=== PATIENT | female | born 1960 | race Caucasian/White ===

== ENCOUNTER 2019-10-28 12:15 | Outpatient (RCR) | payer MEDICARE, MEDICAID, SELFPAY ==
--- NOTE | 2019-10-14 10:50 | ONC CON_ITS ---
Dr. Hill New Patient Note Patient: Remedios Cary Unit #: [id number]: 1960 Dicatated By: Puneet Hill M.D.Date of Visit: Oct 11, 2019 Onc MED New Patient/Consult Referring Physician: Kami Castillo Chief Complaint: Breast cancer. History of Present Illness: This is a 58 year-old woman who is currently undergoing adjuvant chemotherapy for grade 3 infiltrating ductal carcinoma of the right breast, stage IA, ER/ CA negative and HER-2/jennifer positive. She has previously had treatment for HER-2/jennifer positive left breast cancer, and she is known to harbor a BRCA2 mutation. 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 She underwent left mastectomy/axillary lymph node samplingand breast reconstruction on 08/10/2010. Her disease was stage IIA (T2, N0, M0) with pathology showing 2.5 cm primary tumor and no involvement of 4 lymph nodes. She was given adjuvant chemotherapy with TCH, completed in December 2010. She completed a full year of Herceptin, and she also was given adjuvant hormonal therapy for a total of 8 years, initially with tamoxifen but with transition to Femara as of September 2014. On 04/08/2019 she was confirmed by needle biopsy to have grade 3 invasive ductal carcinoma of the right breast. The best prognostic profile showed ER and CA negative, both 0%. HER-2/jennifer was 2+ by IHC but positive by FISH with 10.9 HER-2/jennifer signals per cell and 2.2 CEP17 signals per cell. The Ki-67 was unfavorable at 35%. She underwent right total mastectomy with axillary sentinel lymph node biopsy and with immediate reconstruction on 06/12/2019. Pathology showed grade 3 invasive ductal carcinoma measuring 1.8 x 1.6 x 1.2 cm. There was no involvement in 2 sentinel lymph nodes. In the meantime, she also had undergone BRCA testing and she was confirmed to harbor a BRCA2 mutation. Her staging PET/CT on 07/17/2019 showed no evidence for active malignancy. Her echocardiogram showed normal left ventricular systolic function with ejection fraction estimated at 60-65%. She has been undergoing adjuvant chemotherapy with TCH, cycle 1 beginning 07/24/2019. During her treatment, she required removal of the tissue nib finisher in the right chest due to cellulitis. With her 4th cycle of chemotherapy, on 09/23/2019, she experienced an anaphylactic reaction to the carboplatin. She was rechallenged one week later with similar results. As yet she has not received any further chemotherapy. She asked to be seen here because she is unsure if she wants to continue any further chemotherapy. She has been advised to complete 2 more cycles of treatment with Taxotere/Herceptin. She complains that her energy is very low. She is really tired, and she says that all she wants to do is sleep. She is having to use a walker to ambulate. Her ECOG score is 2. Her appetite is terrible, but her weight is stable. She was having fever, but that has resolved. She has episodes of sweating both during the daytime and at night. She had sore mouth, that is getting better. She has shortness of breath. She is on BiPAP for obstructive sleep apnea. She does not complain of cough. She has been having sharp, tightening pain in her chest when she is to active. She has had nausea with the chemotherapy. Her acid reflux is adequately managed with medication. She has been having diarrhea for the past week, up to 5-6 stools per day. She thinks it is starting to get better now. Her urine is dark, but not bloody. She has joint pain, especially in her left wrist and knees. She also has back pain. She has weakness in her legs, and she has numbness/tingling in her feet. The numbness has been getting worse compared to her baseline, as she has had some residual neuropathy following her initial course of TCH chemotherapy. Past Medical History: Her medical history includes depression, gastroesophageal reflux disease, hypertension,and obstructive sleep apnea. She also has neuropathy secondary to chemotherapy, and she has osteopenia with dexa scan in March 2018 showing T score -1.8 in the lumbar spine and -1.9 in the left femoral neck. Past Surgical History: She underwent needle biopsy of the right breast on 04/08/2019 and right total mastectomy with axillary sentinel lymph node biopsy and with immediate reconstruction on 06/12/2019. She underwent removal of right chest wall tissue nib finisher on 08/21/2019. She underwent left total mastectomy with axillary lymph node sampling and with breast reconstruction in August 2010. Her other surgeries include ORIF for left wrist fracture in 2017 and a previous tubal ligation. Medications: Albuterol Sulfate 1 ((2.5 mg/3ml) 0.083%) Nebulization solution Inhalation q 6 hours PRN, Alendronate Sodium 1 Tablet (of 70 mg) Oral daily, Allopurinol 1 Tablet (of 300 mg) Oral daily, Benadryl Allergy 1 Tablet (of 25 mg) Capsule Oral PRN, Calcium + D 1 Tablet Oral daily, Claritin 1 Capsule (of 10 mg) Oral daily, Dexamethasone (4 mg) Tablet Oral Take as Directed, DULoxetine HCl 1 Capsule (of 30 mg) Capsule Delayed Release Particles Oral b.i.d., Gabapentin 1 Tablet (of 800 mg) Oral t.i.d., hydrOXYzine HCl 1 Tablet (of 25 mg) Oral t.i.d. PRN, Lidocaine-rulox waldryl 5 mL Solution Topical four times a day, Methocarbamol 1 Tablet (of 500 mg) Oral q 8 hours PRN, Multivitamins 1 Tablet Tablet, chewable Oral daily, Nystatin 5 mL (of 943949 Units/mL) Suspension Mouth/throat four times a day, Omeprazole 1 Capsule (of 40 mg) Capsule Delayed Release Oral daily, Ondansetron HCl 1 Tablet (of 8 mg) Oral q 8 hours PRN, Prochlorperazine Maleate 1 Tablet (of 10 mg) Oral q 6 hours PRN, Zonisamide 1 Capsule (of 100 mg) Oral at bedtime Allergies: CARBOplatin, Ibuprofen, and Penicillins. Social History: Ms. Cary is single and she is a disabled. She has a history of smoking up to 3 packs of cigarettes daily for about 15 years, but she then quit for a period of at least 15 years or more. She then smoked again for about a year, 1/2 pack per day. She quit 8 months ago. She does not drink alcohol. Family History: Father with colon cancer at age 47. Mother is still living at age 74. She has dementia. A brother with alcohol related heart disease. Another brother has known coronary artery disease. A sister in a motor vehicle accident. Her maternal grandmother with cancer, apparently of unknown primary site. Review Of Symptoms: Constitutional - Her energy is very low. She complains that she is really tired and that all she wants to do is sleep. Her appetite is terrible, but her weight is stable. She was having fever, but that has resolved. She has sweating both during the daytime and at night. ECOG score is 2, Eyes - She complains that her vision is blurry, ENMT - No hearing loss or tinnitus. She has sinus congestion/drainage. Her mouth was sore, but it is getting better. No sore throat or difficulty swallowing, Hematologic/Lymphatic - No abnormal bruising or bleeding, Respiratory - She has shortness of breath. She is on BiPAP at home. She does not plane of cough. No pleuritic pain or hemoptysis, Cardiovascular - She has sharp, tightening pain in her chest when she is to active. No palpitations, Gastrointestinal - She has nausea with the chemotherapy. Her acid reflux is managed adequately. She has been having diarrhea. No blood in the stool or black stools, Genitourinary (F) - Her urine has been dark, but not bloody. No dysuria and no urinary frequency. No urgency or incontinence, Musculoskeletal - She has joint pain, especially in the left wrisit and knees. She also has back pain, Integumentary - No skin rash, Neurologic - No headache. She has dizziness. She has numbness/tingling in her feet, Psychiatric - She has anxiety and depression. She is having difficulty sleeping at night. Vital Signs: Performed on Oct 11, 2019 08:46: 3, 40.16 (HIGH), 2.19 sq.m, 66.00 in, 99 %, 82 /min, 22 /min, 137/84 mm(hg), 97.3 F (LOW), and 248.8 lbs (HIGH). Physical Examination: Constitutional - She appears generally weak, but not acutely ill, Eyes - Sclerae nonicteric. Conjunctivae clear, ENMT - No lesions noted in the oral cavity, Neck - No mass or thyromegaly, Hematologic/Lymphatic - No cervical or clavicular adenopathy, Respiratory - Lungs are clear with good air movement bilaterally, Cardiovascular - Heart rhythm is regular. There is no murmur, gallop, or rub noted, Breasts - The right chest wall shows a small open area in the medial aspect of the mastectomy incision. It otherwise appears well-healed. There are no chest wall lesions noted and there appears to be no evidence of cellulitis. There are no lesions noted in the left chest wall/reconstruction. There is no axillary adenopathy noted, Abdomen - Soft. Liver and spleen are not enlarged. There is no abdominal mass or ascites noted and there is no inguinal adenopathy, Back/Spine - No spine or CVA tenderness noted, Extremities - No edema. Pedal pulses are palpable bilaterally, Integumentary - No rashes. No suspicious skin lesions noted, Neurologic - No focal neurologic deficits noted. Impression: 1. Patient with grade 3 invasive ductal carcinoma of the right breast, stage IA ( T1c, N0, M0), ER/CA negative and HER-2/jennifer positive. 2. She underwent right total mastectomy with axillary sentinel lymph node biopsy and with immediate reconstruction on 06/12/2019. 3. She has been undergoing adjuvant chemotherapy with TCH. She has completed 3 1/2 cycles, having experienced an anaphylactic reaction to carboplatin with cycle 4 on 09/23/2019. 4. She had the right chest wall tissue nib finisher removed 08/21/2019 due to cellulitis. She still has a small open area in the medial aspect of the right mastectomy incision. 5. In August 2010 she underwent left mastectomy/axillary lymph node sampling for grade 3 invasive ductal carcinoma of the left breast, stage IIA (T2, N0, M0), ER/CA positive and HER-2/jennifer positive. She received adjuvant chemotherapy with TCH and adjuvant hormonal therapy. 6. She was found to harbor a BRCA2 mutation. Her other medical illnesses include: 7. Hypertension. 8. GERD. 9. Obstructive sleep apnea. 10. Osteopenia. 11. Anxiety/depression. Plan: I had a lengthy discussion with the patient regarding her further management. She has completed 31/2 cycles of adjuvant TCH. Her 4th cycle was interrupted due to an an anaphylactic reaction to carboplatin. In addition to that issue, she also appears to be having significant neuropathy associated with the chemotherapy, and she has very marginal performance status. We discussed the fact that ideally she should receive 2 more cycles of chemotherapy, as there is significant risk for this form of breast cancer to recur. However, if she is not showing some improvement in her symptoms, I personally would be reluctant to take the risk of worsening her neuropathy with additional chemotherapy, as it potentially can be permanent. Ultimately, they are agreeable to taking one more week off treatment, and if her symptoms are improving, she will then proceed with her 5th cycle of chemotherapy, limited to Taxotere and Herceptin. If symptoms aren't improving, she will then just continue treatment with Herceptin alone. Signed By: Puneet Hill M.D. <<Signature on File>>
[2019-10-21 09:41] LABS: Hemoglobin 12.4 g/dL (11.5-15.3); Lymphocytes # 1.4 10^3/uL (0.8-4.8); Lymphocytes % 15.1 %; Mean Corpuscular HGB Conc 33.5 g/dL (30.0-36.0); Mean Corpuscular Hemoglobin 32.4 pg (28.0-34.0); Mean Corpuscular Volume 96.6 fL (81-99); Mean Platelet Volume 10.7 fL (7.4-10.4); Monocytes # 0.3 10^3/uL (0.2-0.9); Monocytes % 3.2 %; Neutrophils # 7.5 10^3/uL (1.8-7.7); Neutrophils % 81.3 %; Nucleated Red Blood Cells % 0 %; Platelet Count 300 10^3/cmm (130-400); Red Blood Count 3.83 10^6/uL (4.1-5.3); Red Cell Distribution Width 15.9 % (12.1-15.1); White Blood Count 9.3 10^3/uL (4.0-10.0)
[2019-10-21 09:49] LABS: Alanine Aminotransferase 15 U/L (0-33); Albumin Level 4.3 g/dL (3.5-5.2); Alkaline Phosphatase 86 IU/L (35-105); Anion Gap 18.6 (5-19); Aspartate Amino Transferase 17 U/L (0-32); Blood Urea Nitrogen 14 mg/dL (6-20); Calcium 9.4 mg/Dl (8.6-10.0); Carbon Dioxide 20 mmol/L (22-29); Chloride 104 mmol/L (98-107); Globulin 2.9 g/dL (1.3-4.6); Glomerular Filtration Rate 74.2 mL/min (90-130); Glucose 241 mg/dL (74-109); Potassium 3.6 mmol/L (3.5-5.1); Sodium 139 mmol/L (136-145); Total Bilirubin 0.3 mg/dL (0.15-1.2); Total Protein 7.2 g/dL (6.6-8.7)
[2019-10-21] MEDS: acetaminophen 325 mg Tablet 650 MG PO (10:25)
[2019-10-21] MEDS: sodium chloride 0.9% 250 ML IV (10:33)
[2019-10-21] MEDS: pegfilgrastim 6 mg/0.6 mL Kit (onpro) SUBCUT (15:47)
[2019-10-28 15:38] LABS: Basophils # 0.1 10^3/uL (0.0-0.1); Basophils % 0.7 %; Eosinophils # 0.2 10^3/uL (0.0-0.8); Eosinophils % 3.4 %; Hematocrit 37.2 % (37.0-47.0); Hemoglobin 12.2 g/dL (11.5-15.3); Lymphocytes # 2.3 10^3/uL (0.8-4.8); Lymphocytes % 32.8 %; Mean Corpuscular HGB Conc 32.8 g/dL (30.0-36.0); Mean Corpuscular Hemoglobin 32.8 pg (28.0-34.0); Mean Platelet Volume 11.6 fL (7.4-10.4); Monocytes # 0.7 10^3/uL (0.2-0.9); Monocytes % 10.2 %; Neutrophils # 3.6 10^3/uL (1.8-7.7); Neutrophils % 51.9 %; Nucleated Red Blood Cells % 0 %; Platelet Count 212 10^3/cmm (130-400); Red Blood Count 3.72 10^6/uL (4.1-5.3); Red Cell Distribution Width 14.7 % (12.1-15.1); White Blood Count 6.9 10^3/uL (4.0-10.0)
== END 2019-11-01 23:59 | disposition home or self-care (01) ==
LOC: ONCMED 12:15
PROVIDERS: Family Provider Nurse Practitioner Family; PCP Nurse Practitioner Family; Referring Provider Nurse Practitioner Family; Visit Provider Internal Medicine Medical Oncology
DX: Z51.11 Encounter for antineoplastic chemotherapy (principal); C50.511 Malignant neoplasm of lower-outer quadrant of right female breast; D70.1 Agranulocytosis secondary to cancer chemotherapy; T45.1X5A Adverse effect of antineoplastic and immunosuppressive drugs, initial encounter; T88.6XXD Anaphylactic reaction due to adverse effect of correct drug or medicament properly administered, subsequent encounter; T45.1X5D Adverse effect of antineoplastic and immunosuppressive drugs, subsequent encounter; Y84.8 Other medical procedures as the cause of abnormal reaction of the patient, or of later complication, without mention of misadventure at the time of the procedure; Y80.1 Therapeutic (nonsurgical) and rehabilitative physical medicine devices associated with adverse incidents; G47.33 Obstructive sleep apnea (adult) (pediatric); G62.0 Drug-induced polyneuropathy; F41.8 Other specified anxiety disorders; K21.9 Gastro-esophageal reflux disease without esophagitis; I10 Essential (primary) hypertension; M85.80 Other specified disorders of bone density and structure, unspecified site; Z17.1 Estrogen receptor negative status [ER-]; Z87.891 Personal history of nicotine dependence; Z85.3 Personal history of malignant neoplasm of breast; Z90.13 Acquired absence of bilateral breasts and nipples; Z92.23 Personal history of estrogen therapy
CPT/HCPCS: 80053; 85025; 96367; 96372; 96413; 96415; 96417; 99205; J1100; J1200; J1453; J2469; J2505; J3490; J7030; J7050; J9267

== ENCOUNTER 2019-11-11 05:38 | Outpatient (RCR) | payer MEDICARE, MEDICAID, SELFPAY ==
[2019-11-04 14:54] LABS: Basophils # 0.1 10^3/uL (0.0-0.1); Basophils % 1.6 %; Eosinophils # 0.1 10^3/uL (0.0-0.8); Eosinophils % 1.3 %; Hematocrit 38.4 % (37.0-47.0); Hemoglobin 12.5 g/dL (11.5-15.3); Lymphocytes # 1.5 10^3/uL (0.8-4.8); Lymphocytes % 33.1 %; Mean Corpuscular HGB Conc 32.6 g/dL (30.0-36.0); Mean Corpuscular Hemoglobin 32.4 pg (28.0-34.0); Mean Corpuscular Volume 99.5 fL (81-99); Mean Platelet Volume 11.4 fL (7.4-10.4); Monocytes # 0.4 10^3/uL (0.2-0.9); Monocytes % 8.1 %; Neutrophils # 2.5 10^3/uL (1.8-7.7); Neutrophils % 55.2 %; Nucleated Red Blood Cells % 0 %; Platelet Count 166 10^3/cmm (130-400); Red Blood Count 3.86 10^6/uL (4.1-5.3); Red Cell Distribution Width 14.3 % (12.1-15.1); White Blood Count 4.5 10^3/uL (4.0-10.0)
[2019-11-04 15:13] LABS: Alanine Aminotransferase 30 U/L (0-33); Albumin Level 3.5 g/dL (3.5-5.2); Alkaline Phosphatase 84 IU/L (35-105); Anion Gap 15.7 (5-19); Aspartate Amino Transferase 25 U/L (0-32); Blood Urea Nitrogen 11 mg/dL (6-20); Calcium 9.6 mg/dL (8.5-10.5); Carbon Dioxide 21 mmol/L (22-29); Chloride 107 mmol/L (98-107); Globulin 2.5 g/dL (1.3-4.6); Glomerular Filtration Rate 57.4 mL/min (90-130); Glucose 230 mg/dL (74-109); Potassium 3.7 mmol/L (3.5-5.1); Sodium 140 mmol/L (136-145); Total Bilirubin 0.3 mg/dL (0.15-1.2)
[2019-11-11] MEDS: alteplase 1 mg/mL SDV 2 mL 2 MG IV (09:38)
[2019-11-11 10:23] LABS: Basophils % 0.1 %; Hematocrit 36.8 % (37.0-47.0); Hemoglobin 12.6 g/dL (11.5-15.3); Lymphocytes # 1.6 10^3/uL (0.8-4.8); Lymphocytes % 14.2 %; Mean Corpuscular HGB Conc 34.2 g/dL (30.0-36.0); Mean Corpuscular Hemoglobin 32.6 pg (28.0-34.0); Mean Corpuscular Volume 95.1 fL (81-99); Mean Platelet Volume 10.9 fL (7.4-10.4); Monocytes # 0.3 10^3/uL (0.2-0.9); Monocytes % 2.4 %; Neutrophils % 82.3 %; Nucleated Red Blood Cells % 0 %; Platelet Count 267 10^3/cmm (130-400); Red Blood Count 3.87 10^6/uL (4.1-5.3); Red Cell Distribution Width 13.6 % (12.1-15.1)
[2019-11-11 10:46] LABS: Alanine Aminotransferase 48 U/L (0-33); Albumin Level 3.8 g/dL (3.5-5.2); Alkaline Phosphatase 87 IU/L (35-105); Aspartate Amino Transferase 38 U/L (0-32); Blood Urea Nitrogen 15 mg/dL (6-20); Calcium 9.5 mg/dL (8.5-10.5); Carbon Dioxide 19 mmol/L (22-29); Chloride 100 mmol/L (98-107); Globulin 2.5 g/dL (1.3-4.6); Glomerular Filtration Rate 64.8 mL/min (90-130); Glucose 345 mg/dL (65-115); Sodium 137 mmol/L (136-145); Total Bilirubin 0.2 mg/dL (0.15-1.2); Total Protein 6.3 g/dL (6.6-8.7)
[2019-11-11] MEDS: acetaminophen 325 mg Tablet 650 MG PO (11:50)
[2019-11-11] MEDS: diphenhydrAMINE 25 mg Capsule PO (11:50)
[2019-11-11] MEDS: sodium chloride 0.9% 250 ML IV (12:02)
--- NOTE | 2019-11-12 09:33 | ONC FU_ITS ---
[facility] Patient Note Patient: Remedios Cary Unit #: [id number]: 1960 Dictated By: Kami RichardsonDate of Visit: Nov 11, 2019 Onc MED Follow-Up/Prog Note Chief Complaint: Breast cancer. 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 She has previously had treatment for HER-2/jennifer positive left breast cancer, and she is known to harbor a BRCA2 mutation. 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 She underwent left mastectomy/axillary lymph node sampling and breast reconstruction on 08/10/2010. Her disease was stage IIA (T2, N0, M0) with pathology showing 2.5 cm primary tumor and no involvement of 4 lymph nodes. She was given adjuvant chemotherapy with TCH, completed in December 2010. She completed a full year of Herceptin, and she also was given adjuvant hormonal therapy for a total of 8 years, initially with tamoxifen but with transition to Femara as of September 2014. On 04/08/2019 she was confirmed by needle biopsy to have grade 3 invasive ductal carcinoma of the right breast. The best prognostic profile showed ER and MA negative, both 0%. HER-2/jennifer was 2+ by IHC but positive by FISH with 10.9 HER-2/jennifer signals per cell and 2.2 CEP17 signals per cell. The Ki-67 was unfavorable at 35%. She underwent right total mastectomy with axillary sentinel lymph node biopsy and with immediate reconstruction on 06/12/2019. Pathology showed grade 3 invasive ductal carcinoma measuring 1.8 x 1.6 x 1.2 cm. There was no involvement in 2 sentinel lymph nodes. In the meantime, she also had undergone BRCA testing and she was confirmed to harbor a BRCA2 mutation. Her staging PET/CT on 07/17/2019 showed no evidence for active malignancy. Her echocardiogram showed normal left ventricular systolic function with ejection fraction estimated at 60-65%. She has been undergoing adjuvant chemotherapy with TCH, cycle 1 beginning 07/24/2019. 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 With her 4th cycle of chemotherapy, on 09/23/2019, she experienced an anaphylactic reaction to the carboplatin. She was rechallenged one week later with similar results. As yet she has not received any further chemotherapy. She is here today for consideration of 2 more cycles of treatment with Taxotere and Herceptin. She was delayed last week due to persistent neuropathy in marginal performance status. She states overall her energy is better but the neuropathy seems to be even slightly worse. She states it is no better at all. She is able to walk somewhat better but is still using the walker for reassurance. Her sleeping is better. She states that she is up more during the day. She denies any further chest pain. She has had no nausea this week. She denies any heartburn. She states the diarrhea has also resolved and her urine has cleared up. She states the neuropathy is slightly worse in her hands and feet. She denies any further weakness in her legs. She denies any fever or chills. She has had no evidence of recurrent cellulitis in the chest wall. She does have a open area on the incision line on the right breast that is not currently draining. She states once in a while it will drain a little clearish fluid but has not been super active. Her white count is elevated at 11 today but she did receive Neulasta on October 21 and has no obvious signs of infection at this time. Her ECOG is 1 today. Past Medical History: Depression Gastroesophageal reflux disease History of left breast cancer Hypertension Neuropathy secondary to chemotherapy Obstructive sleep apnea Osteopenia Postmenopausal Past Surgical History: Tubal ligation Removal of right chest wall tissue classifying machine operator in 2019 Right total mastectomy/axillary sentinel lymph node biopsy and immediate reconstruction in 2019 Needle biopsy of the right breast in 2019 ORIF for left wrist fracture in 2018 Left total mastectomy/axillary lymph node sampling and breast reconstruction in 2009 Allergies: CARBOplatin, Ibuprofen, and Penicillins. Medications: Albuterol Sulfate 1 ((2.5 mg/3ml) 0.083%) Nebulization solution Inhalation q 6 hours PRN Alendronate Sodium 1 Tablet (of 70 mg) Oral daily Allopurinol 1 Tablet (of 300 mg) Oral daily Benadryl Allergy 1 Tablet (of 25 mg) Capsule Oral PRN Calcium + D 1 Tablet Oral daily Claritin 1 Capsule (of 10 mg) Oral daily Dexamethasone (4 mg) Tablet Oral Take as Directed DULoxetine HCl 1 Capsule (of 30 mg) Capsule Delayed Release Particles Oral b.i.d. Gabapentin 1 Tablet (of 800 mg) Oral t.i.d. hydrOXYzine HCl 1 Tablet (of 25 mg) Oral t.i.d. PRN Lidocaine-rulox waldryl 5 mL Solution Topical four times a day Magic Mouthwash 1 tablespoonful(s) Suspension four times a day PRN Methocarbamol 1 Tablet (of 500 mg) Oral q 8 hours PRN Multivitamins 1 Tablet Tablet, chewable Oral daily Nystatin 5 mL (of 906264 Units/mL) Suspension Mouth/throat four times a day Omeprazole 1 Capsule (of 40 mg) Capsule Delayed Release Oral daily Ondansetron HCl 1 Tablet (of 8 mg) Oral q 8 hours PRN Prochlorperazine Maleate 1 Tablet (of 10 mg) Oral q 6 hours PRN Zonisamide 1 Capsule (of 100 mg) Oral at bedtime Family History: Ms. Cary's mother is alive: dementia. Ms. Cary's father at age 47: colon cancer. Father with colon cancer at age 47. Mother is still living at age 74. She has dementia. A brother with alcohol related heart disease. Another brother has known coronary artery disease. A sister in a motor vehicle accident. Her maternal grandmother with cancer, apparently of unknown primary site. Social History: Ms. Cary is single and she is a disabled. Ms. Cary quit smoking less than one year ago but had smoked for 15 years. She is a former drinker. Ms. Cary reports the following support systems: lives with spouse, significant other, family, or friends, lives in own house, supportive family/friends willing to assist with needs, and adequate transportation available for expected visits. Her diet consists of regular meals. She indicates her activity level as: sedentary. She has a history of smoking up to 3 packs of cigarettes daily for about 15 years, but she then quit for a period of at least 15 years or more. She then smoked again for about a year, 1/2 pack per day. She quit 8 months ago. She does not drink alcohol. Review Of Symptoms: Constitutional Denies fevers, chills, night sweats, excessive fatigue or weight loss. Allergic/Immunologic No reactions. Eyes Denies significant visual changes. No diplopia. No amaurosis. ENMT Denies changes in hearing, sore throat, mouth sores, difficulty or changes in swallowing ability, and/or sinus drainage. Endocrine No diabetes, thyroid disease or hormone replacement. Denies hot flashes or night sweats. Hematologic/Lymphatic Denies easy bruising or bleeding. The patient denies any tender or palpable lymph nodes. Breasts has a small opening on the right chest wall from incision. It is not actively draining at this time. It is not warm or red. She states she has some swelling around the incision as well . Respiratory Denies dyspnea on exertion, chest pain, cough or hemoptysis. Denies orthopnea. Cardiovascular Denies anginal chest pain, palpitations or orthopnea. Gastrointestinal Denies nausea, vomiting, diarrhea, GI bleeding, or constipation. Denies change in bowel habits and/or stool color, no heartburn or early satiety. Genitourinary (F) No hematuria, hesitancy, incontinence, vaginal bleeding, discharge or other problems with urination. Musculoskeletal Denies joint pain, swelling or redness. No decreased range of motion. Integumentary Denies chronic rashes, inflammation, ulcerations or skin changes. Neurologic Denies headache, blurred vision, and no areas of focal weakness or numbness. Normal gait. No sensory problems. Psychiatric Denies insomnia, depression, jennifer or mood swings. Vital Signs: Performed on Nov 11, 2019 10:32 Height - 66.00 in Weight - 248.8 lbs BSA - 2.19 sq.m BMI - 40.16 (HIGH) Temperature - 98.2 F (LOW) Pulse - 106 /min (HIGH) Respiration - 20 /min BP - 130/84 mm(hg) O2 Sat - 93 % (LOW) Pain - 6,1 - No physically strenuous activity, but ambulatory and able to carry out light or sedentary work (e.g. office work, light house work). (ECOG) Physical Examination: Constitutional Alert, oriented, no acute distress. Skin pink, warm and dry. Alopecia. Head Normocephalic; atraumatic. Eyes Conjunctivae and sclerae are clear and without icterus. Pupils are reactive and equal. Neck Supple without masses or thyromegaly. No jugular venous distension. Hematologic/Lymphatic No petechiae or purpura. No tender or palpable lymph nodes in the cervical or supraclavicular areas. Respiratory Lungs are clear to auscultation without rhonchi or wheezing. Cardiovascular Regular rate and rhythm of heart without murmurs,clicks, gallops or rubs. Breasts Right chest wall has a 4 mm opening that is not actively draining. The incision itself is not red or warm. There is mild seroma noted along the incision toward the chest center and also in the right axillary area. There is no appearance or signs of infection at this time. Abdomen Non-tender, non-distended, no masses or ascites. Good bowel sounds noted in all quads. No guarding or rebound tenderness. No pulsatile masses. Back/Spine Non-tender to palpation. Extremities No visible deformities, no cyanosis, clubbing or edema. Musculoskeletal No tenderness or swelling, normal range of motion without obvious weakness. Integumentary No rashes or lesions. Neurologic No sensory or motor deficits, normal cerebellar function, normal gait. Psychiatric Alert and oriented times three. Coherent speech. Verbalizes understanding of our discussions today. Laboratory:Test performed on Nov 11, 2019 10:00 Sodium 137 mmol/L Potassium 4.0 mmol/L Chloride 100 mmol/L CO2 19 mmol/L Anion Gap 22.0 BUN 15 mg/dL Creatinine 0.9 mg/dL Cr Clearance (Est) 124.3500 mL/min eGFR 64.8 mL/min Glucose 345 mg/dL Calcium 9.5 mg/dL Protein, Total 6.3 g/dL Albumin 3.8 g/dL Globulin 2.5 g/dL Bilirubin, Total 0.2 mg/dL ALT (SGPT) 48 U/L AST (SGOT) 38 U/L Alkaline Phosphatase 87 IU/L WBC 11.0 10 3/uL RBC 3.87 10 6/uL HGB 12.6 g/dL HCT 36.8 % MCV 95.1 fL MCH 32.6 pg MCHC 34.2 g/dL RDW 13.6 % Platelet Count 267 10 3/cmm MPV 10.9 fL Neutrophils 9.0 10 3/uL Lymphocytes 1.6 10 3/uL Monocytes 0.3 10 3/uL Eosinophils 0.0 10 3/uL Basophils 0.0 10 3/uL Neutrophil % 82.3 % Lymphocyte % 14.2 % Monocyte % 2.4 % Eosinophil % 0.0 % Basophils % 0.1 % Impression: 1. Patient with grade 3 invasive ductal carcinoma of the right breast, stage IA ( T1c, N0, M0), ER/MA negative and HER-2/jennifer positive. 2. She underwent right total mastectomy with axillary sentinel lymph node biopsy and with immediate reconstruction on 06/12/2019. 3. She has been undergoing adjuvant chemotherapy with TCH. She has completed 3 1/2 cycles, having experienced an anaphylactic reaction to carboplatin with cycle 4 on 09/23/2019. 4. She had the right chest wall tissue classifying machine operator removed 08/21/2019 due to cellulitis. She still has a small open area in the medial aspect of the right mastectomy incision. 5. In August 2010 she underwent left mastectomy/axillary lymph node sampling for grade 3 invasive ductal carcinoma of the left breast, stage IIA (T2, N0, M0), ER/MA positive and HER-2/jennifer positive. She received adjuvant chemotherapy with TCH and adjuvant hormonal therapy. 6. She was found to harbor a BRCA2 mutation. Her other medical illnesses include: 7. Hypertension. 8. GERD. 9. Obstructive sleep apnea. 10. Osteopenia. 11. Anxiety/depression. Dr Hill had a lengthy discussion with the patient regarding her further management. She has completed 31/2 cycles of adjuvant TCH. Her 4th cycle was interrupted due to an an anaphylactic reaction to carboplatin. In addition to that issue, she also appeared to be having significant neuropathy associated with the chemotherapy, and she has very marginal performance status. He discussed the fact that ideally she should receive 2 more cycles of chemotherapy, as there is significant risk for this form of breast cancer to recur. However, if she is not showing some improvement in her symptoms, Dr Hill would be reluctant to take the risk of worsening her neuropathy with additional chemotherapy, as it potentially can be permanent. She was given an additional week off for recovery. Unfortunately her neuropathy have not improved. She is agreeable to pursue just single agent Herceptin at this time. Plan: 1. Proceed with Herceptin but increase from weekly dose to 3 week dosing. 2. Premed as per standard with Herceptin and prn for nausea. 3. Today's labs were reviewed in detail and discussed with Ms. Cary and her family. A copy was given to her. WBC was 11 hemoglobin 12.6 platelets 267,000 ANC is 9000 random glucose is 345 from steroid premeds this morning. Creatinine 0.9 LFTs show slight increase with ALT at 48 and AST at 38. Alk phos is normal at 87 albumin is normal at 3.8 and total bilirubin is 0.2. 4. We will look into the possibility of adding Perjeta for the remainder of Herceptin plan of care. She is early stage breast cancer at stage IA. She also has a prior history of stage IIa breast cancer in the LEFT breast for which she is had a left mastectomy/axillary node sampling. (She did receive adjuvant chemotherapy with THC and hormonal therapy at that time). She also does have BRCA2 mutation. She is considered high risk for recurrence and would benefit from the addition of the Perjeta. It would be weekly for the remainder of the Herceptin. The Herceptin is planned to be for a total of a year. She begin treatment with THC on 07/24/2019. She also be considered high risk as she was unable to complete all of the recommended chemotherapy with the right breast cancer due to anaphylaxis and severe peripheral neuropathy. 5. As her labs are normal today I have not ordered interim labs because she is not getting the chemotherapy. 6. We will plan to see her back in 3 weeks with CBC CMP and follow-up for consideration of Herceptin and hopefully added Perjeta at that time. 7. Mrs. Cary was instructed to contact us in the interim should questions or problems arise. Signed By: Kami Richardson-, [facility] Punete Hill MD <<Signature on File>>
== END 2019-11-30 23:59 | disposition home or self-care (01) ==
LOC: ONCMED 05:38
PROVIDERS: Internal Medicine Medical Oncology; Family Provider Nurse Practitioner Family; PCP Nurse Practitioner Family; Referring Provider Nurse Practitioner Family; Visit Provider Nurse Practitioner
DX: Z51.12 Encounter for antineoplastic immunotherapy (principal); C50.511 Malignant neoplasm of lower-outer quadrant of right female breast; T82.594A Other mechanical complication of infusion catheter, initial encounter; Y80.1 Therapeutic (nonsurgical) and rehabilitative physical medicine devices associated with adverse incidents; K21.9 Gastro-esophageal reflux disease without esophagitis; G47.33 Obstructive sleep apnea (adult) (pediatric); M85.80 Other specified disorders of bone density and structure, unspecified site; Z90.13 Acquired absence of bilateral breasts and nipples; F10.21 Alcohol dependence, in remission; I10 Essential (primary) hypertension; F41.8 Other specified anxiety disorders; Z85.3 Personal history of malignant neoplasm of breast; Z78.0 Asymptomatic menopausal state; Z79.899 Other long term (current) drug therapy; Z87.891 Personal history of nicotine dependence; Z92.21 Personal history of antineoplastic chemotherapy
CPT/HCPCS: 36593; 80053; 85025; 96375; 96413; 99214; J2997; J7050; J9355

== ENCOUNTER → 2019-11-28 10:20 | Outpatient (BNVA) | payer MEDICARE, MEDICAID, SELFPAY | PROVIDERS: Family Provider Nurse Practitioner Family; PCP Nurse Practitioner Family; Visit Provider Anesthesiology | DX: M99.83 Other biomechanical lesions of lumbar region (principal); M51.27 Other intervertebral disc displacement, lumbosacral region; M47.27 Other spondylosis with radiculopathy, lumbosacral region; Z79.891 Long term (current) use of opiate analgesic | CPT/HCPCS: 99214 ==

== ENCOUNTER 2019-12-23 05:43 | Outpatient (RCR) | payer MEDICARE, MEDICAID, SELFPAY ==
[2019-12-02 09:16] LABS: Basophils % 0.5 %; Eosinophils % 0.2 %; Hematocrit 37.2 % (37.0-47.0); Hemoglobin 12.6 g/dL (11.5-15.3); Lymphocytes # 2.1 10^3/uL (0.8-4.8); Lymphocytes % 36.1 %; Mean Corpuscular HGB Conc 33.9 g/dL (30.0-36.0); Mean Corpuscular Hemoglobin 30.4 pg (28.0-34.0); Mean Corpuscular Volume 89.6 fL (81-99); Mean Platelet Volume 10.5 fL (7.4-10.4); Monocytes # 0.5 10^3/uL (0.2-0.9); Neutrophils # 3.2 10^3/uL (1.8-7.7); Neutrophils % 54.9 %; Nucleated Red Blood Cells % 0 %; Platelet Count 289 10^3/cmm (130-400); Red Blood Count 4.15 10^6/uL (4.1-5.3); Red Cell Distribution Width 12.7 % (12.1-15.1); White Blood Count 5.7 10^3/uL (4.0-10.0)
[2019-12-02 09:43] LABS: Alanine Aminotransferase 25 U/L (0-33); Albumin Level 3.8 g/dL (3.5-5.2); Alkaline Phosphatase 76 IU/L (35-105); Anion Gap 13.5 (5-19); Aspartate Amino Transferase 25 U/L (0-32); Blood Urea Nitrogen 11 mg/dL (6-20); Calcium 9.2 mg/dL (8.5-10.5); Carbon Dioxide 22 mmol/L (22-29); Chloride 106 mmol/L (98-107); Globulin 3.1 g/dL (1.3-4.6); Glomerular Filtration Rate 64.8 mL/min (90-130); Glucose 210 mg/dL (65-115); Potassium 3.5 mmol/L (3.5-5.1); Sodium 138 mmol/L (136-145); Total Bilirubin 0.2 mg/dL (0.15-1.2); Total Protein 6.9 g/dL (6.6-8.7)
[2019-12-02] MEDS: sodium chloride 0.9% 250 ML 75 ML IV (10:40)
[2019-12-02] MEDS: acetaminophen 325 mg Tablet 650 MG PO (10:40)
--- NOTE | 2019-12-03 08:31 | ONC FU_ITS ---
Dr. Hill Patient Follow-Up Note Patient: Remedios Cary Unit #: [id number]: 1960 Dicatated By: Puneet Hill M.D.Date of Visit:Dec 02, 2019 Onc Med Follow-up/Prog Note Chief Complaint: Breast cancer. History of Present Illness: This is a 58 year-old woman who is currently undergoing adjuvant chemotherapy for grade 3 infiltrating ductal carcinoma of the right breast, stage IA, ER/ ME negative and HER-2/jennifer positive. She has previously had treatment for HER-2/jennifer positive left breast cancer, and she is known to harbor a BRCA2 mutation. In July 2010 she was diagnosed with grade 3 invasive ductal carcinoma of the left breast, ER/ME positive and HER-2/jennifer positive. She underwent left mastectomy/axillary lymph node samplingand breast reconstruction on 08/10/2010. Her disease was stage IIA (T2, N0, M0) with pathology showing 2.5 cm primary tumor and no involvement of 4 lymph nodes. She was given adjuvant chemotherapy with TCH, completed in December 2010. She completed a full year of Herceptin, and she also was given adjuvant hormonal therapy for a total of 8 years, initially with tamoxifen but with transition to Femara as of September 2014. On 04/08/2019 she was confirmed by needle biopsy to have grade 3 invasive ductal carcinoma of the right breast. The best prognostic profile showed ER and ME negative, both 0%. HER-2/jennifer was 2+ by IHC but positive by FISH with 10.9 HER-2/jennifer signals per cell and 2.2 CEP17 signals per cell. The Ki-67 was unfavorable at 35%. She underwent right total mastectomy with axillary sentinel lymph node biopsy and with immediate reconstruction on 06/12/2019. Pathology showed grade 3 invasive ductal carcinoma measuring 1.8 x 1.6 x 1.2 cm. There was no involvement in 2 sentinel lymph nodes. In the meantime, she also had undergone BRCA testing and she was confirmed to harbor a BRCA2 mutation. Her staging PET/CT on 07/17/2019 showed no evidence for active malignancy. Her echocardiogram showed normal left ventricular systolic function with ejection fraction estimated at 60-65%. She has been undergoing adjuvant chemotherapy with TCH, cycle 1 beginning 07/24/2019. During her treatment, she required removal of the tissue medical practice manager in the right chest due to cellulitis. With her 4th cycle of chemotherapy, on 09/23/2019, she experienced an anaphylactic reaction to the carboplatin. She was rechallenged one week later with similar results. I had seen her initially on 10/11/2019. At that time we discussed options for her further adjuvant therapy. Ultimately she decided to try and complete 2 more cycles of chemotherapy with docetaxel/Herceptin. Her other medical illnesses include hypertension, GERD, obstructive sleep apnea, osteopenia, and anxiety/depression. She has a history of smoking for 15 years, previously up to 3 packs of cigarettes daily. She had quit for 15 years, then started smoking again for about 1 year. She quit smoking again in March 2019. INTERIM HISTORY: On 10/21/2019 she proceeded with her 5th cycle of adjuvant chemotherapy, limited to docetaxel and Herceptin. She was seen for a follow-up visit on 11/11/2019. At that point her neuropathy had worsened again, and we opted not to attempt any further chemotherapy. She then began cycle 1 of single agent Herceptin at a 3-week dosing interval. She is seen for a scheduled visit. She has been feeling somewhat better as she has had further time to recover from chemotherapy. Her activity is still somewhat limited, but her energy is getting better. ECOG score is 2. She has good appetite. Last week she had diarrhea and vomiting, but it lasted for only 1 day. She did have some fever and sweating with that episode. Those symptoms have completely resolved. Her main complaint otherwise is that she is still having significant numbness/tingling in her hands and feet. She has fairly generalized joint pain. She sometimes has headache and she also reports having some dizziness. She has had occasional epistaxis. Medications: Albuterol Sulfate 1 ((2.5 mg/3ml) 0.083%) Nebulization solution Inhalation q 6 hours PRN, Alendronate Sodium 1 Tablet (of 70 mg) Oral daily, Allopurinol 1 Tablet (of 300 mg) Oral daily, Benadryl Allergy 1 Tablet (of 25 mg) Capsule Oral PRN, Calcium + D 1 Tablet Oral daily, Claritin 1 Capsule (of 10 mg) Oral daily, Dexamethasone (4 mg) Tablet Oral Take as Directed, DULoxetine HCl 1 Capsule (of 30 mg) Capsule Delayed Release Particles Oral b.i.d., Gabapentin 1 Tablet (of 800 mg) Oral t.i.d., hydrOXYzine HCl 1 Tablet (of 25 mg) Oral t.i.d. PRN, Lidocaine-rulox waldryl 5 mL Solution Topical four times a day, Magic Mouthwash 1 tablespoonful(s) Suspension four times a day PRN, Methocarbamol 1 Tablet (of 500 mg) Oral q 8 hours PRN, Multivitamins 1 Tablet Tablet, chewable Oral daily, Nystatin 5 mL (of 602257 Units/mL) Suspension Mouth/throat four times a day, Omeprazole 1 Capsule (of 40 mg) Capsule Delayed Release Oral daily, Ondansetron HCl 1 Tablet (of 8 mg) Oral q 8 hours PRN, Prochlorperazine Maleate 1 Tablet (of 10 mg) Oral q 6 hours PRN, Zonisamide 1 Capsule (of 100 mg) Oral at bedtime Allergies: CARBOplatin, Ibuprofen, and Penicillins. Review of Systems: Constitutional - Her energy is getting better. She is up and around at home. Her appetite is good and her weight is up a few pounds. She had fever and sweating last Monday. ECOG score is 2, ENMT - She has sinus congestion/drainage. No mouth sores. No sore throat or difficulty swallowing, Hematologic/Lymphatic - She has occasional nose bleeds, Respiratory - No shortness of breath. No cough. No pleuritic pain or hemoptysis, Cardiovascular - She had some chest pain/soreness last . No palpitations, Gastrointestinal - She had vomiting and diarrhea last Monday. Her symptoms have resolved. She has had quite a bit of heartburn and acid reflux lately. No blood in the stool or black stools, Genitourinary (F) - No dysuria or hematuria. No urinary frequency. No urgency or incontinence, Musculoskeletal - She has pain in her left wrist, lower back, knees and feet. She is using hot and cold compresses for the pain, Integumentary - No skin complications, Neurologic - She has occasional headaches. She has some dizziness. She has numbness and tingling in her hands and feet, Psychiatric - She has some anxiety and depression. No insomnia. Vital Signs: Performed on Dec 02, 2019 13:30 Height - 66.00 in Temperature - 97 F (LOW) Pulse - 94 /min Respiration - 18 /min BP - 106/68 mm(hg) O2 Sat - 96 % Pain - 0 Fatigue - 0 Performed on Dec 02, 2019 09:55 Height - 66.00 in Weight - 251.8 lbs (HIGH) BSA - 2.21 sq.m BMI - 40.64 (HIGH) Temperature - 98.7 F Pulse - 103 /min (HIGH) Respiration - 17 /min BP - 122/86 mm(hg) O2 Sat - 97 % Pain - 5 Physical Examination: Constitutional - She appears somewhat weak generally, but overall better, Eyes - Sclerae nonicteric. Conjunctivae clear, ENMT - There is some angular cheilitis. There are no lesions noted in the oral cavity, Hematologic/Lymphatic - No cervical, clavicular, or axillary adenopathy, Respiratory - Lungs are clear with good air movement bilaterally, Cardiovascular - Heart rhythm is regular. There is no murmur, gallop, or rub noted, Abdomen - Soft. Liver and spleen are not enlarged. There is no abdominal mass or ascites noted and there is no inguinal adenopathy, Extremities - No edema, Neurologic - No focal neurologic deficits noted. Lab/Imaging: Test performed on Dec 02, 2019 08:40 Sodium 138 mmol/L Potassium 3.5 mmol/L Chloride 106 mmol/L CO2 22 mmol/L Anion Gap 13.5 BUN 11 mg/dL Creatinine 0.9 mg/dL Cr Clearance (Est) 124.3500 mL/min eGFR 64.8 mL/min Glucose 210 mg/dL Calcium 9.2 mg/dL Protein, Total 6.9 g/dL Albumin 3.8 g/dL Globulin 3.1 g/dL Bilirubin, Total 0.2 mg/dL ALT (SGPT) 25 U/L AST (SGOT) 25 U/L Alkaline Phosphatase 76 IU/L WBC 5.7 10 3/uL RBC 4.15 10 6/uL HGB 12.6 g/dL HCT 37.2 % MCV 89.6 fL MCH 30.4 pg MCHC 33.9 g/dL RDW 12.7 % Platelet Count 289 10 3/cmm MPV 10.5 fL Neutrophils 3.2 10 3/uL Lymphocytes 2.1 10 3/uL Monocytes 0.5 10 3/uL Eosinophils 0.0 10 3/uL Basophils 0.0 10 3/uL Neutrophil % 54.9 % Lymphocyte % 36.1 % Monocyte % 8.0 % Eosinophil % 0.2 % Basophils % 0.5 % Impression: 1. Patient with grade 3 invasive ductal carcinoma of the right breast, stage IA ( T1c, N0, M0), ER/ME negative and HER-2/jennifer positive. 2. She underwent right total mastectomy with axillary sentinel lymph node biopsy and with immediate reconstruction on 06/12/2019. 3. She was given adjuvant chemotherapy with TCH. She completed 3 1/2 cycles, with her treatment having been interupted during cycle 4 on 09/23/2019 due to an anaphylactic reaction to carboplatin. 4. She had the right chest wall tissue medical practice manager removed 08/21/2019 due to cellulitis. She still has a small open area in the medial aspect of the right mastectomy incision. 5. In August 2010 she underwent left mastectomy/axillary lymph node sampling for grade 3 invasive ductal carcinoma of the left breast, stage IIA (T2, N0, M0), ER/ME positive and HER-2/jennifer positive. She received adjuvant chemotherapy with TCH and adjuvant hormonal therapy. 6. She was found to harbor a BRCA2 mutation. Her other medical illnesses include: 7. Hypertension. 8. GERD. 9. Obstructive sleep apnea. 10. Osteopenia. 11. Anxiety/depression. On 10/21/2019 she proceeded with cycle 5 of adjuvant chemotherapy, limited to docetaxel and Herceptin. As of her follow-up visit on 11/11/2019 she had reported worsening of her neuropathy, and we opted not to attempt any further chemotherapy. She then began cycle 1 of single agent Herceptin at the 3-week dosing schedule. She tolerated it well. At this point she is beginning to show some improvement in her performance status, though she continues to have significant peripheral neuropathy symptoms. Plan: She will continue with cycle 2 of single agent Herceptin. We also discussed the possibility of adding Perjeta with the most significant potential side effect being diarrhea. She is agreeable and it will now be administered together with the Herceptin. She returns in 3 weeks. Signed By: Puneet Hill M.D. <<Signature on File>>
[2019-12-23] MEDS: alteplase 1 mg/mL SDV 2 mL 2 MG IV (10:23)
[2019-12-23 11:22] LABS: Basophils % 0.7 %; Eosinophils % 0.4 %; Hematocrit 39.2 % (37.0-47.0); Hemoglobin 13.3 g/dL (11.5-15.3); Lymphocytes # 2.7 10^3/uL (0.8-4.8); Lymphocytes % 49.6 %; Mean Corpuscular HGB Conc 33.9 g/dL (30.0-36.0); Mean Corpuscular Volume 88.5 fL (81-99); Mean Platelet Volume 10.5 fL (7.4-10.4); Monocytes # 0.4 10^3/uL (0.2-0.9); Neutrophils # 2.2 10^3/uL (1.8-7.7); Neutrophils % 41.1 %; Nucleated Red Blood Cells % 0 %; Platelet Count 247 10^3/cmm (130-400); Red Blood Count 4.43 10^6/uL (4.1-5.3); White Blood Count 5.4 10^3/uL (4.0-10.0)
[2019-12-23 12:13] LABS: Alanine Aminotransferase 21 U/L (0-33); Albumin Level 3.8 g/dL (3.5-5.2); Alkaline Phosphatase 73 IU/L (35-105); Anion Gap 11.6 (5-19); Aspartate Amino Transferase 22 U/L (0-32); Blood Urea Nitrogen 13 mg/dL (6-20); Calcium 9.4 mg/dL (8.5-10.5); Carbon Dioxide 26 mmol/L (22-29); Chloride 105 mmol/L (98-107); Globulin 3.2 g/dL (1.3-4.6); Glomerular Filtration Rate 64.8 mL/min (90-130); Glucose 144 mg/dL (65-115); Osmolality Calculated 287 mOsm/kg (285-295); Potassium 3.6 mmol/L (3.5-5.1); Sodium 139 mmol/L (136-145); Total Bilirubin 0.2 mg/dL (0.15-1.2)
[2019-12-23] MEDS: acetaminophen 325 mg Tablet 650 MG PO (12:38)
[2019-12-23] MEDS: sodium chloride 0.9% 250 ML 75 ML IV (12:42)
--- NOTE | 2019-12-23 18:10 | ONC FU_ITS ---
Dr. Hill Patient Follow-Up Note Patient: Remedios Cary Unit #: [id number]: [id number] Dicatated By: Puneet Hill M.D.Date of Visit:Dec 23, 2019 Onc Med Follow-up/Prog Note Chief Complaint: Breast cancer. History of Present Illness: This is a 58 year-old woman with grade 3 infiltrating ductal carcinoma of the right breast, stage IA, ER/ SC negative and HER-2/jennifer positive. She previously had treatment for HER-2/jennifer positive left breast cancer, and she is known to harbor a BRCA2 mutation. In July 2010 she was diagnosed with grade 3 invasive ductal carcinoma of the left breast, ER/SC positive and HER-2/jennifer positive. She underwent left mastectomy/axillary lymph node samplingand breast reconstruction on 08/10/2010. Her disease was stage IIA (T2, N0, M0) with pathology showing 2.5 cm primary tumor and no involvement of 4 lymph nodes. She was given adjuvant chemotherapy with TCH, completed in December 2010. She completed a full year of Herceptin, and she also was given adjuvant hormonal therapy for a total of 8 years, initially with tamoxifen but with transition to Femara as of September 2014. On 04/08/2019 she was confirmed by needle biopsy to have grade 3 invasive ductal carcinoma of the right breast. The best prognostic profile showed ER and SC negative, both 0%. HER-2/jennifer was 2+ by IHC but positive by FISH with 10.9 HER-2/jennifer signals per cell and 2.2 CEP17 signals per cell. The Ki-67 was unfavorable at 35%. She underwent right total mastectomy with axillary sentinel lymph node biopsy and with immediate reconstruction on 06/12/2019. Pathology showed grade 3 invasive ductal carcinoma measuring 1.8 x 1.6 x 1.2 cm. There was no involvement in 2 sentinel lymph nodes. In the meantime, she also had undergone BRCA testing and she was confirmed to harbor a BRCA2 mutation. Her staging PET/CT on 07/17/2019 showed no evidence for active malignancy. Her echocardiogram showed normal left ventricular systolic function with ejection fraction estimated at 60-65%. She has been undergoing adjuvant chemotherapy with TCH, cycle 1 beginning 07/24/2019. During her treatment, she required removal of the tissue television tube inspector in the right chest due to cellulitis. With her 4th cycle of chemotherapy, on 09/23/2019, she experienced an anaphylactic reaction to the carboplatin. She was rechallenged one week later with similar results. I had seen her initially on 10/11/2019. At that time we discussed options for her further adjuvant therapy. Ultimately she decided to try and complete 2 more cycles of chemotherapy with docetaxel/Herceptin. Her other medical illnesses include hypertension, GERD, obstructive sleep apnea, osteopenia, and anxiety/depression. She has a history of smoking for 15 years, previously up to 3 packs of cigarettes daily. She had quit for 15 years, then started smoking again for about 1 year. She quit smoking again in March 2019. INTERIM HISTORY: On 10/21/2019 she proceeded with her 5th cycle of adjuvant chemotherapy, limited to docetaxel and Herceptin. She was seen for a follow-up visit on 11/11/2019. At that point her neuropathy had worsened again, and we opted not to attempt any further chemotherapy. She then began cycle 1 of single agent Herceptin at a 3-week dosing interval. She tolerated without significant toxicity. With her next scheduled treatment, on 12/02/2019, Perjeta was added to her adjuvant regimen. She is seen for a followup visit. She has been feeling a little better generally. She has had some improvement in her energy/activity tolerance. Her ECOG score is 1. She thinks her neuropathy also may be a little better. It definitely did not get worse with the addition of Perjeta. She did have some diarrhea, but she was able to manage it adequately with Imodium. Appetite is somewhat variable. Her weight is stable. She has not had fever or night sweats. She has occasional hot flashes. She has had no mouth sores, but she does report having some soreness in her nose and some epistaxis. She has no shortness of breath, cough, or chest pain. She says her stomach is been a little queasy. Her acid reflux has improved with medication. She has no complaints. She has pain in her back and in her legs and feet. She has had a little bit of headache and a little bit of dizziness. Medications: Albuterol Sulfate 1 ((2.5 mg/3ml) 0.083%) Nebulization solution Inhalation q 6 hours PRN, Alendronate Sodium 1 Tablet (of 70 mg) Oral daily, Allopurinol 1 Tablet (of 300 mg) Oral daily, Benadryl Allergy 1 Tablet (of 25 mg) Capsule Oral PRN, Calcium + D 1 Tablet Oral daily, Claritin 1 Capsule (of 10 mg) Oral daily, Dexamethasone (4 mg) Tablet Oral Take as Directed, DULoxetine HCl 1 Capsule (of 30 mg) Capsule Delayed Release Particles Oral b.i.d., Gabapentin 1 Tablet (of 800 mg) Oral t.i.d., hydrOXYzine HCl 1 Tablet (of 25 mg) Oral t.i.d. PRN, Lidocaine-rulox waldryl 5 mL Solution Topical four times a day, Methocarbamol 1 Tablet (of 500 mg) Oral q 8 hours PRN, Multivitamins 1 Tablet Tablet, chewable Oral daily, Nystatin 5 mL (of 898078 Units/mL) Suspension Mouth/throat four times a day, Omeprazole 1 Capsule (of 40 mg) Capsule Delayed Release Oral daily, Ondansetron HCl 1 Tablet (of 8 mg) Oral q 8 hours PRN, Prochlorperazine Maleate 1 Tablet (of 10 mg) Oral q 6 hours PRN, Zonisamide 1 Capsule (of 100 mg) Oral at bedtime Allergies: CARBOplatin, Ibuprofen, and Penicillins. Review of Systems: Constitutional - Her energy level is getting better. She is able to do some light housework and crafting. Her appetite is variable. Her weight is stable. No fever or chills. She has had some hot flashes. No night sweats. ECOG score is 1, ENMT - She has some sinus congestion/drainage. She has had sores in her nose with some epistaxis. No mouth sores. No sore throat or difficulty swallowing, Hematologic/Lymphatic - No other bleeding, Respiratory - No shortness of breath. No cough. No pleuritic pain or hemoptysis, Cardiovascular - No angina pain. No palpitations, Gastrointestinal - She has occasional nausea. No vomiting. Heartburn is well controlled with Protonix. She has had diarrhea following her last treatment, but she has been able to control it with Imodium. No blood in the stool or black stools, Genitourinary (F) - No dysuria or hematuria. No urinary frequency. No urgency or incontinence, Musculoskeletal - She is having arthritis pain in her knees, back, and feet, Integumentary - No skin complications, Neurologic - No headache or dizziness. She still has neuropathy in her hands and feet, but it isn't any worse, Psychiatric - No anxiety or depression. No insomnia. Vital Signs: Performed on Dec 23, 2019 11:36 Height - 66.00 in Weight - 249.2 lbs (LOW) BSA - 2.20 sq.m BMI - 40.22 (HIGH) Temperature - 97.8 F (LOW) Pulse - 74 /min Respiration - 22 /min BP - 139/81 mm(hg) O2 Sat - 98 % Pain - 3 Physical Examination: Constitutional - She looks better generally, Eyes - Sclerae nonicteric. Conjunctivae clear, ENMT - There are no lesions noted in the oral cavity. There are no nasal mucosal lesions noted, Hematologic/Lymphatic - No cervical, clavicular, or axillary adenopathy, Respiratory - Lungs are clear with good air movement bilaterally, Cardiovascular - Heart rhythm is regular. There is no murmur, gallop, or rub noted, Abdomen - Moderately distended but soft. Liver and spleen are not enlarged. There is no abdominal mass or ascites noted and there is no inguinal adenopathy, Extremities - No edema, Neurologic - No focal neurologic deficits noted. Lab/Imaging: Test performed on Dec 23, 2019 10:56 Sodium 139 mmol/L Potassium 3.6 mmol/L Chloride 105 mmol/L CO2 26 mmol/L Anion Gap 11.6 BUN 13 mg/dL Creatinine 0.9 mg/dL Cr Clearance (Est) 124.3500 mL/min eGFR 64.8 mL/min Glucose 144 mg/dL Calcium 9.4 mg/dL Protein, Total 7.0 g/dL Albumin 3.8 g/dL Globulin 3.2 g/dL Bilirubin, Total 0.2 mg/dL ALT (SGPT) 21 U/L AST (SGOT) 22 U/L Alkaline Phosphatase 73 IU/L WBC 5.4 10 3/uL RBC 4.43 10 6/uL HGB 13.3 g/dL HCT 39.2 % MCV 88.5 fL MCH 30.0 pg MCHC 33.9 g/dL RDW 13.0 % Platelet Count 247 10 3/cmm MPV 10.5 fL Neutrophils 2.2 10 3/uL Lymphocytes 2.7 10 3/uL Monocytes 0.4 10 3/uL Eosinophils 0.0 10 3/uL Basophils 0.0 10 3/uL Neutrophil % 41.1 % Lymphocyte % 49.6 % Monocyte % 8.0 % Eosinophil % 0.4 % Basophils % 0.7 % Impression: 1. Patient with grade 3 invasive ductal carcinoma of the right breast, stage IA ( T1c, N0, M0), ER/SC negative and HER-2/jennifer positive. 2. She underwent right total mastectomy with axillary sentinel lymph node biopsy and with immediate reconstruction on 06/12/2019. 3. She was given adjuvant chemotherapy with TCH. She completed 3 1/2 cycles, with her treatment having been interupted during cycle 4 on 09/23/2019 due to an anaphylactic reaction to carboplatin. 4. She had the right chest wall tissue television tube inspector removed 08/21/2019 due to cellulitis. She still has a small open area in the medial aspect of the right mastectomy incision. 5. In August 2010 she underwent left mastectomy/axillary lymph node sampling for grade 3 invasive ductal carcinoma of the left breast, stage IIA (T2, N0, M0), ER/SC positive and HER-2/jennifer positive. She received adjuvant chemotherapy with TCH and adjuvant hormonal therapy. 6. She was found to harbor a BRCA2 mutation. Her other medical illnesses include: 7. Hypertension. 8. GERD. 9. Obstructive sleep apnea. 10. Osteopenia. 11. Anxiety/depression. On 10/21/2019 she proceeded with cycle 5 of adjuvant chemotherapy, limited to docetaxel and Herceptin. As of her follow-up visit on 11/11/2019 she had reported worsening of her neuropathy, and we opted not to attempt any further chemotherapy. She then began cycle 1 of single agent Herceptin at the 3-week dosing schedule. She tolerated it well. At her scheduled treatment on 12/02/2019 Perjeta was added to her adjuvant regimen. She did have some diarrhea with that, which he was able to manage adequately with Imodium. She otherwise tolerated it well. In particular, she had no worsening of neuropathy. Plan: She will continue with cycle 2 of Herceptin/Perjeta. The dosages will remain the same. She will return for treatment in 3 weeks and for a follow-up visit in 6 weeks. Signed By: Puneet Hill M.D. <<Signature on File>>
== END 2019-12-31 23:59 | disposition home or self-care (01) ==
LOC: ONCMED 05:43
PROVIDERS: Family Provider Nurse Practitioner Family; PCP Nurse Practitioner Family; Referring Provider Nurse Practitioner Family; Visit Provider Internal Medicine Medical Oncology
DX: Z51.12 Encounter for antineoplastic immunotherapy (principal); C50.511 Malignant neoplasm of lower-outer quadrant of right female breast; Z17.1 Estrogen receptor negative status [ER-]; G62.0 Drug-induced polyneuropathy; T45.1X5A Adverse effect of antineoplastic and immunosuppressive drugs, initial encounter; T82.594A Other mechanical complication of infusion catheter, initial encounter; Y82.8 Other medical devices associated with adverse incidents; I10 Essential (primary) hypertension; K21.9 Gastro-esophageal reflux disease without esophagitis; G47.33 Obstructive sleep apnea (adult) (pediatric); F41.8 Other specified anxiety disorders; Z79.899 Other long term (current) drug therapy; Z79.51 Long term (current) use of inhaled steroids; Z85.3 Personal history of malignant neoplasm of breast; Z92.23 Personal history of estrogen therapy; Z87.891 Personal history of nicotine dependence; Z90.13 Acquired absence of bilateral breasts and nipples; M85.80 Other specified disorders of bone density and structure, unspecified site
CPT/HCPCS: 36593; 80053; 85025; 96367; 96375; 96413; 96417; 99214; J1200; J2997; J3490; J7040; J7050; J9306; J9355

== ENCOUNTER 2020-01-13 07:06 | Outpatient (RCR) | payer MEDICARE, MEDICAID, SELFPAY | END 2020-01-30 23:59 | disposition home or self-care (01) | LOC: ONCMED 07:06 | PROVIDERS: Family Provider Nurse Practitioner Family; PCP Nurse Practitioner Family; Referring Provider Nurse Practitioner Family; Visit Provider Internal Medicine Medical Oncology | DX: Z51.12 Encounter for antineoplastic immunotherapy (principal); C50.511 Malignant neoplasm of lower-outer quadrant of right female breast; Z17.1 Estrogen receptor negative status [ER-]; F32.9 Major depressive disorder, single episode, unspecified; K21.9 Gastro-esophageal reflux disease without esophagitis; I10 Essential (primary) hypertension; G47.33 Obstructive sleep apnea (adult) (pediatric); G62.9 Polyneuropathy, unspecified; Z78.0 Asymptomatic menopausal state; Z79.899 Other long term (current) drug therapy | CPT/HCPCS: 96367; 96413; 96417; J1200; J3490; J7050; J9306; J9355 ==

== ENCOUNTER 2020-02-05 06:58 | Outpatient (RCR) | payer MEDICARE, MEDICAID, SELFPAY ==
[2020-02-05 10:12] LABS: Basophils % 0.7 %; Eosinophils % 0.2 %; Hematocrit 41.1 % (37.0-47.0); Hemoglobin 13.8 g/dL (11.5-15.3); Lymphocytes # 2.5 10^3/uL (0.8-4.8); Lymphocytes % 42.3 %; Mean Corpuscular HGB Conc 33.6 g/dL (30.0-36.0); Mean Corpuscular Hemoglobin 29.4 pg (28.0-34.0); Mean Corpuscular Volume 87.4 fL (81-99); Mean Platelet Volume 9.9 fL (7.4-10.4); Monocytes # 0.5 10^3/uL (0.2-0.9); Monocytes % 8.3 %; Neutrophils # 2.9 10^3/uL (1.8-7.7); Neutrophils % 48.3 %; Nucleated Red Blood Cells % 0 %; Platelet Count 281 10^3/cmm (130-400)
[2020-02-05 10:39] LABS: Alanine Aminotransferase 17 U/L (0-33); Alkaline Phosphatase 88 IU/L (35-105); Anion Gap 12.9 (5-19); Aspartate Amino Transferase 18 U/L (0-32); Blood Urea Nitrogen 14 mg/dL (6-20); Calcium 9.6 mg/dL (8.5-10.5); Carbon Dioxide 25 mmol/L (22-29); Chloride 106 mmol/L (98-107); Globulin 3.3 g/dL (1.3-4.6); Glomerular Filtration Rate 64.5 mL/min (90-130); Glucose 115 mg/dL (65-115); Osmolality Calculated 287 mOsm/kg (285-295); Potassium 3.9 mmol/L (3.5-5.1); Sodium 140 mmol/L (136-145); Total Bilirubin 0.2 mg/dL (0.15-1.2); Total Protein 7.3 g/dL (6.6-8.7)
--- NOTE | 2020-02-08 12:42 | ONC FU_ITS ---
Dr. Hill Patient Follow-Up Note Patient: Remedios Cary Unit #: [id number]: 1960 Dicatated By: Puneet Hill M.D.Date of Visit:February 05, 2020 Onc Med Follow-up/Prog Note Chief Complaint: Breast cancer. History of Present Illness: This is a 58 year-old woman with grade 3 infiltrating ductal carcinoma of the right breast, stage IA, ER/ CO negative and HER-2/jennifer positive. She previously had treatment for HER-2/jennifer positive left breast cancer, and she is known to harbor a BRCA2 mutation. 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 She underwent left mastectomy/axillary lymph node samplingand breast reconstruction on 08/10/2010. Her disease was stage IIA (T2, N0, M0) with pathology showing 2.5 cm primary tumor and no involvement of 4 lymph nodes. She was given adjuvant chemotherapy with TCH, completed in December 2010. She completed a full year of Herceptin, and she also was given adjuvant hormonal therapy for a total of 8 years, initially with tamoxifen but with transition to Femara as of September 2014. On 04/08/2019 she was confirmed by needle biopsy to have grade 3 invasive ductal carcinoma of the right breast. The best prognostic profile showed ER and CO negative, both 0%. HER-2/jennifer was 2+ by IHC but positive by FISH with 10.9 HER-2/jennifer signals per cell and 2.2 CEP17 signals per cell. The Ki-67 was unfavorable at 35%. She underwent right total mastectomy with axillary sentinel lymph node biopsy and with immediate reconstruction on 06/12/2019. Pathology showed grade 3 invasive ductal carcinoma measuring 1.8 x 1.6 x 1.2 cm. There was no involvement in 2 sentinel lymph nodes. In the meantime, she also had undergone BRCA testing and she was confirmed to harbor a BRCA2 mutation. Her staging PET/CT on 07/17/2019 showed no evidence for active malignancy. Her echocardiogram showed normal left ventricular systolic function with ejection fraction estimated at 60-65%. She has been undergoing adjuvant chemotherapy with TCH, cycle 1 beginning 07/24/2019. During her treatment, she required removal of the tissue deli department manager in the right chest due to cellulitis. With her 4th cycle of chemotherapy, on 09/23/2019, she experienced an anaphylactic reaction to the carboplatin. She was rechallenged one week later with similar results. I had seen her initially on 10/11/2019. At that time we discussed options for her further adjuvant therapy. Ultimately she decided to try and complete 2 more cycles of chemotherapy with docetaxel/Herceptin. Her other medical illnesses include hypertension, GERD, obstructive sleep apnea, osteopenia, and anxiety/depression. She has a history of smoking for 15 years, previously up to 3 packs of cigarettes daily. She had quit for 15 years, then started smoking again for about 1 year. She quit smoking again in March 2019. INTERIM HISTORY: On 10/21/2019 she proceeded with her 5th cycle of adjuvant chemotherapy, limited to docetaxel and Herceptin. She was seen for a follow-up visit on 11/11/2019. At that point her neuropathy had worsened again, and we opted not to attempt any further chemotherapy. She then began cycle 1 of single agent Herceptin at a 3-week dosing interval. She tolerated without significant toxicity. With her next scheduled treatment, on 12/02/2019, Perjeta was added to her adjuvant regimen. She was able to tolerate it without any apparent additional toxicity. She then continued with cycle 2 of Herceptin/Perjeta on 12/23/2019 and with cycle 3 on 01/13/2020. She is seen for a followup visit. Subsequent to her last treatment, she had developed fairly abrupt onset of pain and swelling in the right chest wall. She was seen by Dr. Temple and she underwent drainage of chest wall abscess, which reportedly grew staph. She remains on antibiotic coverage for that. She is packing the wound daily. She says her energy had been pretty good prior to that, but her activity now is more limited. Her ECOG score is 2. She has good appetite. She is not having fever or night sweats. She has no shortness of breath, cough, or chest pain. She currently has no GI or complaints. She still has some pain in the right mid back area. She says her neuropathy is about the same. Medications: Albuterol Sulfate 1 ((2.5 mg/3ml) 0.083%) Nebulization solution Inhalation q 6 hours PRN, Alendronate Sodium 1 Tablet (of 70 mg) Oral daily, Allopurinol 1 Tablet (of 300 mg) Oral daily, Benadryl Allergy 1 Tablet (of 25 mg) Capsule Oral PRN, Calcium + D 1 Tablet Oral daily, Cephalexin 1 Capsule (of 750 mg) Oral t.i.d. for 7 days, Claritin 1 Capsule (of 10 mg) Oral daily, Dexamethasone (4 mg) Tablet Oral Take as Directed, DULoxetine HCl 1 Capsule (of 30 mg) Capsule Delayed Release Particles Oral b.i.d., Gabapentin 1 Tablet (of 800 mg) Oral t.i.d., hydrOXYzine HCl 1 Tablet (of 25 mg) Oral t.i.d. PRN, Lidocaine-rulox waldryl 5 mL Solution Topical four times a day, Methocarbamol 1 Tablet (of 500 mg) Oral q 8 hours PRN, Multivitamins 1 Tablet Tablet, chewable Oral daily, Nystatin 5 mL (of 280921 Units/mL) Suspension Mouth/throat four times a day, Omeprazole 1 Capsule (of 40 mg) Capsule Delayed Release Oral daily, Ondansetron HCl 1 Tablet (of 8 mg) Oral q 8 hours PRN, Prochlorperazine Maleate 1 Tablet (of 10 mg) Oral q 6 hours PRN, Zonisamide 1 Capsule (of 100 mg) Oral at bedtime Allergies: CARBOplatin, Ibuprofen, and Penicillins. Review of Systems: Constitutional - She is feeling good. Her energy level has been good. She is not doing much at home. Her appetite is good and weight is stable. No fever, chills, hot flashes, or night sweats. ECOG score is 2, ENMT - She has chronic sinusitis. No mouth sores. No sore throat or difficulty swallowing, Hematologic/Lymphatic - No abnormal bruising or bleeding, Respiratory - No shortness of breath. No cough. No pleuritic pain or hemoptysis, Cardiovascular - No angina pain. No palpitations, Gastrointestinal - No nausea or vomiting. Her heartburn is well managed with No diarrhea or constipation. No blood in the stool or black stools, Genitourinary (F) - No dysuria or hematuria. No urinary frequency. No urgency or incontinence, Musculoskeletal - She has been having some pain in her mid back on the right side, Integumentary - She had increased swelling and fluid to right breast area that had developed staph infection. She is taking antibiotics, Neurologic - She has occasional headaches. She had occasional dizziness. The neuropathy in her hands is unchanged, Psychiatric - Her anxiety and depression are adequately managed with her current medications regimen. No insomnia. Vital Signs: Performed on February 05, 2020 11:41 Height - 66.00 in Weight - 251.2 lbs (HIGH) BSA - 2.20 sq.m BMI - 40.54 (HIGH) Temperature - 97.8 F (LOW) Pulse - 83 /min Respiration - 24 /min BP - 151/82 mm(hg) (HIGH) O2 Sat - 100 % Pain - 5 Physical Examination: Constitutional - She looks pretty good generally, Eyes - Sclerae nonicteric. Conjunctivae clear, ENMT - No lesions noted in the oral cavity, Hematologic/Lymphatic - No cervical or clavicular adenopathy, Respiratory - Lungs are clear with good air movement bilaterally, Cardiovascular - Heart rhythm is regular. There is no murmur, gallop, or rub noted, Breasts - The right chest wall shows just a small open area in the medial aspect of the mastectomy incision. There are no chest wall lesions noted. There is no axillary adenopathy, Abdomen - Moderately distended but soft. Liver and spleen are not enlarged. There is no abdominal mass or ascites noted and there is no inguinal adenopathy, Extremities - No edema, Neurologic - No focal neurologic deficits noted. Lab/Imaging: Test performed on February 05, 2020 09:58 Sodium 140 mmol/L Potassium 3.9 mmol/L Chloride 106 mmol/L CO2 25 mmol/L Anion Gap 12.9 BUN 14 mg/dL Creatinine 0.9 mg/dL Cr Clearance (Est) 122.8700 mL/min eGFR 64.5 mL/min Glucose 115 mg/dL Calcium 9.6 mg/dL Protein, Total 7.3 g/dL Albumin 4.0 g/dL Globulin 3.3 g/dL Bilirubin, Total 0.2 mg/dL ALT (SGPT) 17 U/L AST (SGOT) 18 U/L Alkaline Phosphatase 88 IU/L WBC 6.0 10 3/uL RBC 4.70 10 6/uL HGB 13.8 g/dL HCT 41.1 % MCV 87.4 fL MCH 29.4 pg MCHC 33.6 g/dL RDW 14.0 % Platelet Count 281 10 3/cmm MPV 9.9 fL Neutrophils 2.9 10 3/uL Lymphocytes 2.5 10 3/uL Monocytes 0.5 10 3/uL Eosinophils 0.0 10 3/uL Basophils 0.0 10 3/uL Neutrophil % 48.3 % Lymphocyte % 42.3 % Monocyte % 8.3 % Eosinophil % 0.2 % Basophils % 0.7 % Impression: 1. Patient with grade 3 invasive ductal carcinoma of the right breast, stage IA ( T1c, N0, M0), ER/CO negative and HER-2/jennifer positive. 2. She underwent right total mastectomy with axillary sentinel lymph node biopsy and with immediate reconstruction on 06/12/2019. 3. She was given adjuvant chemotherapy with TCH. She completed 3 1/2 cycles, with her treatment having been interupted during cycle 4 on 09/23/2019 due to an anaphylactic reaction to carboplatin. 4. She had the right chest wall tissue deli department manager removed 08/21/2019 due to cellulitis. She still has a small open area in the medial aspect of the right mastectomy incision. 5. In August 2010 she underwent left mastectomy/axillary lymph node sampling for grade 3 invasive ductal carcinoma of the left breast, stage IIA (T2, N0, M0), ER/CO positive and HER-2/jennifer positive. She received adjuvant chemotherapy with TCH and adjuvant hormonal therapy. 6. She was found to harbor a BRCA2 mutation. Her other medical illnesses include: 7. Hypertension. 8. GERD. 9. Obstructive sleep apnea. 10. Osteopenia. 11. Anxiety/depression. On 10/21/2019 she proceeded with cycle 5 of adjuvant chemotherapy, limited to docetaxel and Herceptin. As of her follow-up visit on 11/11/2019 she had reported worsening of her neuropathy, and we opted not to attempt any further chemotherapy. She then began cycle 1 of single agent Herceptin at the 3-week dosing schedule. She tolerated it well. At her scheduled treatment on 12/02/2019 Perjeta was added to her adjuvant regimen. She did have some diarrhea with that, which he was able to manage adequately with Imodium. She otherwise tolerated it well. In particular, she had no worsening of neuropathy. She then continued with cycle 2 of Herceptin/Perjeta on 12/23/2019 and with cycle 3 on 01/13/2020. She subsequently developed an abscess in the right chest wall, for which she underwent drainage procedure. She reportedly grew staph from it, for which she is on antibiotic coverage. She still has an open wound in the chest wall, which she is packing daily. Plan: Although her blood counts have been adequate, there is some risk of infection associated with Herceptin. As such, I am going to delay her treatment pending further recovery of the right chest wall abscess. I will tentatively plan a follow-up visit in 1 month. Signed By: Puneet Hill M.D. <<Signature on File>>
== END 2020-03-01 23:59 | disposition home or self-care (01) ==
LOC: ONCMED 06:58
PROVIDERS: Family Provider Nurse Practitioner Family; PCP Nurse Practitioner Family; Referring Provider Nurse Practitioner Family; Visit Provider Internal Medicine Medical Oncology
DX: C50.511 Malignant neoplasm of lower-outer quadrant of right female breast (principal); Z17.1 Estrogen receptor negative status [ER-]; I10 Essential (primary) hypertension; K21.9 Gastro-esophageal reflux disease without esophagitis; G47.33 Obstructive sleep apnea (adult) (pediatric); F41.9 Anxiety disorder, unspecified; F32.9 Major depressive disorder, single episode, unspecified; M85.80 Other specified disorders of bone density and structure, unspecified site; L02.213 Cutaneous abscess of chest wall; Z92.21 Personal history of antineoplastic chemotherapy; Z79.818 Long term (current) use of other agents affecting estrogen receptors and estrogen levels
CPT/HCPCS: 36591; 80053; 85025; 99214

== ENCOUNTER → 2020-02-20 10:10 | Outpatient (BNVA) | payer MEDICARE, MEDICAID, SELFPAY | PROVIDERS: Family Provider Nurse Practitioner Family; PCP Nurse Practitioner Family; Visit Provider Anesthesiology | DX: M54.41 Lumbago with sciatica, right side (principal); M54.42 Lumbago with sciatica, left side; M47.27 Other spondylosis with radiculopathy, lumbosacral region; M47.817 Spondylosis without myelopathy or radiculopathy, lumbosacral region; M99.83 Other biomechanical lesions of lumbar region; M51.27 Other intervertebral disc displacement, lumbosacral region; Z79.891 Long term (current) use of opiate analgesic | CPT/HCPCS: 99213; 99214 ==

== ENCOUNTER 2020-03-25 06:51 | Outpatient (RCR) | payer MEDICARE, MEDICAID, SELFPAY ==
[2020-03-04 11:45] LABS: Basophils # 0.1 10^3/uL (0.0-0.1); Basophils % 0.8 %; Eosinophils # 0.1 10^3/uL (0.0-0.8); Eosinophils % 0.8 %; Hematocrit 40.1 % (37.0-47.0); Hemoglobin 13.6 g/dL (11.5-15.3); Lymphocytes % 49.4 %; Mean Corpuscular HGB Conc 33.9 g/dL (30.0-36.0); Mean Corpuscular Hemoglobin 30.4 pg (28.0-34.0); Mean Corpuscular Volume 89.5 fL (81-99); Mean Platelet Volume 10.3 fL (7.4-10.4); Monocytes # 0.6 10^3/uL (0.2-0.9); Monocytes % 9.6 %; Neutrophils # 2.4 10^3/uL (1.8-7.7); Neutrophils % 39.2 %; Nucleated Red Blood Cells % 0 %; Platelet Count 243 10^3/cmm (130-400); Red Blood Count 4.48 10^6/uL (4.1-5.3); Red Cell Distribution Width 14.4 % (12.1-15.1); White Blood Count 6.1 10^3/uL (4.0-10.0)
[2020-03-04 11:59] LABS: Alanine Aminotransferase 21 U/L (0-33); Albumin Level 3.8 g/dL (3.5-5.2); Alkaline Phosphatase 81 IU/L (35-105); Anion Gap 14.8 (5-19); Aspartate Amino Transferase 23 U/L (0-32); Blood Urea Nitrogen 8 mg/dL (6-20); Calcium 9.5 mg/dL (8.5-10.5); Carbon Dioxide 26 mmol/L (22-29); Chloride 101 mmol/L (98-107); Globulin 2.5 g/dL (1.3-4.6); Glomerular Filtration Rate 73.9 mL/min (90-130); Glucose 115 mg/dL (65-115); Osmolality Calculated 283 mOsm/kg (285-295); Potassium 3.8 mmol/L (3.5-5.1); Sodium 138 mmol/L (136-145); Total Bilirubin 0.2 mg/dL (0.15-1.2); Total Protein 6.3 g/dL (6.6-8.7)
[2020-03-04] MEDS: sodium chloride 0.9% 250 ML 75 ML IV (13:30)
[2020-03-04] MEDS: acetaminophen 325 mg Tablet 650 MG PO (13:34)
--- NOTE | 2020-03-08 16:32 | ONC FU_ITS ---
[facility] Patient Note Patient: Remedios Cary Unit #: [id number]: [id number] Dictated By: Kami RichardsonDate of Visit: Mar 04, 2020 Onc MED Follow-Up/Prog Note Chief Complaint: Breast cancer. History of Present Illness: Ms Cary is a 58 year-old woman with grade 3 infiltrating ductal carcinoma of the right breast, stage IA, ER/ CO negative and HER-2/jennifer positive. She previously had treatment for HER-2/jennifer positive left breast cancer, and she is known to harbor a BRCA2 mutation. 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 She underwent left mastectomy/axillary lymph node sampling and breast reconstruction on 08/10/2010. Her disease was stage IIA (T2, N0, M0) with pathology showing 2.5 cm primary tumor and no involvement of 4 lymph nodes. She was given adjuvant chemotherapy with TCH, completed in December 2010. She completed a full year of Herceptin, and she also was given adjuvant hormonal therapy for a total of 8 years, initially with tamoxifen but with transition to Femara as of September 2014. On 04/08/2019 she was confirmed by needle biopsy to have grade 3 invasive ductal carcinoma of the right breast. The best prognostic profile showed ER and CO negative, both 0%. HER-2/jennifer was 2+ by IHC but positive by FISH with 10.9 HER-2/jennifer signals per cell and 2.2 CEP17 signals per cell. The Ki-67 was unfavorable at 35%. She underwent right total mastectomy with axillary sentinel lymph node biopsy and with immediate reconstruction on 06/12/2019. Pathology showed grade 3 invasive ductal carcinoma measuring 1.8 x 1.6 x 1.2 cm. There was no involvement in 2 sentinel lymph nodes. In the meantime, she also had undergone BRCA testing and she was confirmed to harbor a BRCA2 mutation. Her staging PET/CT on 07/17/2019 showed no evidence for active malignancy. Her echocardiogram showed normal left ventricular systolic function with ejection fraction estimated at 60-65%. She has been undergoing adjuvant chemotherapy with TCH, cycle 1 beginning 07/24/2019. During her treatment, she required removal of the tissue brazer crawler torch in the right chest due to cellulitis. With her 4th cycle of chemotherapy, on 09/23/2019, she experienced an anaphylactic reaction to the carboplatin. She was rechallenged one week later with similar results. Dr Hill had seen her initially on 10/11/2019. At that time we discussed options for her further adjuvant therapy. Ultimately she decided to try and complete 2 more cycles of chemotherapy with docetaxel/Herceptin. Her other medical illnesses include hypertension, GERD, obstructive sleep apnea, osteopenia, and anxiety/depression. She has a history of smoking for 15 years, previously up to 3 packs of cigarettes daily. She had quit for 15 years, then started smoking again for about 1 year. She quit smoking again in March 2019. INTERIM HISTORY: On 10/21/2019 she proceeded with her 5th cycle of adjuvant chemotherapy, limited to docetaxel and Herceptin. She was seen for a follow-up visit on 11/11/2019. At that point her neuropathy had worsened again, and we opted not to attempt any further chemotherapy. She then began cycle 1 of single agent Herceptin at a 3-week dosing interval. She tolerated without significant toxicity. With her next scheduled treatment, on 12/02/2019, Perjeta was added to her adjuvant regimen. She was able to tolerate it without any apparent additional toxicity. She then continued with cycle 2 of Herceptin/Perjeta on 12/23/2019 and with cycle 3 on 01/13/2020. At her followup in January 2020, she had developed fairly abrupt onset of pain and swelling in the right chest wall. She was seen by Dr. Temple and she underwent drainage of chest wall abscess, which reportedly grew staph. She remained on antibiotic coverage for that. She was packing the wound daily. She is here today for reassessment and to possibly resume her paclitaxel, Perjeta/Herceptin regimen. This would be cycle 4. She states the wound has gotten much better. She is no longer packing it with 60 to packing . She states now just takes a couple of inches. It is had no odor. She has had no pain from the incision site. She denies fever or chills. She is currently off of antibiotics as well. She denies any other concerns. She states she feels good. She is eating good. She denies any pain. She has had no fever or chills. She denies nausea or vomiting diarrhea or constipation. She states she is had slight neuropathy in her fingertips but seems that has resolved since it has been 2 months since my last treatment . She is anxious to get her chemo started and completed. Her ECOG is 1. Past Medical History: Depression Gastroesophageal reflux disease History of left breast cancer Hypertension Neuropathy secondary to chemotherapy Obstructive sleep apnea Osteopenia Postmenopausal Past Surgical History: Tubal ligation Removal of right chest wall tissue brazer crawler torch in 2019 Right total mastectomy/axillary sentinel lymph node biopsy and immediate reconstruction in 2018 Needle biopsy of the right breast in 2018 ORIF for left wrist fracture in 2017 Left total mastectomy/axillary lymph node sampling and breast reconstruction in 2009 Allergies: CARBOplatin, Ibuprofen, and Penicillins. Medications: Albuterol Sulfate 1 ((2.5 mg/3ml) 0.083%) Nebulization solution Inhalation q 6 hours PRN Alendronate Sodium 1 Tablet (of 70 mg) Oral daily Allopurinol 1 Tablet (of 300 mg) Oral daily Benadryl Allergy 1 Tablet (of 25 mg) Capsule Oral PRN Calcium + D 1 Tablet Oral daily Claritin 1 Capsule (of 10 mg) Oral daily Dexamethasone (4 mg) Tablet Oral Take as Directed DULoxetine HCl 1 Capsule (of 30 mg) Capsule Delayed Release Particles Oral b.i.d. Gabapentin 1 Tablet (of 800 mg) Oral t.i.d. HYDROmorphone HCl 1 Tablet (of 2 mg) Oral t.i.d. PRN hydrOXYzine HCl 1 Tablet (of 25 mg) Oral t.i.d. PRN Methocarbamol 1 Tablet (of 500 mg) Oral q 8 hours PRN Multivitamins 1 Tablet Tablet, chewable Oral daily Nystatin 5 mL (of 828975 Units/mL) Suspension Mouth/throat four times a day Omeprazole 1 Capsule (of 40 mg) Capsule Delayed Release Oral daily Ondansetron HCl 1 Tablet (of 8 mg) Oral q 8 hours PRN Prochlorperazine Maleate 1 Tablet (of 10 mg) Oral q 6 hours PRN Family History: Ms. Cary's mother is alive: dementia. Ms. Cary's father at age 47: colon cancer. Father with colon cancer at age 47. Mother is still living at age 74. She has dementia. A brother with alcohol related heart disease. Another brother has known coronary artery disease. A sister in a motor vehicle accident. Her maternal grandmother with cancer, apparently of unknown primary site. Social History: Ms. Cary is single and she is a disabled. She is an occasional smoker who has smoked for 16 years. She is a former drinker. Ms. Cary reports the following support systems: lives with spouse, significant other, family, or friends, lives in own house, supportive family/friends willing to assist with needs, and adequate transportation available for expected visits. Her diet consists of regular meals. She indicates her activity level as: sedentary. She has a history of smoking up to 3 packs of cigarettes daily for about 15 years, but she then quit for a period of at least 15 years or more. She then smoked again for about a year, 1/2 pack per day. She does not drink alcohol. Review Of Symptoms: Constitutional Denies fevers, chills, night sweats, excessive fatigue or weight loss. Allergic/Immunologic No reactions. Eyes Denies significant visual changes. No diplopia. No amaurosis. ENMT Denies changes in hearing, sore throat, mouth sores, difficulty or changes in swallowing ability, and/or sinus drainage. Endocrine No diabetes, thyroid disease or hormone replacement. Denies hot flashes or night sweats. Hematologic/Lymphatic Denies easy bruising or bleeding. The patient denies any tender or palpable lymph nodes. Respiratory Denies dyspnea on exertion, chest pain, cough or hemoptysis. Denies orthopnea. Cardiovascular Denies anginal chest pain, palpitations or orthopnea. Gastrointestinal Denies nausea, vomiting, diarrhea, GI bleeding, or constipation. Denies change in bowel habits and/or stool color, no heartburn or early satiety. Genitourinary (F) No hematuria, hesitancy, incontinence, vaginal bleeding, discharge or other problems with urination. Musculoskeletal Denies joint pain, swelling or redness. No decreased range of motion. Integumentary Denies chronic rashes, inflammation, ulcerations or skin changes. Neurologic Denies headache, blurred vision, and no areas of focal weakness or numbness. Normal gait. No sensory problems. Psychiatric Denies insomnia, depression, jennifer or mood swings. Vital Signs: Performed on Mar 04, 2020 12:55 Height - 66.00 in Weight - 255.4 lbs (HIGH) BSA - 2.22 sq.m BMI - 41.22 (HIGH) Temperature - 97.4 F (LOW) Pulse - 91 /min Respiration - 19 /min BP - 137/86 mm(hg) O2 Sat - 97 % Pain - 4,2 - Ambulatory/capable of all self-care, unable to perform any work activities. Up and about more than 50% of waking hours. (ECOG) Physical Examination: Constitutional Alert, oriented, no acute distress. Skin pink, warm and dry. Alopecia. Head Normocephalic; atraumatic. Eyes Conjunctivae and sclerae are clear and without icterus. Pupils are reactive and equal. Neck Supple without masses or thyromegaly. No jugular venous distension. Hematologic/Lymphatic No petechiae or purpura. No tender or palpable lymph nodes in the cervical or supraclavicular areas. Respiratory Lungs are clear to auscultation without rhonchi or wheezing. Cardiovascular Regular rate and rhythm of heart without murmurs,clicks, gallops or rubs. Breasts Right chest wall has a 4 mm opening that is not actively draining. The incision itself is not red or warm. There is no appearance or signs of infection at this time. Abdomen Non-tender, non-distended, no ascites or masses palpable on exam. Good bowel sounds noted in all quads. No guarding or rebound tenderness. No pulsatile masses. Back/Spine Non-tender to palpation. Extremities No visible deformities, no cyanosis, clubbing or edema. Musculoskeletal No tenderness or swelling, normal range of motion without obvious weakness. Utilizing don walker for ambulation assistance. Integumentary No rashes or lesions. Neurologic No sensory or motor deficits, normal cerebellar function, normal gait. Psychiatric Alert and oriented times three. Coherent speech. Verbalizes understanding of our discussions today. Laboratory:Test performed on Mar 04, 2020 11:20 Sodium 138 mmol/L Potassium 3.8 mmol/L Chloride 101 mmol/L CO2 26 mmol/L Anion Gap 14.8 BUN 8 mg/dL Creatinine 0.8 mg/dL Cr Clearance (Est) 138.2300 mL/min eGFR 73.9 mL/min Glucose 115 mg/dL Calcium 9.5 mg/dL Protein, Total 6.3 g/dL Albumin 3.8 g/dL Globulin 2.5 g/dL Bilirubin, Total 0.2 mg/dL ALT (SGPT) 21 U/L AST (SGOT) 23 U/L Alkaline Phosphatase 81 IU/L WBC 6.1 10 3/uL RBC 4.48 10 6/uL HGB 13.6 g/dL HCT 40.1 % MCV 89.5 fL MCH 30.4 pg MCHC 33.9 g/dL RDW 14.4 % Platelet Count 243 10 3/cmm MPV 10.3 fL Neutrophils 2.4 10 3/uL Lymphocytes 3.0 10 3/uL Monocytes 0.6 10 3/uL Eosinophils 0.1 10 3/uL Basophils 0.1 10 3/uL Neutrophil % 39.2 % Lymphocyte % 49.4 % Manual Lymphocytes 49.4 % Manual Monocytes 9.6 % Monocyte % 9.6 % Eosinophil % 0.8 % Manual Eosinophils 0.8 % Basophils % 0.8 % Manual Basophils 0.8 % Impression: 1. Patient with grade 3 invasive ductal carcinoma of the right breast, stage IA ( T1c, N0, M0), ER/CO negative and HER-2/jennifer positive. 2. She underwent right total mastectomy with axillary sentinel lymph node biopsy and with immediate reconstruction on 06/12/2019. 3. She was given adjuvant chemotherapy with TCH. She completed 3 1/2 cycles, with her treatment having been interupted during cycle 4 on 09/23/2019 due to an anaphylactic reaction to carboplatin. 4. She had the right chest wall tissue brazer crawler torch removed 08/21/2019 due to cellulitis. She still has a small open area in the medial aspect of the right mastectomy incision. 5. In August 2010 she underwent left mastectomy/axillary lymph node sampling for grade 3 invasive ductal carcinoma of the left breast, stage IIA (T2, N0, M0), ER/CO positive and HER-2/jennifer positive. She received adjuvant chemotherapy with TCH and adjuvant hormonal therapy. 6. She was found to harbor a BRCA2 mutation. Her other medical illnesses include: 7. Hypertension. 8. GERD. 9. Obstructive sleep apnea. 10. Osteopenia. 11. Anxiety/depression. On 10/21/2019 she proceeded with cycle 5 of adjuvant chemotherapy, limited to docetaxel and Herceptin. As of her follow-up visit on 11/11/2019 she had reported worsening of her neuropathy, and we opted not to attempt any further chemotherapy. She then began cycle 1 of single agent Herceptin at the 3-week dosing schedule. She tolerated it well. At her scheduled treatment on 12/02/2019 Perjeta was added to her adjuvant regimen. She did have some diarrhea with that, which he was able to manage adequately with Imodium. She otherwise tolerated it well. In particular, she had no worsening of neuropathy. She then continued with cycle 2 of Herceptin/Perjeta on 12/23/2019 and with cycle 3 on 01/13/2020. She subsequently developed an abscess in the right chest wall, for which she underwent drainage procedure. She reportedly grew staph from it, for which she is on antibiotic coverage. She still has an open wound in the chest wall, which she is packing daily. Her treatment was delayed from January 13, 2020 at which time she completed cycle 3 of just Herceptin/Perjeta. She reports that the wound has healed very well. It does continue to require some packing but overall is dramatically improved. She has had no fever or chills and is no longer on any antibiotics. We will plan to resume her Herceptin Perjeta today and monitor for any worsening of her incision/wound or any evidence of infection. Plan: 1. Proceed with cycle 4 Herceptin/Perjeta at previous doses. 2. Continue current premeds. 3. She has been advised to call us if she notices any changes with her wound especially if it seems to be getting red, warm or drainage is purulent or increased. She is aware there is a small risk of the abcess recurring or worsening if the Herceptin alters her immune system. 4. Labs from today were reviewed in detail and discussed with Ms. Cary and a copy was given to her. WBC 6.1, hemoglobin 13.6, platelets 243,000 ANC is 2400. Creatinine is 0.8 LFTs are normal. 5. We will plan to see her back in 3 weeks with CBC CMP. She will be due for cycle 6 Herceptin/Perjeta at that time. 6. She is directed to contact us in the interim should questions or problems arise. Signed By: Kami Richardson-, [facility] P[facility] MD <<Signature on File>>
[2020-03-25 11:07] LABS: Alanine Aminotransferase 23 U/L (0-33); Albumin Level 3.8 g/dL (3.5-5.2); Alkaline Phosphatase 73 IU/L (35-105); Anion Gap 12.9 (5-19); Aspartate Amino Transferase 23 U/L (0-32); Blood Urea Nitrogen 12 mg/dL (6-20); Calcium 9.4 mg/dL (8.5-10.5); Carbon Dioxide 26 mmol/L (22-29); Chloride 105 mmol/L (98-107); Globulin 2.3 g/dL (1.3-4.6); Glomerular Filtration Rate 73.9 mL/min (90-130); Glucose 105 mg/dL (65-115); Osmolality Calculated 286 mOsm/kg (285-295); Potassium 3.9 mmol/L (3.5-5.1); Sodium 140 mmol/L (136-145); Total Bilirubin 0.3 mg/dL (0.15-1.2); Total Protein 6.1 g/dL (6.6-8.7)
[2020-03-25 11:52] LABS: Basophils % 0.5 %; Eosinophils # 0.1 10^3/uL (0.0-0.8); Eosinophils % 0.8 %; Hematocrit 40.3 % (37.0-47.0); Hemoglobin 13.6 g/dL (11.5-15.3); Lymphocytes # 3.2 10^3/uL (0.8-4.8); Lymphocytes % 50.9 %; Mean Corpuscular HGB Conc 33.7 g/dL (30.0-36.0); Mean Corpuscular Volume 88.8 fL (81-99); Mean Platelet Volume 10.9 fL (7.4-10.4); Monocytes # 0.6 10^3/uL (0.2-0.9); Monocytes % 9.8 %; Neutrophils # 2.4 10^3/uL (1.8-7.7); Neutrophils % 37.8 %; Nucleated Red Blood Cells % 0 %; Platelet Count 235 10^3/cmm (130-400); Red Blood Count 4.54 10^6/uL (4.1-5.3); Red Cell Distribution Width 14.2 % (12.1-15.1); White Blood Count 6.2 10^3/uL (4.0-10.0)
[2020-03-25] MEDS: acetaminophen 325 mg Tablet 650 MG PO (13:35)
--- NOTE | 2020-03-26 11:24 | ONC FU_ITS ---
Dr. Hill Patient Follow-Up Note Patient: Remedios Cary Unit #: [id number]: 1960 Dicatated By: Puneet Hill M.D.Date of Visit:Mar 25, 2020 Onc Med Follow-up/Prog Note Chief Complaint: Breast cancer. History of Present Illness: This is a 58 year-old woman with grade 3 infiltrating ductal carcinoma of the right breast, stage IA, ER/ IL negative and HER-2/jennifer positive. She previously had treatment for HER-2/jennifer positive left breast cancer, and she is known to harbor a BRCA2 mutation. 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 She underwent left mastectomy/axillary lymph node samplingand breast reconstruction on 08/10/2010. Her disease was stage IIA (T2, N0, M0) with pathology showing 2.5 cm primary tumor and no involvement of 4 lymph nodes. She was given adjuvant chemotherapy with TCH, completed in December 2010. She completed a full year of Herceptin, and she also was given adjuvant hormonal therapy for a total of 8 years, initially with tamoxifen but with transition to Femara as of September 2014. On 04/08/2019 she was confirmed by needle biopsy to have grade 3 invasive ductal carcinoma of the right breast. The best prognostic profile showed ER and IL negative, both 0%. HER-2/jennifer was 2+ by IHC but positive by FISH with 10.9 HER-2/jennifer signals per cell and 2.2 CEP17 signals per cell. The Ki-67 was unfavorable at 35%. She underwent right total mastectomy with axillary sentinel lymph node biopsy and with immediate reconstruction on 06/12/2019. Pathology showed grade 3 invasive ductal carcinoma measuring 1.8 x 1.6 x 1.2 cm. There was no involvement in 2 sentinel lymph nodes. In the meantime, she also had undergone BRCA testing and she was confirmed to harbor a BRCA2 mutation. Her staging PET/CT on 07/17/2019 showed no evidence for active malignancy. Her echocardiogram showed normal left ventricular systolic function with ejection fraction estimated at 60-65%. She has been undergoing adjuvant chemotherapy with TCH, cycle 1 beginning 07/24/2019. During her treatment, she required removal of the tissue education diagnostician in the right chest due to cellulitis. With her 4th cycle of chemotherapy, on 09/23/2019, she experienced an anaphylactic reaction to the carboplatin. She was rechallenged one week later with similar results. I had seen her initially on 10/11/2019. At that time we discussed options for her further adjuvant therapy. Ultimately she decided to try and complete 2 more cycles of chemotherapy with docetaxel/Herceptin. Her other medical illnesses include hypertension, GERD, obstructive sleep apnea, osteopenia, and anxiety/depression. She has a history of smoking for 15 years, previously up to 3 packs of cigarettes daily. She had quit for 15 years, then started smoking again for about 1 year. She quit smoking again in March 2019. INTERIM HISTORY: On 10/21/2019 she proceeded with her 5th cycle of adjuvant chemotherapy, limited to docetaxel and Herceptin. She was seen for a follow-up visit on 11/11/2019. At that point her neuropathy had worsened again, and we opted not to attempt any further chemotherapy. She then began cycle 1 of single agent Herceptin at a 3-week dosing interval. She tolerated without significant toxicity. With her next scheduled treatment, on 12/02/2019, Perjeta was added to her adjuvant regimen. She was able to tolerate it without any apparent additional toxicity. She then continued with cycle 2 of Herceptin/Perjeta on 12/23/2019 and with cycle 3 on 01/13/2020. Following that treatment she had developed fairly abrupt onset of pain and swelling in the right chest wall. She was seen by Dr. Temple and she underwent drainage of chest wall abscess, which reportedly grew staph. With that finding, I opted to delay her treatment. She was able to continue with cycle 4 of 03/04/2020. She is seen for a scheduled visit. She says her chest wall is still a little sore, but it has pretty much healed now. She has pretty good energy. She is able to do light work. ECOG score is 1. Her appetite is good. She has no fever, night sweats, or hot flashes. She says her breathing has been good with BiPAP. She does not have cough and she does not complain of chest pain. She has diarrhea at times, but it is controlled with Imodium. She has no other GI or complaints. She has some lower back pain. She sometimes has headache, and she sometimes gets lightheaded. She has numbness/tingling in her hands and feet, but no worse. Medications: Albuterol Sulfate 1 ((2.5 mg/3ml) 0.083%) Nebulization solution Inhalation q 6 hours PRN, Alendronate Sodium 1 Tablet (of 70 mg) Oral q 7 days, Allopurinol 1 Tablet (of 300 mg) Oral daily, Benadryl Allergy 1 Tablet (of 25 mg) Capsule Oral PRN, Calcium + D 1 Tablet Oral daily, Claritin 1 Capsule (of 10 mg) Oral daily, Dexamethasone (4 mg) Tablet Oral Take as Directed, DULoxetine HCl 1 Capsule (of 30 mg) Capsule Delayed Release Particles Oral b.i.d., Gabapentin 1 Tablet (of 800 mg) Oral t.i.d., HYDROmorphone HCl 1 Tablet (of 2 mg) Oral t.i.d. PRN, hydrOXYzine HCl 1 Tablet (of 25 mg) Oral t.i.d. PRN, Methocarbamol 1 Tablet (of 500 mg) Oral q 8 hours PRN, Multivitamins 1 Tablet Tablet, chewable Oral daily, Nystatin 5 mL (of 466704 Units/mL) Suspension Mouth/throat four times a day, Omeprazole 1 Capsule (of 40 mg) Capsule Delayed Release Oral daily, Ondansetron HCl 1 Tablet (of 8 mg) Oral q 8 hours PRN, Prochlorperazine Maleate 1 Tablet (of 10 mg) Oral q 6 hours PRN Allergies: CARBOplatin, Ibuprofen, and Penicillins. Review of Systems: Constitutional - He energy is pretty good. She is able to do light work. Appetite is good and weight is stable. No fever, night sweats, or hot flashes. ECOG score is 1, ENMT - She has sinus/nasal drainage. No mouth sores. No sore throat or difficulty swallowing, Hematologic/Lymphatic - No abnormal bruising or bleeding, Respiratory - Her breathing has been better with BIPAP. No cough. No pleuritic pain or hemoptysis, Cardiovascular - No angina pain. No palpitations, Gastrointestinal - No nausea or vomiting. Her acid reflux is adequately managed with medication. She sometimes has diarrhea, controlled with Imodium. No constipation. No blood in the stool or black stools, Genitourinary (F) - No dysuria or hematuria. No urinary frequency. No urgency or incontinence, Musculoskeletal - She has lower back pain, Integumentary - No skin rash, Neurologic - She sometimes has headache and she sometimes has lightheadedness. She has numbness/tingling in her hands and feet. No other focal neurologic symptoms, Psychiatric - Her anxiety/depression is adequately managed. No insomnia. Vital Signs: Performed on Mar 25, 2020 13:03 Height - 66.00 in Weight - 256.0 lbs (HIGH) BSA - 2.22 sq.m BMI - 41.32 (HIGH) Temperature - 97.9 F (LOW) Pulse - 94 /min Respiration - 22 /min BP - 107/66 mm(hg) O2 Sat - 95 % (LOW) Pain - 4 Physical Examination: Constitutional - She looks pretty good generally, Eyes - Sclerae nonicteric. Conjunctivae clear, ENMT - No lesions noted in the oral cavity, Hematologic/Lymphatic - No cervical or clavicular adenopathy, Respiratory - Lungs are clear with good air movement bilaterally, Cardiovascular - Heart rhythm is regular. There is no murmur, gallop, or rub noted, Breasts - The right chest wall appears well healed now. There are no chest wall lesions noted. There is no axillary adenopathy, Abdomen - Moderately distended. Liver and spleen are not enlarged. There is no abdominal mass or ascites noted and there is no inguinal adenopathy, Extremities - Slight edema, Neurologic - No focal neurologic deficits noted. Lab/Imaging: Test performed on Mar 25, 2020 11:28 WBC 6.2 10 3/uL RBC 4.54 10 6/uL HGB 13.6 g/dL HCT 40.3 % MCV 88.8 fL MCH 30.0 pg MCHC 33.7 g/dL RDW 14.2 % Platelet Count 235 10 3/cmm MPV 10.9 fL Neutrophils 2.4 10 3/uL Lymphocytes 3.2 10 3/uL Monocytes 0.6 10 3/uL Eosinophils 0.1 10 3/uL Basophils 0.0 10 3/uL Neutrophil % 37.8 % Lymphocyte % 50.9 % Monocyte % 9.8 % Eosinophil % 0.8 % Basophils % 0.5 % NRBC % 0 % Test performed on Mar 25, 2020 10:41 Sodium 140 mmol/L Potassium 3.9 mmol/L Chloride 105 mmol/L CO2 26 mmol/L Anion Gap 12.9 BUN 12 mg/dL Creatinine 0.8 mg/dL Cr Clearance (Est) 138.2300 mL/min eGFR 73.9 mL/min Glucose 105 mg/dL Calcium 9.4 mg/dL Protein, Total 6.1 g/dL Albumin 3.8 g/dL Globulin 2.3 g/dL Bilirubin, Total 0.3 mg/dL ALT (SGPT) 23 U/L AST (SGOT) 23 U/L Alkaline Phosphatase 73 IU/L Impression: 1. Patient with grade 3 invasive ductal carcinoma of the right breast, stage IA ( T1c, N0, M0), ER/IL negative and HER-2/jennifer positive. 2. She underwent right total mastectomy with axillary sentinel lymph node biopsy and with immediate reconstruction on 06/12/2019. 3. She was given adjuvant chemotherapy with TCH. She completed 3 1/2 cycles, with her treatment having been interupted during cycle 4 on 09/23/2019 due to an anaphylactic reaction to carboplatin. 4. She had the right chest wall tissue education diagnostician removed 08/21/2019 due to cellulitis. She still has a small open area in the medial aspect of the right mastectomy incision. 5. In August 2010 she underwent left mastectomy/axillary lymph node sampling for grade 3 invasive ductal carcinoma of the left breast, stage IIA (T2, N0, M0), ER/IL positive and HER-2/jennifer positive. She received adjuvant chemotherapy with TCH and adjuvant hormonal therapy. 6. She was found to harbor a BRCA2 mutation. Her other medical illnesses include: 7. Hypertension. 8. GERD. 9. Obstructive sleep apnea. 10. Osteopenia. 11. Anxiety/depression. On 10/21/2019 she proceeded with cycle 5 of adjuvant chemotherapy, limited to docetaxel and Herceptin. As of her follow-up visit on 11/11/2019 she had reported worsening of her neuropathy, and we opted not to attempt any further chemotherapy. She then began cycle 1 of single agent Herceptin at the 3-week dosing schedule. She tolerated it well. At her scheduled treatment on 12/02/2019 Perjeta was added to her adjuvant regimen. She did have some diarrhea with that, which was managed adequately with Imodium. She otherwise tolerated it well. In particular, she had no worsening of neuropathy. She continued with cycle 2 of Herceptin/Perjeta on 12/23/2019 and with cycle 3 on 01/13/2020. Her treatment was then delayed due to right chest wall abscess. She was then able to continue with cycle 4 on 03/04/2020. At this point she appears to be tolerating treatment well. Thus far there has been no evidence of recurrence of the breast cancer. Plan: She will continue with cycle 5 of Herceptin/Perjeta. Dosages remain the same. She returns in 3 weeks. Signed By: Puneet Hill M.D. <<Signature on File>>
== END 2020-03-31 23:59 | disposition home or self-care (01) ==
LOC: ONCMED 06:51
PROVIDERS: Nurse Practitioner; PCP Nurse Practitioner Family; Referring Provider Nurse Practitioner Family; Visit Provider Internal Medicine Medical Oncology
DX: Z51.11 Encounter for antineoplastic chemotherapy (principal); C50.511 Malignant neoplasm of lower-outer quadrant of right female breast; Z17.1 Estrogen receptor negative status [ER-]; F32.9 Major depressive disorder, single episode, unspecified; K21.9 Gastro-esophageal reflux disease without esophagitis; I10 Essential (primary) hypertension; G62.0 Drug-induced polyneuropathy; T45.1X5A Adverse effect of antineoplastic and immunosuppressive drugs, initial encounter; G47.33 Obstructive sleep apnea (adult) (pediatric); M85.80 Other specified disorders of bone density and structure, unspecified site; Z78.0 Asymptomatic menopausal state; Z79.818 Long term (current) use of other agents affecting estrogen receptors and estrogen levels
CPT/HCPCS: 36415; 80053; 85025; 96367; 96413; 96417; 99214; J1200; J3490; J7050; J9306; J9355

== ENCOUNTER 2020-04-15 07:02 | Outpatient (RCR) | payer MEDICARE, MEDICAID, SELFPAY ==
[2020-04-15 10:57] LABS: Basophils # 0.1 10^3/uL (0.0-0.1); Basophils % 0.8 %; Eosinophils # 0.1 10^3/uL (0.0-0.8); Eosinophils % 1.3 %; Hematocrit 43.1 % (37.0-47.0); Hemoglobin 14.4 g/dL (11.5-15.3); Lymphocytes # 3.1 10^3/uL (0.8-4.8); Lymphocytes % 51.9 %; Mean Corpuscular HGB Conc 33.4 g/dL (30.0-36.0); Mean Corpuscular Hemoglobin 29.8 pg (28.0-34.0); Mean Platelet Volume 10.9 fL (7.4-10.4); Monocytes # 0.6 10^3/uL (0.2-0.9); Monocytes % 9.2 %; Neutrophils % 36.6 %; Nucleated Red Blood Cells % 0 %; Platelet Count 268 10^3/cmm (130-400); Red Blood Count 4.84 10^6/uL (4.1-5.3); Red Cell Distribution Width 13.4 % (12.1-15.1)
[2020-04-15 11:12] LABS: Alanine Aminotransferase 20 U/L (0-33); Albumin Level 4.1 g/dL (3.5-5.2); Alkaline Phosphatase 78 IU/L (35-105); Aspartate Amino Transferase 24 U/L (0-32); Blood Urea Nitrogen 11 mg/dL (6-20); Calcium 9.4 mg/dL (8.5-10.5); Carbon Dioxide 28 mmol/L (22-29); Chloride 106 mmol/L (98-107); Globulin 2.5 g/dL (1.3-4.6); Glomerular Filtration Rate 73.9 mL/min (90-130); Glucose 119 mg/dL (65-115); Osmolality Calculated 289 mOsm/kg (285-295); Sodium 141 mmol/L (136-145); Total Bilirubin 0.2 mg/dL (0.15-1.2); Total Protein 6.6 g/dL (6.6-8.7)
[2020-04-15] MEDS: acetaminophen 325 mg Tablet 650 MG PO (13:25)
[2020-04-15] MEDS: sodium chloride 0.9% 250 ML 300 ML IV (13:25)
--- NOTE | 2020-04-19 14:17 | ONC FU_ITS ---
Dr. Hill Patient Follow-Up Note Patient: Remedios Cary Unit #: [id number]: 1960 Dicatated By: Puneet Hill M.D.Date of Visit:Apr 15, 2020 Onc Med Follow-up/Prog Note Chief Complaint: Breast cancer. History of Present Illness: This is a 59 year-old woman with grade 3 infiltrating ductal carcinoma of the right breast, stage IA, ER/ NV negative and HER-2/jennifer positive. She previously had treatment for HER-2/jennifer positive left breast cancer, and she is known to harbor a BRCA2 mutation. In July 2010 she was diagnosed with grade 3 invasive ductal carcinoma of the left breast, ER/NV positive and HER-2/jennifer positive. She underwent left mastectomy/axillary lymph node samplingand breast reconstruction on 08/10/2010. Her disease was stage IIA (T2, N0, M0) with pathology showing 2.5 cm primary tumor and no involvement of 4 lymph nodes. She was given adjuvant chemotherapy with TCH, completed in December 2010. She completed a full year of Herceptin, and she also was given adjuvant hormonal therapy for a total of 8 years, initially with tamoxifen but with transition to Femara as of September 2014. On 04/08/2019 she was confirmed by needle biopsy to have grade 3 invasive ductal carcinoma of the right breast. The best prognostic profile showed ER and NV negative, both 0%. HER-2/jennifer was 2+ by IHC but positive by FISH with 10.9 HER-2/jennifer signals per cell and 2.2 CEP17 signals per cell. The Ki-67 was unfavorable at 35%. She underwent right total mastectomy with axillary sentinel lymph node biopsy and with immediate reconstruction on 06/12/2019. Pathology showed grade 3 invasive ductal carcinoma measuring 1.8 x 1.6 x 1.2 cm. There was no involvement in 2 sentinel lymph nodes. In the meantime, she also had undergone BRCA testing and she was confirmed to harbor a BRCA2 mutation. Her staging PET/CT on 07/17/2019 showed no evidence for active malignancy. Her echocardiogram showed normal left ventricular systolic function with ejection fraction estimated at 60-65%. She was given adjuvant chemotherapy with TCH, cycle 1 beginning 07/24/2019. During her treatment, she required removal of the tissue supervisor fireworks assembly in the right chest due to cellulitis. With her 4th cycle of chemotherapy, on 09/23/2019, she experienced an anaphylactic reaction to the carboplatin. She was rechallenged one week later with similar results. I had seen her initially on 10/11/2019. At that time we discussed options for her further adjuvant therapy. Ultimately she decided to try and complete 2 more cycles of chemotherapy with docetaxel/Herceptin. Her other medical illnesses include hypertension, GERD, obstructive sleep apnea, and anxiety/depression. She also has osteopenia with her bone density study in March 2018 showing T score -1.9 in the left femoral neck and -1.8 in the lumbar spine. She has a history of smoking for 15 years, previously up to 3 packs of cigarettes daily. She had quit for 15 years, then started smoking again for about 1 year. She quit smoking again in March 2019. INTERIM HISTORY: On 10/21/2019 she proceeded with her 5th cycle of adjuvant chemotherapy, limited to docetaxel and Herceptin. She was seen for a follow-up visit on 11/11/2019. At that point her neuropathy had worsened again, and we opted not to attempt any further chemotherapy. She then began cycle 1 of single agent Herceptin at a 3-week dosing interval. She tolerated without significant toxicity. With her next scheduled treatment, on 12/02/2019, Perjeta was added to her adjuvant regimen. She was able to tolerate it without any apparent additional toxicity. She then continued with cycle 2 of Herceptin/Perjeta on 12/23/2019 and with cycle 3 on 01/13/2020. Following that treatment she had developed fairly abrupt onset of pain and swelling in the right chest wall. She was seen by Dr. Temple and she underwent drainage of chest wall abscess, which reportedly grew staph. With that finding, I opted to delay her treatment, but she was then able to continue with cycle 4 of 03/04/2020 and with cycle 5 on 03/25/2020. She is seen for a scheduled visit. She has been feeling pretty good generally. She still has somewhat limited activity, but her energy is better now. ECOG score is 1. She has good appetite. She has no fever, night sweats, or hot flashes. She says her eyes sometimes go blurry. She has sores at the corners of her mouth. She continues to have some shortness of breath, and she is on BiPAP at night. She does not complain of cough, and she has not been having chest pain. Her diarrhea is adequately managed with Imodium, which she takes about every 5 to 7 days. Bladder function has been okay. She has pain in her back and also in her knees and feet. She sometimes has headache. She has numbness/tingling in her hands and feet. Medications: Albuterol Sulfate 1 ((2.5 mg/3ml) 0.083%) Nebulization solution Inhalation q 6 hours PRN, Alendronate Sodium 1 Tablet (of 70 mg) Oral q 7 days, Allopurinol 1 Tablet (of 300 mg) Oral daily, Benadryl Allergy 1 Tablet (of 25 mg) Capsule Oral PRN, Calcium + D 1 Tablet Oral daily, Claritin 1 Capsule (of 10 mg) Oral daily, Dexamethasone (4 mg) Tablet Oral Take as Directed, DULoxetine HCl 1 Capsule (of 30 mg) Capsule Delayed Release Particles Oral b.i.d., Gabapentin 1 Tablet (of 800 mg) Oral t.i.d., HYDROmorphone HCl 1 Tablet (of 2 mg) Oral t.i.d. PRN, hydrOXYzine HCl 1 Tablet (of 25 mg) Oral t.i.d. PRN, Methocarbamol 1 Tablet (of 500 mg) Oral q 8 hours PRN, Multivitamins 1 Tablet Tablet, chewable Oral daily, Nystatin 5 mL (of 716320 Units/mL) Suspension Mouth/throat four times a day, Omeprazole 1 Capsule (of 40 mg) Capsule Delayed Release Oral daily, Ondansetron HCl 1 Tablet (of 8 mg) Oral q 8 hours PRN, Prochlorperazine Maleate 1 Tablet (of 10 mg) Oral q 6 hours PRN Allergies: CARBOplatin, Ibuprofen, and Penicillins. Review of Systems: Constitutional - She is feeling good. Her energy is better. Her appetite is good and her weight is down about 5 pounds from last visit. She is doing light work. No fever, night sweats, or hot flashes. ECOG score is 1, Eyes - She complains that her eyes sometimes go blurry, ENMT - No sinus congestion/drainage. No mouth sores. No sore throat or difficulty swallowing, Hematologic/Lymphatic - No abnormal bruising or bleeding, Respiratory - She has shortness of breath with activity. She wears and BiPAP at night. No cough. No pleuritic pain or hemoptysis, Cardiovascular - No angina pain. No palpitations, Gastrointestinal - No nausea or vomiting. No heartburn or acid reflux. She gets diarrhea after treatment, but it is adequately managed with Imodium. No constipation. No blood in the stool or black stools, Genitourinary (F) - No dysuria or hematuria. No urinary frequency. No urgency or incontinence, Musculoskeletal - She is having pain in her back, knees, and feet, Integumentary - No skin complications, Neurologic - No headache or dizziness. She has numbness and tingling in her hands and feet. No other focal neurologic symptoms, Psychiatric - Her anxiety and depression is adequately managed with duloxetine and hydroxyzine. No insomnia. Vital Signs: Performed on Apr 15, 2020 12:43 Height - 66.00 in Weight - 251.8 lbs (LOW) BSA - 2.21 sq.m BMI - 40.64 (HIGH) Temperature - 97.5 F (LOW) Pulse - 87 /min Respiration - 22 /min BP - 136/81 mm(hg) O2 Sat - 99 % Pain - 0 Physical Examination: Constitutional - She looks pretty good generally, Eyes - Sclerae nonicteric. Conjunctivae clear, ENMT - She has mild angular cheilitis. There are no lesions noted in the oral cavity, Hematologic/Lymphatic - No cervical or clavicular adenopathy, Respiratory - Lungs are clear with good air movement bilaterally, Cardiovascular - Heart rhythm is regular. There is no murmur, gallop, or rub noted, Abdomen - Moderately distended. Liver and spleen are not enlarged. There is no abdominal mass or ascites noted and there is no inguinal adenopathy, Extremities - Slight edema, Integumentary - No rashes. No suspicious skin lesions noted, Neurologic - No focal neurologic deficits noted. Lab/Imaging: Test performed on Apr 15, 2020 10:33 Sodium 141 mmol/L Potassium 4.0 mmol/L Chloride 106 mmol/L CO2 28 mmol/L Anion Gap 11.0 BUN 11 mg/dL Creatinine 0.8 mg/dL Cr Clearance (Est) 138.2300 mL/min eGFR 73.9 mL/min Glucose 119 mg/dL Calcium 9.4 mg/dL Protein, Total 6.6 g/dL Albumin 4.1 g/dL Globulin 2.5 g/dL Bilirubin, Total 0.2 mg/dL ALT (SGPT) 20 U/L AST (SGOT) 24 U/L Alkaline Phosphatase 78 IU/L WBC 6.0 10 3/uL RBC 4.84 10 6/uL HGB 14.4 g/dL HCT 43.1 % MCV 89.0 fL MCH 29.8 pg MCHC 33.4 g/dL RDW 13.4 % Platelet Count 268 10 3/cmm MPV 10.9 fL Neutrophils 2.20 10 3/uL Lymphocytes 3.1 10 3/uL Monocytes 0.6 10 3/uL Eosinophils 0.1 10 3/uL Basophils 0.1 10 3/uL Neutrophil % 36.6 % Lymphocyte % 51.9 % Monocyte % 9.2 % Eosinophil % 1.3 % Basophils % 0.8 % NRBC % 0 % Impression: 1. Patient with grade 3 invasive ductal carcinoma of the right breast, stage IA ( T1c, N0, M0), ER/NV negative and HER-2/jennifer positive. 2. She underwent right total mastectomy with axillary sentinel lymph node biopsy and with immediate reconstruction on 06/12/2019. 3. She was given adjuvant chemotherapy with TCH. She completed 3 1/2 cycles, with her treatment having been interupted during cycle 4 on 09/23/2019 due to an anaphylactic reaction to carboplatin. 4. She had the right chest wall tissue supervisor fireworks assembly removed 08/21/2019 due to cellulitis. She still has a small open area in the medial aspect of the right mastectomy incision. 5. In August 2010 she underwent left mastectomy/axillary lymph node sampling for grade 3 invasive ductal carcinoma of the left breast, stage IIA (T2, N0, M0), ER/NV positive and HER-2/jennifer positive. She received adjuvant chemotherapy with TCH and adjuvant hormonal therapy. 6. She was found to harbor a BRCA2 mutation. Her other medical illnesses include: 7. Hypertension. 8. GERD. 9. Obstructive sleep apnea. 10. Osteopenia. 11. Anxiety/depression. On 10/21/2019 she proceeded with cycle 5 of adjuvant chemotherapy, limited to docetaxel and Herceptin. As of her follow-up visit on 11/11/2019 she had reported worsening of her neuropathy, and we opted not to attempt any further chemotherapy. She then began cycle 1 of single agent Herceptin at the 3-week dosing schedule. She tolerated it well. At her scheduled treatment on 12/02/2019 Perjeta was added to her adjuvant regimen. She did have some diarrhea with that, which was managed adequately with Imodium. She otherwise tolerated it well. In particular, she had no worsening of neuropathy. She continued with cycle 2 of Herceptin/Perjeta on 12/23/2019 and with cycle 3 on 01/13/2020. Her treatment was then delayed due to right chest wall abscess, but she was able to continue with cycle 4 on 03/04/2020 and with cycle 5 on 03/25/2020. At this point she continues to have some fatigue, but she appears to be tolerating her treatment well, and her overall clinical status is improving. Plan: She will continue with cycle 6 of Herceptin/Perjeta. Dosages remain the same. She returns in 3 weeks. In the meantime, she will be given empiric treatment with fluconazole for the angular colitis. She will be scheduled for a repeat bone density study, and she also will be scheduled to see Dr. Hanna, as she has had ongoing chemotherapy related toenail problems. Signed By: Puneet Hill M.D. <<Signature on File>>
== END 2020-05-01 23:59 | disposition home or self-care (01) ==
LOC: ONCMED 07:02
PROVIDERS: PCP Nurse Practitioner Family; Referring Provider Nurse Practitioner Family; Visit Provider Internal Medicine Medical Oncology
DX: Z51.12 Encounter for antineoplastic immunotherapy (principal); C50.511 Malignant neoplasm of lower-outer quadrant of right female breast; Z17.1 Estrogen receptor negative status [ER-]; L60.1 Onycholysis; K13.0 Diseases of lips; T45.1X5A Adverse effect of antineoplastic and immunosuppressive drugs, initial encounter; Z78.0 Asymptomatic menopausal state; I10 Essential (primary) hypertension; K21.9 Gastro-esophageal reflux disease without esophagitis; G47.33 Obstructive sleep apnea (adult) (pediatric); F41.8 Other specified anxiety disorders; M85.852 Other specified disorders of bone density and structure, left thigh; Z79.891 Long term (current) use of opiate analgesic; Z85.3 Personal history of malignant neoplasm of breast; Z90.12 Acquired absence of left breast and nipple; Z92.23 Personal history of estrogen therapy; Z90.11 Acquired absence of right breast and nipple; Z87.891 Personal history of nicotine dependence
CPT/HCPCS: 80053; 85025; 96367; 96413; 96417; 99214; J1200; J3490; J7050; J9306; J9355

== ENCOUNTER → 2020-04-29 08:18 | Outpatient (BNVA) | payer MEDICARE, MEDICAID, SELFPAY | PROVIDERS: PCP Nurse Practitioner Family; Referring Provider Internal Medicine Medical Oncology; Visit Provider Podiatrist Foot & Ankle Surgery | DX: L60.3 Nail dystrophy (principal) | CPT/HCPCS: 87107; 87210 ==

== ENCOUNTER → 2020-05-05 13:17 | Outpatient (BNVA) | payer MEDICARE, MEDICAID, SELFPAY | PROVIDERS: PCP Nurse Practitioner Family; Visit Provider Anesthesiology | DX: M99.83 Other biomechanical lesions of lumbar region (principal); M51.27 Other intervertebral disc displacement, lumbosacral region; M47.27 Other spondylosis with radiculopathy, lumbosacral region; M47.817 Spondylosis without myelopathy or radiculopathy, lumbosacral region; Z79.891 Long term (current) use of opiate analgesic | CPT/HCPCS: 99214 ==

== ENCOUNTER 2020-06-01 07:15 | Outpatient (RCR) | payer MEDICARE, MEDICAID, SELFPAY ==
[2020-05-06 11:33] LABS: Basophils # 0.1 10^3/uL (0.0-0.1); Basophils % 0.8 %; Eosinophils # 0.2 10^3/uL (0.0-0.8); Eosinophils % 2.8 %; Hematocrit 43.4 % (37.0-47.0); Hemoglobin 14.5 g/dL (11.5-15.3); Mean Corpuscular HGB Conc 33.4 g/dL (30.0-36.0); Mean Corpuscular Hemoglobin 29.8 pg (28.0-34.0); Mean Corpuscular Volume 89.3 fL (81-99); Mean Platelet Volume 10.9 fL (7.4-10.4); Monocytes # 0.4 10^3/uL (0.2-0.9); Monocytes % 7.2 %; Neutrophils # 2.52 10^3/uL (1.8-7.7); Nucleated Red Blood Cells % 0 %; Platelet Count 229 10^3/cmm (130-400); Red Blood Count 4.86 10^6/uL (4.1-5.3); Red Cell Distribution Width 13.5 % (12.1-15.1); White Blood Count 6.1 10^3/uL (4.0-10.0)
[2020-05-06 11:48] LABS: Alanine Aminotransferase 18 U/L (0-33); Alkaline Phosphatase 79 IU/L (35-105); Anion Gap 10.7 (5-19); Aspartate Amino Transferase 21 U/L (0-32); Blood Urea Nitrogen 9 mg/dL (6-20); Calcium 9.3 mg/dL (8.5-10.5); Carbon Dioxide 26 mmol/L (22-29); Chloride 103 mmol/L (98-107); Globulin 2.8 g/dL (1.3-4.6); Glomerular Filtration Rate 64.5 mL/min (90-130); Glucose 190 mg/dL (65-115); Osmolality Calculated 283 mOsm/kg (285-295); Potassium 3.7 mmol/L (3.5-5.1); Sodium 136 mmol/L (136-145); Total Bilirubin 0.2 mg/dL (0.15-1.2); Total Protein 6.8 g/dL (6.6-8.7)
[2020-05-06 12:39] LABS: Slide Review Slide Review Perform
[2020-05-06] MEDS: acetaminophen 325 mg Tablet 650 MG PO (14:00)
[2020-05-06] MEDS: sodium chloride 0.9% 250 ML 75 ML IV (14:15)
--- NOTE | 2020-05-07 14:07 | XR_ITS ---
WS: [id number] SCREENING DEXA SCAN [employer] CLINICAL INFORMATION: OSTEOPOROSIS, OSTEOPENIA COMPARISON: None. FINDINGS: The L1-L4 bone mineral density measures 1.055 g/cm2. This corresponds to a T score score of -1.0 and Z score of -1.2. Left femoral neck bone mineral density measures 0.943 g/cm2. This corresponds to a T score of -0.5 an d Z score of -0.6. Right femoral neck bone mineral density measures 0.962 g/cm2. This corresponds to a T score -0.4of an d Z score of -0.4. Mean femoral neck bone mineral density measures 0.953 g/cm2. This corresponds to a T score of -0.4 an d Z score of -0.5. XR/XR DEXA axial skeleton* [id number] IMPRESSION: Osteopenia lumbar spine. Normal bone mineralization in the femoral necks. Patient's FRAX calculated 10 year probability for major osteoporotic fracture i s 12.7 % and osteoporotic hip fracture is 2.1%.
--- NOTE | 2020-05-10 21:46 | ONC FU_ITS ---
[facility] Patient Note Patient: Remedios Cary Unit #: [id number]: 1960 Dictated By: Kami RichardsonDate of Visit: May 06, 2020 Onc MED Follow-Up/Prog Note Chief Complaint: Breast cancer. History of Present Illness: Ms Cary is a 58 year-old woman with grade 3 infiltrating ductal carcinoma of the right breast, stage IA, ER/ SD negative and HER-2/jennifer positive. She previously had treatment for HER-2/jennifer positive left breast cancer, and she is known to harbor a BRCA2 mutation. 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 She underwent left mastectomy/axillary lymph node sampling and breast reconstruction on 08/10/2010. Her disease was stage IIA (T2, N0, M0) with pathology showing 2.5 cm primary tumor and no involvement of 4 lymph nodes. She was given adjuvant chemotherapy with TCH, completed in December 2010. She completed a full year of Herceptin, and she also was given adjuvant hormonal therapy for a total of 8 years, initially with tamoxifen but with transition to Femara as of September 2014. On 04/08/2019 she was confirmed by needle biopsy to have grade 3 invasive ductal carcinoma of the right breast. The best prognostic profile showed ER and SD negative, both 0%. HER-2/jennifer was 2+ by IHC but positive by FISH with 10.9 HER-2/jennifer signals per cell and 2.2 CEP17 signals per cell. The Ki-67 was unfavorable at 35%. She underwent right total mastectomy with axillary sentinel lymph node biopsy and with immediate reconstruction on 06/12/2019. Pathology showed grade 3 invasive ductal carcinoma measuring 1.8 x 1.6 x 1.2 cm. There was no involvement in 2 sentinel lymph nodes. In the meantime, she also had undergone BRCA testing and she was confirmed to harbor a BRCA2 mutation. Her staging PET/CT on 07/17/2019 showed no evidence for active malignancy. Her echocardiogram showed normal left ventricular systolic function with ejection fraction estimated at 60-65%. She has been undergoing adjuvant chemotherapy with TCH, cycle 1 beginning 07/24/2019. 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 With her 4th cycle of chemotherapy, on 09/23/2019, she experienced an anaphylactic reaction to the carboplatin. She was rechallenged one week later with similar results. Dr Hill had seen her initially on 10/11/2019. At that time we discussed options for her further adjuvant therapy. Ultimately she decided to try and complete 2 more cycles of chemotherapy with docetaxel/Herceptin. Her other medical illnesses include hypertension, GERD, obstructive sleep apnea, osteopenia, and anxiety/depression. She has a history of smoking for 15 years, previously up to 3 packs of cigarettes daily. She had quit for 15 years, then started smoking again for about 1 year. She quit smoking again in March 2019. INTERIM HISTORY: On 10/21/2019 she proceeded with her 5th cycle of adjuvant chemotherapy, limited to docetaxel and Herceptin. She has cycle 1 Herceptin on 07-22-2019 at an outside facility. She also received cycle 2 Herceptin on 08/12/2019. Her third cycle on 09/02/2019 with switch to the Herceptin bio similar and she received the biosimilar again on 09/23/2018. She then presented to us for follow-up and received Herceptin on November 11, 2019. She was seen for a follow-up visit on 11/11/2019. At that point her neuropathy had worsened again, and we opted not to attempt any further chemotherapy. She then began cycle 1 of single agent Herceptin at a 3-week dosing interval. She tolerated without significant toxicity. With her next scheduled treatment, on 12/02/2019, Perjeta was added to her adjuvant regimen. She was able to tolerate it without any apparent additional toxicity. She then continued with cycle 2 of Herceptin/Perjeta on 12/23/2019 and with cycle 3 on 01/13/2020. At her followup in January 2020, she had developed fairly abrupt onset of pain and swelling in the right chest wall. She was seen by Dr. Temple and she underwent drainage of chest wall abscess, which reportedly grew staph. She remained on antibiotic coverage for that. She was packing the wound daily. She resumed Herceptin Perjeta on March 04, 2020. She has had 11 total doses of Herceptin/6 of those in combination with Perjeta. Ms. Cary is here today for follow-up. She states overall she is doing well. She has no new concerns. She states she feels good energy. She is eating well. She denies fever or chills. She has had no mouth sores, sore throat or difficulty swallowing. She denies any nausea or vomiting. She denies any diarrhea or constipation. She is had no urinary symptoms. She denies any shortness of breath or cough. She has had no dyspnea or orthopnea. She denies any lower extremity edema. She denies chest pain or palpitations. Her ECOG is 0. 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 Medications: Albuterol Sulfate 1 ((2.5 mg/3ml) 0.083%) Nebulization solution Inhalation q 6 hours PRN Alendronate Sodium 1 Tablet (of 70 mg) Oral q 7 days Allopurinol 1 Tablet (of 300 mg) Oral daily Benadryl Allergy 1 Tablet (of 25 mg) Capsule Oral PRN Calcium + D 1 Tablet Oral daily Claritin 1 Capsule (of 10 mg) Oral daily Dexamethasone (4 mg) Tablet Oral Take as Directed DULoxetine HCl 1 Capsule (of 30 mg) Capsule Delayed Release Particles Oral b.i.d. Gabapentin 1 Tablet (of 800 mg) Oral t.i.d. HYDROmorphone HCl 1 Tablet (of 2 mg) Oral t.i.d. PRN hydrOXYzine HCl 1 Tablet (of 25 mg) Oral t.i.d. PRN Methocarbamol 1 Tablet (of 500 mg) Oral q 8 hours PRN Multivitamins 1 Tablet Tablet, chewable Oral daily Nystatin 5 mL (of 169515 Units/mL) Suspension Mouth/throat four times a day Omeprazole 1 Capsule (of 40 mg) Capsule Delayed Release Oral daily Ondansetron HCl 1 Tablet (of 8 mg) Oral q 8 hours PRN Prochlorperazine Maleate 1 Tablet (of 10 mg) Oral q 6 hours PRN Family History: Ms. Cary's mother is alive: dementia. Ms. Cary's father at age 47: colon cancer. Father with colon cancer at age 47. Mother is still living at age 74. She has dementia. A brother with alcohol related heart disease. Another brother has known coronary artery disease. A sister in a motor vehicle accident. Her maternal grandmother with cancer, apparently of unknown primary site. Social History: Ms. Cary is single and she is a disabled. She is an occasional smoker who has smoked 0.5 packs/day for 16 years. She is a former drinker. Ms. Cary reports the following support systems: lives with spouse, significant other, family, or friends, lives in own house, supportive family/friends willing to assist with needs, and adequate transportation available for expected visits. Her diet consists of regular meals. She indicates her activity level as: sedentary. She has a history of smoking up to 3 packs of cigarettes daily for about 15 years, but she then quit for a period of at least 15 years or more. She then smoked again for about a year, 1/2 pack per day. She does not drink alcohol. Review Of Symptoms: Constitutional Denies fevers, chills, night sweats, excessive fatigue or weight loss. Allergic/Immunologic No reactions. Eyes Denies significant visual changes. No diplopia. No amaurosis. ENMT Denies changes in hearing, sore throat, mouth sores, difficulty or changes in swallowing ability, and/or sinus drainage. Hematologic/Lymphatic Denies easy bruising or bleeding. The patient denies any tender or palpable lymph nodes. Respiratory Denies dyspnea on exertion, chest pain, cough or hemoptysis. Denies orthopnea. Cardiovascular Denies anginal chest pain, palpitations or orthopnea. Gastrointestinal Denies nausea, vomiting, diarrhea, GI bleeding, or constipation. Denies change in bowel habits and/or stool color, no heartburn or early satiety. Genitourinary (F) No hematuria, hesitancy, incontinence, vaginal bleeding, discharge or other problems with urination. Musculoskeletal Denies joint pain, swelling or redness. No decreased range of motion. Integumentary Denies chronic rashes, inflammation, ulcerations or skin changes. Neurologic Denies headache, blurred vision, and no areas of focal weakness or numbness. Assisted gait with seated walker. No sensory problems. Psychiatric Denies insomnia, depression, jennifer or mood swings. Vital Signs: Performed on May 06, 2020 13:12 Height - 66.00 in Weight - 252.8 lbs (HIGH) BSA - 2.21 sq.m BMI - 40.80 (HIGH) Temperature - 97.2 F (LOW) Pulse - 70 /min Respiration - 16 /min BP - 137/91 mm(hg) O2 Sat - 98 % Pain - 3,2 - Ambulatory/capable of all self-care, unable to perform any work activities. Up and about more than 50% of waking hours. (ECOG) Physical Examination: Constitutional Alert, oriented, no acute distress. Skin pink, warm and dry. Alopecia. Head Normocephalic; atraumatic. Eyes Conjunctivae and sclerae are clear and without icterus. Pupils are reactive and equal. ENMT [id number] angular cheilitis, no oral lesions. Neck Supple without masses or thyromegaly. No jugular venous distension. Hematologic/Lymphatic No petechiae or purpura. No tender or palpable lymph nodes in the cervical or supraclavicular areas. Respiratory Lungs are clear to auscultation without rhonchi or wheezing. Cardiovascular Regular rate and rhythm of heart without murmurs,clicks, gallops or rubs. Abdomen Non-tender, non-distended, no ascites or masses palpable on palpation. No guarding or rebound tenderness. No pulsatile masses. Back/Spine Non-tender to palpation. Extremities No visible deformities, no cyanosis, clubbing or edema. Musculoskeletal No tenderness or swelling, normal range of motion without obvious weakness. Utilizing don walker for ambulation assistance. Integumentary No rashes or lesions. Neurologic No sensory or motor deficits, normal cerebellar function, normal gait. Psychiatric Alert and oriented times three. Coherent speech. Verbalizes understanding of our discussions today. Laboratory:Test performed on May 06, 2020 11:16 Sodium 136 mmol/L Potassium 3.7 mmol/L Chloride 103 mmol/L CO2 26 mmol/L Anion Gap 10.7 BUN 9 mg/dL Creatinine 0.9 mg/dL Cr Clearance (Est) 122.8700 mL/min eGFR 64.5 mL/min Glucose 190 mg/dL Calcium 9.3 mg/dL Protein, Total 6.8 g/dL Albumin 4.0 g/dL Globulin 2.8 g/dL Bilirubin, Total 0.2 mg/dL ALT (SGPT) 18 U/L AST (SGOT) 21 U/L Alkaline Phosphatase 79 IU/L WBC 6.1 10 3/uL RBC 4.86 10 6/uL HGB 14.5 g/dL HCT 43.4 % MCV 89.3 fL MCH 29.8 pg MCHC 33.4 g/dL RDW 13.5 % Platelet Count 229 10 3/cmm MPV 10.9 fL Neutrophils 2.52 10 3/uL Lymphocytes 3.0 10 3/uL Monocytes 0.4 10 3/uL Eosinophils 0.2 10 3/uL Basophils 0.1 10 3/uL Neutrophil % 41.0 % Lymphocyte % 48.0 % Monocyte % 7.2 % Eosinophil % 2.8 % Basophils % 0.8 % NRBC % 0 % CBC Slide Review Slide Review Perform SLIDE REVIEW AGREES WITH AUTOMATED RESULTS Test performed on Mar 04, 2020 11:20 Manual Lymphocytes 49.4 % Manual Monocytes 9.6 % Manual Eosinophils 0.8 % Manual Basophils 0.8 % Impression: 1. Patient with grade 3 invasive ductal carcinoma of the right breast, stage IA ( T1c, N0, M0), ER/SD negative and HER-2/jennifer positive. 2. She underwent right total mastectomy with axillary sentinel lymph node biopsy and with immediate reconstruction on 06/12/2019. 3. She was given adjuvant chemotherapy with TCH. She completed 3 1/2 cycles, with her treatment having been interupted during cycle 4 on 09/23/2019 due to an anaphylactic reaction to carboplatin. 4. 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 She still has a small open area in the medial aspect of the right mastectomy incision. 5. In August 2010 she underwent left mastectomy/axillary lymph node sampling for grade 3 invasive ductal carcinoma of the left breast, stage IIA (T2, N0, M0), ER/SD positive and HER-2/jennifer positive. She received adjuvant chemotherapy with TCH and adjuvant hormonal therapy. 6. She was found to harbor a BRCA2 mutation. Her other medical illnesses include: 7. Hypertension. 8. GERD. 9. Obstructive sleep apnea. 10. Osteopenia. 11. Anxiety/depression. She had cycle 1 TCH on 07-22-2019 at an outside facility. She also received cycle 2 TCH on 08/12/2019. Her third cycle on 09/02/2019 with switch to the Herceptin biosimilar (along with the chemo) and she received the biosimilar/ again on 09/23/2018. She then presented to us for follow-up and received Herceptin on November 11, 2019.On 10/21/2019 she proceeded with cycle 5 of adjuvant chemotherapy, limited to docetaxel and Herceptin. As of her follow-up visit on 11/11/2019 she had reported worsening of her neuropathy, and we opted not to attempt any further chemotherapy. She then began cycle 1 of single agent Herceptin at the 3-week dosing schedule. She tolerated it well. At her scheduled treatment on 12/02/2019 Perjeta was added to her adjuvant regimen. She did have some diarrhea with that, which was managed adequately with Imodium. She otherwise tolerated it well. In particular, she had no worsening of neuropathy. She continued with cycle 2 of Herceptin/Perjeta on 12/23/2019 and with cycle 3 on 01/13/2020. Her treatment was then delayed due to right chest wall abscess, but she was able to continue with cycle 4 on 03/04/2020 and with cycle 5 on 03/25/2020. At this point she continues to have some fatigue, but she appears to be tolerating her treatment well, and her overall clinical status is improving. Plan: 1. Proceed with cycle 12 Herceptin/ 7 of Herceptin/Perjeta. Dosages remain the same. 2. She is scheduled for bone density tomorrow. (Planning for 17 doses of Herceptin overall). 3. Labs from 05/06/2020 were reviewed in detail and discussed with Mrs Lucero and a copy was given to her. WBC 6.1, hemoglobin 14.5, platelets 229,000 ANC is 3000. Creatinine 0.9 LFTs are normal. 4. She is due for follow-up limited view echocardiogram for monitoring of the Herceptin Perjeta we can obtain this before her next visit or on her next visit. 5. Plan to see her back in 3 weeks with CBC CMP and follow-up for consideration of cycle 13 Herceptin/cycle 8 of Herceptin Perjeta. 6. Mrs. Cary was instructed to contact us in the interim should problems arise. Signed By: Kami Richardson-, AOCNP [place] MD <<Signature on File>>
[2020-05-27] MEDS: alteplase 1 mg/mL SDV 2 mL 2 MG INTRACATH (09:15)
[2020-05-27 09:37] LABS: Basophils % 0.7 %; Eosinophils # 0.1 10^3/uL (0.0-0.8); Eosinophils % 2.3 %; Hematocrit 42.1 % (37.0-47.0); Hemoglobin 14.3 g/dL (11.5-15.3); Lymphocytes # 2.7 10^3/uL (0.8-4.8); Lymphocytes % 48.5 %; Mean Corpuscular Hemoglobin 30.2 pg (28.0-34.0); Mean Platelet Volume 11.2 fL (7.4-10.4); Monocytes # 0.5 10^3/uL (0.2-0.9); Monocytes % 8.1 %; Neutrophils # 2.24 10^3/uL (1.8-7.7); Neutrophils % 40.2 %; Nucleated Red Blood Cells % 0 %; Platelet Count 243 10^3/cmm (130-400); Red Blood Count 4.73 10^6/uL (4.1-5.3); Red Cell Distribution Width 13.7 % (12.1-15.1); White Blood Count 5.6 10^3/uL (4.0-10.0)
[2020-05-27 10:11] LABS: Alanine Aminotransferase 21 U/L (0-33); Albumin Level 3.9 g/dL (3.5-5.2); Alkaline Phosphatase 67 IU/L (35-105); Anion Gap 10.7 (5-19); Aspartate Amino Transferase 20 U/L (0-32); Blood Urea Nitrogen 10 mg/dL (6-20); Calcium 8.7 mg/dL (8.5-10.5); Carbon Dioxide 28 mmol/L (22-29); Chloride 103 mmol/L (98-107); Globulin 2.6 g/dL (1.3-4.6); Glomerular Filtration Rate 64.5 mL/min (90-130); Glucose 178 mg/dL (65-115); Osmolality Calculated 286 mOsm/kg (285-295); Potassium 3.7 mmol/L (3.5-5.1); Sodium 138 mmol/L (136-145); Total Bilirubin 0.3 mg/dL (0.15-1.2); Total Protein 6.5 g/dL (6.6-8.7)
[2020-05-27] MEDS: sodium chloride 0.9% 250 ML 75 ML IV (11:30)
[2020-05-27] MEDS: acetaminophen 325 mg Tablet 650 MG PO (11:30)
--- NOTE | 2020-05-30 21:49 | ONC FU_ITS ---
[facility] Patient Note Patient: Remedios Cary Unit #: [id number]: 1960 Dictated By: Kami RichardsonDate of Visit: May 27, 2020 Onc MED Follow-Up/Prog Note Chief Complaint: Breast cancer. History of Present Illness: Ms Cary is a 58 year-old woman with grade 3 infiltrating ductal carcinoma of the right breast, stage IA, ER/ NJ negative and HER-2/jennifer positive. She previously had treatment for HER-2/jennifer positive left breast cancer, and she is known to harbor a BRCA2 mutation. In July 2010 she was diagnosed with grade 3 invasive ductal carcinoma of the left breast, ER/NJ positive and HER-2/jennifer positive. She underwent left mastectomy/axillary lymph node sampling and breast reconstruction on 08/10/2010. Her disease was stage IIA (T2, N0, M0) with pathology showing 2.5 cm primary tumor and no involvement of 4 lymph nodes. She was given adjuvant chemotherapy with TCH, completed in December 2010. She completed a full year of Herceptin, and she also was given adjuvant hormonal therapy for a total of 8 years, initially with tamoxifen but with transition to Femara as of September 2014. On 04/08/2019 she was confirmed by needle biopsy to have grade 3 invasive ductal carcinoma of the right breast. The best prognostic profile showed ER and NJ negative, both 0%. HER-2/jennifer was 2+ by IHC but positive by FISH with 10.9 HER-2/jennifer signals per cell and 2.2 CEP17 signals per cell. The Ki-67 was unfavorable at 35%. She underwent right total mastectomy with axillary sentinel lymph node biopsy and with immediate reconstruction on 06/12/2019. Pathology showed grade 3 invasive ductal carcinoma measuring 1.8 x 1.6 x 1.2 cm. There was no involvement in 2 sentinel lymph nodes. In the meantime, she also had undergone BRCA testing and she was confirmed to harbor a BRCA2 mutation. Her staging PET/CT on 07/17/2019 showed no evidence for active malignancy. Her echocardiogram showed normal left ventricular systolic function with ejection fraction estimated at 60-65%. She has been undergoing adjuvant chemotherapy with TCH, cycle 1 beginning 07/24/2019. During her treatment, she required removal of the tissue utilization supervisor in the right chest due to cellulitis. With her 4th cycle of chemotherapy, on 09/23/2019, she experienced an anaphylactic reaction to the carboplatin. She was rechallenged one week later with similar results. Dr Hill had seen her initially on 10/11/2019. At that time we discussed options for her further adjuvant therapy. Ultimately she decided to try and complete 2 more cycles of chemotherapy with docetaxel/Herceptin. Her other medical illnesses include hypertension, GERD, obstructive sleep apnea, osteopenia, and anxiety/depression. She has a history of smoking for 15 years, previously up to 3 packs of cigarettes daily. She had quit for 15 years, then started smoking again for about 1 year. She quit smoking again in March 2019. INTERIM HISTORY: On 10/21/2019 she proceeded with her 5th cycle of adjuvant chemotherapy, limited to docetaxel and Herceptin. She has cycle 1 Herceptin on 07-22-2019 at an outside facility. She also received cycle 2 Herceptin on 08/12/2019. Her third cycle on 09/02/2019 with switch to the Herceptin bio similar and she received the biosimilar again on 09/23/2018. She then presented to us for follow-up and received Herceptin on November 11, 2019. She was seen for a follow-up visit on 11/11/2019. At that point her neuropathy had worsened again, and we opted not to attempt any further chemotherapy. She then began cycle 1 of single agent Herceptin at a 3-week dosing interval. She tolerated without significant toxicity. With her next scheduled treatment, on 12/02/2019, Perjeta was added to her adjuvant regimen. She was able to tolerate it without any apparent additional toxicity. She then continued with cycle 2 of Herceptin/Perjeta on 12/23/2019 and with cycle 3 on 01/13/2020. At her followup in January 2020, she had developed fairly abrupt onset of pain and swelling in the right chest wall. She was seen by Dr. Temple and she underwent drainage of chest wall abscess, which reportedly grew staph. She remained on antibiotic coverage for that. She was packing the wound daily. She resumed Herceptin Perjeta on March 04, 2020. She has had 11 total doses of Herceptin/6 of those in combination with Perjeta. Ms. Cary is here today for follow-up. She states overall she is doing well. She has no new concerns. She states she feels good energy. She is eating well. She denies fever or chills. She has had no mouth sores, sore throat or difficulty swallowing. She denies any nausea or vomiting. She denies any diarrhea or constipation. She is had no urinary symptoms. She denies any shortness of breath or cough. She has had no dyspnea or orthopnea. She denies any lower extremity edema. She denies chest pain or palpitations. Her ECOG is 0. Past Medical History: Depression Gastroesophageal reflux disease History of left breast cancer Hypertension Neuropathy secondary to chemotherapy Obstructive sleep apnea Osteopenia Postmenopausal Past Surgical History: Tubal ligation Removal of right chest wall tissue utilization supervisor in 2019 Right total mastectomy/axillary sentinel lymph node biopsy and immediate reconstruction in 2019 Needle biopsy of the right breast in 2018 ORIF for left wrist fracture in 2017 Left total mastectomy/axillary lymph node sampling and breast reconstruction in 2009 Allergies: CARBOplatin, Ibuprofen, and Penicillins. Medications: Albuterol Sulfate 1 ((2.5 mg/3ml) 0.083%) Nebulization solution Inhalation q 6 hours PRN Alendronate Sodium 1 Tablet (of 70 mg) Oral q 7 days Allopurinol 1 Tablet (of 300 mg) Oral daily Benadryl Allergy 1 Tablet (of 25 mg) Capsule Oral PRN Calcium + D 1 Tablet Oral daily Claritin 1 Capsule (of 10 mg) Oral daily Dexamethasone (4 mg) Tablet Oral Take as Directed DULoxetine HCl 1 Capsule (of 30 mg) Capsule Delayed Release Particles Oral b.i.d. Gabapentin 1 Tablet (of 800 mg) Oral t.i.d. HYDROmorphone HCl 1 Tablet (of 2 mg) Oral t.i.d. PRN hydrOXYzine HCl 1 Tablet (of 25 mg) Oral t.i.d. PRN Methocarbamol 1 Tablet (of 500 mg) Oral q 8 hours PRN Multivitamins 1 Tablet Tablet, chewable Oral daily Nystatin 5 mL (of 672169 Units/mL) Suspension Mouth/throat four times a day Omeprazole 1 Capsule (of 40 mg) Capsule Delayed Release Oral daily Ondansetron HCl 1 Tablet (of 8 mg) Oral q 8 hours PRN Prochlorperazine Maleate 1 Tablet (of 10 mg) Oral q 6 hours PRN Family History: Ms. Cary's mother is alive: dementia. Ms. Cary's father at age 47: colon cancer. Father with colon cancer at age 47. Mother is still living at age 74. She has dementia. A brother with alcohol related heart disease. Another brother has known coronary artery disease. A sister in a motor vehicle accident. Her maternal grandmother with cancer, apparently of unknown primary site. Social History: Ms. Cary is single and she is a disabled. She is an occasional smoker who has smoked 0.5 packs/day for 16 years. She is a former drinker. Ms. Cary reports the following support systems: lives with spouse, significant other, family, or friends, lives in own house, supportive family/friends willing to assist with needs, and adequate transportation available for expected visits. Her diet consists of regular meals. She indicates her activity level as: sedentary. Review Of Symptoms: Constitutional Denies fevers, chills, night sweats, excessive fatigue or weight loss. Allergic/Immunologic No reactions. Eyes Denies significant visual changes. No diplopia. No amaurosis. ENMT Denies changes in hearing, sore throat, mouth sores, difficulty or changes in swallowing ability, and/or sinus drainage. Endocrine No diabetes, thyroid disease or hormone replacement. Denies hot flashes or night sweats. Hematologic/Lymphatic Denies easy bruising or bleeding. The patient denies any tender or palpable lymph nodes. Respiratory Denies dyspnea on exertion, chest pain, cough or hemoptysis. Denies orthopnea. Cardiovascular Denies anginal chest pain, palpitations or orthopnea. Gastrointestinal Denies nausea, vomiting, diarrhea, GI bleeding, or constipation. Denies change in bowel habits and/or stool color, no heartburn or early satiety. Genitourinary (F) No hematuria, hesitancy, incontinence, vaginal bleeding, discharge or other problems with urination. Musculoskeletal Denies joint pain, swelling or redness. No decreased range of motion. Integumentary Denies chronic rashes, inflammation, ulcerations or skin changes. Neurologic Denies headache, blurred vision, and no areas of focal weakness or numbness. Assisted gait with seated walker. No sensory problems. Psychiatric Denies insomnia, depression, jennifer or mood swings. Vital Signs: Performed on May 27, 2020 11:07 Height - 66.00 in Weight - 253.4 lbs (HIGH) BSA - 2.21 sq.m BMI - 40.90 (HIGH) Temperature - 96.8 F (LOW) Pulse - 74 /min Respiration - 18 /min BP - 139/89 mm(hg) O2 Sat - 94 % (LOW) Pain - 5,1 - No physically strenuous activity, but ambulatory and able to carry out light or sedentary work (e.g. office work, light house work). (ECOG) Physical Examination: Constitutional Alert, oriented, no acute distress. Skin pink, warm and dry. Alopecia. Head Normocephalic; atraumatic. Eyes Conjunctivae and sclerae are clear and without icterus. Pupils are reactive and equal. ENMT [id number] angular cheilitis, no oral lesions. Neck Supple without masses or thyromegaly. No jugular venous distension. Hematologic/Lymphatic No petechiae or purpura. No tender or palpable lymph nodes in the cervical or supraclavicular areas. Respiratory Lungs are clear to auscultation without rhonchi or wheezing. Cardiovascular Regular rate and rhythm of heart without murmurs,clicks, gallops or rubs. Abdomen Non-tender, non-distended, no ascites or masses palpable on palpation. No guarding or rebound tenderness. No pulsatile masses. Back/Spine Non-tender to palpation. Extremities No visible deformities, no cyanosis, clubbing or edema. Musculoskeletal No tenderness or swelling, normal range of motion without obvious weakness. Utilizing don walker for ambulation assistance. Integumentary No rashes or lesions. Neurologic No sensory or motor deficits, normal cerebellar function, normal gait. Psychiatric Alert and oriented times three. Coherent speech. Verbalizes understanding of our discussions today. Laboratory:Test performed on May 27, 2020 09:45 Sodium 138 mmol/L Potassium 3.7 mmol/L Chloride 103 mmol/L CO2 28 mmol/L Anion Gap 10.7 BUN 10 mg/dL Creatinine 0.9 mg/dL Cr Clearance (Est) 122.8700 mL/min eGFR 64.5 mL/min Glucose 178 mg/dL Calcium 8.7 mg/dL Protein, Total 6.5 g/dL Albumin 3.9 g/dL Globulin 2.6 g/dL Bilirubin, Total 0.3 mg/dL ALT (SGPT) 21 U/L AST (SGOT) 20 U/L Alkaline Phosphatase 67 IU/L Test performed on May 27, 2020 09:09 WBC 5.6 10 3/uL RBC 4.73 10 6/uL HGB 14.3 g/dL HCT 42.1 % MCV 89.0 fL MCH 30.2 pg MCHC 34.0 g/dL RDW 13.7 % Platelet Count 243 10 3/cmm MPV 11.2 fL Neutrophils 2.24 10 3/uL Lymphocytes 2.7 10 3/uL Monocytes 0.5 10 3/uL Eosinophils 0.1 10 3/uL Basophils 0.0 10 3/uL Neutrophil % 40.2 % Lymphocyte % 48.5 % Monocyte % 8.1 % Eosinophil % 2.3 % Basophils % 0.7 % NRBC % 0 % Test performed on May 06, 2020 11:16 CBC Slide Review Slide Review Perform SLIDE REVIEW AGREES WITH AUTOMATED RESULTS Test performed on Mar 04, 2020 11:20 Manual Lymphocytes 49.4 % Manual Monocytes 9.6 % Manual Eosinophils 0.8 % Manual Basophils 0.8 % Impression: 1. Patient with grade 3 invasive ductal carcinoma of the right breast, stage IA ( T1c, N0, M0), ER/NJ negative and HER-2/jennifer positive. 2. She underwent right total mastectomy with axillary sentinel lymph node biopsy and with immediate reconstruction on 06/12/2019. 3. She was given adjuvant chemotherapy with TCH. She completed 3 1/2 cycles, with her treatment having been interupted during cycle 4 on 09/23/2019 due to an anaphylactic reaction to carboplatin. 4. She had the right chest wall tissue utilization supervisor removed 08/21/2019 due to cellulitis. She still has a small open area in the medial aspect of the right mastectomy incision. 5. In August 2010 she underwent left mastectomy/axillary lymph node sampling for grade 3 invasive ductal carcinoma of the left breast, stage IIA (T2, N0, M0), ER/NJ positive and HER-2/jennifer positive. She received adjuvant chemotherapy with TCH and adjuvant hormonal therapy. 6. She was found to harbor a BRCA2 mutation. Her other medical illnesses include: 7. Hypertension. 8. GERD. 9. Obstructive sleep apnea. 10. Osteopenia. 11. Anxiety/depression. She had cycle 1 TCH on 07-22-2019 at an outside facility. She also received cycle 2 TCH on 08/12/2019. Her third cycle on 09/02/2019 with switch to the Herceptin biosimilar (along with the chemo) and she received the biosimilar/ again on 09/23/2018. She then presented to us for follow-up and received Herceptin on November 11, 2019.On 10/21/2019 she proceeded with cycle 5 of adjuvant chemotherapy, limited to docetaxel and Herceptin. As of her follow-up visit on 11/11/2019 she had reported worsening of her neuropathy, and we opted not to attempt any further chemotherapy. She then began cycle 1 of single agent Herceptin at the 3-week dosing schedule. She tolerated it well. At her scheduled treatment on 12/02/2019 Perjeta was added to her adjuvant regimen. She did have some diarrhea with that, which was managed adequately with Imodium. She otherwise tolerated it well. In particular, she had no worsening of neuropathy. She continued with cycle 2 of Herceptin/Perjeta on 12/23/2019 and with cycle 3 on 01/13/2020. Her treatment was then delayed due to right chest wall abscess, but she was able to continue with cycle 4 on 03/04/2020 and with cycle 5 on 03/25/2020. At this point she continues to have some fatigue, but she appears to be tolerating her treatment well, and her overall clinical status is improving. Plan: 1. Proceed with cycle 13 Herceptin/ 8 of Herceptin/Perjeta. Dosages remain the same. 2. She is scheduled for followup echocardiogram on 06/01/2020. 3. Labs from 05/27/2020 were reviewed in detail and discussed with Mrs Lucero and a copy was given to her. WBC 5.6, hemoglobin 14.3, platelets 243,000 ANC is 2200. Creatinine 0.9 random glucose 178 LFTs are normal. 4. She did have a bone density reporting osteopenia with the highest T-score reported as -1.0. We discussed ways to help with the neutropenia such as dietary calcium intake, calcium supplementation and weightbearing exercises such as walking. Her calcium level is 8.7 on today's labs. 5. Plan to see her back in 3 weeks with CBC CMP and follow-up for consideration of cycle 14 Herceptin/cycle 9 of Herceptin Perjeta. 6. Mrs. Cary was instructed to contact us in the interim should problems arise. Signed By: Kami Richardson-, CNP Puneet Hill MD <<Signature on File>>
--- NOTE | 2020-06-01 | USCV_ITS ---
Remedios Cary Age: 59 Gender: F : 1960 Exam Date: 06/01/2020 07:13 Ordering Phys: Puneet Hill MD Technologist: Reji Giles Exam Location: [facility] – [place] Indication: HIGH RISK MED BP: 135 / 75 HR: 88 Rhythm: Sinus Technical Quality: Good MEASUREMENTS (Male / Female) Normal Values 2D ECHO LVOT Diameter 2.1 cm LV Ejection Fraction MOD 2C 72.1 % LV Ejection Fraction 2C AL 72.1 % LA Diameter 4.0 cm LA Width 3.0 cm LA Height 3.9 cm RA Width 3.1 cm RA Height 3.6 cm Aorta at Sinotubular Diameter 1.1 cm M-MODE LV Diastolic Diameter MM 5.2 cm 4.2 - 5.9 / 3.9 - 5.3 cm LV Systolic Diameter MM 3.2 cm LV Ejection Fraction MM Teich 68.6 % IVS Diastolic Thickness MM 0.9 cm 0.6 - 1.0 / 0.6 - 0.9 cm IVS Systolic Thickness MM 1.5 cm LVPW Diastolic Thickness MM 1.2 cm 0.6 - 1.0 / 0.6 - 0.9 cm LVPW Systolic Thickness MM 2.0 cm RV Diastolic Diameter MM 2.1 cm Aortic Annulus Diameter 3.3 cm LA Ao Ratio MM 1.2 MV E Point Septal Separation 1.3 cm FINDINGS Left Ventricle Normal left ventricular size and systolic function with no regional wall motion abnormalities. Left ventricular ejection fraction is estimated at 60-65 %. Right Ventricle Normal right ventricular size and systolic function. Right Atrium Normal right atrial size. Left Atrium Normal left atrial size. Mitral Valve Structurally normal mitral valve. Aortic Valve Structurally normal trileaflet aortic valve. Tricuspid Valve Structurally normal tricuspid valve. Pulmonic Valve Structurally normal pulmonic valve. Pericardium No pericardial effusion. Aorta Normal size aortic root and proximal ascending aorta. CONCLUSIONS 1. This is a limited study. 2. Normal left ventricular size and systolic function with no regional wall motion abnormalities. Left ventricular ejection fraction is estimated at 60-65 %. 3. Normal right ventricular size and systolic function. 4. No prior similar studies to compare. Tianna Diamond MD (Electronically Signed) Final Date: 03 June 2020 17:10 S
== END 2020-06-01 23:59 | disposition home or self-care (01) ==
LOC: RAD 07:15
PROVIDERS: Nurse Practitioner; PCP Nurse Practitioner Family; Referring Provider Nurse Practitioner Family; Visit Provider Internal Medicine Medical Oncology
DX: M81.0 Age-related osteoporosis without current pathological fracture (principal); C50.911 Malignant neoplasm of unspecified site of right female breast; Z17.1 Estrogen receptor negative status [ER-]; Z79.899 Other long term (current) drug therapy; Z78.0 Asymptomatic menopausal state
CPT/HCPCS: 36593; 77080; 80053; 85025; 93308; 96367; 96375; 96413; 96417; 99214; J1200; J2997; J3490; J7050; J9306; J9355

== ENCOUNTER 2020-06-04 19:36 | Emergency (ER) | payer MEDICARE, MEDICAID, SELFPAY ==
[2020-06-04 19:45] VITALS: BP 144/89; PULSE 128; RESP 20; TEMP 36.4; O2SAT 96; BMI 40.3
== END 2020-06-05 01:12 | disposition home or self-care (01) ==
PROVIDERS: PCP Nurse Practitioner Family
DX: Z53.21 Procedure and treatment not carried out due to patient leaving prior to being seen by health care provider (principal)
CPT/HCPCS: 99281

== ENCOUNTER → 2020-06-09 14:42 | Outpatient (BNVA) | payer MEDICARE, MEDICAID, SELFPAY | PROVIDERS: PCP Nurse Practitioner Family; Visit Provider Nurse Practitioner Family | DX: R51 Headache (principal) | CPT/HCPCS: 80053; 85025; 85651; 86140 ==

== ENCOUNTER 2020-06-24 06:21 | Outpatient (RCR) | payer MEDICARE, MEDICAID, SELFPAY ==
[2020-06-17 09:17] LABS: Basophils # 0.1 10^3/uL (0.0-0.1); Basophils % 0.8 %; Eosinophils # 0.1 10^3/uL (0.0-0.8); Eosinophils % 0.9 %; Hematocrit 44.2 % (37.0-47.0); Hemoglobin 14.5 g/dL (11.5-15.3); Lymphocytes # 5.6 10^3/uL (0.8-4.8); Lymphocytes % 65.8 %; Mean Corpuscular HGB Conc 32.8 g/dL (30.0-36.0); Mean Corpuscular Hemoglobin 29.6 pg (28.0-34.0); Mean Corpuscular Volume 90.2 fL (81-99); Mean Platelet Volume 10.8 fL (7.4-10.4); Monocytes # 0.8 10^3/uL (0.2-0.9); Monocytes % 9.1 %; Neutrophils # 1.98 10^3/uL (1.8-7.7); Neutrophils % 23.3 %; Nucleated Red Blood Cells % 0 %; Platelet Count 349 10^3/cmm (130-400); Red Cell Distribution Width 15.8 % (12.1-15.1); White Blood Count 8.5 10^3/uL (4.0-10.0)
[2020-06-17 09:52] LABS: 25 Hydroxy Vitamin D 40 ng/mL (30-100); Alanine Aminotransferase 48 U/L (0-33); Albumin Level 3.9 g/dL (3.5-5.2); Alkaline Phosphatase 111 IU/L (35-105); Anion Gap 15.2 (5-19); Aspartate Amino Transferase 34 U/L (0-32); Blood Urea Nitrogen 11 mg/dL (6-20); Calcium 9.1 mg/dL (8.5-10.5); Carbon Dioxide 25 mmol/L (22-29); Chloride 100 mmol/L (98-107); Globulin 3.4 g/dL (1.3-4.6); Glomerular Filtration Rate 64.5 mL/min (90-130); Glucose 206 mg/dL (65-115); Osmolality Calculated 284 mOsm/kg (285-295); Potassium 4.2 mmol/L (3.5-5.1); Sodium 136 mmol/L (136-145); Total Bilirubin 0.6 mg/dL (0.15-1.2); Total Protein 7.3 g/dL (6.6-8.7)
--- NOTE | 2020-06-20 12:55 | ONC FU_ITS ---
Dr. Hill Patient Follow-Up Note Patient: Remedios Cary Unit #: [id number]: [id number] Dicatated By: Puneet Hill M.D.Date of Visit:Jun 17, 2020 Onc Med Follow-up/Prog Note Chief Complaint: Breast cancer. History of Present Illness: This is a 59 year-old woman with grade 3 infiltrating ductal carcinoma of the right breast, stage IA, ER/ NJ negative and HER-2/jennifer positive. She previously had treatment for HER-2/jennifer positive left breast cancer, and she is known to harbor a BRCA2 mutation. In July 2010 she was diagnosed with grade 3 invasive ductal carcinoma of the left breast, ER/NJ positive and HER-2/jennifer positive. She underwent left mastectomy/axillary lymph node samplingand breast reconstruction on 08/10/2010. Her disease was stage IIA (T2, N0, M0) with pathology showing 2.5 cm primary tumor and no involvement of 4 lymph nodes. She was given adjuvant chemotherapy with TCH, completed in December 2010. She completed a full year of Herceptin, and she also was given adjuvant hormonal therapy for a total of 8 years, initially with tamoxifen but with transition to Femara as of September 2014. On 04/08/2019 she was confirmed by needle biopsy to have grade 3 invasive ductal carcinoma of the right breast. The best prognostic profile showed ER and NJ negative, both 0%. HER-2/jennifer was 2+ by IHC but positive by FISH with 10.9 HER-2/jennifer signals per cell and 2.2 CEP17 signals per cell. The Ki-67 was unfavorable at 35%. She underwent right total mastectomy with axillary sentinel lymph node biopsy and with immediate reconstruction on 06/12/2019. Pathology showed grade 3 invasive ductal carcinoma measuring 1.8 x 1.6 x 1.2 cm. There was no involvement in 2 sentinel lymph nodes. In the meantime, she also had undergone BRCA testing and she was confirmed to harbor a BRCA2 mutation. Her staging PET/CT on 07/17/2019 showed no evidence for active malignancy. Her echocardiogram showed normal left ventricular systolic function with ejection fraction estimated at 60-65%. She was given adjuvant chemotherapy with TCH, cycle 1 beginning 07/24/2019. During her treatment, she required removal of the tissue caption writer in the right chest due to cellulitis. With her 4th cycle of chemotherapy, on 09/23/2019, she experienced an anaphylactic reaction to the carboplatin. She was rechallenged one week later with similar results. I had seen her initially on 10/11/2019. At that time we discussed options for her further adjuvant therapy. Ultimately she decided to try and complete 2 more cycles of chemotherapy with docetaxel/Herceptin. Her other medical illnesses include hypertension, GERD, obstructive sleep apnea, and anxiety/depression. She also has osteopenia with her bone density study in March 2018 showing T score -1.9 in the left femoral neck and -1.8 in the lumbar spine. She has a history of smoking for 15 years, previously up to 3 packs of cigarettes daily. She had quit for 15 years, then started smoking again for about 1 year. She quit smoking again in March 2019. INTERIM HISTORY: On 10/21/2019 she proceeded with her 5th cycle of adjuvant chemotherapy, limited to docetaxel and Herceptin. She was seen for a follow-up visit on 11/11/2019. At that point her neuropathy had worsened again, and we opted not to attempt any further chemotherapy. She then began cycle 1 of single agent Herceptin at a 3-week dosing interval. She tolerated without significant toxicity. With her next scheduled treatment, on 12/02/2019, Perjeta was added to her adjuvant regimen. She was able to tolerate it without any apparent additional toxicity. She then continued with cycle 2 of Herceptin/Perjeta on 12/23/2019 and with cycle 3 on 01/13/2020. Following that treatment she had developed fairly abrupt onset of pain and swelling in the right chest wall. She was seen by Dr. Temple and she underwent drainage of chest wall abscess, which reportedly grew staph. With that finding, I opted to delay her treatment, but she was able to restart with cycle 4 of 03/04/2020 and she then continued treatment at 3-week intervals. She received cycle 8 on 05/27/2020. She is seen for a scheduled visit. She complains that she still feels weak. She is able to do light work, though. Her ECOG score is 1. She says that last week she had a migraine that lasted 7 days. It was accompanied by vomiting and diarrhea. She was seen in the EMR twice during that time. Her appetite is coming back now. She did not have fever, but she did have chills and sweating. She has had sore mouth. She was a little bit short of breath, but her breathing is okay now. She does not complain of cough. She has had a little chest pain. Her nausea is getting better. She still has loose stools. Bladder function is okay but she says her urine is dark. She has had generalized joint pain and back pain. She says her headache is better now. She sometimes has dizziness. She has no focal neurologic symptoms. Medications: Albuterol Sulfate 1 ((2.5 mg/3ml) 0.083%) Nebulization solution Inhalation q 6 hours PRN, Alendronate Sodium 1 Tablet (of 70 mg) Oral q 7 days, Allopurinol 1 Tablet (of 300 mg) Oral daily, Benadryl Allergy 1 Tablet (of 25 mg) Capsule Oral PRN, Calcium + D 1 Tablet Oral daily, Claritin 1 Capsule (of 10 mg) Oral daily, Dexamethasone (4 mg) Tablet Oral Take as Directed, DULoxetine HCl 1 Capsule (of 30 mg) Capsule Delayed Release Particles Oral b.i.d., Gabapentin 1 Tablet (of 800 mg) Oral t.i.d., HYDROmorphone HCl 1 Tablet (of 2 mg) Oral t.i.d. PRN, hydrOXYzine HCl 1 Tablet (of 25 mg) Oral t.i.d. PRN, Methocarbamol 1 Tablet (of 500 mg) Oral q 8 hours PRN, Multivitamins 1 Tablet Tablet, chewable Oral daily, Nystatin 5 mL (of 813286 Units/mL) Suspension Mouth/throat four times a day, Omeprazole 1 Capsule (of 40 mg) Capsule Delayed Release Oral daily, Ondansetron HCl 1 Tablet (of 8 mg) Oral q 8 hours PRN, Prochlorperazine Maleate 1 Tablet (of 10 mg) Oral q 6 hours PRN Allergies: CARBOplatin, Ibuprofen, and Penicillins. Review of Systems: Constitutional - She reports having a recent illness and was evaluated at [facility]. She is still feeling weak. She is able to do light housework. Her appetite is poor but it is improving. Her weight is down 5 pounds. No fevers. She was having chills and sweating episodes, but that has resolved. ECOG score is 1, ENMT - No sinus congestion/drainage. She has sorenes in the corners of her mouth. No sore throat or difficulty swallowing, Hematologic/Lymphatic - No abnormal bruising or bleeding, Respiratory - She was having shortness of breath during the acute illness but it is improved today. No cough. No pleuritic pain or hemoptysis, Cardiovascular - No angina pain. No palpitations, Gastrointestinal - She had nausea/vomiting and diarrhea, but it is mostly resolved. She is still having loose stools. She has acid reflux. No constipation. No blood in the stool or black stools, Genitourinary (F) - No dysuria or hematuria. No urinary frequency. No urgency or incontinence, Musculoskeletal - She has generalized joint pain and back pain, which has worsened with the recent illness, Integumentary - No skin rash, Neurologic - She had a severe headache. She has occasional dizziness. No numbness or tingling. No other focal neurologic symptoms, Psychiatric - She has anxiety/depression, adequately managed. She sometimes has difficulty sleeping. Vital Signs: Performed on Jun 17, 2020 09:49 Height - 66.00 in Weight - 248.8 lbs (LOW) BSA - 2.19 sq.m BMI - 40.16 (HIGH) Temperature - 97.9 F (LOW) Pulse - 85 /min Respiration - 22 /min BP - 130/78 mm(hg) O2 Sat - 97 % Pain - 4 Physical Examination: Constitutional - She appears somewhat weak generally, but not acutely ill, Eyes - Sclerae nonicteric. Conjunctivae clear, ENMT - There are no lesions noted in the oral cavity, Hematologic/Lymphatic - No cervical, clavicular, or axillary adenopathy, Respiratory - Lungs are clear with good air movement bilaterally, Cardiovascular - Heart rhythm is regular. There is no murmur, gallop, or rub noted, Breasts - The right chest wall shows no lesions. There is no axillary adenopathy, Abdomen - Soft. Liver is not enlarged or tender. Spleen is not palpable. There is no abdominal mass or ascites noted and there is no inguinal adenopathy, Extremities - No edema, Integumentary - No rashes. No suspicious skin lesions noted, Neurologic - No focal neurologic deficits noted. Lab/Imaging: Test performed on Jun 17, 2020 08:16 Sodium 136 mmol/L Vitamin D (25-Hydroxy), Total 40 ng/mL Potassium 4.2 mmol/L Chloride 100 mmol/L CO2 25 mmol/L Anion Gap 15.2 BUN 11 mg/dL Creatinine 0.9 mg/dL Cr Clearance (Est) 122.8700 mL/min eGFR 64.5 mL/min Glucose 206 mg/dL Osmolality - Calculated 284 mOsm/kg Calcium 9.1 mg/dL Protein, Total 7.3 g/dL Albumin 3.9 g/dL Globulin 3.4 g/dL Bilirubin, Total 0.6 mg/dL ALT (SGPT) 48 U/L AST (SGOT) 34 U/L Alkaline Phosphatase 111 IU/L WBC 8.5 10 3/uL RBC 4.90 10 6/uL HGB 14.5 g/dL HCT 44.2 % MCV 90.2 fL MCH 29.6 pg MCHC 32.8 g/dL RDW 15.8 % Platelet Count 349 10 3/cmm MPV 10.8 fL Neutrophils 1.98 10 3/uL Lymphocytes 5.6 10 3/uL Monocytes 0.8 10 3/uL Eosinophils 0.1 10 3/uL Basophils 0.1 10 3/uL Neutrophil % 23.3 % Lymphocyte % 65.8 % Monocyte % 9.1 % Eosinophil % 0.9 % Basophils % 0.8 % NRBC % 0 % Impression: 1. Patient with grade 3 invasive ductal carcinoma of the right breast, stage IA ( T1c, N0, M0), ER/NJ negative and HER-2/jennifer positive. 2. She underwent right total mastectomy with axillary sentinel lymph node biopsy and with immediate reconstruction on 06/12/2019. 3. She was given adjuvant chemotherapy with TCH. She completed 3 1/2 cycles, with her treatment having been interupted during cycle 4 on 09/23/2019 due to an anaphylactic reaction to carboplatin. 4. She had the right chest wall tissue caption writer removed 08/21/2019 due to cellulitis. She still has a small open area in the medial aspect of the right mastectomy incision. 5. In August 2010 she underwent left mastectomy/axillary lymph node sampling for grade 3 invasive ductal carcinoma of the left breast, stage IIA (T2, N0, M0), ER/NJ positive and HER-2/jennifer positive. She received adjuvant chemotherapy with TCH and adjuvant hormonal therapy. 6. She was found to harbor a BRCA2 mutation. Her other medical illnesses include: 7. Hypertension. 8. GERD. 9. Obstructive sleep apnea. 10. Osteopenia. 11. Anxiety/depression. On 10/21/2019 she proceeded with cycle 5 of adjuvant chemotherapy, limited to docetaxel and Herceptin. As of her follow-up visit on 11/11/2019 she had reported worsening of her neuropathy, and we opted not to attempt any further chemotherapy. She then began cycle 1 of single agent Herceptin at the 3-week dosing schedule. She tolerated it well. At her scheduled treatment on 12/02/2019 Perjeta was added to her adjuvant regimen. She did have some diarrhea with that, which was managed adequately with Imodium. She otherwise tolerated it well. In particular, she had no worsening of neuropathy. She continued with cycle 2 of Herceptin/Perjeta on 12/23/2019 and with cycle 3 on 01/13/2020. Her treatment was then delayed due to right chest wall abscess, but she was able to restart treatment with cycle 4 on 03/04/2020 and she then continued treatment at 3-week intervals. As of 05/27/2020 she received cycle 13 of Herceptin/Perjeta. Following that treatment she developed an acute illness with headache, fatigue, nausea, and diarrhea. She had moderately elevated liver enzymes. A specific cause was not determined, but I suspect it was a viral syndrome. She does appear to be recovering now. Plan: In view of her recent illness, I am going to delay her treatment. She will have repeat lab studies in 1 week, and if she continues to improve she will proceed then with cycle 14 of Herceptin/Perjeta. I will timely plan a follow-up visit in 4 weeks. Signed By: Puneet Hill M.D. <<Signature on File>>
[2020-06-24] MEDS: alteplase 1 mg/mL SDV 2 mL 2 MG IV (09:05)
[2020-06-24 09:44] LABS: Basophils # 0.1 10^3/uL (0.0-0.1); Eosinophils % 0.5 %; Hematocrit 42.1 % (37.0-47.0); Hemoglobin 14.1 g/dL (11.5-15.3); Lymphocytes # 3.7 10^3/uL (0.8-4.8); Lymphocytes % 62.5 %; Mean Corpuscular HGB Conc 33.5 g/dL (30.0-36.0); Mean Corpuscular Hemoglobin 30.3 pg (28.0-34.0); Mean Corpuscular Volume 90.3 fL (81-99); Mean Platelet Volume 10.8 fL (7.4-10.4); Monocytes # 0.5 10^3/uL (0.2-0.9); Monocytes % 8.1 %; Neutrophils # 1.64 10^3/uL (1.8-7.7); Neutrophils % 27.9 %; Nucleated Red Blood Cells % 0 %; Platelet Count 245 10^3/cmm (130-400); Red Blood Count 4.66 10^6/uL (4.1-5.3); Red Cell Distribution Width 14.9 % (12.1-15.1); White Blood Count 5.9 10^3/uL (4.0-10.0)
[2020-06-24 09:50] LABS: Alanine Aminotransferase 30 U/L (0-33); Albumin Level 3.7 g/dL (3.5-5.2); Alkaline Phosphatase 81 IU/L (35-105); Anion Gap 12.9 (5-19); Aspartate Amino Transferase 27 U/L (0-32); Blood Urea Nitrogen 8 mg/dL (6-20); Calcium 9.5 mg/dL (8.5-10.5); Carbon Dioxide 25 mmol/L (22-29); Chloride 103 mmol/L (98-107); Globulin 3.1 g/dL (1.3-4.6); Glomerular Filtration Rate 51.2 mL/min (90-130); Glucose 206 mg/dL (65-115); Osmolality Calculated 288 mOsm/kg (285-295); Potassium 3.9 mmol/L (3.5-5.1); Sodium 137 mmol/L (136-145); Total Bilirubin 0.4 mg/dL (0.15-1.2); Total Protein 6.8 g/dL (6.6-8.7)
[2020-06-24] MEDS: acetaminophen 325 mg Tablet 650 MG PO (10:35)
[2020-06-24] MEDS: sodium chloride 0.9% 250 ML 75 ML IV (10:40)
== END 2020-07-01 23:59 | disposition home or self-care (01) ==
LOC: ONCMED 06:21
PROVIDERS: PCP Nurse Practitioner Family; Visit Provider Internal Medicine Medical Oncology
DX: Z51.11 Encounter for antineoplastic chemotherapy (principal); C50.511 Malignant neoplasm of lower-outer quadrant of right female breast; Z17.1 Estrogen receptor negative status [ER-]; Z78.0 Asymptomatic menopausal state; I10 Essential (primary) hypertension; K21.9 Gastro-esophageal reflux disease without esophagitis; G47.33 Obstructive sleep apnea (adult) (pediatric); M85.80 Other specified disorders of bone density and structure, unspecified site; F41.9 Anxiety disorder, unspecified; F32.9 Major depressive disorder, single episode, unspecified
CPT/HCPCS: 36591; 36593; 80053; 82306; 85025; 96367; 96375; 96413; 96417; 99214; J1200; J2997; J3490; J7050; J9306; J9355

== ENCOUNTER → 2020-07-09 10:01 | Outpatient (BNVA) | payer MEDICARE, MEDICAID, SELFPAY | PROVIDERS: PCP Nurse Practitioner Family; Visit Provider Anesthesiology | DX: M47.817 Spondylosis without myelopathy or radiculopathy, lumbosacral region (principal); M99.83 Other biomechanical lesions of lumbar region; M51.27 Other intervertebral disc displacement, lumbosacral region; M47.27 Other spondylosis with radiculopathy, lumbosacral region; Z79.891 Long term (current) use of opiate analgesic | CPT/HCPCS: 99213; 99214 ==

== ENCOUNTER → 2020-07-21 10:21 | Outpatient (BNVA) | payer MEDICARE, MEDICAID, SELFPAY | PROVIDERS: PCP Nurse Practitioner Family; Visit Provider Nurse Practitioner Family | DX: R73.9 Hyperglycemia, unspecified (principal) | CPT/HCPCS: 83036 ==

== ENCOUNTER 2020-07-22 06:03 | Outpatient (RCR) | payer MEDICARE, MEDICAID, SELFPAY ==
[2020-07-22 12:28] LABS: Basophils # 0.1 10^3/uL (0.0-0.1); Basophils % 0.7 %; Eosinophils # 0.2 10^3/uL (0.0-0.8); Eosinophils % 2.2 %; Hematocrit 42.3 % (37.0-47.0); Hemoglobin 14.1 g/dL (11.5-15.3); Lymphocytes # 3.6 10^3/uL (0.8-4.8); Mean Corpuscular HGB Conc 33.3 g/dL (30.0-36.0); Mean Corpuscular Hemoglobin 29.9 pg (28.0-34.0); Mean Corpuscular Volume 89.6 fL (81-99); Mean Platelet Volume 10.7 fL (7.4-10.4); Monocytes # 0.6 10^3/uL (0.2-0.9); Monocytes % 8.3 %; Neutrophils % 39.7 %; Nucleated Red Blood Cells % 0 %; Platelet Count 299 10^3/cmm (130-400); Red Blood Count 4.72 10^6/uL (4.1-5.3); Red Cell Distribution Width 13.9 % (12.1-15.1); White Blood Count 7.3 10^3/uL (4.0-10.0)
[2020-07-22 12:38] LABS: Alanine Aminotransferase 19 U/L (0-33); Albumin Level 3.8 g/dL (3.5-5.2); Alkaline Phosphatase 81 IU/L (35-105); Aspartate Amino Transferase 22 U/L (0-32); Blood Urea Nitrogen 13 mg/dL (6-20); Calcium 9.6 mg/dL (8.5-10.5); Carbon Dioxide 26 mmol/L (22-29); Chloride 103 mmol/L (98-107); Globulin 3.1 g/dL (1.3-4.6); Glomerular Filtration Rate 57.1 mL/min (90-130); Glucose 151 mg/dL (65-115); Osmolality Calculated 289 mOsm/kg (285-295); Sodium 138 mmol/L (136-145); Total Bilirubin 0.3 mg/dL (0.15-1.2); Total Protein 6.9 g/dL (6.6-8.7)
[2020-07-22] MEDS: sodium chloride 0.9% 250 ML 75 ML IV (14:10)
[2020-07-22] MEDS: acetaminophen 325 mg Tablet 650 MG PO (14:10)
--- NOTE | 2020-07-22 14:26 | ONC FU_ITS ---
[facility] Patient Note Patient: Remedios Cary Unit #: [id number]: 1960 Dictated By: Kami RichardsonDate of Visit: Jul 22, 2020 Onc MED Follow-Up/Prog Note Chief Complaint: Breast cancer. History of Present Illness: Ms Cary is a 59 year-old woman with grade 3 infiltrating ductal carcinoma of the right breast, stage IA, ER/ IL negative and HER-2/jennifer positive. She previously had treatment for HER-2/jennifer positive left breast cancer, and she is known to harbor a BRCA2 mutation. 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 She underwent left mastectomy/axillary lymph node samplingand breast reconstruction on 08/10/2010. Her disease was stage IIA (T2, N0, M0) with pathology showing 2.5 cm primary tumor and no involvement of 4 lymph nodes. She was given adjuvant chemotherapy with TCH, completed in December 2010. She completed a full year of Herceptin, and she also was given adjuvant hormonal therapy for a total of 8 years, initially with tamoxifen but with transition to Femara as of September 2014. On 04/08/2019 she was confirmed by needle biopsy to have grade 3 invasive ductal carcinoma of the right breast. The best prognostic profile showed ER and IL negative, both 0%. HER-2/jennifer was 2+ by IHC but positive by FISH with 10.9 HER-2/jennifer signals per cell and 2.2 CEP17 signals per cell. The Ki-67 was unfavorable at 35%. She underwent right total mastectomy with axillary sentinel lymph node biopsy and with immediate reconstruction on 06/12/2019. Pathology showed grade 3 invasive ductal carcinoma measuring 1.8 x 1.6 x 1.2 cm. There was no involvement in 2 sentinel lymph nodes. In the meantime, she also had undergone BRCA testing and she was confirmed to harbor a BRCA2 mutation. Her staging PET/CT on 07/17/2019 showed no evidence for active malignancy. Her echocardiogram showed normal left ventricular systolic function with ejection fraction estimated at 60-65%. She was given adjuvant chemotherapy with TCH, cycle 1 beginning 07/24/2019. 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 With her 4th cycle of chemotherapy, on 09/23/2019, she experienced an anaphylactic reaction to the carboplatin. She was rechallenged one week later with similar results. I had seen her initially on 10/11/2019. At that time we discussed options for her further adjuvant therapy. Ultimately she decided to try and complete 2 more cycles of chemotherapy with docetaxel/Herceptin. Her other medical illnesses include hypertension, GERD, obstructive sleep apnea, and anxiety/depression. She also has osteopenia with her bone density study in March 2018 showing T score -1.9 in the left femoral neck and -1.8 in the lumbar spine. She has a history of smoking for 15 years, previously up to 3 packs of cigarettes daily. She had quit for 15 years, then started smoking again for about 1 year. She quit smoking again in March 2019. INTERIM HISTORY: On 10/21/2019 she proceeded with her 5th cycle of adjuvant chemotherapy, limited to docetaxel and Herceptin. She was seen for a follow-up visit on 11/11/2019. At that point her neuropathy had worsened again, and we opted not to attempt any further chemotherapy. She then began cycle 1 of single agent Herceptin at a 3-week dosing interval. She tolerated without significant toxicity. With her next scheduled treatment, on 12/02/2019, Perjeta was added to her adjuvant regimen. She was able to tolerate it without any apparent additional toxicity. She then continued with cycle 2 of Herceptin/Perjeta on 12/23/2019 and with cycle 3 on 01/13/2020. Following that treatment she had developed fairly abrupt onset of pain and swelling in the right chest wall. She was seen by Dr. Temple and she underwent drainage of chest wall abscess, which reportedly grew staph. With that finding, Dr Hill opted to delay her treatment, but she was able to restart with cycle 4 on 03/04/2020 and she then continued treatment at 3-week intervals. She received cycle 8 on 05/27/2020. Her next treatment was delayed 1 week due to a suspected viral syndrome. She had her last treatment on 06/24/2020 and tolerated it well. Ms. Cary is here today for follow-up. She is due for Herceptin Perjeta today. She states overall she is feeling really good. She is recovered from her migraine headache and viral syndrome she had a few weeks ago. She denies any fever or chills. Her appetite is good. Her energy is normal for her. She continues to utilize a wheeled seated walker for mobility assistance. She denies any fever or chills. She has had no signs or symptoms of infection for at least the last 72 hours. She denies any shortness of breath orthopnea. She denies chest pain, palpitations or any syncopal episodes. She denies diarrhea or constipation. She states her bladder is normal. She denies any pain. Her ECOG is 2 but she states she is feeling better every day. Past Medical History: Depression Gastroesophageal reflux disease History of left breast cancer Hypertension Neuropathy secondary to chemotherapy Obstructive sleep apnea Osteopenia Postmenopausal Past Surgical History: Tubal ligation Removal of right chest wall tissue industrial machine operator in 2019 Right total mastectomy/axillary sentinel lymph node biopsy and immediate reconstruction in 2019 Needle biopsy of the right breast in 2019 ORIF for left wrist fracture in 2018 Left total mastectomy/axillary lymph node sampling and breast reconstruction in 2009 Allergies: CARBOplatin, Ibuprofen, and Penicillins. Medications: Albuterol Sulfate 1 ((2.5 mg/3ml) 0.083%) Nebulization solution Inhalation q 6 hours PRN Alendronate Sodium 1 Tablet (of 70 mg) Oral q 7 days Allopurinol 1 Tablet (of 300 mg) Oral daily Benadryl Allergy 1 Tablet (of 25 mg) Capsule Oral PRN Calcium + D 1 Tablet Oral daily Claritin 1 Capsule (of 10 mg) Oral daily Dexamethasone (4 mg) Tablet Oral Take as Directed DULoxetine HCl 1 Capsule (of 30 mg) Capsule Delayed Release Particles Oral b.i.d. Gabapentin 1 Tablet (of 800 mg) Oral t.i.d. HYDROmorphone HCl 1 Tablet (of 2 mg) Oral t.i.d. PRN hydrOXYzine HCl 1 Tablet (of 25 mg) Oral t.i.d. PRN Methocarbamol 1 Tablet (of 500 mg) Oral q 8 hours PRN Multivitamins 1 Tablet Tablet, chewable Oral daily Nystatin 5 mL (of 726158 Units/mL) Suspension Mouth/throat four times a day Omeprazole 1 Capsule (of 40 mg) Capsule Delayed Release Oral daily Ondansetron HCl 1 Tablet (of 8 mg) Oral q 8 hours PRN Prochlorperazine Maleate 1 Tablet (of 10 mg) Oral q 6 hours PRN Family History: Ms. Cary's mother is alive: dementia. Ms. Cary's father at age 47: colon cancer. Father with colon cancer at age 47. Mother is still living at age 74. She has dementia. A brother with alcohol related heart disease. Another brother has known coronary artery disease. A sister in a motor vehicle accident. Her maternal grandmother with cancer, apparently of unknown primary site. Social History: Ms. Cary is single and she is a disabled. She is an occasional smoker who has smoked 0.5 packs/day for 16 years. She has no history of drinking. Ms. Cary reports the following support systems: lives with spouse, significant other, family, or friends, lives in own house, supportive family/friends willing to assist with needs, and adequate transportation available for expected visits. Her diet consists of regular meals. She indicates her activity level as: sedentary. PT STATES HER BOYFRIEND TOOK AWAY HER CIGARETTES. Review Of Symptoms: Constitutional Denies fevers, chills, night sweats, excessive fatigue or weight loss. Allergic/Immunologic No reactions. Eyes Denies significant visual changes. No diplopia. No amaurosis. ENMT Denies changes in hearing, sore throat, mouth sores, difficulty or changes in swallowing ability, and/or sinus drainage. Endocrine No diabetes, thyroid disease or hormone replacement. Denies hot flashes or night sweats. Hematologic/Lymphatic Denies easy bruising or bleeding. The patient denies any tender or palpable lymph nodes. Respiratory Denies dyspnea on exertion, chest pain, cough or hemoptysis. Denies orthopnea. Cardiovascular Denies anginal chest pain, palpitations or orthopnea. Gastrointestinal Denies nausea, vomiting, diarrhea, GI bleeding, or constipation. Denies change in bowel habits and/or stool color, no heartburn or early satiety. Genitourinary (F) No hematuria, hesitancy, incontinence, vaginal bleeding, discharge or other problems with urination. Musculoskeletal Denies joint pain, swelling or redness. No decreased range of motion. Integumentary Denies chronic rashes, inflammation, ulcerations or skin changes. Neurologic Denies headache, blurred vision, and no areas of focal weakness or numbness. Assisted gait with seated walker. No sensory problems. Psychiatric Denies insomnia, depression, jennifer or mood swings. Vital Signs: Performed on Jul 22, 2020 13:46 Height - 66.00 in Weight - 251.0 lbs (HIGH) BSA - 2.20 sq.m BMI - 40.51 (HIGH) Temperature - 97.0 F (LOW) Pulse - 78 /min Respiration - 20 /min BP - 114/70 mm(hg) O2 Sat - 98 % Pain - 0,2 - Ambulatory/capable of all self-care, unable to perform any work activities. Up and about more than 50% of waking hours. (ECOG) Physical Examination: Constitutional Alert, oriented, no acute distress. Skin pink, warm and dry. Alopecia. Head Normocephalic; atraumatic. Eyes Conjunctivae and sclerae are clear and without icterus. Pupils are reactive and equal. Neck Supple without masses or thyromegaly. No jugular venous distension. Hematologic/Lymphatic No petechiae or purpura. No tender or palpable lymph nodes in the cervical or supraclavicular areas. Respiratory Lungs are clear to auscultation without rhonchi or wheezing. Cardiovascular Regular rate and rhythm of heart without murmurs,clicks, gallops or rubs. Chest Left Port insertion site is unremarkable. Back/Spine Non-tender to palpation. Extremities No visible deformities, no cyanosis, clubbing or edema. Musculoskeletal No tenderness or swelling, normal range of motion without obvious weakness. Utilizing don walker for ambulation assistance. Integumentary No rashes or lesions. Neurologic No sensory or motor deficits, normal cerebellar function, normal gait. Psychiatric Alert and oriented times three. Coherent speech. Verbalizes understanding of our discussions today. Laboratory:Test performed on Jul 22, 2020 12:00 Sodium 138 mmol/L Potassium 4.0 mmol/L Chloride 103 mmol/L CO2 26 mmol/L Anion Gap 13.0 BUN 13 mg/dL Creatinine 1.0 mg/dL Cr Clearance (Est) 110.5800 mL/min eGFR 57.1 mL/min Glucose 151 mg/dL Osmolality - Calculated 289 mOsm/kg Calcium 9.6 mg/dL Protein, Total 6.9 g/dL Albumin 3.8 g/dL Globulin 3.1 g/dL Bilirubin, Total 0.3 mg/dL ALT (SGPT) 19 U/L AST (SGOT) 22 U/L Alkaline Phosphatase 81 IU/L WBC 7.3 10 3/uL RBC 4.72 10 6/uL HGB 14.1 g/dL HCT 42.3 % MCV 89.6 fL MCH 29.9 pg MCHC 33.3 g/dL RDW 13.9 % Platelet Count 299 10 3/cmm MPV 10.7 fL Neutrophils 2.90 10 3/uL Lymphocytes 3.6 10 3/uL Monocytes 0.6 10 3/uL Eosinophils 0.2 10 3/uL Basophils 0.1 10 3/uL Neutrophil % 39.7 % Lymphocyte % 49.0 % Monocyte % 8.3 % Eosinophil % 2.2 % Basophils % 0.7 % NRBC % 0 % Test performed on Jun 17, 2020 08:16 Vitamin D (25-Hydroxy), Total 40 ng/mL Test performed on Mar 04, 2020 11:20 Manual Lymphocytes 49.4 % Manual Monocytes 9.6 % Manual Eosinophils 0.8 % Manual Basophils 0.8 % Impression: 1. Patient with grade 3 invasive ductal carcinoma of the right breast, stage IA ( T1c, N0, M0), ER/IL negative and HER-2/jennifer positive. 2. She underwent right total mastectomy with axillary sentinel lymph node biopsy and with immediate reconstruction on 06/12/2019. 3. She was given adjuvant chemotherapy with TCH. She completed 3 1/2 cycles, with her treatment having been interupted during cycle 4 on 09/23/2019 due to an anaphylactic reaction to carboplatin. 4. She had the right chest wall tissue industrial machine operator removed 08/21/2019 due to cellulitis. She still has a small open area in the medial aspect of the right mastectomy incision. 5. In August 2010 she underwent left mastectomy/axillary lymph node sampling for grade 3 invasive ductal carcinoma of the left breast, stage IIA (T2, N0, M0), ER/IL positive and HER-2/jennifer positive. She received adjuvant chemotherapy with TCH and adjuvant hormonal therapy. 6. She was found to harbor a BRCA2 mutation. Her other medical illnesses include: 7. Hypertension. 8. GERD. 9. Obstructive sleep apnea. 10. Osteopenia. 11. Anxiety/depression. On 10/21/2019 she proceeded with cycle 5 of adjuvant chemotherapy, limited to docetaxel and Herceptin. As of her follow-up visit on 11/11/2019 she had reported worsening of her neuropathy, and we opted not to attempt any further chemotherapy. She then began cycle 1 of single agent Herceptin at the 3-week dosing schedule. She tolerated it well. At her scheduled treatment on 12/02/2019 Perjeta was added to her adjuvant regimen. She did have some diarrhea with that, which was managed adequately with Imodium. She otherwise tolerated it well. In particular, she had no worsening of neuropathy. She continued with cycle 2 of Herceptin/Perjeta on 12/23/2019 and with cycle 3 on 01/13/2020. Her treatment was then delayed due to right chest wall abscess, but she was able to restart treatment with cycle 4 on 03/04/2020 and she then continued treatment at 3-week intervals. As of 05/27/2020 she received cycle 13 of Herceptin/Perjeta. Following that treatment she developed an acute illness with headache, fatigue, nausea, and diarrhea. She had moderately elevated liver enzymes. A specific cause was not determined, but a viral syndrome was suspected. She recovered well and was able to resume treatment with Herceptin/Perjeta on 06/24/2020. Plan: 1. Proceed with cycle 15 Herceptin/ 10 of Herceptin/Perjeta. Dosages remain the same. 2. Followup echocardiogram on 06/01/2020 reported EF @ 60-65%. 3. Labs from 05/27/2020 were reviewed in detail and discussed with Mrs Lucero and a copy was given to her. WBC 7.3, hemoglobin 14.1, platelets 299,000 ANC is 2900. Creatinine 1.0 random glucose 151 LFTs are normal. 4. She did have a bone density reporting osteopenia with the highest T-score reported as -1.0. We have previously discussed ways to help with the neutropenia such as dietary calcium intake, calcium supplementation and weightbearing exercises such as walking. 5. Plan to see her back in 3 weeks with CBC CMP and follow-up for consideration of cycle 16 Herceptin/cycle 11 of Herceptin Perjeta. 6. Mrs. Cary was instructed to contact us in the interim should problems arise. 7. Mrs Cary reports that she is scheduled to have a complete hysterectomy by Dr Bach on 09/17/2020. Signed By: Kami Richardson-, AOCNP Puneet Hill MD <<Signature on File>>
== END 2020-08-01 23:59 | disposition home or self-care (01) ==
LOC: ONCMED 06:03
PROVIDERS: PCP Nurse Practitioner Family; Visit Provider Nurse Practitioner
DX: Z51.12 Encounter for antineoplastic immunotherapy (principal); Z51.11 Encounter for antineoplastic chemotherapy; C50.511 Malignant neoplasm of lower-outer quadrant of right female breast; Z17.1 Estrogen receptor negative status [ER-]; I10 Essential (primary) hypertension; K21.9 Gastro-esophageal reflux disease without esophagitis; G47.33 Obstructive sleep apnea (adult) (pediatric); F41.8 Other specified anxiety disorders; M85.80 Other specified disorders of bone density and structure, unspecified site; Z78.0 Asymptomatic menopausal state; G62.0 Drug-induced polyneuropathy; T45.1X5A Adverse effect of antineoplastic and immunosuppressive drugs, initial encounter; Z79.51 Long term (current) use of inhaled steroids; Z90.13 Acquired absence of bilateral breasts and nipples; Z85.3 Personal history of malignant neoplasm of breast; Z87.891 Personal history of nicotine dependence
CPT/HCPCS: 80053; 85025; 96367; 96413; 96417; 99214; J1200; J3490; J7050; J9306; J9355

== ENCOUNTER 2020-08-12 06:19 | Outpatient (RCR) | payer MEDICARE, MEDICAID, SELFPAY ==
[2020-08-12 12:10] LABS: Basophils % 0.7 %; Eosinophils # 0.1 10^3/uL (0.0-0.8); Eosinophils % 1.1 %; Hematocrit 43.2 % (37.0-47.0); Hemoglobin 14.6 g/dL (11.5-15.3); Lymphocytes # 3.3 10^3/uL (0.8-4.8); Lymphocytes % 54.4 %; Mean Corpuscular HGB Conc 33.8 g/dL (30.0-36.0); Mean Corpuscular Volume 88.7 fL (81-99); Mean Platelet Volume 10.5 fL (7.4-10.4); Monocytes # 0.5 10^3/uL (0.2-0.9); Neutrophils # 2.17 10^3/uL (1.8-7.7); Neutrophils % 35.6 %; Nucleated Red Blood Cells % 0 %; Platelet Count 279 10^3/cmm (130-400); Red Blood Count 4.87 10^6/uL (4.1-5.3); Red Cell Distribution Width 13.6 % (12.1-15.1); White Blood Count 6.1 10^3/uL (4.0-10.0)
[2020-08-12] MEDS: alteplase 1 mg/mL SDV 2 mL 2 MG IV (12:15)
[2020-08-12] MEDS: acetaminophen 325 mg Tablet 650 MG PO (14:10)
[2020-08-12 14:21] LABS: Alanine Aminotransferase 22 U/L (0-33); Alkaline Phosphatase 73 IU/L (35-105); Anion Gap 11.8 (5-19); Aspartate Amino Transferase 25 U/L (0-32); Blood Urea Nitrogen 14 mg/dL (6-20); Calcium 9.4 mg/dL (8.5-10.5); Carbon Dioxide 27 mmol/L (22-29); Chloride 101 mmol/L (98-107); Globulin 2.9 g/dL (1.3-4.6); Glomerular Filtration Rate 64.5 mL/min (90-130); Glucose 103 mg/dL (65-115); Osmolality Calculated 283 mOsm/kg (285-295); Potassium 3.8 mmol/L (3.5-5.1); Sodium 136 mmol/L (136-145); Total Bilirubin 0.3 mg/dL (0.15-1.2); Total Protein 6.9 g/dL (6.6-8.7)
--- NOTE | 2020-08-20 20:36 | ONC FU_ITS ---
[facility] Patient Note Patient: Remedios Cary Unit #: [id number]: [id number] Dictated By: Kami RichardsonDate of Visit: Aug 12, 2020 Onc MED Follow-Up/Prog Note Chief Complaint: Breast cancer. History of Present Illness: Ms Cary is a 59 year-old woman with grade 3 infiltrating ductal carcinoma of the right breast, stage IA, ER/ NH negative and HER-2/jennifer positive. She previously had treatment for HER-2/jennifer positive left breast cancer, and she is known to harbor a BRCA2 mutation. 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 She underwent left mastectomy/axillary lymph node sampling and breast reconstruction on 08/10/2010. Her disease was stage IIA (T2, N0, M0) with pathology showing 2.5 cm primary tumor and no involvement of 4 lymph nodes. She was given adjuvant chemotherapy with TCH, completed in December 2010. She completed a full year of Herceptin, and she also was given adjuvant hormonal therapy for a total of 8 years, initially with Tamoxifen but with transition to Femara as of September 2014. On 04/08/2019 she was confirmed by needle biopsy to have grade 3 invasive ductal carcinoma of the right breast. The best prognostic profile showed ER and NH negative, both 0%. HER-2/jennifer was 2+ by IHC but positive by FISH with 10.9 HER-2/jennifer signals per cell and 2.2 CEP17 signals per cell. The Ki-67 was unfavorable at 35%. She underwent right total mastectomy with axillary sentinel lymph node biopsy and with immediate reconstruction on 06/12/2019. Pathology showed grade 3 invasive ductal carcinoma measuring 1.8 x 1.6 x 1.2 cm. There was no involvement in 2 sentinel lymph nodes. In the meantime, she also had undergone BRCA testing and she was confirmed to harbor a BRCA2 mutation. Her staging PET/CT on 07/17/2019 showed no evidence for active malignancy. Her echocardiogram showed normal left ventricular systolic function with ejection fraction estimated at 60-65%. She was given adjuvant chemotherapy with TCH, cycle 1 beginning 07/24/2019. During her treatment, she required removal of the tissue graphic user interface designer in the right chest due to cellulitis. With her 4th cycle of chemotherapy, on 09/23/2019, she experienced an anaphylactic reaction to the carboplatin. She was rechallenged one week later with similar results. Dr Hill had seen her initially on 10/11/2019. At that time we discussed options for her further adjuvant therapy. Ultimately she decided to try and complete 2 more cycles of chemotherapy with docetaxel/Herceptin. Her other medical illnesses include hypertension, GERD, obstructive sleep apnea, and anxiety/depression. She also has osteopenia with her bone density study in March 2018 showing T score -1.9 in the left femoral neck and -1.8 in the lumbar spine. She has a history of smoking for 15 years, previously up to 3 packs of cigarettes daily. She had quit for 15 years, then started smoking again for about 1 year. She quit smoking again in March 2019. INTERIM HISTORY: On 10/21/2019 she proceeded with her 5th cycle of adjuvant chemotherapy, limited to docetaxel and Herceptin. She was seen for a follow-up visit on 11/11/2019. At that point her neuropathy had worsened again, and we opted not to attempt any further chemotherapy. She then began cycle 1 of single agent Herceptin at a 3-week dosing interval. She tolerated without significant toxicity. With her next scheduled treatment, on 12/02/2019, Perjeta was added to her adjuvant regimen. She was able to tolerate it without any apparent additional toxicity. She then continued with cycle 2 of Herceptin/Perjeta on 12/23/2019 and with cycle 3 on 01/13/2020. Following that treatment she had developed fairly abrupt onset of pain and swelling in the right chest wall. She was seen by Dr. Temple and she underwent drainage of chest wall abscess, which reportedly grew staph. With that finding, Dr Hill opted to delay her treatment, but she was able to restart with cycle 4 on 03/04/2020 and she then continued treatment at 3-week intervals. She received cycle 8 on 05/27/2020. Her next treatment was delayed 1 week due to a suspected viral syndrome. She had her last treatment on 07/22/2020 and she tolerated it well. Ms. Cary is here today for follow-up. She is due for Herceptin Perjeta today. She states she continues to do well overall. She has no new concerns today. She denies any fever or chills. She denies any orthopnea. She denies any lower extremity edema. She has an intermittent diarrhea but states it is controlled with antidiarrhea medicine and has gotten better over the course of her treatment. Her energy is normal for me . She denies any pain. She states her appetite is good. She denies any shortness of breath or orthopnea. She denies any chest pain or palpitations. She denies any lower extremity edema. Her ECOG is 1. Past Medical History: Depression Gastroesophageal reflux disease History of left breast cancer Hypertension Neuropathy secondary to chemotherapy Obstructive sleep apnea Osteopenia Postmenopausal Past Surgical History: Tubal ligation Removal of right chest wall tissue graphic user interface designer in 2019 Right total mastectomy/axillary sentinel lymph node biopsy and immediate reconstruction in 2019 Needle biopsy of the right breast in 2019 ORIF for left wrist fracture in 2018 Left total mastectomy/axillary lymph node sampling and breast reconstruction in 2009 Allergies: CARBOplatin, Ibuprofen, and Penicillins. Medications: Albuterol Sulfate 1 ((2.5 mg/3ml) 0.083%) Nebulization solution Inhalation q 6 hours PRN Alendronate Sodium 1 Tablet (of 70 mg) Oral q 7 days Allopurinol 1 Tablet (of 300 mg) Oral daily Benadryl Allergy 1 Tablet (of 25 mg) Capsule Oral PRN Calcium + D 1 Tablet Oral daily Claritin 1 Capsule (of 10 mg) Oral daily Dexamethasone (4 mg) Tablet Oral Take as Directed DULoxetine HCl 1 Capsule (of 30 mg) Capsule Delayed Release Particles Oral b.i.d. Gabapentin 1 Tablet (of 800 mg) Oral t.i.d. HYDROmorphone HCl 1 Tablet (of 2 mg) Oral t.i.d. PRN hydrOXYzine HCl 1 Tablet (of 25 mg) Oral t.i.d. PRN Methocarbamol 1 Tablet (of 500 mg) Oral q 8 hours PRN Multivitamins 1 Tablet Tablet, chewable Oral daily Nystatin 5 mL (of 932469 Units/mL) Suspension Mouth/throat four times a day Omeprazole 1 Capsule (of 40 mg) Capsule Delayed Release Oral daily Ondansetron HCl 1 Tablet (of 8 mg) Oral q 8 hours PRN Prochlorperazine Maleate 1 Tablet (of 10 mg) Oral q 6 hours PRN Family History: Ms. Nances mother is alive: dementia. Ms. Cary's father at age 47: colon cancer. Father with colon cancer at age 47. Mother is still living at age 74. She has dementia. A brother with alcohol related heart disease. Another brother has known coronary artery disease. A sister in a motor vehicle accident. Her maternal grandmother with cancer, apparently of unknown primary site. Social History: Ms. Cary is single and she is a disabled. She is an occasional smoker who has smoked 0.5 packs/day for 16 years. She has no history of drinking. Ms. Cary reports the following support systems: lives with spouse, significant other, family, or friends, lives in own house, supportive family/friends willing to assist with needs, and adequate transportation available for expected visits. Her diet consists of regular meals. She indicates her activity level as: sedentary. PT STATES HER BOYFRIEND TOOK AWAY HER CIGARETTES. Review Of Symptoms: Constitutional Denies fevers, chills, night sweats, excessive fatigue or weight loss. Allergic/Immunologic No reactions. Eyes Denies significant visual changes. No diplopia. No amaurosis. ENMT Denies changes in hearing, sore throat, mouth sores, difficulty or changes in swallowing ability, and/or sinus drainage. Endocrine No diabetes, thyroid disease or hormone replacement. Denies hot flashes or night sweats. Hematologic/Lymphatic Denies easy bruising or bleeding. The patient denies any tender or palpable lymph nodes. Respiratory Denies dyspnea on exertion, chest pain, cough or hemoptysis. Denies orthopnea. Cardiovascular Denies anginal chest pain, palpitations or orthopnea. Gastrointestinal Denies nausea, vomiting, diarrhea, GI bleeding, or constipation. Denies change in bowel habits and/or stool color, no heartburn or early satiety. Genitourinary (F) No hematuria, hesitancy, incontinence, vaginal bleeding, discharge or other problems with urination. Musculoskeletal Denies joint pain, swelling or redness. No decreased range of motion. Integumentary Denies chronic rashes, inflammation, ulcerations or skin changes. Neurologic Denies headache, blurred vision, and no areas of focal weakness or numbness. Assisted gait with seated walker. No sensory problems. Psychiatric Denies insomnia, depression, jennifer or mood swings. Vital Signs: Performed on Aug 12, 2020 16:00 Height - 66.00 in Temperature - 97 F (LOW) Pulse - 67 /min Respiration - 18 /min BP - 113/67 mm(hg) O2 Sat - 97 % Pain - 0 Fatigue - 0 Performed on Aug 12, 2020 13:32 Height - 66.00 in Weight - 250.2 lbs (LOW) BSA - 2.20 sq.m BMI - 40.38 (HIGH) Temperature - 98.4 F Pulse - 77 /min Respiration - 24 /min BP - 111/64 mm(hg) O2 Sat - 96 % Pain - 0,1 - No physically strenuous activity, but ambulatory and able to carry out light or sedentary work (e.g. office work, light house work). (ECOG) Physical Examination: Constitutional Alert, oriented, no acute distress. Skin pink, warm and dry. Alopecia. Head Normocephalic; atraumatic. Eyes Conjunctivae and sclerae are clear and without icterus. Pupils are reactive and equal. Neck Supple without masses or thyromegaly. No jugular venous distension. Hematologic/Lymphatic No petechiae or purpura. No tender or palpable lymph nodes in the cervical or supraclavicular areas. Respiratory Lungs are clear to auscultation without rhonchi or wheezing. Cardiovascular Regular rate and rhythm of heart without murmurs,clicks, gallops or rubs. Chest Left Port insertion site is unremarkable. Abdomen Non-tender, non-distended, no ascites or masses palpable on palpation. No guarding or rebound tenderness. No pulsatile masses. Back/Spine Non-tender to palpation. Extremities No visible deformities, no cyanosis, clubbing or edema. Musculoskeletal No tenderness or swelling, normal range of motion without obvious weakness. Utilizing don walker for ambulation assistance. Integumentary No rashes or lesions. Neurologic No sensory or motor deficits, normal cerebellar function, normal gait. Psychiatric Alert and oriented times three. Coherent speech. Verbalizes understanding of our discussions today. Laboratory:Test performed on Aug 12, 2020 12:01 Sodium 136 mmol/L Potassium 3.8 mmol/L Chloride 101 mmol/L CO2 27 mmol/L Anion Gap 11.8 BUN 14 mg/dL Creatinine 0.9 mg/dL Cr Clearance (Est) 122.8700 mL/min eGFR 64.5 mL/min Glucose 103 mg/dL Osmolality - Calculated 283 mOsm/kg Calcium 9.4 mg/dL Protein, Total 6.9 g/dL Albumin 4.0 g/dL Globulin 2.9 g/dL Bilirubin, Total 0.3 mg/dL ALT (SGPT) 22 U/L AST (SGOT) 25 U/L Alkaline Phosphatase 73 IU/L WBC 6.1 10 3/uL RBC 4.87 10 6/uL HGB 14.6 g/dL HCT 43.2 % MCV 88.7 fL MCH 30.0 pg MCHC 33.8 g/dL RDW 13.6 % Platelet Count 279 10 3/cmm MPV 10.5 fL Neutrophils 2.17 10 3/uL Lymphocytes 3.3 10 3/uL Monocytes 0.5 10 3/uL Eosinophils 0.1 10 3/uL Basophils 0.0 10 3/uL Neutrophil % 35.6 % Lymphocyte % 54.4 % Monocyte % 8.0 % Eosinophil % 1.1 % Basophils % 0.7 % NRBC % 0 % Test performed on Jun 17, 2020 08:16 Vitamin D (25-Hydroxy), Total 40 ng/mL Impression: 1. Patient with grade 3 invasive ductal carcinoma of the right breast, stage IA ( T1c, N0, M0), ER/NH negative and HER-2/jennifer positive. 2. She underwent right total mastectomy with axillary sentinel lymph node biopsy and with immediate reconstruction on 06/12/2019. 3. She was given adjuvant chemotherapy with TCH. She completed 3 1/2 cycles, with her treatment having been interupted during cycle 4 on 09/23/2019 due to an anaphylactic reaction to carboplatin. 4. She had the right chest wall tissue graphic user interface designer removed 08/21/2019 due to cellulitis. She still has a small open area in the medial aspect of the right mastectomy incision. 5. In August 2010 she underwent left mastectomy/axillary lymph node sampling for grade 3 invasive ductal carcinoma of the left breast, stage IIA (T2, N0, M0), ER/NH positive and HER-2/jennifer positive. She received adjuvant chemotherapy with TCH and adjuvant hormonal therapy. 6. She was found to harbor a BRCA2 mutation. Her other medical illnesses include: 7. Hypertension. 8. GERD. 9. Obstructive sleep apnea. 10. Osteopenia. 11. Anxiety/depression. On 10/21/2019 she proceeded with cycle 5 of adjuvant chemotherapy, limited to docetaxel and Herceptin. As of her follow-up visit on 11/11/2019 she had reported worsening of her neuropathy, and we opted not to attempt any further chemotherapy. She then began cycle 1 of single agent Herceptin at the 3-week dosing schedule. She tolerated it well. At her scheduled treatment on 12/02/2019 Perjeta was added to her adjuvant regimen. She did have some diarrhea with that, which was managed adequately with Imodium. She otherwise tolerated it well. In particular, she had no worsening of neuropathy. She continued with cycle 2 of Herceptin/Perjeta on 12/23/2019 and with cycle 3 on 01/13/2020. Her treatment was then delayed due to right chest wall abscess, but she was able to restart treatment with cycle 4 on 03/04/2020 and she then continued treatment at 3-week intervals. As of 05/27/2020 she received cycle 13 of Herceptin/Perjeta. Following that treatment she developed an acute illness with headache, fatigue, nausea, and diarrhea. She had moderately elevated liver enzymes. A specific cause was not determined, but a viral syndrome was suspected. She recovered well and was able to resume treatment with Herceptin/Perjeta on 06/24/2020. Plan: 1. Proceed with cycle 16 Herceptin/ 11 of Herceptin/Perjeta. Dosages remain the same. 2. Followup echocardiogram on 06/01/2020 reported EF @ 60-65%. 3. Labs from 08/12/2020 were reviewed in detail and discussed with Mrs Lucero and a copy was given to her. WBC 6.1, hemoglobin 14.6, platelets 279,000 ANC is 2200. 4. She did have a bone density reporting osteopenia with the highest T-score reported as -1.0. We have previously discussed ways to help with the neutropenia such as dietary calcium intake, calcium supplementation and weightbearing exercises such as walking. 5. Plan to see her back in 3 weeks with CBC CMP and follow-up. I will check with Dr Hill to see if she has completed her planned Herceptin/Perjeta treatment. She began adjuvant chemotherapy with carboplatin Taxotere and Herceptin on 07/24/2019. She was only able to complete 3-1/2 treatments as she had anaphylactic reaction to the Carboplatin. She did proceed with docetaxel and Herceptin. She completed this plan of care on 11/11/2019. It was limited to 5 cycles and was stopped because of worsening neuropathy. She did just have one dose of single agent Herceptin and then on 12/02/2019 Perjeta was added. 6. Mrs. Cary was instructed to contact us in the interim should problems arise. 7. Mrs Cary reports that she is scheduled to have a complete hysterectomy by Dr Bach on 09/17/2020. Signed By: Kami Richardson-, [facility] Puneet Hill MD <<Signature on File>>
== END 2020-08-31 23:59 | disposition home or self-care (01) ==
LOC: ONCMED 06:19
PROVIDERS: PCP Nurse Practitioner Family; Visit Provider Nurse Practitioner
DX: Z51.11 Encounter for antineoplastic chemotherapy (principal); C50.511 Malignant neoplasm of lower-outer quadrant of right female breast; Z17.1 Estrogen receptor negative status [ER-]; I10 Essential (primary) hypertension; K21.9 Gastro-esophageal reflux disease without esophagitis; G47.33 Obstructive sleep apnea (adult) (pediatric); M85.80 Other specified disorders of bone density and structure, unspecified site; F41.9 Anxiety disorder, unspecified; F32.9 Major depressive disorder, single episode, unspecified; Z78.0 Asymptomatic menopausal state; Z79.899 Other long term (current) drug therapy
CPT/HCPCS: 36415; 36593; 80053; 85025; 96367; 96375; 96413; 96415; 99214; J1200; J2997; J3490; J7050; J9306; J9355

== ENCOUNTER → 2020-09-08 08:31 | Outpatient (BNVA) | payer MEDICARE, MEDICAID, SELFPAY | PROVIDERS: PCP Nurse Practitioner Family; Visit Provider Anesthesiology | DX: M99.83 Other biomechanical lesions of lumbar region (principal); M47.27 Other spondylosis with radiculopathy, lumbosacral region; M51.27 Other intervertebral disc displacement, lumbosacral region; M47.817 Spondylosis without myelopathy or radiculopathy, lumbosacral region; M25.551 Pain in right hip; M25.552 Pain in left hip; Z79.891 Long term (current) use of opiate analgesic | CPT/HCPCS: 99214 ==

== ENCOUNTER 2020-09-16 06:15 | Outpatient (RCR) | payer MEDICARE, MEDICAID, SELFPAY ==
[2020-09-16 09:02] LABS: Basophils % 0.6 %; Eosinophils % 0.5 %; Hematocrit 46.4 % (37.0-47.0); Hemoglobin 15.5 g/dL (11.5-15.3); Lymphocytes # 2.5 10^3/uL (0.8-4.8); Mean Corpuscular HGB Conc 33.4 g/dL (30.0-36.0); Mean Corpuscular Hemoglobin 29.9 pg (28.0-34.0); Mean Corpuscular Volume 89.6 fL (81-99); Mean Platelet Volume 10.3 fL (7.4-10.4); Monocytes # 0.5 10^3/uL (0.2-0.9); Monocytes % 7.9 %; Neutrophils # 3.33 10^3/uL (1.8-7.7); Neutrophils % 51.8 %; Nucleated Red Blood Cells % 0 %; Platelet Count 290 10^3/cmm (130-400); Red Blood Count 5.18 10^6/uL (4.1-5.3); Red Cell Distribution Width 13.6 % (12.1-15.1); White Blood Count 6.4 10^3/uL (4.0-10.0)
[2020-09-16 09:20] LABS: Alanine Aminotransferase 25 U/L (0-33); Alkaline Phosphatase 71 IU/L (35-105); Aspartate Amino Transferase 22 U/L (0-32); Blood Urea Nitrogen 12 mg/dL (6-20); Calcium 9.9 mg/dL (8.5-10.5); Carbon Dioxide 29 mmol/L (22-29); Chloride 98 mmol/L (98-107); Globulin 3.1 g/dL (1.3-4.6); Glomerular Filtration Rate 73.9 mL/min (90-130); Glucose 180 mg/dL (65-115); Osmolality Calculated 288 mOsm/kg (285-295); Sodium 137 mmol/L (136-145); Total Bilirubin 0.3 mg/dL (0.15-1.2); Total Protein 7.1 g/dL (6.6-8.7)
--- NOTE | 2020-09-19 11:53 | ONC FU_ITS ---
Dr. Hill Patient Follow-Up Note Patient: Remedios Cary Unit #: [id number]: [id number] Dicatated By: Puneet Hill M.D.Date of Visit:Sep 16, 2020 Onc Med Follow-up/Prog Note Chief Complaint: Breast cancer. History of Present Illness: This is a 59 year-old woman with grade 3 infiltrating ductal carcinoma of the right breast, stage IA, ER/ OK negative and HER-2/jennifer positive. She previously had treatment for HER-2/jennifer positive left breast cancer, and she is known to harbor a BRCA2 mutation. In July 2010 she was diagnosed with grade 3 invasive ductal carcinoma of the left breast, ER/OK positive and HER-2/jennifer positive. She underwent left mastectomy/axillary lymph node samplingand breast reconstruction on 08/10/2010. Her disease was stage IIA (T2, N0, M0) with pathology showing 2.5 cm primary tumor and no involvement of 4 lymph nodes. She was given adjuvant chemotherapy with TCH, completed in December 2010. She completed a full year of Herceptin, and she also was given adjuvant hormonal therapy for a total of 8 years, initially with tamoxifen but with transition to Femara as of September 2014. On 04/08/2019 she was confirmed by needle biopsy to have grade 3 invasive ductal carcinoma of the right breast. The best prognostic profile showed ER and OK negative, both 0%. HER-2/jennifer was 2+ by IHC but positive by FISH with 10.9 HER-2/jennifer signals per cell and 2.2 CEP17 signals per cell. The Ki-67 was unfavorable at 35%. She underwent right total mastectomy with axillary sentinel lymph node biopsy and with immediate reconstruction on 06/12/2019. Pathology showed grade 3 invasive ductal carcinoma measuring 1.8 x 1.6 x 1.2 cm. There was no involvement in 2 sentinel lymph nodes. In the meantime, she also had undergone BRCA testing and she was confirmed to harbor a BRCA2 mutation. Her staging PET/CT on 07/17/2019 showed no evidence for active malignancy. Her echocardiogram showed normal left ventricular systolic function with ejection fraction estimated at 60-65%. She was given adjuvant chemotherapy with TCH, cycle 1 beginning 07/24/2019. During her treatment, she required removal of the tissue sap fico architect in the right chest due to cellulitis. With her 4th cycle of chemotherapy, on 09/23/2019, she experienced an anaphylactic reaction to the carboplatin. She was rechallenged one week later with similar results. I had seen her initially on 10/11/2019. At that time we discussed options for her further adjuvant therapy. Ultimately she decided to try and complete 2 more cycles of chemotherapy with docetaxel/Herceptin. On 10/21/2019 she proceeded with her 5th cycle of adjuvant chemotherapy, limited to docetaxel and Herceptin. She was seen for a follow-up visit on 11/11/2019. At that point her neuropathy had worsened again, and we opted not to attempt any further chemotherapy. She then began cycle 1 of single agent Herceptin at a 3-week dosing interval. She tolerated without significant toxicity. With her next scheduled treatment, on 12/02/2019, Perjeta was added to her adjuvant regimen. She was able to tolerate it without any apparent additional toxicity. She then continued treatment at 3-week intervals. As of 08/12/2020 she had completed 11 cycles of treatment with Herceptin/Perjeta, and at that point she had received a total of 17 cycles of Herceptin. She did have a treatment delay between cycles 3 and 4 due to development of an abscess in the right chest wall, she had to be surgically drained. Her treatment was otherwise uncomplicated. Her other medical illnesses include hypertension, GERD, obstructive sleep apnea, and anxiety/depression. She also has osteopenia with her bone density study in March 2018 showing T score -1.9 in the left femoral neck and -1.8 in the lumbar spine. She has a history of smoking for 15 years, previously up to 3 packs of cigarettes daily. She had quit for 15 years, then started smoking again for about 1 year. She quit smoking again in March 2019. INTERIM HISTORY: She is seen for a followup visit. She has been feeling pretty good generally. She has been feeling a little tired. She is able to do light work. ECOG score is 1. She has good appetite. She has not had fever. She does have hot flashes and sweating. She has shortness of breath with activity. She does not complain of cough and she has not been having chest pain. She has no GI complaints. Bladder function has been okay, but she has been having vaginal dryness which has not been effectively managed with lubricants. She does have some joint pain and she still has a lot of neuropathy in her hands and feet. Medications: Albuterol Sulfate 1 ((2.5 mg/3ml) 0.083%) Nebulization solution Inhalation q 6 hours PRN, Alendronate Sodium 1 Tablet (of 70 mg) Oral q 7 days, Allopurinol 1 Tablet (of 300 mg) Oral daily, Benadryl Allergy 1 Tablet (of 25 mg) Capsule Oral PRN, Calcium + D 1 Tablet Oral daily, Claritin 1 Capsule (of 10 mg) Oral daily, DULoxetine HCl 1 Capsule (of 30 mg) Capsule Delayed Release Particles Oral b.i.d., Gabapentin 1 Tablet (of 800 mg) Oral t.i.d., HYDROmorphone HCl 1 Tablet (of 2 mg) Oral t.i.d. PRN, hydrOXYzine HCl 1 Tablet (of 25 mg) Oral t.i.d. PRN, Methocarbamol 1 Tablet (of 500 mg) Oral q 8 hours PRN, Multivitamins 1 Tablet Tablet, chewable Oral daily, Nystatin 5 mL (of 553380 Units/mL) Suspension Mouth/throat four times a day, Ondansetron HCl 1 Tablet (of 8 mg) Oral q 8 hours PRN, Pantoprazole Sodium 1 Tablet (of 40 mg) Tablet, enteric coated Oral daily, Prochlorperazine Maleate 1 Tablet (of 10 mg) Oral q 6 hours PRN Allergies: CARBOplatin, Ibuprofen, and Penicillins. Review of Systems: Constitutional - Her energy is low and she still feels pretty tired. She is able to do some light work. Her appetite is good and her weight is up 8 pounds from last visit. No fevers. She has daily hot flashes. ECOG score is 1, ENMT - She has sinus drainage. She is using Flonase. No mouth sores. No sore throat or difficulty swallowing, Hematologic/Lymphatic - No abnormal bruising or bleeding, Respiratory - She gets short of breath with exertion. No cough. No pleuritic pain or hemoptysis, Cardiovascular - No angina pain. No palpitations, Gastrointestinal - No nausea or vomiting. Her heartburn is adequately managed with Pantoprazole. No diarrhea or constipation. No blood in the stool or black stools, Genitourinary (F) - No dysuria or hematuria. No urinary frequency. No urgency or incontinence. She sometimes has difficulty starting to urinate. She reports she has alot of vaginal dryness, Musculoskeletal - She has generalized joint aches, Integumentary - No skin eruption, Neurologic - No headache or dizziness. She has neuropathy in her hands and feet. No other focal neurologic symptoms, Psychiatric - Her depression/anxiety is adequately controlled. She does not sleep well. Vital Signs: Performed on Sep 16, 2020 10:04 Height - 66.00 in Weight - 258.0 lbs (HIGH) BSA - 2.23 sq.m BMI - 41.64 (HIGH) Temperature - 97.7 F (LOW) Pulse - 91 /min Respiration - 24 /min BP - 165/78 mm(hg) (HIGH) O2 Sat - 97 % Pain - 0 Physical Examination: Constitutional - She looks pretty good generally, Eyes - Sclerae nonicteric. Conjunctivae clear, ENMT - No lesions noted in the oral cavity, Hematologic/Lymphatic - No cervical or clavicular adenopathy, Respiratory - Lungs are clear with good air movement bilaterally, Cardiovascular - Heart rhythm is regular. There is no murmur, gallop, or rub noted, Breasts - There are no lesions noted in the chest wall bilaterally. There is no axillary adenopathy, Abdomen - Soft. Liver is not enlarged or tender. Spleen is not palpable. There is no abdominal mass or ascites noted and there is no inguinal adenopathy, Extremities - No edema, Neurologic - No focal neurologic deficits noted. Lab/Imaging: Test performed on Sep 16, 2020 08:37 Sodium 137 mmol/L Potassium 4.0 mmol/L Chloride 98 mmol/L CO2 29 mmol/L Anion Gap 14.0 BUN 12 mg/dL Creatinine 0.8 mg/dL Cr Clearance (Est) 138.2300 mL/min eGFR 73.9 mL/min Glucose 180 mg/dL Osmolality - Calculated 288 mOsm/kg Calcium 9.9 mg/dL Protein, Total 7.1 g/dL Albumin 4.0 g/dL Globulin 3.1 g/dL Bilirubin, Total 0.3 mg/dL ALT (SGPT) 25 U/L AST (SGOT) 22 U/L Alkaline Phosphatase 71 IU/L WBC 6.4 10 3/uL RBC 5.18 10 6/uL HGB 15.5 g/dL HCT 46.4 % MCV 89.6 fL MCH 29.9 pg MCHC 33.4 g/dL RDW 13.6 % Platelet Count 290 10 3/cmm MPV 10.3 fL Neutrophils 3.33 10 3/uL Lymphocytes 2.5 10 3/uL Monocytes 0.5 10 3/uL Eosinophils 0.0 10 3/uL Basophils 0.0 10 3/uL Neutrophil % 51.8 % Lymphocyte % 39.0 % Monocyte % 7.9 % Eosinophil % 0.5 % Basophils % 0.6 % NRBC % 0 % Impression: 1. Patient with grade 3 invasive ductal carcinoma of the right breast, stage IA ( T1c, N0, M0), ER/OK negative and HER-2/jennifer positive. 2. She underwent right total mastectomy with axillary sentinel lymph node biopsy and with immediate reconstruction on 06/12/2019. 3. She was given adjuvant chemotherapy with TCH. She completed 3 1/2 cycles, with her treatment having been interupted during cycle 4 on 09/23/2019 due to an anaphylactic reaction to carboplatin. 4. She had the right chest wall tissue sap fico architect removed 08/21/2019 due to cellulitis. She still has a small open area in the medial aspect of the right mastectomy incision. 5. In August 2010 she underwent left mastectomy/axillary lymph node sampling for grade 3 invasive ductal carcinoma of the left breast, stage IIA (T2, N0, M0), ER/OK positive and HER-2/jennifer positive. She received adjuvant chemotherapy with TCH and adjuvant hormonal therapy. 6. She was found to harbor a BRCA2 mutation. Her other medical illnesses include: 7. Hypertension. 8. GERD. 9. Obstructive sleep apnea. 10. Osteopenia. 11. Anxiety/depression. On 10/21/2019 she proceeded with cycle 5 of adjuvant chemotherapy, limited to docetaxel and Herceptin. As of her follow-up visit on 11/11/2019 she had reported worsening of her neuropathy, and we opted not to attempt any further chemotherapy. She then began cycle 1 of single agent Herceptin at the 3-week dosing schedule. She tolerated it well. At her scheduled treatment on 12/02/2019 Perjeta was added to her adjuvant regimen. She did have some diarrhea with that, which was managed adequately with Imodium. She otherwise tolerated it well. In particular, she had no worsening of neuropathy. She continued with cycle 2 of Herceptin/Perjeta on 12/23/2019 and with cycle 3 on 01/13/2020. Her treatment was then delayed due to right chest wall abscess, but she was able to restart treatment with cycle 4 on 03/04/2020 and she then continued treatment at 3-week intervals. As of 08/12/2020 she received her 11th cycle of Herceptin/Perjeta and a total of 17 cycles of Herceptin. Having received 17 cycles of Herceptin, she has completed her course of adjuvant therapy. At this point she still has fatigue and she is still having significant neuropathy symptoms. She also reports having vaginal dryness which she is not being managed adequately with lubricants. Plan: She will now be followed on observation/expectant management. I will have her try escalating her gabapentin dosage to 800 mg twice daily and 1200 mg at bedtime. I also will have her try changing her Cymbalta to 90 mg once daily. In addition, she will be given a prescription for Premarin vaginal cream to use at the lowest dosage and not more than once or twice per week, as that should have very low risk, particularly in the setting of ER/OK negative disease. She will be scheduled for a follow-up visit in 3 months. Signed By: Puneet Hill M.D. <<Signature on File>>
== END 2020-10-01 23:59 | disposition home or self-care (01) ==
LOC: ONCMED 06:15
PROVIDERS: PCP Nurse Practitioner Family; Visit Provider Internal Medicine Medical Oncology
DX: Z08 Encounter for follow-up examination after completed treatment for malignant neoplasm (principal); Z85.3 Personal history of malignant neoplasm of breast; Z90.11 Acquired absence of right breast and nipple; Z92.21 Personal history of antineoplastic chemotherapy; I10 Essential (primary) hypertension; K21.9 Gastro-esophageal reflux disease without esophagitis; G47.33 Obstructive sleep apnea (adult) (pediatric); M85.80 Other specified disorders of bone density and structure, unspecified site; F41.9 Anxiety disorder, unspecified; F32.9 Major depressive disorder, single episode, unspecified; Z79.899 Other long term (current) drug therapy
CPT/HCPCS: 36415; 80053; 85025; 99214

== ENCOUNTER 2020-10-16 09:35 | Outpatient (RCR) | payer MEDICARE, MEDICAID, SELFPAY ==
[2020-10-16] MEDS: alteplase 1 mg/mL SDV 2 mL 2 MG IV (10:04)
== END 2020-11-01 23:59 | disposition home or self-care (01) ==
LOC: ONCMED 09:35
PROVIDERS: PCP Nurse Practitioner Family; Visit Provider Internal Medicine Medical Oncology
DX: C50.811 Malignant neoplasm of overlapping sites of right female breast (principal); Z17.1 Estrogen receptor negative status [ER-]; C77.8 Secondary and unspecified malignant neoplasm of lymph nodes of multiple regions
CPT/HCPCS: 36593; 96374; J2997

== ENCOUNTER → 2020-11-11 08:10 | Outpatient (BNVA) | payer MEDICARE, MEDICAID, SELFPAY | PROVIDERS: PCP Nurse Practitioner Family; Visit Provider Anesthesiology | DX: M47.27 Other spondylosis with radiculopathy, lumbosacral region (principal); M47.817 Spondylosis without myelopathy or radiculopathy, lumbosacral region; M99.83 Other biomechanical lesions of lumbar region; M51.27 Other intervertebral disc displacement, lumbosacral region; Z79.891 Long term (current) use of opiate analgesic | CPT/HCPCS: 99213 ==

== ENCOUNTER 2020-12-16 08:25 | Outpatient (CLI) | payer MEDICARE, MEDICAID, SELFPAY ==
[2020-12-16] MEDS: alteplase 1 mg/mL SDV 2 mL 2 MG INTRACATH (08:53)
[2020-12-16 09:02] LABS: Basophils % 0.8 %; Eosinophils # 0.1 10^3/uL (0.0-0.8); Eosinophils % 2.3 %; Hematocrit 40.4 % (37.0-47.0); Lymphocytes # 2.1 10^3/uL (0.8-4.8); Lymphocytes % 38.9 %; Mean Corpuscular HGB Conc 34.7 g/dL (30.0-36.0); Mean Corpuscular Hemoglobin 31.1 pg (28.0-34.0); Mean Corpuscular Volume 89.8 fL (81-99); Mean Platelet Volume 10.2 fL (7.4-10.4); Monocytes # 0.5 10^3/uL (0.2-0.9); Monocytes % 8.5 %; Neutrophils # 2.61 10^3/uL (1.8-7.7); Neutrophils % 49.3 %; Nucleated Red Blood Cells % 0 %; Platelet Count 225 10^3/cmm (130-400); Red Cell Distribution Width 13.2 % (12.1-15.1); White Blood Count 5.3 10^3/uL (4.0-10.0)
[2020-12-16 09:38] LABS: 25 Hydroxy Vitamin D 44 ng/mL (30-100); Alanine Aminotransferase 24 U/L (0-33); Albumin Level 3.8 g/dL (3.5-5.2); Alkaline Phosphatase 54 IU/L (35-105); Anion Gap 11.3 (5-19); Aspartate Amino Transferase 22 U/L (0-32); Blood Urea Nitrogen 12 mg/dL (6-20); Calcium 9.7 mg/dL (8.5-10.5); Carbon Dioxide 28 mmol/L (22-29); Chloride 100 mmol/L (98-107); Globulin 2.7 g/dL (1.3-4.6); Glomerular Filtration Rate 73.9 mL/min (90-130); Glucose 307 mg/dL (65-115); Osmolality Calculated 291 mOsm/kg (285-295); Potassium 4.3 mmol/L (3.5-5.1); Sodium 135 mmol/L (136-145); Total Bilirubin 0.4 mg/dL (0.15-1.2); Total Protein 6.5 g/dL (6.6-8.7)
--- NOTE | 2020-12-16 10:06 | ONC FU_ITS ---
Dr. Hill Patient Follow-Up Note Patient: Remedios Cary Unit #: [id number]: [id number] Dicatated By: Puneet Hill M.D.Date of Visit:Dec 16, 2020 Onc Med Follow-up/Prog Note Chief Complaint: Breast cancer. History of Present Illness: This is a 59 year-old woman with grade 3 infiltrating ductal carcinoma of the right breast, stage IA, ER/ VA negative and HER-2/jennifer positive. She previously had treatment for HER-2/jennifer positive left breast cancer, and she is known to harbor a BRCA2 mutation. In July 2010 she was diagnosed with grade 3 invasive ductal carcinoma of the left breast, ER/VA positive and HER-2/jennifer positive. She underwent left mastectomy/axillary lymph node samplingand breast reconstruction on 08/10/2010. Her disease was stage IIA (T2, N0, M0) with pathology showing 2.5 cm primary tumor and no involvement of 4 lymph nodes. She was given adjuvant chemotherapy with TCH, completed in December 2010. She completed a full year of Herceptin, and she also was given adjuvant hormonal therapy for a total of 8 years, initially with tamoxifen but with transition to Femara as of September 2014. On 04/08/2019 she was confirmed by needle biopsy to have grade 3 invasive ductal carcinoma of the right breast. The best prognostic profile showed ER and VA negative, both 0%. HER-2/jennifer was 2+ by IHC but positive by FISH with 10.9 HER-2/jennifer signals per cell and 2.2 CEP17 signals per cell. The Ki-67 was unfavorable at 35%. She underwent right total mastectomy with axillary sentinel lymph node biopsy and with immediate reconstruction on 06/12/2019. Pathology showed grade 3 invasive ductal carcinoma measuring 1.8 x 1.6 x 1.2 cm. There was no involvement in 2 sentinel lymph nodes. In the meantime, she also had undergone BRCA testing and she was confirmed to harbor a BRCA2 mutation. Her staging PET/CT on 07/17/2019 showed no evidence for active malignancy. Her echocardiogram showed normal left ventricular systolic function with ejection fraction estimated at 60-65%. She was given adjuvant chemotherapy with TCH, cycle 1 beginning 07/24/2019. During her treatment, she required removal of the tissue transfer and line up worker in the right chest due to cellulitis. With her 4th cycle of chemotherapy, on 09/23/2019, she experienced an anaphylactic reaction to the carboplatin. She was rechallenged one week later with similar results. I had seen her initially on 10/11/2019. At that time we discussed options for her further adjuvant therapy. Ultimately she decided to try and complete 2 more cycles of chemotherapy with docetaxel/Herceptin. On 10/21/2019 she proceeded with her 5th cycle of adjuvant chemotherapy, limited to docetaxel and Herceptin. She was seen for a follow-up visit on 11/11/2019. At that point her neuropathy had worsened again, and we opted not to attempt any further chemotherapy. She then began cycle 1 of single agent Herceptin at a 3-week dosing interval. She tolerated without significant toxicity. With her next scheduled treatment, on 12/02/2019, Perjeta was added to her adjuvant regimen. She was able to tolerate it without any apparent additional toxicity. She then continued treatment at 3-week intervals. As of 08/12/2020 she had completed 11 cycles of treatment with Herceptin/Perjeta, and at that point she had received a total of 17 cycles of Herceptin. She did have a treatment delay between cycles 3 and 4 due to development of an abscess in the right chest wall, she had to be surgically drained. Her treatment was otherwise uncomplicated. Her other medical illnesses include hypertension, GERD, obstructive sleep apnea, and anxiety/depression. She also has osteopenia with her bone density study in March 2018 showing T score -1.9 in the left femoral neck and -1.8 in the lumbar spine. She has a history of smoking for 15 years, previously up to 3 packs of cigarettes daily. She had quit for 15 years, then started smoking again for about 1 year. She quit smoking again in March 2019. INTERIM HISTORY: She is seen for a followup visit. She continues to have limited activity due to fatigue and pain. Her ECOG score is 1. Her appetite is good. She has not had fever. She does have hot flashes and sweating, both during the daytime and at night. She has allergy related sinus symptoms. She does not complain of cough. Her breathing has been okay. She is on CPAP at night. She does not complain of chest pain. She has no GI or complaints. She has chronic back pain. She is being managed at pain clinic. She sometimes has headache and she sometimes has dizziness. She still has bad neuropathy in her hands and feet. She is mostly able to sleep okay. Her anxiety/depression is adequately managed with medication. Medications: Albuterol Sulfate 1 ((2.5 mg/3ml) 0.083%) Nebulization solution Inhalation q 6 hours PRN, Alendronate Sodium 1 Tablet (of 70 mg) Oral q 7 days, Allopurinol 1 Tablet (of 300 mg) Oral daily, Benadryl Allergy 1 Tablet (of 25 mg) Capsule Oral PRN, Calcium + D 1 Tablet Oral daily, Claritin 1 Capsule (of 10 mg) Oral daily, DULoxetine HCl 1 Capsule (of 30 mg) Capsule Delayed Release Particles Oral b.i.d., Gabapentin 1 Tablet (of 800 mg) Oral t.i.d., HYDROmorphone HCl 1 Tablet (of 2 mg) Oral t.i.d. PRN, hydrOXYzine HCl 1 Tablet (of 25 mg) Oral t.i.d. PRN, Methocarbamol 1 Tablet (of 500 mg) Oral q 8 hours PRN, Multivitamins 1 Tablet Tablet, chewable Oral daily, Nystatin 5 mL (of 708223 Units/mL) Suspension Mouth/throat four times a day, Ondansetron HCl 1 Tablet (of 8 mg) Oral q 8 hours PRN, Pantoprazole Sodium 1 Tablet (of 40 mg) Tablet, enteric coated Oral daily, Prochlorperazine Maleate 1 Tablet (of 10 mg) Oral q 6 hours PRN Allergies: CARBOplatin, Ibuprofen, and Penicillins. Vital Signs: Performed on Dec 16, 2020 09:41 Height - 66.00 in Weight - 269 lbs (HIGH) BSA - 2.27 sq.m BMI - 43.42 (HIGH) Temperature - 97.8 F (LOW) Pulse - 92 /min Respiration - 18 /min BP - 125/82 mm(hg) O2 Sat - 94 % (LOW) Pain - 0 Fatigue - 6 Physical Examination: Constitutional - She looks pretty good generally, Eyes - Sclerae nonicteric. Conjunctivae clear, ENMT - No lesions noted in the oral cavity, Hematologic/Lymphatic - No cervical or clavicular adenopathy, Respiratory - Lungs are clear with good air movement bilaterally, Cardiovascular - Heart rhythm is regular. There is no murmur, gallop, or rub noted, Breasts - The right chest wall shows no lesions. There are no lesions noted in the left chest wall/reconstruction. There is no axillary adenopathy, Abdomen - Soft. Liver is not enlarged or tender. Spleen is not palpable. There is no abdominal mass or ascites noted and there is no inguinal adenopathy, Extremities - No edema, Neurologic - No focal neurologic deficits noted. Lab/Imaging: Test performed on Dec 16, 2020 08:50 Sodium 135 mmol/L Vitamin D (25-Hydroxy), Total 44 ng/mL Potassium 4.3 mmol/L Chloride 100 mmol/L CO2 28 mmol/L Anion Gap 11.3 BUN 12 mg/dL Creatinine 0.8 mg/dL Cr Clearance (Est) 138.2300 mL/min eGFR 73.9 mL/min Glucose 307 mg/dL Osmolality - Calculated 291 mOsm/kg Calcium 9.7 mg/dL Protein, Total 6.5 g/dL Albumin 3.8 g/dL Globulin 2.7 g/dL Bilirubin, Total 0.4 mg/dL ALT (SGPT) 24 U/L AST (SGOT) 22 U/L Alkaline Phosphatase 54 IU/L WBC 5.3 10 3/uL RBC 4.50 10 6/uL HGB 14.0 g/dL HCT 40.4 % MCV 89.8 fL MCH 31.1 pg MCHC 34.7 g/dL RDW 13.2 % Platelet Count 225 10 3/cmm MPV 10.2 fL Neutrophils 2.61 10 3/uL Lymphocytes 2.1 10 3/uL Monocytes 0.5 10 3/uL Eosinophils 0.1 10 3/uL Basophils 0.0 10 3/uL Neutrophil % 49.3 % Lymphocyte % 38.9 % Monocyte % 8.5 % Eosinophil % 2.3 % Basophils % 0.8 % NRBC % 0 % Problem List: 1. Patient with grade 3 invasive ductal carcinoma of the right breast, stage IA ( T1c, N0, M0), ER/VA negative and HER-2/jennifer positive. She underwent right total mastectomy with axillary sentinel lymph node biopsy and with immediate reconstruction on 06/12/2019. 2. She has a prior history of grade 3 invasive ductal carcinoma of the left breast, stage IIa (T2, N0, M0), ER/VA positive and HER-2/jennifer positive. Her treatment included left mastectomy/axillary lymph node sampling in August 2010 follolwed by adjuvant chemotherapy with TCH. She also was given adjuvant hormonal therapy. 3. She was found to harbor a BRCA2 mutation. 4. Hypertension. 5. GERD. 6. Obstructive sleep apnea. 7. Osteopenia. 8. Anxiety/depression. Problems Addressed with this Encounter and Plan: 1. Patient with grade 3 invasive ductal carcinoma of the right breast, stage IA ( T1c, N0, M0), ER/VA negative and HER-2/jennifer positive. She underwent right total mastectomy with axillary sentinel lymph node biopsy and with immediate reconstruction on 06/12/2019. She was given adjuvant chemotherapy with TCH. She completed 3 1/2 cycles, with her treatment having been interupted during cycle 4 on 09/23/2019 due to an anaphylactic reaction to carboplatin. On 10/21/2019 she proceeded with cycle 5 of adjuvant chemotherapy, limited to docetaxel and Herceptin. As of her follow-up visit on 11/11/2019 she had reported worsening of her neuropathy, and we opted not to attempt any further chemotherapy. She then began cycle 1 of single agent Herceptin at the 3-week dosing schedule. She tolerated it well. At her scheduled treatment on 12/02/2019 Perjeta was added to her adjuvant regimen. She did have some diarrhea with that, which was managed adequately with Imodium. She otherwise tolerated it well. In particular, she had no worsening of neuropathy. She continued with cycle 2 of Herceptin/Perjeta on 12/23/2019 and with cycle 3 on 01/13/2020. Her treatment was then delayed due to right chest wall abscess, but she was able to restart treatment with cycle 4 on 03/04/2020 and she then continued treatment at 3-week intervals. As of 08/12/2020 she received her 11th cycle of Herceptin/Perjeta and a total of 17 cycles of Herceptin. She has since then been followed expectantly. Thus far there has been no evidence of recurrence of the breast cancer. Her overall clinical status appears stable. She continues observation/expectant management. She was scheduled for a follow-up visit in 3 months. 2. 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 It is being managed with a combination of gabapentin and duloxetine. Those medications will be continued at the same dosages. 3. She had the right chest wall tissue transfer and line up worker removed 08/21/2019 due to cellulitis. As result of failed breast reconstruction, she is in need of postmastectomy bras and prosthesis. 4. She has a nonfunctioning Port-A-Cath. As she has completed her treatment, she will now will be referred to surgery for removal of the venous access device. Signed By: Puneet Hill M.D. <<Signature on File>>
== END 2020-12-16 08:26 | disposition home or self-care (01) ==
LOC: ONCMED 08:27
PROVIDERS: PCP Nurse Practitioner Family; Visit Provider Internal Medicine Medical Oncology
DX: C50.811 Malignant neoplasm of overlapping sites of right female breast (principal); Z17.1 Estrogen receptor negative status [ER-]; Z90.11 Acquired absence of right breast and nipple; I10 Essential (primary) hypertension; K21.9 Gastro-esophageal reflux disease without esophagitis; G47.33 Obstructive sleep apnea (adult) (pediatric); M85.80 Other specified disorders of bone density and structure, unspecified site; F41.9 Anxiety disorder, unspecified; F32.9 Major depressive disorder, single episode, unspecified; Z79.811 Long term (current) use of aromatase inhibitors
CPT/HCPCS: 36415; 36593; 80053; 82306; 85025; 96374; 99214; J2997

== ENCOUNTER → 2020-12-23 16:06 | Outpatient (BNVA) | payer MEDICARE, MEDICAID, SELFPAY | PROVIDERS: PCP Nurse Practitioner Family; Visit Provider Nurse Practitioner Family | DX: E11.9 Type 2 diabetes mellitus without complications (principal); N93.9 Abnormal uterine and vaginal bleeding, unspecified | CPT/HCPCS: 82043; 83036 ==

== ENCOUNTER → 2021-02-04 09:19 | Outpatient (BNVA) | payer MEDICARE, MEDICAID, SELFPAY | PROVIDERS: PCP Nurse Practitioner Family; Visit Provider Surgery | DX: Z45.2 Encounter for adjustment and management of vascular access device (principal) | CPT/HCPCS: 87635 ==

== ENCOUNTER 2021-02-10 06:17 | Day surgery (SDC) | payer MEDICARE, MEDICAID, SELFPAY ==
[2021-02-09 13:26] VITALS: BMI 41.9
[2021-02-10 06:48] VITALS: BP 148/107; PULSE 68; RESP 18; TEMP 36.6; O2SAT 98
[2021-02-10] MEDS: lidocaine 1% INJ 20 mL SUBCUT (06:48)
--- NOTE | 2021-02-10 06:49 | W.PM.OPSFHP ---
Same Day Surgery H&P Indication for Procedure/HPI DATE OF PROCEDURE: February 10, 2021 CHIEF COMPLAINT/INDICATIONFOR SURGICAL PROCEDURE: port removal PREOP DIAGNOSIS: Breast cancer PLANNED PROCEDRUE: Operation Date: 02/10/21 07:00 Proposed Procedures p Portacath Removal 87309 C50.919(Not Applicable) - Jeffry Le MD Medications/Allergies* Home Medications Medication Instructions Recorded Confirmed Type albuterol sulfate 2.5 mg INHALATION .PRN ml 11/28/19 02/09/21 History calcium carbonate 600 mg calcium 600 mg PO DAILY 11/28/19 02/03/21 History (1,500 mg) tablet multivitamin 1 tab PO DAILY 11/28/19 02/03/21 History Allergies/Adverse Reactions Allergy/AdvReac Type Severity Reaction Status Date / Time ibuprofen Allergy Unknown Verified 02/09/21 13:24 oxycodone [From Percocet] Allergy Unknown Verified 02/09/21 13:24 Penicillins Allergy unknown Verified 02/09/21 13:24 morphine AdvReac Unknown NAUSEA Verified 02/09/21 13:24 Pertinent History/Comorbid Conditions* Medical History (Updated 01/05/21 @ 17:28 by Jeffry Le MD) Breast cancer in female Generalized anxiety disorder GERD (gastroesophageal reflux disease) Hypertension Major depressive disorder, recurrent severe without psychotic 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 New onset type 2 diabetes mellitus Surgical History (Updated 01/05/21 @ 17:29 by Jeffry Le MD) History of colonoscopy 2017 History of open reduction and internal fixation (ORIF) procedure History of surgery on left wrist Hx of breast reconstruction Hx of hysterectomy, total Hx of subtotal mastectomy Port-A-Cath in place Family History (Updated 11/28/19 @ 11:23 by Tere Fan LPN) CAD (coronary artery disease) Cancer Social History Smoking and tobacco status: former smoker Second hand smoke exposure: Yes Alcohol intake: never History of recent travel: No Pertinent Exam Findings alert, oriented x 3 and operative site marked Recommendations Surgery/Procedure today Coding Level of Care Code Acute Lead Technician for Genia Pozo
[2021-02-10] MEDS: sodium chloride 0.9% 1,000 ML 30 ML IV (06:55)
[2021-02-10 07:04] VITALS: BP 112/71; PULSE 62; RESP 18; O2SAT 99
[2021-02-10 07:06] LABS: Glucose Point of Care 145 mg/dL (70-110)
[2021-02-10 07:09] VITALS: BP 113/69; PULSE 77; RESP 20; O2SAT 98
[2021-02-10 07:11] VITALS: BP 118/67; PULSE 60; RESP 16; O2SAT 98
[2021-02-10 07:12] VITALS: BP 113/70; PULSE 63; RESP 14; O2SAT 98
[2021-02-10 07:22] VITALS: BP 104/73; PULSE 63; RESP 17; TEMP 36.4; O2SAT 98
--- NOTE | 2021-02-10 07:24 | P.OP_ITS ---
Operative Report Date of procedure: February 10, 2021 Pre-op Diagnosis: Breast cancer status post chemotherapy Post-op Diagnosis: Breast cancer status post chemotherapy PowerPort in the left subclavian vein Procedure Done: Removal of Port-A-Cath from the left subclavian vein Pathology: none sent Surgeon: Jeffry Le Anesthesia: Local Condition: stable Disposition: PACU Procedure: Patient was taken to the operating room and her right chest was pre pped and draped in a sterile manner. 20 mL of 1% lidocaine with 0.5% Marcaine was infiltrated around the MediPort and catheter in the left subclavian vein. Using a 15 blade the previous incision was opened, the subcutaneous tissue was divided using electrocautery and MediPort along the catheter was dissected free from the surrounding subcutaneous tissue and removed entirely. The wound was irrigated with saline, hemostasis ensured with electrocautery and subcutaneous tissue was approximated using 3-0 Vicryl suture and skin was closed using running subcuticular 4-0 Monocryl suture. 4x4 and sterile dressings were used as a pressure dressing. The patient was transferred to the recovery room in stable condition. The MediPort was sent with the patient.
== END 2021-02-10 07:49 | disposition home or self-care (01) ==
LOC: OR 06:20 → OPS 06:39 → OR 06:43
PROVIDERS: PCP Nurse Practitioner Family; Visit Provider Surgery
PROC: (CPT 36589; principal; 2021-02-10 07:00)
DX: C50.919 Malignant neoplasm of unspecified site of unspecified female breast (principal); F41.9 Anxiety disorder, unspecified; I10 Essential (primary) hypertension; F33.9 Major depressive disorder, recurrent, unspecified; E11.9 Type 2 diabetes mellitus without complications; Z87.891 Personal history of nicotine dependence
CPT/HCPCS: 36590; 36416; 82962; J3490; J7030

== ENCOUNTER → 2021-03-02 11:13 | Outpatient (BNVA) | payer MEDICARE, MEDICAID, SELFPAY | PROVIDERS: PCP Nurse Practitioner Family; Visit Provider Anesthesiology | DX: M47.27 Other spondylosis with radiculopathy, lumbosacral region (principal); M47.817 Spondylosis without myelopathy or radiculopathy, lumbosacral region; M51.27 Other intervertebral disc displacement, lumbosacral region; Z79.891 Long term (current) use of opiate analgesic; Z87.891 Personal history of nicotine dependence | CPT/HCPCS: 99213 ==

== ENCOUNTER → 2021-03-15 09:02 | Outpatient (BNVA) | payer MEDICARE, MEDICAID, SELFPAY | PROVIDERS: PCP Nurse Practitioner Family; Visit Provider Nurse Practitioner Family | DX: Z12.4 Encounter for screening for malignant neoplasm of cervix (principal) | CPT/HCPCS: 88175 ==

== ENCOUNTER 2021-03-17 10:44 | Outpatient (CLI) | payer MEDICARE, MEDICAID, SELFPAY ==
[2021-03-17 11:59] LABS: Basophils # 0.1 10^3/uL (0.0-0.1); Basophils % 0.8 %; Eosinophils # 0.1 10^3/uL (0.0-0.8); Eosinophils % 1.7 %; Hematocrit 44.7 % (37.0-47.0); Hemoglobin 15.6 g/dL (11.5-15.3); Lymphocytes # 2.7 10^3/uL (0.8-4.8); Lymphocytes % 41.7 %; Mean Corpuscular HGB Conc 34.9 g/dL (30.0-36.0); Mean Corpuscular Hemoglobin 31.3 pg (28.0-34.0); Mean Corpuscular Volume 89.6 fL (81-99); Mean Platelet Volume 11.1 fL (7.4-10.4); Monocytes # 0.6 10^3/uL (0.2-0.9); Monocytes % 9.3 %; Neutrophils # 3.03 10^3/uL (1.8-7.7); Neutrophils % 46.2 %; Nucleated Red Blood Cells % 0 %; Platelet Count 230 10^3/cmm (130-400); Red Blood Count 4.99 10^6/uL (4.1-5.3); Red Cell Distribution Width 13.2 % (12.1-15.1); White Blood Count 6.6 10^3/uL (4.0-10.0)
[2021-03-17 12:33] LABS: Alanine Aminotransferase 20 U/L (0-33); Albumin Level 4.1 g/dL (3.5-5.2); Alkaline Phosphatase 46 IU/L (35-105); Anion Gap 12.8 (5-19); Aspartate Amino Transferase 19 U/L (0-32); Blood Urea Nitrogen 19 mg/dL (6-20); Calcium 9.1 mg/dL (8.5-10.5); Carbon Dioxide 27 mmol/L (22-29); Chloride 103 mmol/L (98-107); Globulin 2.3 g/dL (1.3-4.6); Glomerular Filtration Rate 73.7 mL/min (90-130); Glucose 111 mg/dL (65-115); Osmolality Calculated 291 mOsm/kg (285-295); Potassium 3.8 mmol/L (3.5-5.1); Sodium 139 mmol/L (136-145); Total Bilirubin 0.3 mg/dL (0.15-1.2); Total Protein 6.4 g/dL (6.6-8.7)
--- NOTE | 2021-04-05 17:24 | ONC FU_ITS ---
[facility] Patient Note Patient: Remedios Cary Unit #: [id number]: [id number] Dictated By: Kami RichardsonDate of Visit: Mar 17, 2021 Onc MED Follow-Up/Prog Note Chief Complaint: Breast cancer. History of Present Illness: Ms Cary is a 60 year-old woman with grade 3 infiltrating ductal carcinoma of the right breast, stage IA, ER/ LA negative and HER-2/jennifer positive. She previously had treatment for HER-2/jennifer positive left breast cancer, and she is known to harbor a BRCA2 mutation. 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 She underwent left mastectomy/axillary lymph node sampling and breast reconstruction on 08/10/2010. Her disease was stage IIA (T2, N0, M0) with pathology showing 2.5 cm primary tumor and no involvement of 4 lymph nodes. She was given adjuvant chemotherapy with TCH, completed in December 2010. She completed a full year of Herceptin, and she also was given adjuvant hormonal therapy for a total of 8 years, initially with tamoxifen but with transition to Femara as of September 2014. On 04/08/2019 she was confirmed by needle biopsy to have grade 3 invasive ductal carcinoma of the right breast. The best prognostic profile showed ER and LA negative, both 0%. HER-2/jennifer was 2+ by IHC but positive by FISH with 10.9 HER-2/jennifer signals per cell and 2.2 CEP17 signals per cell. The Ki-67 was unfavorable at 35%. She underwent right total mastectomy with axillary sentinel lymph node biopsy and with immediate reconstruction on 06/12/2019. Pathology showed grade 3 invasive ductal carcinoma measuring 1.8 x 1.6 x 1.2 cm. There was no involvement in 2 sentinel lymph nodes. In the meantime, she also had undergone BRCA testing and she was confirmed to harbor a BRCA2 mutation. Her staging PET/CT on 07/17/2019 showed no evidence for active malignancy. Her echocardiogram showed normal left ventricular systolic function with ejection fraction estimated at 60-65%. She was given adjuvant chemotherapy with TCH, cycle 1 beginning 07/24/2019. During her treatment, she required removal of the tissue poultry sexer in the right chest due to cellulitis. With her 4th cycle of chemotherapy, on 09/23/2019, she experienced an anaphylactic reaction to the carboplatin. She was rechallenged one week later with similar results. Dr Hill had seen her initially on 10/11/2019. At that time he discussed options for her further adjuvant therapy. Ultimately she decided to try and complete 2 more cycles of chemotherapy with docetaxel/Herceptin. On 10/21/2019 she proceeded with her 5th cycle of adjuvant chemotherapy, limited to docetaxel and Herceptin. She was seen for a follow-up visit on 11/11/2019. At that point her neuropathy had worsened again, and we opted not to attempt any further chemotherapy. She then began cycle 1 of single agent Herceptin at a 3-week dosing interval. She tolerated without significant toxicity. With her next scheduled treatment, on 12/02/2019, Perjeta was added to her adjuvant regimen. She was able to tolerate it without any apparent additional toxicity. She then continued treatment at 3-week intervals. As of 08/12/2020 she had completed 11 cycles of treatment with Herceptin/Perjeta, and at that point she had received a total of 17 cycles of Herceptin. She did have a treatment delay between cycles 3 and 4 due to development of an abscess in the right chest wall, she had to be surgically drained. Her treatment was otherwise uncomplicated. Her other medical illnesses include hypertension, GERD, obstructive sleep apnea, and anxiety/depression. She also has osteopenia with her bone density study in March 2018 showing T score -1.9 in the left femoral neck and -1.8 in the lumbar spine. She has a history of smoking for 15 years, previously up to 3 packs of cigarettes daily. She had quit for 15 years, then started smoking again for about 1 year. She quit smoking again in March 2019. INTERIM HISTORY: Ms. Cary is here today for follow-up. She states she has been having some swelling in her joints and some intermittent joint pain as well. She states it mostly affects her hands and feet. She states her feet swell sometimes to the point where she cannot get her shoes on. She denies any shortness of breath orthopnea. Her last echocardiogram available in [facility] is from June 01, 2020 which reported a left ventricular ejection fraction at 60 to 65%. She states she feels the swelling is more joint related than from her heart. She states she has had arthritis in the past and this is what this feels like. She denies any fever or chills. She denies any night sweats. She has occasional hot flashes but states they are stable. She denies any other pain. She has had no chest pain or palpitations. She did have her nonfunctioning Port-A-Cath removed by Dr. Le on February 10, 2021. Her chest wall site has healed well. She denies any diarrhea or constipation. She states her appetite is good and her energy is fair. Her ECOG is 1. Past Medical History: Depression Gastroesophageal reflux disease History of left breast cancer Hypertension Neuropathy secondary to chemotherapy Obstructive sleep apnea Osteopenia Postmenopausal Past Surgical History: Tubal ligation Removal of nonfunctional left chest wall Port-A-Cath per Dr. Le in 2020 Removal of right chest wall tissue poultry sexer in 2018 Right total mastectomy/axillary sentinel lymph node biopsy and immediate reconstruction in 2018 Needle biopsy of the right breast in 2018 ORIF for left wrist fracture in 2018 Left total mastectomy/axillary lymph node sampling and breast reconstruction in 2009 Allergies: CARBOplatin, Ibuprofen, and Penicillins. Medications: Albuterol Sulfate 1 ((2.5 mg/3ml) 0.083%) Nebulization solution Inhalation q 6 hours PRN Alendronate Sodium 1 Tablet (of 70 mg) Oral q 7 days Allopurinol 1 Tablet (of 300 mg) Oral daily Benadryl Allergy 1 Tablet (of 25 mg) Capsule Oral PRN Calcium + D 1 Tablet Oral daily Claritin 1 Capsule (of 10 mg) Oral daily DULoxetine HCl 1 Capsule (of 30 mg) Capsule Delayed Release Particles Oral b.i.d. Gabapentin 1 Tablet (of 800 mg) Oral t.i.d. HYDROmorphone HCl 1 Tablet (of 2 mg) Oral t.i.d. PRN hydrOXYzine HCl 1 Tablet (of 25 mg) Oral t.i.d. PRN Methocarbamol 1 Tablet (of 500 mg) Oral q 8 hours PRN Multivitamins 1 Tablet Tablet, chewable Oral daily Nystatin 5 mL (of 303526 Units/mL) Suspension Mouth/throat four times a day Ondansetron HCl 1 Tablet (of 8 mg) Oral q 8 hours PRN Pantoprazole Sodium 1 Tablet (of 40 mg) Tablet, enteric coated Oral daily Prochlorperazine Maleate 1 Tablet (of 10 mg) Oral q 6 hours PRN Family History: Ms. Cary's mother is alive: dementia. Ms. Cary's father at age 47: colon cancer. Father with colon cancer at age 47. Mother is still living at age 74. She has dementia. A brother with alcohol related heart disease. Another brother has known coronary artery disease. A sister in a motor vehicle accident. Her maternal grandmother with cancer, apparently of unknown primary site. Social History: Ms. Cary is single and she is a disabled. She is an occasional smoker who has smoked 0.5 packs/day for 17 years. She has no history of drinking. Ms. Cary reports the following support systems: lives with spouse, significant other, family, or friends, lives in own house, supportive family/friends willing to assist with needs, and adequate transportation available for expected visits. Her diet consists of regular meals. She indicates her activity level as: sedentary. PT STATES HER BOYFRIEND TOOK AWAY HER CIGARETTES. Review Of Symptoms: <See Above> Vital Signs: Performed on Mar 17, 2021 13:30 Height - 66.00 in Weight - 253.4 lbs (LOW) BSA - 2.21 sq.m BMI - 40.90 (HIGH) Temperature - 97.0 F (LOW) Pulse - 80 /min Respiration - 18 /min BP - 139/88 mm(hg) O2 Sat - 97 % Pain - 4 Fatigue - 7,1 - No physically strenuous activity, but ambulatory and able to carry out light or sedentary work (e.g. office work, light house work). (ECOG) Physical Examination: Constitutional Alert, oriented, no acute distress. Skin pink, warm and dry. Head Normocephalic; atraumatic. Eyes Conjunctivae and sclerae are clear and without icterus. Pupils are reactive and equal. Neck Supple without masses or thyromegaly. No jugular venous distension. Hematologic/Lymphatic No petechiae or purpura. No tender or palpable lymph nodes in the cervical or supraclavicular areas. Respiratory Lungs are clear to auscultation without rhonchi or wheezing. Cardiovascular Regular rate and rhythm of heart without murmurs,clicks, gallops or rubs. Chest Left Port insertion/removal site is unremarkable. It has healed well. Back/Spine Non-tender to palpation. Extremities No visible deformities, no cyanosis, clubbing or edema. Musculoskeletal No tenderness or swelling, normal range of motion without obvious weakness. Slight warmth and mild redness of bilateral hand joints. Integumentary No rashes or lesions. Neurologic No sensory or motor deficits, normal cerebellar function, normal gait. Psychiatric Alert and oriented times three. Coherent speech. Verbalizes understanding of our discussions today. Laboratory:Test performed on Mar 17, 2021 11:45 Sodium 139 mmol/L Potassium 3.8 mmol/L Chloride 103 mmol/L CO2 27 mmol/L Anion Gap 12.8 BUN 19 mg/dL Creatinine 0.8 mg/dL Cr Clearance (Est) 136.5600 mL/min eGFR 73.7 mL/min Glucose 111 mg/dL Osmolality - Calculated 291 mOsm/kg Calcium 9.1 mg/dL Protein, Total 6.4 g/dL Albumin 4.1 g/dL Globulin 2.3 g/dL Bilirubin, Total 0.3 mg/dL ALT (SGPT) 20 U/L AST (SGOT) 19 U/L Alkaline Phosphatase 46 IU/L WBC 6.6 10 3/uL RBC 4.99 10 6/uL HGB 15.6 g/dL HCT 44.7 % MCV 89.6 fL MCH 31.3 pg MCHC 34.9 g/dL RDW 13.2 % Platelet Count 230 10 3/cmm MPV 11.1 fL Neutrophils 3.03 10 3/uL Lymphocytes 2.7 10 3/uL Monocytes 0.6 10 3/uL Eosinophils 0.1 10 3/uL Basophils 0.1 10 3/uL Neutrophil % 46.2 % Lymphocyte % 41.7 % Monocyte % 9.3 % Eosinophil % 1.7 % Basophils % 0.8 % NRBC % 0 % Test performed on Dec 16, 2020 08:50 Vitamin D (25-Hydroxy), Total 44 ng/mL Impression: 1. Patient with grade 3 invasive ductal carcinoma of the right breast, stage IA ( T1c, N0, M0), ER/LA negative and HER-2/jennifer positive. She underwent right total mastectomy with axillary sentinel lymph node biopsy and with immediate reconstruction on 06/12/2019. 2. She has a prior history of grade 3 invasive ductal carcinoma of the left breast, stage IIa (T2, N0, M0), ER/LA positive and HER-2/jennifer positive. Her treatment included left mastectomy/axillary lymph node sampling in August 2010 follolwed by adjuvant chemotherapy with TCH. She also was given adjuvant hormonal therapy. 3. She was found to harbor a BRCA2 mutation. 4. Hypertension. 5. GERD. 6. Obstructive sleep apnea. 7. Osteopenia. 8. Anxiety/depression. Plan/Problems Addressed at this Visit: 1. Grade 3 invasive ductal carcinoma of the right breast, stage IA ( T1c, N0, M0), ER/LA negative and HER-2/jennifer positive. She underwent right total mastectomy with axillary sentinel lymph node biopsy and with immediate reconstruction on 06/12/2019. She was given adjuvant chemotherapy with TCH. She completed 3 1/2 cycles, with her treatment having been interupted during cycle 4 on 09/23/2019 due to an anaphylactic reaction to carboplatin. On 10/21/2019 she proceeded with cycle 5 of adjuvant chemotherapy, limited to docetaxel and Herceptin. As of her follow-up visit on 11/11/2019 she had reported worsening of her neuropathy, and we opted not to attempt any further chemotherapy. She then began cycle 1 of single agent Herceptin at the 3-week dosing schedule. She tolerated it well. At her scheduled treatment on 12/02/2019 Perjeta was added to her adjuvant regimen. She did have some diarrhea with that, which was managed adequately with Imodium. She otherwise tolerated it well. In particular, she had no worsening of neuropathy. She continued with cycle 2 of Herceptin/Perjeta on 12/23/2019 and with cycle 3 on 01/13/2020. Her treatment was then delayed due to right chest wall abscess, but she was able to restart treatment with cycle 4 on 03/04/2020 and she then continued treatment at 3-week intervals. As of 08/12/2020 she received her 11th cycle of Herceptin/Perjeta and a total of 17 cycles of Herceptin. She has since then been followed expectantly. Thus far there has been no evidence of recurrence of the breast cancer. Her overall clinical status appears stable. She continues observation/expectant management. She was scheduled for a follow-up visit in 3 months. She continues to do well overall. A. Proceed with current observation/expectant plan of care. B. Labs from today reviewed in detail discussed with Ms. Cary and a copy was given to her. WBC 6.6, hemoglobin 15.6, platelets 230,000, ANC is 3030. Potassium 3.8, sodium 139, random glucose 111, creatinine 0.8 and LFTs are normal. Her weight is down to 253.4 from 269 in November 2020. 2. Localized joint pain and swelling in her hands and feet. Presumed osteoarthritis per patient report. A. She is advised she may try Voltaren gel [id number]. This is topical and may be used up to 4 times daily. B. She has not tried Aleve as she is allergic to ibuprofen. 3. 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 It is being managed with a combination of gabapentin and duloxetine. Those medications will be continued at the same dosages. 4. She had Port-A-Cath removal on 02/10/[address] Le. A. Her Port-A-Cath pocket area has healed well. 5. Follow-up plan A. We will have her return in 3 months with CBC CMP and vitamin D 25???hydroxy level for follow-up of her osteoporosis. B. She is requesting referral to [facility] gynecology for discussion of possible hysterectomy due to her history of breast cancer. It is noted that she is BRCA 2 positive. C. Ms. Dasilva was encouraged to contact us in interim should questions or problems arise. Signed By: Kami Richardson-, AOP Puneet Hill MD <<Signature on File>>
== END 2021-03-17 10:45 | disposition home or self-care (01) ==
LOC: ONCMED 10:47
PROVIDERS: PCP Nurse Practitioner Family; Visit Provider Nurse Practitioner
DX: Z08 Encounter for follow-up examination after completed treatment for malignant neoplasm (principal); Z85.3 Personal history of malignant neoplasm of breast; I10 Essential (primary) hypertension; K21.9 Gastro-esophageal reflux disease without esophagitis; G47.33 Obstructive sleep apnea (adult) (pediatric); M85.80 Other specified disorders of bone density and structure, unspecified site; M81.0 Age-related osteoporosis without current pathological fracture; F41.9 Anxiety disorder, unspecified; F32.9 Major depressive disorder, single episode, unspecified; Z79.899 Other long term (current) drug therapy; Z92.21 Personal history of antineoplastic chemotherapy; Z90.11 Acquired absence of right breast and nipple
CPT/HCPCS: 36415; 80053; 85025; 99214

== ENCOUNTER → 2021-04-26 14:25 | Outpatient (BNVA) | payer MEDICARE, MEDICAID, SELFPAY | PROVIDERS: PCP Nurse Practitioner Family; Visit Provider Nurse Practitioner Family | DX: Z20.822 Contact with and (suspected) exposure to COVID-19 (principal) | CPT/HCPCS: 87635 ==

== ENCOUNTER → 2021-05-06 10:37 | Outpatient (BNVA) | payer MEDICARE, MEDICAID, SELFPAY | PROVIDERS: PCP Nurse Practitioner Family; Visit Provider Nurse Practitioner | DX: M47.27 Other spondylosis with radiculopathy, lumbosacral region (principal); M47.817 Spondylosis without myelopathy or radiculopathy, lumbosacral region; M51.27 Other intervertebral disc displacement, lumbosacral region; M79.604 Pain in right leg; M79.605 Pain in left leg; F17.210 Nicotine dependence, cigarettes, uncomplicated; Z79.891 Long term (current) use of opiate analgesic | CPT/HCPCS: 99213 ==

== ENCOUNTER → 2021-06-04 09:35 | Outpatient (BNVA) | payer MEDICARE, MEDICAID, SELFPAY | PROVIDERS: PCP Nurse Practitioner Family; Visit Provider Obstetrics & Gynecology | DX: Z20.822 Contact with and (suspected) exposure to COVID-19 (principal); Z15.01 Genetic susceptibility to malignant neoplasm of breast; Z15.02 Genetic susceptibility to malignant neoplasm of ovary; C50.919 Malignant neoplasm of unspecified site of unspecified female breast; Z15.09 Genetic susceptibility to other malignant neoplasm; E11.9 Type 2 diabetes mellitus without complications | CPT/HCPCS: 83036; 87635 ==

== ENCOUNTER 2021-06-09 13:59 | Observation (INO) | payer MEDICARE, MEDICAID, SELFPAY ==
[2021-06-08 14:58] VITALS: BMI 39.5
--- NOTE | 2021-06-08 15:44 | ANES.PREANE2 ---
Pre-Anesthetic Assessment Pre-Anesthetic Assessment: Height/Weight: Height 1.68 m Weight 111.13 kg Preop Diagnosis: Breast cancer status post chemotherapy Proposed Procedure: Operation Date: 06/09/21 10:50 Proposed Procedures p Total Vaginal Hysterectomy 60367 C50.919 Z15.01(Not Applicable) - Teddy Thomas MD s Salpingo Oophorectomy (Open)(Not Applicable) - Teddy Thomas MD Familial anesthetic complications: None Social: Social History: Tobacco and No alcohol Exam: Pre-Anes Outpt Exam: alert, oriented x 3, clear to auscultation bilaterally and regular rate & rhythm Airway: Cervical ROM: WNL MP: 2 Dentition: False Pulmonary: Pulmonary: Asthma and Sleep apnea (Bipap) CV/HEM: CV/HEM: HTN Comments: CONCLUSIONS 1. This is a limited study. 2. Normal left ventricular size and systolic function with no regional wall motion abnormalities. Left ventricular ejection fraction is estimated at 60-65 %. 3. Normal right ventricular size and systolic function. 4. No prior similar studies to compare. GI: GI: GERD Metabolic: Metabolic: DM and Morbid obesity Musc/skel: Musc/skel: Lower Back Pain Anesthetic Plan: ASA status: 3 Anesthesia: General Risk of > 500 ml blood loss (7ml/kg in children): No PFSH Anesthesia PFSH: Medical History Breast cancer in female Generalized anxiety disorder GERD (gastroesophageal reflux disease) Hypertension Major depressive disorder, recurrent severe without psychotic 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 New onset type 2 diabetes mellitus Surgical History History of colonoscopy 2018 History of open reduction and internal fixation (ORIF) procedure History of surgery on left wrist Hx of breast reconstruction Hx of hysterectomy, total Hx of subtotal mastectomy Port-A-Cath in place Removed for 02/10/2021 Family History Other CAD (coronary artery disease) Cancer Social History Smoking and tobacco status: current some day smoker Second hand smoke exposure: Yes Alcohol intake: never History of recent travel: No Data Anesthesia Cardiac Studies: No Data to Display
[2021-06-08 16:08] LABS: Add Urine Microscopic? NO; Charge for UA Resulting for Rev
[2021-06-08 16:16] LABS: Basophils # 0.1 10^3/uL (0.0-0.1); Eosinophils # 0.1 10^3/uL (0.0-0.8); Eosinophils % 2.1 %; Hematocrit 44.9 % (37.0-47.0); Hemoglobin 15.9 g/dL (11.5-15.3); Lymphocytes % 46.9 %; Mean Corpuscular HGB Conc 35.4 g/dL (30.0-36.0); Mean Corpuscular Volume 90.3 fl (81-99); Mean Platelet Volume 11.5 fL (7.4-10.4); Monocytes # 0.6 10^3/uL (0.2-0.9); Monocytes % 9.5 %; Neutrophils # 2.55 10^3/uL (1.8-7.7); Neutrophils % 40.3 %; Nucleated Red Blood Cells % 0 %; Platelet Count 244 10^3/cmm (130-400); Red Blood Count 4.97 10^6/uL (4.1-5.3); Red Cell Distribution Width 13.3 % (12.1-15.1); White Blood Count 6.3 10^3/uL (4.0-10.0)
[2021-06-08 16:34] LABS: Bilirubin Urine Neg (Negative); Blood Urine Neg (Negative); Glucose Urine UA Norm (Normal); Ketones Urine Negative (Negative); Leukocyte Esterase Urine Negative (Negative); Nitrate Urine Negative (Negative); Protein Urine Neg (Negative); Specific Gravity, Urine 1.005 (1.005-1.030); Urine Appearance Clear (CLEAR); Urine Color Yellow (Yellow); Urobilinogen Urine Norm (Negative); pH Urine 5 (5-7)
[2021-06-08 16:55] LABS: Alanine Aminotransferase 22 U/L (0-33); Albumin Level 4.1 g/dL (3.5-5.2); Alkaline Phosphatase 59 IU/L (35-105); Anion Gap 15.7 (5-19); Aspartate Amino Transferase 22 U/L (0-32); Blood Urea Nitrogen 18 mg/dL (6-20); Carbon Dioxide 26 mmol/L (22-29); Chloride 102 mmol/L (98-107); Globulin 2.7 g/dL (1.3-4.6); Glomerular Filtration Rate 73.7 mL/min (90-130); Glucose 110 mg/dL (65-115); Osmolality Calculated 293 mOsm/kg (285-295); Potassium 3.7 mmol/L (3.5-5.1); Sodium 140 mmol/L (136-145); Total Bilirubin 0.2 mg/dL (0.15-1.2); Total Protein 6.8 g/dL (6.6-8.7)
[2021-06-09] VITALS (17 sets, daily range): BP systolic 103–151; BP diastolic 68–96; PULSE 68–84; RESP 12–21; TEMP 36.2–36.5; O2SAT 90–100
[2021-06-09 10:22] LABS: Glucose Point of Care 139 mg/dL (70-110)
[2021-06-09] MEDS: scopolamine 1.5 Patch 1 PATCH TRANSDERMA (10:26)
[2021-06-09] MEDS: sodium chloride 0.9% 500 ML IV (10:27)
[2021-06-09] MEDS: enoxaparin 30 mg/0.3 mL Syringe SUBCUT (10:30)
--- NOTE | 2021-06-09 10:36 | P.ANESUD_ITS ---
Pre-Anesthetic Update Pre-Anesthetic Assessment: Date of Surgery/Procedure: 06/09/21 Preop Reena gnosis: Breast cancer Proposed Procedure: Operation Date: 06/09/21 10:50 Proposed Procedures p Total Vaginal Hysterectomy 82847 C50.919 Z15.01(Not Applicable) - Teddy Thomas MD s Salpingo Oophorectomy (Open)(Not Applicable) - Teddy Thomas MD Any changes to Pre-Anesthetic Assessment?: No Last Intake: Intake Last Liquid Date 06/08/21 Last Liquid Time 19:00 Last Solid Date 06/08/21 Last Solid Time 19:00 Labs Last 48hrs: Laboratory Results - last 48 hr 06/08/21 06/08/21 06/08/21 15:35 15:35 15:35 WBC 6.3 RBC 4.97 Hgb 15.9 H Hct 44.9 MCV 90.3 MCH 32.0 MCHC 35.4 RDW 13.3 Plt Count 244 MPV 11.5 H Neut % (Auto) 40.3 Lymph % (Auto) 46.9 [place] % (Auto) 9.5 Eos % (Auto) 2.1 Baso % (Auto) 1.0 Neut # (Auto) 2.55 Lymph # (Auto) 3.0 [place] # (Auto) 0.6 Eos # (Auto) 0.1 Baso # (Auto) 0.1 Nucleated RBC % (a uto) 0 Nucleated RBCs # 0.0 Sodium 140 Potassium 3.7 Chloride 102 Carbon Dioxide 26 Anion Gap 15.7 BUN 18 Creatinine 0.8 GFR Calculation 73.7 L Glucose 110 POC Glucose Calculated Osmolal ity 293 Calcium 9.0 Total Bilirubin 0.2 AST 22 ALT 22 Alkaline Phosphata se 59 Total Protein 6.8 Albumin 4.1 Globulin 2.7 Urine Color Urine Appearance Urine pH Ur Specific Gravit y Urine Protein Urine Glucose (UA) Urine Ketones Urine Blood Urine Nitrate Urine Bilirubin Urine Urobilinogen Ur Leukocyte Phoebe ase Blood Type A Positive Rho(D) Type Positive Antibody Screen Negative 06/08/21 06/09/21 15:45 10:19 WBC RBC Hgb Hct MCV MCH MCHC RDW Plt Count MPV Neut % (Auto) Lymph % (Auto) [place] % (Auto) Eos % (Auto) Baso % (Auto) Neut # (Auto) Lymph # (Auto) [place] # (Auto) Eos # (Auto) Baso # (Auto) Nucleated RBC % (a uto) Nucleated RBCs # Sodium Potassium Chloride Carbon Dioxide Anion Gap BUN Creatinine GFR Calculation Glucose POC Glucose 139 H Calculated Osmolal ity Calcium Total Bilirubin AST ALT Alkaline Phosphata se Total Protein Albumin Globulin Urine Color Yellow Urine Appearance Clear Urine pH 5 Ur Specific Gravit y 1.005 Urine Protein Neg Urine Glucose (UA) Norm Urine Ketones Negative Urine Blood Neg Urine Nitrate Negative Urine Bilirubin Neg Urine Urobilinogen Norm Ur Leukocyte Hpoebe ase Negative Blood Type Rho(D) Type Antibody Screen Vitals: Temperature 97.2 F L 06/09/21 10:09 Temperature Source Temporal Artery S can 06/09/21 10:09 Pulse Rate 68 06/09/21 10:09 Pulse Rhythm 06/09/21 10:09 Pulse Strength 3+ Normal 06/09/21 10:09 Respiratory Rate 18 06/09/21 10:09 Blood Pressure 134/96 06/09/21 10:09 Blood Pressure Aminata n 108 06/09/21 10:09 Pulse Oximetry 96 06/09/21 10:09 Oxygen Delivery Me thod 06/09/21 10:09 Exam: Pre-Anes Outpt Exam: alert, oriented x 3, clear to auscultation bilaterally and regular rate & rhythm Cardiac Studies: No Data to Display
--- NOTE | 2021-06-09 11:27 | W.PM.OPSUD ---
Surgery/Procedure H&P Update DATE OF PROCEDURE: June 09, 2021 DATE H&P PERFORMED: 06/04/21 H&P UPDATE INFORMATION: I have reviewed H&P completed within last 30 days, I have examined patient prior to procedure and No changes to prior documentation PREOP DIAGNOSIS: Breast cancer PLANNED PROCEDURE: Operation Date: 06/09/21 10:50 Proposed Procedures p Total Vaginal Hysterectomy 85523 C50.919 Z15.01(Not Applicable) - Teddy Thomas MD s Salpingo Oophorectomy (Open)(Not Applicable) - Teddy Thomas MD
[2021-06-09] MEDS: sodium chloride 0.9% 1,000 ML 30 ML IV (11:30)
[2021-06-09] MEDS: levofloxacin-dextrose 5 % 500 MG/100 ML PREMIX 100 MG IV (11:38)
[2021-06-09] MEDS: vancomycin 1,000 MG in sodium chloride 0.9% 250 ML 250 MG IV (12:10)
--- NOTE | 2021-06-09 13:07 | P.OP_ITS ---
Operative Report Date of procedure: June 09, 2021 Pre-op Diagnosis: Breast cancer Post-op diagnosis: same Procedure Done: Total vaginal hysterectomy with bilateral salpingo-oophorectomy Specimens removed/disposition: Uterus Left and right ovary Pathology: Uterus, left and right ovaries Surgeon: Teddy Thomas MD Anesthesia: General Estimated blood loss (mL): 10 IV fluids (mL): 700 Urine output (mL): 75 Condition: stable Disposition: PACU Brief History: Mrs. Cuevas 60-year-old female with recurrent bilateral breast cancer. Procedure: After informed consent and risks, benefits, indications and alternatives reviewed with the patient was taken to the operating room. The patient was placed in dorsal lithotomy position prepped, and draped in the usual sterile fashion. The pre-procedure timeout verifying the correct patient, procedure, site and side, could not requirements was performed and acknowledge by the OR team. A Black catheter was placed. A Bookwalter vaginal retractor was placed into the vagina in usual manner visualize the cervix. Cervix was grasped with a single tooth tenaculum and circumferentially infiltrated with 2% lidocaine with epinephrine. Then cervix was circumferentially incised with bovie and the bladder was dissected off the pubovesical cervical fascia anteriorly with a sponge stick and Metzenbaum scissors. The anterior peritoneal reflection was identified and the anterior cul-de-sac was entered sharply with Metzenbaum scissors. The same procedure was performed posteriorly and a posterior colpotomy was made through the posterior cul-de-sac space without difficulty and the posterior blade of the Bookwalter vaginal retractor was advanced posteriorly into the cul-de-sac. At this time, the left and right uterosacral ligaments were isolated and ligated with 0 Vicryl. The Enseal device was placed over the uterosacral ligaments on either side and was then used in a serial fashion up through the cardinal ligaments bilaterally cross-clamped, cut, and sealed with the Enseal device. Finally, the uterine arteries were cross-clamped, cut, sealed and ligated with the Enseal device. Hemostasis was assured. The broad ligaments were then serially clamped, sealed and cut with the Enseal device on both sides. Excellent hemostasis was visualized. Both cornua were clamped, sealed and cut with the Enseal device. Then the pedicles were then suture ligated with excellent hemostasis. The uterus was excised and submitted for pathologic evaluation. At this time, attention was turned to bilateral ovaries which were grasped with Smiley clamps. The IP ligaments were grasped and clamped, seal and cut with the Enseal device the ovary and tubes were transected. The IP ligaments on both sides were ligated with a free tie and suture ligated with a #0 Vicryl. No other abnormalities were noted in the pelvic cavity. The peritoneum was then closed in a pursestring fashion with 0 Vicryl suture. The vaginal cuff angles were closed with [id number] #0 Vicryl suture on both sides and transfixed with t he ipsilateral cardinal and uterosacral ligaments. The remainder of the vaginal cuff was closed with #0 Vicryl in a running locked fashion. At this time, instruments were removed from the vagina at hemostasis assured. Then the Black catheter was removed and cystoscope was inserted. The bladder was filled with sterile water. Complete evaluation of the bladder mucosa was performed noting no lacerations, dimpling, tears, bleeding of the mucosa or muscular layers. Both ureteral orifices were identified. Prompt excretion of urine from both ureteral orifices was noted. Cystoscope was withdrawn. Black catheter was then placed yielding clear janae urine. A vaginal packing with Premarin cream was placed and the patient was taken out of dorsal lithotomy position and awakened from the general anesthesia. The patient tolerated the procedure well and was taken to the PACU recovery room in a stable condition. Sponge, lap, needle and instruments counts were correct x3.
--- NOTE | 2021-06-09 13:15 | P.PCN_ITS ---
PACU note PACU note: VSS, Good respiratory effort, report to [employer] [place] Post-Anesthesia Exam: awake
--- NOTE | 2021-06-09 13:15 | PM.PACU ---
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
--- NOTE | 2021-06-09 14:01 | ANE.PACU2 ---
Inpatient post-anesthesia follow up: Airway intact: Yes Vital signs: Temperature 97.7 F Pulse Rate 68 Respiratory Rate 12 Blood Pressure 122/80 Pulse Oximetry 92 Oxygen Delivery Me thod Room Air Oxygen Flow Rate 8 Fraction of Inspir ed Oxygen Hydration adequate: Yes Nausea and vomiting: No Pain level: 2 Mental status: Baseline
[2021-06-09] MEDS: acetaminophen 325 mg Tablet 650 MG PO (18:20)
[2021-06-09] MEDS: docusate sodium 100 mg Capsule PO (18:20)
[2021-06-09] MEDS: baclofen 10 mg Tablet PO (20:31)
[2021-06-09] MEDS: gabapentin 400 mg Capsule 800 MG PO (20:31)
[2021-06-09] MEDS: mupirocin oint 22 gm 1 APPLIC TOPICAL (20:31)
[2021-06-09] MEDS: alum-mag-hydroxide-sime 30 mL UDC PO (20:31)
[2021-06-09] MEDS: calcium carbonate 500 mg Chew Tablet 1000 MG PO (21:17)
[2021-06-10 03:10] VITALS: PULSE 79; RESP 12; O2SAT 93
[2021-06-10 04:54] VITALS: BP 131/77; PULSE 71; RESP 16; TEMP 36.3
[2021-06-10 04:57] LABS: Hematocrit 40.5 % (37.0-47.0); Hemoglobin 14.1 g/dL (11.5-15.3); Mean Corpuscular HGB Conc 34.8 g/dL (30.0-36.0); Mean Corpuscular Hemoglobin 31.3 pg (28.0-34.0); Mean Corpuscular Volume 89.8 fl (81-99); Mean Platelet Volume 11.5 fL (7.4-10.4); Platelet Count 213 10^3/cmm (130-400); Red Blood Count 4.51 10^6/uL (4.1-5.3); Red Cell Distribution Width 13.1 % (12.1-15.1); White Blood Count 10.3 10^3/uL (4.0-10.0)
[2021-06-10] MEDS: potassium chloride ER 10 mEq Tablet PO (08:18)
[2021-06-10] MEDS: gabapentin 400 mg Capsule PO (08:18)
[2021-06-10] MEDS: metformin 500 mg Tablet PO (08:18)
[2021-06-10] MEDS: docusate sodium 100 mg Capsule PO (08:18)
[2021-06-10] MEDS: pantoprazole DR 40 mg Tablet PO (08:18)
[2021-06-10] MEDS: multivitamin therapeutic Tablet 1 TAB PO (08:18)
[2021-06-10] MEDS: baclofen 10 mg Tablet PO (08:18)
[2021-06-10] MEDS: metoprolol tartrate 25 mg Tablet PO (08:18)
[2021-06-10 08:19] VITALS: RESP 17
--- NOTE | 2021-06-10 11:06 | PM.OBGYDC ---
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 Cary 60-year-old female with recurrent bilateral breast cancer admitted for planned total vaginal hysterectomy with bilateral salpingo-oophorectomy. The procedure was performed without complications. Overnight observation has been uneventful. Adequate urine output. Tolerating diet well. Ambulating without difficulty. She is postop day 1 afebrile and hemodynamically stable. Physical Exam Narrative: EXAM NARRATIVE: GA: Alert and oriented ?3. HEENT: WNL. Heart: Regular rate and rhythm. Lungs: Clear to auscultation bilaterally. 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 Extremities: No edema, no cyanosis, no calves pain. Urinary Catheter Management^: Black: Cath Placed During This Visit: yes, but has since been removed by the nurse Reason for Continuing Indwelling Catheter: Decision to DC Catheter Urinary Catheter Date of Insertion: 06/09/21 Urinary Catheter Time of Insertion: 12:08 Date Urinary Catheter Removed: 06/10/21 Time Urinary Catheter Discontinued: 04:55 Discharge Data Data Completed and Pending: Pending at discharge Category Date Time Status Retype for Enrique s ABO/Rh Routine Lab 06/08/21 16:45 Received Pathology: Surgic al [PTH] Routine Pth 06/09/21 13:13 Received Labs from last 24 hours 06/10/21 04:45 WBC 10.3 H RBC 4.51 Hgb 14.1 Hct 40.5 MCV 89.8 MCH 31.3 MCHC 34.8 RDW 13.1 Plt Count 213 MPV 11.5 H Vitals: Last Vital Signs Temp 97.4 F L 06/10/21 04:54 Pulse 71 06/10/21 04:54 Resp 17 06/10/21 08:19 BP 131/77 06/10/21 04:54 Pulse Ox 93 06/10/21 03:10 Discharge Plan Discharge Patient Disposition: Home Condition: Stable Prescriptions: New Colace 100 mg capsule 100 mg PO BID Qty: 60 RF: 0 acetaminophen 325 mg capsule 325 mg PO Q4H PRN (Reason: fever or pain) Qty: 60 RF: 0 Dilaudid 4 mg tablet 4 mg PO Q6H PRN (Reason: postoperative pain) Qty: 30 RF: 0 Continued multivitamin Tablet 1 tab PO DAILY RF: 0 albuterol sulfate 2.5 mg /3 mL (0.083 %) solution for nebulization 2.5 mg INHALATION .PRN RF: 0 calcium carbonate [Calcium 600] 600 mg calcium (1,500 mg) tablet 600 mg PO DAILY RF: 0 (DME) Blood Glucose Test Strip See Rx Instructions .ROUTE .MEDSUPPLY Qty: 100 RF: 1 (DME) blood-glucose meter [Blood Glucose Monitoring] Kit See Rx Instructions .ROUTE .MEDSUPPLY Qty: 1 RF: 0 (DME) lancets Misc See Rx Instructions .ROUTE .MEDSUPPLY Qty: 100 RF: 1 metformin 500 mg tablet See Rx Instructions .ROUTE .COMPLEX Qty: 90 RF: 1 hydroxyzine HCl 25 mg tablet 25 mg PO TID PRN (Reason: anxiety) Qty: 90 RF: 3 (DME) Diabetic Shoes See Rx Instructions .Route .MEDSUPPLY Qty: 1 RF: 0 mupirocin 2 % ointment 1 applic topical BID Qty: 15 RF: 2 vitamin B complex Tablet 1 tab PO DAILY RF: 0 meloxicam [Mobic] 15 mg tablet 15 mg PO DAILY RF: 0 pantoprazole [Protonix] 40 mg tablet,delayed release (DR/EC) 40 mg PO DAILY RF: 0 gabapentin 400 mg capsule 400 mg PO ONCE RF: 0 cholecalciferol (vitamin D3) 25 mcg (1,000 unit) capsule 25 mcg PO ONCE RF: 0 zinc 50 mg tablet 50 mg PO DAILY RF: 0 ascorbate calcium (vitamin C) 500 mg tablet 500 mg PO DAILY RF: 0 baclofen 10 mg tablet 10 mg PO TID Qty: 90 RF: 1 hydromorphone 2 mg tablet 2 mg PO TID PRN (Reason: pain) 30 Days Qty: 90 RF: 0 hydromorphone 2 mg tablet 2 mg PO TID 30 Days Qty: 90 RF: 0 (DME) walker Misc See Rx Instructions .ROUTE .MEDSUPPLY Qty: 1 RF: 0 gabapentin 800 mg tablet 800 mg PO TID 30 Days Qty: 90 RF: 1 alendronate 70 mg tablet 70 mg PO .WEEKLY Qty: 12 RF: 1 potassium chloride 10 mEq capsule, extended release See Rx Instructions .ROUTE .COMPLEX Qty: 90 RF: 0 (DME) Diabetic shoes with 3 inserts See Rx Instructions .ROUTE .MEDSUPPLY Qty: 1 RF: 0 metoprolol tartrate 25 mg tablet See Rx Instructions .ROUTE .COMPLEX Qty: 90 RF: 0 allopurinol 300 mg tablet See Rx Instructions .ROUTE .COMPLEX Qty: 90 RF: 0 duloxetine 60 mg capsule,delayed release(DR/EC) See Rx Instructions .ROUTE .COMPLEX Qty: 90 RF: 0 Discharge Orders: Discharge Order (Routine); Ordered 06/10/21 Ordered By: Teddy Thomas Discharge Diet: Usual diet Discharge Activity: Increase activity as tolerated Patient Instructions: Vaginal Hysterectomy (DC), Opioid Safety Activity Restrictions/Additional Instructions: 1. Please call [facility] on next working day to make your post-operative appointment in 2 weeks. 2. Please stay home until you come back to the clinic on first post-operative check up. 3. Please follow instructions on your medications CAREFULLY. 4. If you have abdominal incision, do not cover it unless dressing is necessary because of drainage. OK to shower, but avoid bath. Leave steri-strips until they fall off. If they are still on one week after surgery, you may remove them. 5. If you had vaginal surgery or vaginal repair, Dr. Thomas may instruct you to take SITZ bath. 6. Yellow, blood tinged odorous vaginal discharge is usually normal after hysterectomy or vaginal surgeries. 7. No sexual intercourse, tampons, or douches until you are completely released from the post-operative care. 8. Avoid constipation by eating right and maybe using some Metamucil or Milk of Magnesia. 9. All prescription refills are given during the working hours. Please do no wait till it runs out. Call the clinic at [phone] before your medication runs out. The clinic will get in touch with your doctor to prescribe medications if necessary. 10. Please remain within 40 mile radius from our hospital because emergencies do happen now and then during the post-operative period. 11. If you have stairs at home, take one step at a time slowly and minimize the number of trips. It helps to stay in one floor for the next few days. No lifting except what you can lift by one hand until you are released from the post-operative care. 12. Driving is discouraged until you are well healed. It may be 3-4 weeks before you feel strong enough to drive. You should be able to turn and look through the rear window without pain and you should be able to push the brake pedal very hard without pain before you drive. No fast rules, but SAFETY should be your primary concern. DO NOT drive if you are on sedating medications such as narcotics. 13. Call the clinic (during working hours) to make urgent appointment or go to the Emergency room, if any of the following occurs: i. Vaginal bleeding becomes heavy, more than a period. ii. Incision becomes red and sore, or drains pus. iii. Your temperature is over 100.4 or you have chill. iv. IV site becomes red and swollen (a little ``knot?? is usually OK) v. Persistent nausea and vomiting vi. Persistent constipation or diarrhea vii. Rash or allergic reaction to medications. 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
[2021-06-10] MEDS: meloxicam 7.5 mg tablet 15 MG PO (12:07)
[2021-06-10] MEDS: duloxetine 60 mg Capsule PO (12:07)
[2021-06-10] MEDS: allopurinol 300 mg Tablet PO (12:08)
[2021-06-10] MEDS: cholecalciferol (vitamin D3) 1,000 unit Tablet 1000 UNIT PO (12:08)
[2021-06-10 12:10] VITALS: BP 93/57; PULSE 72; RESP 17; TEMP 37.2
--- NOTE | 2021-06-11 18:18 | PC.RESP ---
SMOKING CESSATION INFORMATION SENT TO PATIENT.
== END 2021-06-10 12:15 | disposition home or self-care (01) ==
LOC: OBGYN 13:59
PROVIDERS: Admitting Provider Obstetrics & Gynecology; PCP Nurse Practitioner Family; Visit Provider Obstetrics & Gynecology
PROC: (CPT 58262; principal; 2021-06-09 10:40)
PROC: (CPT 58720; 2021-06-09 10:40)
DX: C50.912 Malignant neoplasm of unspecified site of left female breast (principal); C50.911 Malignant neoplasm of unspecified site of right female breast; I10 Essential (primary) hypertension; G47.30 Sleep apnea, unspecified; K21.9 Gastro-esophageal reflux disease without esophagitis; E11.9 Type 2 diabetes mellitus without complications; F17.210 Nicotine dependence, cigarettes, uncomplicated
CPT/HCPCS: 58262; 36415; 36416; 80053; 81003; 82962; 85025; 85027; 86850; 86900; 88307; 94660; 96365; 96372; G0378; J1100; J1650; J1956; J2405; J2704; J2710; J3010; J3370; J3490; J7030; J7040; J7050; Q9968

== ENCOUNTER → 2021-07-16 08:03 | Outpatient (BNVA) | payer MEDICARE, MEDICAID, SELFPAY | PROVIDERS: PCP Nurse Practitioner Family; Visit Provider Anesthesiology | DX: M47.817 Spondylosis without myelopathy or radiculopathy, lumbosacral region (principal); M51.27 Other intervertebral disc displacement, lumbosacral region; M47.27 Other spondylosis with radiculopathy, lumbosacral region; F33.2 Major depressive disorder, recurrent severe without psychotic features; F41.1 Generalized anxiety disorder; I10 Essential (primary) hypertension; F17.210 Nicotine dependence, cigarettes, uncomplicated; Z79.891 Long term (current) use of opiate analgesic | CPT/HCPCS: 99213 ==

== ENCOUNTER 2021-07-21 09:34 | Outpatient (CLI) | payer MEDICARE, MEDICAID, SELFPAY ==
[2021-07-21 10:14] LABS: Basophils # 0.1 10^3/uL (0.0-0.1); Basophils % 0.9 %; Eosinophils # 0.2 10^3/uL (0.0-0.8); Eosinophils % 1.9 %; Hematocrit 46.6 % (37.0-47.0); Hemoglobin 16.2 g/dL (11.5-15.3); Lymphocytes # 2.9 10^3/uL (0.8-4.8); Lymphocytes % 32.1 %; Mean Corpuscular HGB Conc 34.8 g/dL (30.0-36.0); Mean Corpuscular Hemoglobin 31.5 pg (28.0-34.0); Mean Corpuscular Volume 90.5 fl (81-99); Mean Platelet Volume 11.6 fL (7.4-10.4); Monocytes # 0.6 10^3/uL (0.2-0.9); Monocytes % 7.1 %; Neutrophils # 5.23 10^3/uL (1.8-7.7); Neutrophils % 57.8 %; Nucleated Red Blood Cells % 0 %; Platelet Count 245 10^3/cmm (130-400); Red Blood Count 5.15 10^6/uL (4.1-5.3); Red Cell Distribution Width 13.5 % (12.1-15.1)
[2021-07-21 10:44] LABS: Alanine Aminotransferase 22 U/L (0-33); Albumin Level 4.3 g/dL (3.5-5.2); Alkaline Phosphatase 61 IU/L (35-105); Anion Gap 13.1 (5-19); Aspartate Amino Transferase 20 U/L (0-32); Blood Urea Nitrogen 12 mg/dL (6-20); Calcium 9.5 mg/dL (8.5-10.5); Carbon Dioxide 26 mmol/L (22-29); Chloride 102 mmol/L (98-107); Globulin 2.5 g/dL (1.3-4.6); Glomerular Filtration Rate 73.7 mL/min (90-130); Glucose 137 mg/dL (65-115); Osmolality Calculated 286 mOsm/kg (285-295); Potassium 4.1 mmol/L (3.5-5.1); Sodium 137 mmol/L (136-145); Total Bilirubin 0.3 mg/dL (0.15-1.2); Total Protein 6.8 g/dL (6.6-8.7)
[2021-07-21 10:58] LABS: 25 Hydroxy Vitamin D 56 ng/mL (30-100)
--- NOTE | 2021-07-24 08:21 | ONC FU_ITS ---
Dr. Hill Patient Follow-Up Note Patient: Remedios Cary Unit #: [id number]: [id number] Dicatated By: Puneet Hill M.D.Date of Visit:Jul 21, 2021 Onc Med Follow-up/Prog Note Chief Complaint: Breast cancer. History of Present Illness: This is a 60 year-old woman with grade 3 infiltrating ductal carcinoma of the right breast, stage IA, ER/ KS negative and HER-2/jennifer positive. She previously had treatment for HER-2/jennifer positive left breast cancer, and she is known to harbor a BRCA2 mutation. 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 She underwent left mastectomy/axillary lymph node samplingand breast reconstruction on 08/10/2010. Her disease was stage IIA (T2, N0, M0) with pathology showing 2.5 cm primary tumor and no involvement of 4 lymph nodes. She was given adjuvant chemotherapy with TCH, completed in December 2010. She completed a full year of Herceptin, and she also was given adjuvant hormonal therapy for a total of 8 years, initially with tamoxifen but with transition to Femara as of September 2014. On 04/08/2019 she was confirmed by needle biopsy to have grade 3 invasive ductal carcinoma of the right breast. The best prognostic profile showed ER and KS negative, both 0%. HER-2/jennifer was 2+ by IHC but positive by FISH with 10.9 HER-2/jennifer signals per cell and 2.2 CEP17 signals per cell. The Ki-67 was unfavorable at 35%. She underwent right total mastectomy with axillary sentinel lymph node biopsy and with immediate reconstruction on 06/12/2019. Pathology showed grade 3 invasive ductal carcinoma measuring 1.8 x 1.6 x 1.2 cm. There was no involvement in 2 sentinel lymph nodes. In the meantime, she also had undergone BRCA testing and she was confirmed to harbor a BRCA2 mutation. Her staging PET/CT on 07/17/2019 showed no evidence for active malignancy. Her echocardiogram showed normal left ventricular systolic function with ejection fraction estimated at 60-65%. She was given adjuvant chemotherapy with TCH, cycle 1 beginning 07/24/2019. During her treatment, she required removal of the tissue cattle knocker in the right chest due to cellulitis. With her 4th cycle of chemotherapy, on 09/23/2019, she experienced an anaphylactic reaction to the carboplatin. She was rechallenged one week later with similar results. I had seen her initially on 10/11/2019. At that time we discussed options for her further adjuvant therapy. Ultimately she decided to try and complete 2 more cycles of chemotherapy with docetaxel/Herceptin. On 10/21/2019 she proceeded with her 5th cycle of adjuvant chemotherapy, limited to docetaxel and Herceptin. She was seen for a follow-up visit on 11/11/2019. At that point her neuropathy had worsened again, and we opted not to attempt any further chemotherapy. She then began cycle 1 of single agent Herceptin at a 3-week dosing interval. She tolerated without significant toxicity. With her next scheduled treatment, on 12/02/2019, Perjeta was added to her adjuvant regimen. She was able to tolerate it without any apparent additional toxicity. She then continued treatment at 3-week intervals. As of 08/12/2020 she had completed 11 cycles of treatment with Herceptin/Perjeta, and at that point she had received a total of 17 cycles of Herceptin. She did have a treatment delay between cycles 3 and 4 due to development of an abscess in the right chest wall, she had to be surgically drained. Her treatment was otherwise uncomplicated. She was then followed on expectant management. Her other medical illnesses include hypertension, GERD, obstructive sleep apnea, and anxiety/depression. She also has osteopenia with her bone density study in March 2018 showing T score -1.9 in the left femoral neck and -1.8 in the lumbar spine. She has a history of smoking for 15 years, previously up to 3 packs of cigarettes daily. She had quit for 15 years, then started smoking again for about 1 year. She quit smoking again in March 2019. INTERIM HISTORY: She is seen for a followup visit. She says she is feeling better generally. She complains that she is still tired and that she wants to sleep all the time. She does get up and walk, and she is doing some light work. Her ECOG score is 1. She has good appetite. She has not had fever. She has hot flashes just occasionally. Overall, they are not as bad now. She has some sinus drainage and she has nonproductive cough. She does not complain of shortness of breath or chest pain. She has no GI or complaints. She does have some low back pain, which is chronic. She sometimes has headache and she sometimes has dizziness. She still has neuropathy in her hands and feet. Medications: Albuterol Sulfate 1 ((2.5 mg/3ml) 0.083%) Nebulization solution Inhalation q 6 hours PRN, Alendronate Sodium 1 Tablet (of 70 mg) Oral q 7 days, Allopurinol 1 Tablet (of 300 mg) Oral daily, Benadryl Allergy 1 Tablet (of 25 mg) Capsule Oral PRN, Calcium + D 1 Tablet Oral daily, Claritin 1 Capsule (of 10 mg) Oral daily, DULoxetine HCl 1 Capsule (of 30 mg) Capsule Delayed Release Particles Oral b.i.d., Gabapentin 1 Tablet (of 800 mg) Oral t.i.d., HYDROmorphone HCl 1 Tablet (of 2 mg) Oral t.i.d. PRN, hydrOXYzine HCl 1 Tablet (of 25 mg) Oral t.i.d. PRN, Methocarbamol 1 Tablet (of 500 mg) Oral q 8 hours PRN, Multivitamins 1 Tablet Tablet, chewable Oral daily, Nystatin 5 mL (of 340997 Units/mL) Suspension Mouth/throat four times a day, Ondansetron HCl 1 Tablet (of 8 mg) Oral q 8 hours PRN, Pantoprazole Sodium 1 Tablet (of 40 mg) Tablet, enteric coated Oral daily, Prochlorperazine Maleate 1 Tablet (of 10 mg) Oral q 6 hours PRN Allergies: CARBOplatin, Ibuprofen, and Penicillins. Vital Signs: Performed on Jul 21, 2021 14:29 Height - 66.00 in Weight - 253.4 lbs BSA - 2.21 sq.m BMI - 40.90 (HIGH) Temperature - 98.2 F (LOW) Pulse - 89 /min Respiration - 18 /min BP - 136/90 mm(hg) O2 Sat - 96 % Pain - 0 Fatigue - 8 Physical Examination: Constitutional - She looks pretty good generally, Eyes - Sclerae nonicteric. Conjunctivae clear, ENMT - No lesions noted in the oral cavity, Hematologic/Lymphatic - No cervical or clavicular adenopathy, Respiratory - Lungs are clear with good air movement bilaterally, Cardiovascular - Heart rhythm is regular. There is no murmur, gallop, or rub noted, Breasts - There are no chest wall lesions noted. There is no axillary adenopathy, Abdomen - Soft. Liver and spleen are not enlarged. There is no abdominal mass or ascites noted and there is no inguinal adenopathy, Extremities - No edema, Neurologic - No focal neurologic deficits noted. Lab/Imaging: Test performed on Jul 21, 2021 09:59 Sodium 137 mmol/L Vitamin D (25-Hydroxy), Total 56 ng/mL Potassium 4.1 mmol/L Chloride 102 mmol/L CO2 26 mmol/L Anion Gap 13.1 BUN 12 mg/dL Creatinine 0.8 mg/dL Cr Clearance (Est) 136.5600 mL/min eGFR 73.7 mL/min Glucose 137 mg/dL Osmolality - Calculated 286 mOsm/kg Calcium 9.5 mg/dL Protein, Total 6.8 g/dL Albumin 4.3 g/dL Globulin 2.5 g/dL Bilirubin, Total 0.3 mg/dL ALT (SGPT) 22 U/L AST (SGOT) 20 U/L Alkaline Phosphatase 61 IU/L WBC 9.0 10 3/uL RBC 5.15 10 6/uL HGB 16.2 g/dL HCT 46.6 % MCV 90.5 fl MCH 31.5 pg MCHC 34.8 g/dL RDW 13.5 % Platelet Count 245 10 3/cmm MPV 11.6 fL Neutrophils 5.23 10 3/uL Lymphocytes 2.9 10 3/uL Monocytes 0.6 10 3/uL Eosinophils 0.2 10 3/uL Basophils 0.1 10 3/uL Neutrophil % 57.8 % Lymphocyte % 32.1 % Monocyte % 7.1 % Eosinophil % 1.9 % Basophils % 0.9 % NRBC % 0 % Problem List: 1. Patient with grade 3 invasive ductal carcinoma of the right breast, stage IA ( T1c, N0, M0), ER/KS negative and HER-2/jennifer positive. She underwent right total mastectomy with axillary sentinel lymph node biopsy and with immediate reconstruction on 06/12/2019. 2. She has a prior history of grade 3 invasive ductal carcinoma of the left breast, stage IIa (T2, N0, M0), ER/KS positive and HER-2/jennifer positive. Her treatment included left mastectomy/axillary lymph node sampling in August 2010 follolwed by adjuvant chemotherapy with TCH. She also was given adjuvant hormonal therapy. 3. She was found to harbor a BRCA2 mutation. 4. Hypertension. 5. GERD. 6. Obstructive sleep apnea. 7. Osteopenia. 8. Anxiety/depression. Problems Addressed with this Encounter and Plan: 1. Patient with grade 3 invasive ductal carcinoma of the right breast, stage IA ( T1c, N0, M0), ER/KS negative and HER-2/jennifer positive. She underwent right total mastectomy with axillary sentinel lymph node biopsy and with immediate reconstruction on 06/12/2019. She was given adjuvant chemotherapy with TCH. She completed 3 1/2 cycles, with her treatment having been interupted during cycle 4 on 09/23/2019 due to an anaphylactic reaction to carboplatin. On 10/21/2019 she proceeded with cycle 5 of adjuvant chemotherapy, limited to docetaxel and Herceptin. As of her follow-up visit on 11/11/2019 she had reported worsening of her neuropathy, and we opted not to attempt any further chemotherapy. She then began cycle 1 of single agent Herceptin at the 3-week dosing schedule. She tolerated it well. At her scheduled treatment on 12/02/2019 Perjeta was added to her adjuvant regimen. She did have some diarrhea with that, which was managed adequately with Imodium. She otherwise tolerated it well. In particular, she had no worsening of neuropathy. She continued with cycle 2 of Herceptin/Perjeta on 12/23/2019 and with cycle 3 on 01/13/2020. Her treatment was then delayed due to right chest wall abscess, but she was able to restart treatment with cycle 4 on 03/04/2020 and she then continued treatment at 3-week intervals. As of 08/12/2020 she received her 11th cycle of Herceptin/Perjeta and a total of 17 cycles of Herceptin. She was then followed expectantly. During follow-up she has continued to have some fatigue and she has residual neuropathy from the chemotherapy. Overall, her clinical status appears stable. Thus far there has been no evidence of recurrence of the breast cancer. She remains on observation/expectant management. She will be scheduled for a follow-up visit in 6 months. 2. 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 It has been managed with a combination of gabapentin and duloxetine. Those medications will be continued at the same dosages. Signed By: Puneet Hill M.D. <<Signature on File>>
== END 2021-07-21 09:35 | disposition home or self-care (01) ==
LOC: ONCMED 09:36
PROVIDERS: PCP Nurse Practitioner Family; Visit Provider Internal Medicine Medical Oncology
DX: C50.511 Malignant neoplasm of lower-outer quadrant of right female breast (principal); Z17.1 Estrogen receptor negative status [ER-]; Z79.899 Other long term (current) drug therapy
CPT/HCPCS: 36415; 80053; 82306; 85025; 99214

== ENCOUNTER → 2021-10-12 10:46 | Outpatient (BNVA) | payer MEDICARE, MEDICAID, SELFPAY | PROVIDERS: PCP Nurse Practitioner Family; Visit Provider Anesthesiology | DX: M47.27 Other spondylosis with radiculopathy, lumbosacral region (principal); M47.817 Spondylosis without myelopathy or radiculopathy, lumbosacral region; M51.27 Other intervertebral disc displacement, lumbosacral region; Z79.891 Long term (current) use of opiate analgesic | CPT/HCPCS: 99213 ==

== ENCOUNTER → 2021-10-21 11:05 | Outpatient (BNVA) | payer MEDICARE, MEDICAID, SELFPAY | PROVIDERS: PCP Nurse Practitioner Family; Visit Provider Nurse Practitioner Family | DX: D58.2 Other hemoglobinopathies (principal); I10 Essential (primary) hypertension; E11.9 Type 2 diabetes mellitus without complications; E78.5 Hyperlipidemia, unspecified | CPT/HCPCS: 80053; 80061; 83036; 85025 ==

== ENCOUNTER 2022-01-12 14:17 | Outpatient (CLI) | payer MEDICARE, MEDICAID, SELFPAY ==
--- NOTE | 2022-01-16 13:58 | ONC FU_ITS ---
Dr. Hill Patient Follow-Up Note Patient: Remedios Cary Unit #: [id number]: 1960 Dicatated By: Puneet Hill M.D.Date of Visit:Jan 12, 2022 Onc Med Follow-up/Prog Note Chief Complaint: Breast cancer. History of Present Illness: This is a 61 year-old woman with grade 3 infiltrating ductal carcinoma of the right breast, stage IA, ER/ NH negative and HER-2/jennifer positive. She previously had treatment for HER-2/jennifer positive left breast cancer, and she was found to harbor a BRCA2 mutation. 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 She underwent left mastectomy/axillary lymph node sampling and breast reconstruction on 08/10/2010. Her disease was stage IA (T2, N0, M0) with pathology showing 2.5 cm primary tumor and no involvement of 4 lymph nodes. She was given adjuvant chemotherapy with TCH, completed in December 2010. She completed a full year of Herceptin, and she also was given adjuvant hormonal therapy for a total of 8 years, initially with tamoxifen but with transition to Femara as of September 2014. On 04/08/2019 she was confirmed by needle biopsy to have grade 3 invasive ductal carcinoma of the right breast. The breast prognostic profile showed ER and NH negative, both 0%. HER-2/jennifer was 2+ by IHC but positive by FISH with 10.9 HER-2/jennifer signals/cell and 2.2 CEP17 signals/cell. The Ki-67 was unfavorable at 35%. She underwent right total mastectomy with axillary sentinel lymph node biopsy and with immediate reconstruction on 06/12/2019. Pathology showed grade 3 invasive ductal carcinoma measuring 1.8 x 1.6 x 1.2 cm. There was no involvement in 2 sentinel lymph nodes. In the meantime, she also had undergone BRCA testing and she was confirmed to harbor a BRCA2 mutation. Her staging PET/CT on 07/17/2019 showed no evidence for active malignancy. Her echocardiogram showed normal left ventricular systolic function with ejection fraction estimated at 60-65%. She was given adjuvant chemotherapy with TCH, cycle 1 beginning 07/24/2019. During her treatment, she required removal of the tissue office manager executive assistant in the right chest due to cellulitis. With her 4th cycle of chemotherapy, on 09/23/2019, she experienced an anaphylactic reaction to the carboplatin. She was rechallenged one week later with similar results. I had seen her initially on 10/11/2019. At that time we discussed options for her further adjuvant therapy. Ultimately she decided to try and complete 2 more cycles of chemotherapy with docetaxel/Herceptin. On 10/21/2019 she proceeded with her 5th cycle of adjuvant chemotherapy, limited to docetaxel and Herceptin. She was seen for a follow-up visit on 11/11/2019. At that point her neuropathy had worsened again, and we opted not to attempt any further chemotherapy. She then began cycle 1 of single agent Herceptin at a 3-week dosing interval. She tolerated without significant toxicity. With her next scheduled treatment, on 12/02/2019, Perjeta was added to her adjuvant regimen. She was able to tolerate it without any apparent additional toxicity. She then continued treatment at 3-week intervals. As of 08/12/2020 she had completed 11 cycles of treatment with Herceptin/Perjeta, and at that point she had received a total of 17 cycles of Herceptin. She did have a treatment delay between cycles 3 and 4 due to development of an abscess in the right chest wall, she had to be surgically drained. Her treatment was otherwise uncomplicated. She was then followed on expectant management. Her other medical illnesses include hypertension, GERD, obstructive sleep apnea, and anxiety/depression. She also has osteopenia with her bone density study in March 2018 showing T score -1.9 in the left femoral neck and -1.8 in the lumbar spine. She has a history of smoking for 15 years, previously up to 3 packs of cigarettes daily. She had quit for 15 years, then started smoking again. INTERIM HISTORY: She is seen for a followup visit. She complains that she still feels tired. Her activity is limited, she cannot stand on her feet very long. She is able to do a little bit of housework. Her ECOG score is 1. She has good appetite. She has not had fever, but she sometimes has hot flashes/sweating. She has sinus drainage and she has a cough, and she sometimes has wheezing. She is still smoking 1 pack of cigarettes daily. She would like to try and quit. She sometimes has chest pain. She has no GI complaints other than some heartburn. Bladder function remains adequate, though she sometimes has hesitancy and she sometimes does not empty completely. She continues to have joint pain including the knees, hips, hands, and feet. She does not complain of headache. She sometimes has dizziness. She has residual neuropathy in her hands and feet. Medications: Albuterol Sulfate 1 ((2.5 mg/3ml) 0.083%) Nebulization solution Inhalation q 6 hours PRN, Alendronate Sodium 1 Tablet (of 70 mg) Oral q 7 days, Allopurinol 1 Tablet (of 300 mg) Oral daily, Benadryl Allergy 1 Tablet (of 25 mg) Capsule Oral PRN, Calcium + D 1 Tablet Oral daily, Claritin 1 Capsule (of 10 mg) Oral daily, DULoxetine HCl 1 Capsule (of 30 mg) Capsule Delayed Release Particles Oral b.i.d., Gabapentin 1 Tablet (of 800 mg) Oral t.i.d., HYDROmorphone HCl 1 Tablet (of 2 mg) Oral t.i.d. PRN, hydrOXYzine HCl 1 Tablet (of 25 mg) Oral t.i.d. PRN, Methocarbamol 1 Tablet (of 500 mg) Oral q 8 hours PRN, Multivitamins 1 Tablet Tablet, chewable Oral daily, Nystatin 5 mL (of 584039 Units/mL) Suspension Mouth/throat four times a day, Ondansetron HCl 1 Tablet (of 8 mg) Oral q 8 hours PRN, Pantoprazole Sodium 1 Tablet (of 40 mg) Tablet, enteric coated Oral daily, Prochlorperazine Maleate 1 Tablet (of 10 mg) Oral q 6 hours PRN Allergies: CARBOplatin, Ibuprofen, and Penicillins. Vital Signs: Performed on Jan 12, 2022 14:51 Height - 66.00 in Weight - 253.6 lbs (HIGH) BSA - 2.21 sq.m BMI - 40.93 (HIGH) Temperature - 97.2 F (LOW) Pulse - 95 /min Respiration - 18 /min BP - 114/79 mm(hg) O2 Sat - 96 % Pain - 0 Fatigue - 6 Physical Examination: Constitutional - She looks pretty good generally, Eyes - Sclerae nonicteric. Conjunctivae clear, ENMT - No lesions noted in the oral cavity, Hematologic/Lymphatic - No cervical or clavicular adenopathy, Respiratory - Lungs are clear with good air movement bilaterally, Cardiovascular - Heart rhythm is regular. There is no murmur, gallop, or rub noted, Breasts - The right chest wall shows no lesions. There are no lesions noted in the left chest wall/reconstruction. There is no axillary adenopathy, Abdomen - Soft. Liver and spleen are not enlarged. There is no abdominal mass or ascites noted and there is no inguinal adenopathy, Extremities - No edema, Neurologic - No focal neurologic deficits noted. Problem List: 1. Grade 3 invasive ductal carcinoma of the right breast, stage IA ( T1c, N0, M0), ER/NH negative and HER-2/jennifer positive. 2. Prior history of grade 3 invasive ductal carcinoma of the left breast, stage IA (T2, N0, M0), ER/NH positive and HER-2/jennifer positive. 3. She was found to harbor a BRCA2 mutation. 4. Hypertension. 5. GERD. 6. Obstructive sleep apnea. 7. Osteopenia. 8. Anxiety/depression. Problems Addressed with this Encounter and Plan: 1. Patient with grade 3 invasive ductal carcinoma of the right breast, stage IA ( T1c, N0, M0), ER/NH negative and HER-2/jennifer positive. She underwent right total mastectomy with axillary sentinel lymph node biopsy and with immediate reconstruction on 06/12/2019. She was given adjuvant chemotherapy with TCH. She completed 3 1/2 cycles, with her treatment having been interupted during cycle 4 on 09/23/2019 due to an anaphylactic reaction to carboplatin. On 10/21/2019 she proceeded with cycle 5 of adjuvant chemotherapy, limited to docetaxel and Herceptin. As of her follow-up visit on 11/11/2019 she had reported worsening of her neuropathy, and we opted not to attempt any further chemotherapy. She then began cycle 1 of single agent Herceptin at the 3-week dosing schedule. She tolerated it well. At her scheduled treatment on 12/02/2019 Perjeta was added to her adjuvant regimen. She continued with cycle 2 of Herceptin/Perjeta on 12/23/2019 and with cycle 3 on 01/13/2020. Her treatment was then delayed due to right chest wall abscess, but she was able to restart treatment with cycle 4 on 03/04/2020 and she then continued treatment at 3-week intervals. As of 08/12/2020 she received her 11th cycle of Herceptin/Perjeta and a total of 17 cycles of Herceptin. She was then followed expectantly. During follow-up she has continued to have fatigue and she has residual neuropathy from the chemotherapy. Thus far there has been no evidence of recurrence of the breast cancer. She remains on expectant management. She will be scheduled for a follow-up visit in 6 months. 2. 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 It has been managed with a combination of gabapentin and duloxetine. Those medications will be continued at the same dosages. 3. She has continued to smoke 1 pack of cigarettes daily. She is wanting to quit, she would like to try Chantix, which had helped her in the past. Signed By: Puneet Hill M.D. <<Signature on File>>
== END 2022-01-12 14:18 | disposition home or self-care (01) ==
LOC: ONCMED 14:20
PROVIDERS: PCP Nurse Practitioner Family; Visit Provider Internal Medicine Medical Oncology
DX: Z85.3 Personal history of malignant neoplasm of breast (principal); G62.0 Drug-induced polyneuropathy; T45.1X5A Adverse effect of antineoplastic and immunosuppressive drugs, initial encounter; F17.210 Nicotine dependence, cigarettes, uncomplicated
CPT/HCPCS: 99214

== ENCOUNTER → 2022-01-19 12:11 | Outpatient (BNVA) | payer MEDICARE, MEDICAID, SELFPAY | PROVIDERS: PCP Nurse Practitioner Family; Visit Provider Registered Nurse | DX: Z79.899 Other long term (current) drug therapy (principal) | CPT/HCPCS: 82607; 84443 ==

== ENCOUNTER → 2022-02-01 13:42 | Outpatient (BNVA) | payer MEDICARE, MEDICAID, SELFPAY | PROVIDERS: PCP Nurse Practitioner Family; Visit Provider Nurse Practitioner Family | DX: M67.431 Ganglion, right wrist (principal) | CPT/HCPCS: 84550 ==

== ENCOUNTER → 2022-03-22 09:37 | Outpatient (BNVA) | payer MEDICARE, MEDICAID, SELFPAY | PROVIDERS: PCP Nurse Practitioner Family; Visit Provider Podiatrist Foot & Ankle Surgery | DX: E11.8 Type 2 diabetes mellitus with unspecified complications (principal); M21.41 Flat foot [pes planus] (acquired), right foot; M21.42 Flat foot [pes planus] (acquired), left foot; L60.3 Nail dystrophy; M20.41 Other hammer toe(s) (acquired), right foot; M20.42 Other hammer toe(s) (acquired), left foot; M21.619 Bunion of unspecified foot; Z98.890 Other specified postprocedural states | CPT/HCPCS: 99214 ==

== ENCOUNTER → 2022-03-23 13:49 | Outpatient (BNVA) | payer MEDICARE, MEDICAID, SELFPAY | PROVIDERS: PCP Nurse Practitioner Family; Referring Provider Nurse Practitioner Family; Visit Provider Nurse Practitioner Family | DX: M67.431 Ganglion, right wrist (principal); M65.311 Trigger thumb, right thumb | CPT/HCPCS: 73110; 99214 ==

== ENCOUNTER → 2022-04-18 09:12 | Outpatient (BNVA) | payer MEDICARE, MEDICAID, SELFPAY | PROVIDERS: PCP Nurse Practitioner Family; Visit Provider Specialist | DX: M67.431 Ganglion, right wrist (principal); M65.311 Trigger thumb, right thumb | CPT/HCPCS: 20610; 73110; 99214 ==

== ENCOUNTER 2022-05-13 08:04 | Day surgery (SDC) | payer MEDICARE, MEDICAID, SELFPAY ==
[2022-05-12 10:38] VITALS: BMI 41.9
[2022-05-13 08:26] VITALS: BP 168/90; PULSE 78; RESP 18; TEMP 36.1; O2SAT 96
--- NOTE | 2022-05-13 08:29 | P.HPUD_ITS ---
Surgery/Procedure H&P Update DATE OF PROCEDURE: May 13, 2022 DATE H&P PERFORMED: 04/18/22 H&P UPDATE INFORMATION: I have reviewed H&P completed within last 30 days, I have examined patient prior to procedure, No changes to prior documentation and H&P is in [facility] [place] EMR on date indicated PREOP DIAGNOSIS: Right thumb trigger finger PLANNED PROCEDURE: Operation Date: 05/13/22 09:50 Proposed Procedures p RIGHT THUMB TRIGGER RELEASE [id number],M65.30(Right) - Amanda Kate MD Related Problem List Diagnoses (1) Trigger thumb of right hand:
--- NOTE | 2022-05-13 08:44 | ANES.PREANE2 ---
Pre-Anesthetic Assessment Height/Weight: Height 1.68 m Weight 117.934 kg Temp Pulse Resp BP Pulse Ox O2 Del Method 97.0 F L 78 18 168/90 96 05/13/22 08:26 05/13/22 08:26 05/13/22 08:26 05/13/22 08:26 05/13/22 08:26 05/13/22 08:26 Preop Diagnosis: Right thumb trigger finger Operation Date: 05/13/22 09:50 Proposed Procedures p RIGHT THUMB TRIGGER RELEASE [id number],M65.30(Right) - Amanda Kate MD Familial anesthetic complications: None Was Beta Jori taken within 24 hours: Yes Was Clonidine taken within 24 hours: N/A Last intake: Intake Last Liquid Date 05/12/22 Last Liquid Time 19:00 Last Solid Date 05/12/22 Last Solid Time 19:00 Social Tobacco and No alcohol Exam alert, oriented x 3, clear to auscultation bilaterally and regular rate & rhythm Airway Mallampati: Class III Dentition: chipped and other (multiple missing, poor dentition) Pulmonary None reported CV/HEM Hypertension None reported Hepatic None reported GI Gastroesophageal Reflux Disease Metabolic Diabetes Mellitus and Hyperlipidemia [facility] [place] breast cancer Anesthetic Plan ASA status: 3 Anesthesia: Choice Risk of > 500 ml blood loss (7ml/kg in children): No Medications/Allergies Home Medications Medication Instructions Recorded Confirmed Last Taken Type albuterol sulfate 2.5 mg inhalation .PRN 11/28/19 05/13/22 05/12/22 History calcium carbonate 600 mg calcium 600 mg PO DAILY 11/28/19 05/13/22 05/12/22 History (1,500 mg) tablet (Calcium) multivitamin 1 tab PO DAILY 11/28/19 05/13/22 05/12/22 History walker #1 ea 03/11/20 05/13/22 05/12/22 Rx gabapentin 800 mg tablet 800 mg PO TID 30 days #90 tabs 09/09/20 05/12/22 05/13/22 Rx blood-glucose meter (Blood Glucose #1 ea 12/23/20 05/13/22 05/12/22 Rx Monitoring) Diabetic Shoes #1 ea 02/22/21 05/13/22 05/12/22 Rx Diabetic shoes with 3 inserts #1 ea 04/06/21 05/13/22 05/12/22 Rx ascorbate calcium (vitamin C) 500 500 mg PO DAILY 05/06/21 05/13/22 05/12/22 History mg tablet cholecalciferol (vitamin D3) 25 25 mcg PO ONCE 05/06/21 05/13/22 05/12/22 History mcg (1,000 unit) capsule gabapentin 400 mg capsule 400 mg PO DAILY 05/06/21 05/13/22 05/13/22 History vitamin B complex 1 tab PO DAILY 05/06/21 05/13/22 05/12/22 History zinc 50 mg tablet 50 mg PO DAILY 05/06/21 05/13/22 05/12/22 History acetaminophen 325 mg capsule 325 mg PO Q4H PRN fever or pain 06/10/21 05/13/22 05/12/22 Rx #60 caps docusate sodium 100 mg capsule 100 mg PO BID #60 caps 06/10/21 05/13/22 05/12/22 Rx (Colace) hammertoe crest pad or cushion for #1 ea 06/21/21 05/13/22 05/12/22 Rx the left foot to offload the second hammertoe buspirone 5 mg tablet 5 mg PO BID 02/01/22 05/13/22 05/12/22 [facility] 02/21/22 05/13/22 05/12/22 Rx Ultra Test) hydromorphone 2 mg tablet 2 mg PO BID PRN pain 30 days #60 02/21/22 05/13/22 05/12/22 Rx tabs lancets 33 gauge ([facility] #100 ea 02/21/22 05/13/22 05/12/22 Rx Plus Lancet) duloxetine 30 mg capsule,delayed 30 mg PO DAILY #90 caps 03/02/22 05/13/22 05/13/22 Rx release (Cymbalta) varenicline 0.5 mg (11)-1 mg (42) See Rx Instructions PO PER PKG DIR 03/10/22 05/13/22 05/12/22 Rx tablets in a dose pack #53 ea pantoprazole 40 mg tablet,delayed 40 mg PO DAILY #90 tabs 03/17/22 05/13/22 05/12/22 Rx release alendronate 70 mg tablet See Rx Instructions .Route 03/21/22 05/13/22 05/12/22 Rx .COMPLEX #12 tabs Diabetic shoes with 3 inserts #1 ea 03/22/22 05/13/22 05/12/22 Rx bupropion HCl 100 mg tablet,12 hr 100 mg PO BID #60 tabs 04/11/22 05/13/22 05/12/22 Rx sustained-release allopurinol 300 mg tablet 300 mg PO DAILY 05/13/22 05/13/22 05/13/22 History baclofen 10 mg tablet 10 mg PO PRN PRN Muscle Spasm 05/13/22 05/13/22 05/12/22 History duloxetine 60 mg capsule,delayed 60 mg PO DAILY 05/13/22 05/13/22 05/13/22 History release hydroxyzine HCl 25 mg tablet 25 mg PO BID PRN Anxiety 05/13/22 05/13/22 05/12/22 History metformin 500 mg tablet 500 mg PO DAILY 05/13/22 05/13/22 05/12/22 History metoprolol tartrate 25 mg tablet 25 mg PO DAILY 05/13/22 05/13/22 05/12/22 History potassium chloride 10 mEq 10 meq PO DAILY 05/13/22 05/13/22 05/12/22 History capsule,extended release Allergies Allergy/AdvReac Type Severity Reaction Status Date / Time ibuprofen Allergy Unknown Verified 05/13/22 08:17 oxycodone [From Percocet] Allergy Unknown Verified 05/13/22 08:17 Penicillins Allergy unknown Verified 05/13/22 08:17 morphine AdvReac Unknown NAUSEA Verified 05/13/22 08:17 [facility] Anesthesia Medical History Breast cancer in female Generalized anxiety disorder GERD (gastroesophageal reflux disease) Hypertension Major depressive disorder, recurrent severe without psychotic 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 New onset type 2 diabetes mellitus Psychiatric care Surgical History History of colonoscopy 2017 History of open reduction and internal fixation (ORIF) procedure History of surgery on left wrist Hx of breast reconstruction Hx of hysterectomy, total Hx of subtotal mastectomy Port-A-Cath in place Removed for 02/10/2021 Family History Other CAD (coronary artery disease) Cancer Social History Smoking and tobacco status: current every day smoker cigarettes Packs smoked per day: 1 History of recent travel: No Data Anesthesia Cardiac Studies: Echocardiogram Limited Views 06/01/20
[2022-05-13] MEDS: acetaminophen 1,000 MG/100 ML PIGGYBACK 400 MG IV (08:45)
[2022-05-13 08:48] LABS: Glucose Point of Care 170 mg/dL (70-110)
[2022-05-13] MEDS: sodium chloride 0.9% 1,000 ML 30 ML IV (09:02)
[2022-05-13] MEDS: ceFAZolin 2,000 MG in sodium chloride 0.9% (plus) 50 ML 100 MG IV (09:12)
[2022-05-13 10:03] VITALS: BP 191/104; PULSE 75; RESP 14; TEMP 36.6; O2SAT 95
[2022-05-13 10:09] VITALS: BP 185/116; PULSE 69; RESP 15; O2SAT 97
[2022-05-13 10:13] VITALS: BP 164/88; PULSE 72; RESP 16; TEMP 36.2; O2SAT 94
--- NOTE | 2022-05-13 10:16 | PM.OP ---
Operative Report Date of procedure: May 13, 2022 Pre-op diagnosis: Right trigger thumb Post-op diagnosis: Right trigger thumb Post-op findings: Very thickened A1 rodrigo Procedure done: Right trigger thumb release Pathology: none sent Surgeon: Amanda Kate Drapery Worker: None Anesthesia: MAC (With West Line Block, ASA 3) Estimated blood loss (mL): 2 Tourniquet time (min): 33 (At 300 mmHg) IV fluids (mL): 600 Urine output (mL): 0 (No Black) Complications: None Findings: Very tight A1 rodrigo Condition: stable Disposition: PACU (Then return to same-day surgery for discharge home) Brief History: Remedios is a 61-year-old woman who presented to the office with complaints of pain secondary to right thumb triggering. She also had a ganglion cyst which was aspirated in the office. She presents today for surgical treatment of her triggering. Risks and complications of been previously discussed and consents have been signed. Procedure: Patient was brought to the operating theater. She was placed on the operating room table. A Ayad block was administered without difficulty. Patient tolerated it well. 2 g of Ancef was given preoperatively prophylactically. A tourniquet was placed high on the arm and was elevated for the West Line block. This followed exsanguination of the arm. Tourniquet time was 33 minutes at 300 mmHg. Surgical pause was performed prior to commencement of the surgical procedure. At the time of the surgical pause we identified the site and side of surgery. We also identified the patient's identity and appropriate administration of IV antibiotics. Following the surgical pause, an incision was made proximally along the metacarpal phalangeal crease of the thumb. Dissection continued through the skin to the subcutaneous tissues using a scalpel. Blunt dissection was then utilized to spread soft tissues and allow access to the A1 rodrigo. It was then incised longitudinally and sharply using a knife. This was accomplished without difficulty and atraumatically. Once the A1 rodrigo was released, the flexor tendon was brought up out of the wound and evaluated. There were no gross masses on the tendon. Tendon was returned to normal position. We then irrigated the wound and subsequently closed it with 3-0 nylon with an interrupted mattress type suture. Following closure of the wound, the wound was injected with local anesthetic into the subcutaneous tissues. Sterile dressing was then placed consisting of Dermabond, OpSite,, fluffed fluffs, sterile soft roll, and an Yared wrap. The patient was returned to recovery in satisfactory condition. She will be discharged home to follow-up with me in the office. There were no complications and no specimens. Related Problem List Diagnoses (1) Trigger thumb of right hand:
[2022-05-13 10:18] VITALS: BP 161/100; PULSE 76; RESP 18; TEMP 36.1; O2SAT 98
[2022-05-13 10:31] VITALS: BP 172/99; PULSE 65; RESP 18; O2SAT 97
--- NOTE | 2022-05-13 14:19 | ANE.PACU2 ---
Inpatient post-anesthesia follow up: Airway intact: Yes Vital signs: Temperature 97.0 F Pulse Rate 65 Respiratory Rate 18 Blood Pressure 172/99 Pulse Oximetry 97 Oxygen Delivery Me thod Room Air Oxygen Flow Rate Fraction of Inspir ed Oxygen Hydration adequate: Yes Nausea and vomiting: No Pain level: 1 Mental status: Baseline
== END 2022-05-13 10:58 | disposition home or self-care (01) ==
PROVIDERS: PCP Nurse Practitioner Family; Visit Provider Specialist
PROC: (CPT 26055; principal; 2022-05-13 09:40)
DX: M65.311 Trigger thumb, right thumb (principal); I10 Essential (primary) hypertension; K21.9 Gastro-esophageal reflux disease without esophagitis; E11.9 Type 2 diabetes mellitus without complications; E78.5 Hyperlipidemia, unspecified; Z85.3 Personal history of malignant neoplasm of breast; Z79.84 Long term (current) use of oral hypoglycemic drugs; F41.9 Anxiety disorder, unspecified; F17.210 Nicotine dependence, cigarettes, uncomplicated
CPT/HCPCS: 26055; 36416; 82962; J2250; J2704; J3010; J3490; J7030

== ENCOUNTER → 2022-05-31 13:44 | Outpatient (BNVA) | payer MEDICARE, MEDICAID, SELFPAY | PROVIDERS: PCP Nurse Practitioner Family; Visit Provider Nurse Practitioner Family | DX: M65.311 Trigger thumb, right thumb (principal); M67.431 Ganglion, right wrist | CPT/HCPCS: 99024; 99213 ==

== ENCOUNTER → 2022-06-22 09:33 | Outpatient (BNVA) | payer MEDICARE, MEDICAID, SELFPAY | PROVIDERS: PCP Nurse Practitioner Family; Visit Provider Nurse Practitioner Family | DX: E11.9 Type 2 diabetes mellitus without complications (principal); I10 Essential (primary) hypertension; E78.5 Hyperlipidemia, unspecified | CPT/HCPCS: 80061; 83036 ==

== ENCOUNTER 2022-07-13 | Outpatient (CLI) | payer OTHER, MEDICAID, SELFPAY | END 2022-07-13 23:00 | disposition home or self-care (01) | LOC: ONCMED 08-02 01:38 | PROVIDERS: PCP Nurse Practitioner Family; Visit Provider Internal Medicine Medical Oncology | DX: C50.511 Malignant neoplasm of lower-outer quadrant of right female breast (principal); Z17.1 Estrogen receptor negative status [ER-] | CPT/HCPCS: 99213 ==

== ENCOUNTER 2022-07-13 10:30 | Oncology outpatient (recurring) (ONCR) | payer OTHER, MEDICAID, SELFPAY ==
[2022-07-13 11:38] LABS: Basophils # 0.1 10^3/uL (0.0-0.1); Eosinophils # 0.1 10^3/uL (0.0-0.8); Eosinophils % 1.9 %; Hematocrit 42.4 % (37.0-47.0); Hemoglobin 14.8 g/dL (11.5-15.3); Lymphocytes # 3.2 10^3/uL (0.8-4.8); Lymphocytes % 45.9 %; Mean Corpuscular HGB Conc 34.9 g/dL (30.0-36.0); Mean Corpuscular Hemoglobin 30.6 pg (28.0-34.0); Mean Corpuscular Volume 87.6 fl (81-99); Mean Platelet Volume 10.8 fL (7.4-10.4); Monocytes # 0.6 10^3/uL (0.2-0.9); Monocytes % 8.9 %; Neutrophils # 2.94 10^3/uL (1.8-7.7); Neutrophils % 42.2 %; Nucleated Red Blood Cells % 0 %; Platelet Count 260 10^3/cmm (130-400); Red Blood Count 4.84 10^6/uL (4.1-5.3); Red Cell Distribution Width 12.7 % (12.1-15.1)
[2022-07-13 12:01] LABS: Alanine Aminotransferase 29 U/L (0-33); Albumin Level 3.9 g/dL (3.5-5.2); Alkaline Phosphatase 53 U/L (35-105); Aspartate Amino Transferase 28 U/L (0-32); Blood Urea Nitrogen 12 mg/dL (6-20); Calcium 9.7 mg/dL (8.5-10.5); Carbon Dioxide 24 mmol/L (22-29); Chloride 101 mmol/L (98-107); Globulin 2.7 g/dL (1.3-4.6); Glomerular Filtration Rate 73.4 mL/min (90-130); Glucose 154 mg/dL (65-115); Osmolality Calculated 285 mOsm/kg (285-295); Sodium 136 mmol/L (136-145); Thyroid Stimulating Hormone 3.42 uIU/mL (0.27-4.20); Total Bilirubin 0.4 mg/dL (0.15-1.2); Total Protein 6.6 g/dL (6.6-8.7)
== END 2022-08-01 23:59 | disposition home or self-care (01) ==
PROVIDERS: PCP Nurse Practitioner Family; Visit Provider Internal Medicine Medical Oncology
DX: C50.511 Malignant neoplasm of lower-outer quadrant of right female breast (principal); Z17.1 Estrogen receptor negative status [ER-]; Z90.11 Acquired absence of right breast and nipple; G62.0 Drug-induced polyneuropathy; T45.1X5A Adverse effect of antineoplastic and immunosuppressive drugs, initial encounter; R53.0 Neoplastic (malignant) related fatigue; Z92.21 Personal history of antineoplastic chemotherapy
CPT/HCPCS: 36415; 80053; 84443; 85025; 99213

== ENCOUNTER → 2022-09-14 10:28 | Outpatient (BNVA) | payer OTHER, MEDICAID, SELFPAY | PROVIDERS: PCP Nurse Practitioner Family; Visit Provider Nurse Practitioner Family | DX: E11.9 Type 2 diabetes mellitus without complications (principal); I10 Essential (primary) hypertension; Z79.899 Other long term (current) drug therapy | CPT/HCPCS: 80053; 83036; 85025 ==

== ENCOUNTER → 2022-12-28 09:45 | Outpatient (BNVA) | payer OTHER, MEDICAID, SELFPAY | PROVIDERS: PCP Nurse Practitioner Family; Visit Provider Nurse Practitioner Family | DX: R35.0 Frequency of micturition (principal); E55.9 Vitamin D deficiency, unspecified; I10 Essential (primary) hypertension; E11.9 Type 2 diabetes mellitus without complications; R53.83 Other fatigue; E11.65 Type 2 diabetes mellitus with hyperglycemia | CPT/HCPCS: 80053; 80061; 81000; 82306; 83036; 84443 ==

== ENCOUNTER 2023-02-01 12:56 | Oncology outpatient (recurring) (ONCR) | payer OTHER, MEDICAID, SELFPAY | END 2023-03-01 23:59 | disposition home or self-care (01) | LOC: ONCMED 12:56 | PROVIDERS: PCP Nurse Practitioner Family; Visit Provider Internal Medicine Medical Oncology | DX: Z53.9 Procedure and treatment not carried out, unspecified reason ==

== ENCOUNTER 2023-02-17 14:41 | Outpatient (CLI) | payer OTHER, MEDICAID, SELFPAY ==
--- NOTE | 2023-02-17 15:30 | XR_ITS ---
WS: [id number] DEXA (DUAL ENERGY X-RAY ABSORPTIOMETRY) Bone mineral density was performed using a Balloon machine. HISTORY: History of aromatase inhibitor use COMPARISON: 05/07/2020 Lumbar spine BMD (L1-L4): 1.120 g/cm2 T score: -0.5 Z score: -0.5 Total hip BMD: Left: 0.972 g/cm2. T score: -0.3 Z score: -0.2 Right: 1.006 g/cm2. T score: 0.0 Z score: 0.1 10 year probability of a major osteoporotic fracture is 15.5%. Compared to the prior study from 05/07/2020. Lumbar spine bone mineral density has increased by 6.2%. Bilateral hips bone mineral density has increased by 3.8%. XR/XR DEXA axial skeleton* [id number] IMPRESSION: NORMAL BONE MINERAL DENSITY based upon the WHO classification for females. Significant increase in bone mineral density since the prior study within both the lumbar spine and hips.
== END 2023-02-17 14:42 | disposition home or self-care (01) ==
PROVIDERS: PCP Nurse Practitioner Family; Visit Provider Nurse Practitioner Family
DX: M85.80 Other specified disorders of bone density and structure, unspecified site (principal); Z92.21 Personal history of antineoplastic chemotherapy
CPT/HCPCS: 77080

== ENCOUNTER → 2023-04-26 11:01 | Outpatient (BNVA) | payer OTHER, MEDICAID, SELFPAY | PROVIDERS: PCP Nurse Practitioner Family; Visit Provider Nurse Practitioner Family | DX: E11.40 Type 2 diabetes mellitus with diabetic neuropathy, unspecified (principal); E78.5 Hyperlipidemia, unspecified; I10 Essential (primary) hypertension | CPT/HCPCS: 80061; 83036 ==

== ENCOUNTER → 2023-07-20 09:22 | Outpatient (BNVA) | payer MEDICARE, MEDICAID, SELFPAY | PROVIDERS: PCP Nurse Practitioner Family; Visit Provider Podiatrist Foot & Ankle Surgery | DX: M76.822 Posterior tibial tendinitis, left leg (principal); E11.42 Type 2 diabetes mellitus with diabetic polyneuropathy; M21.41 Flat foot [pes planus] (acquired), right foot; M21.42 Flat foot [pes planus] (acquired), left foot; Z79.84 Long term (current) use of oral hypoglycemic drugs | CPT/HCPCS: 99213 ==

== ENCOUNTER 2023-08-02 12:35 | Oncology outpatient (recurring) (ONCR) | payer MEDICARE, MEDICAID, SELFPAY | END 2023-08-31 23:59 | disposition home or self-care (01) | PROVIDERS: PCP Nurse Practitioner Family; Visit Provider Internal Medicine Medical Oncology | DX: C50.511 Malignant neoplasm of lower-outer quadrant of right female breast (principal); F33.2 Major depressive disorder, recurrent severe without psychotic features; Z79.899 Other long term (current) drug therapy | CPT/HCPCS: 99213 ==

== ENCOUNTER → 2023-08-03 10:02 | Outpatient (BNVA) | payer MEDICARE, MEDICAID, SELFPAY | PROVIDERS: PCP Nurse Practitioner Family; Visit Provider Nurse Practitioner Family | DX: E11.9 Type 2 diabetes mellitus without complications (principal); I10 Essential (primary) hypertension; K13.0 Diseases of lips; E11.40 Type 2 diabetes mellitus with diabetic neuropathy, unspecified | CPT/HCPCS: 80053; 80061; 82607; 83036 ==

== ENCOUNTER → 2023-10-31 08:59 | Outpatient (BNVA) | payer MEDICARE, MEDICAID, SELFPAY | PROVIDERS: PCP Nurse Practitioner Family; Visit Provider Podiatrist Foot & Ankle Surgery | DX: E11.42 Type 2 diabetes mellitus with diabetic polyneuropathy (principal); M21.41 Flat foot [pes planus] (acquired), right foot; M21.42 Flat foot [pes planus] (acquired), left foot; M76.822 Posterior tibial tendinitis, left leg; L60.3 Nail dystrophy; Z79.84 Long term (current) use of oral hypoglycemic drugs | CPT/HCPCS: 11721; 99213 ==

== ENCOUNTER 2024-01-31 10:53 | Oncology outpatient (recurring) (ONCR) | payer MEDICARE, MEDICAID, SELFPAY ==
[2024-01-31 11:13] LABS: Basophils # 0.1 10^3/uL (0.0-0.1); Basophils % 0.7 %; Eosinophils # 0.2 10^3/uL (0.0-0.8); Eosinophils % 2.1 %; Hematocrit 43.2 % (36-47); Lymphocytes # 2.9 10^3/uL (0.8-4.8); Lymphocytes % 39.4 %; Mean Corpuscular Hemoglobin 30.3 pg (27-33); Mean Corpuscular Volume 89.1 fl (85-98); Mean Platelet Volume 10.6 fL (7.4-10.4); Monocytes # 0.6 10^3/uL (0.2-0.9); Monocytes % 8.6 %; Neutrophils # 3.55 10^3/uL (1.8-7.7); Neutrophils % 49.1 %; Nucleated Red Blood Cells % 0 %; Platelet Count 279 10^3/cmm (157-399); Red Blood Count 4.85 10^6/uL (3.85-5.65); Red Cell Distribution Width 13.9 % (12.1-15.1); White Blood Count 7.23 10^3/uL (3.29-11.43)
[2024-01-31 11:28] LABS: Alanine Aminotransferase 9 U/L (0-33); Albumin Level 3.9 g/dL (3.5-5.2); Alkaline Phosphatase 55 U/L (35-105); Anion Gap 14.1 (5-19); Aspartate Amino Transferase 19 U/L (0-32); Blood Urea Nitrogen 13 mg/dL (8-23); Calcium 8.9 mg/dL (8.5-10.5); Carbon Dioxide 25 mmol/L (22-29); Chloride 106 mmol/L (98-107); Globulin 2.8 g/dL (1.3-4.6); Glomerular Filtration Rate 72.9 mL/min (90-130); Glucose 128 mg/dL (65-115); Osmolality Calculated 294 mOsm/kg (285-295); Potassium 4.1 mmol/L (3.5-5.1); Sodium 141 mmol/L (136-145); Total Bilirubin 0.3 mg/dL (0.15-1.2); Total Protein 6.7 g/dL (6.6-8.7)
[2024-01-31 13:27] LABS: Iron 59 ug/dL (37-145); Percent Saturation 20.7 % (20-50); Total Iron Binding Capacity 285 mcg/dl; Unsaturated Iron Binding 226 ug/dL (112-347)
[2024-01-31 13:30] LABS: Blood Urine Neg (Negative); Glucose Urine UA Norm (Normal); Ketones Urine Negative (Negative); Protein Urine Neg (Negative); Urine Appearance SL Hazy (CLEAR); Urine Color Yellow (Yellow); pH Urine 5 (5-7)
[2024-01-31 13:31] LABS: Add Urine Microscopic? YES; Bilirubin Urine Neg (Negative); Leukocyte Esterase Urine Negative (Negative); Nitrate Urine Positive (Negative); Urobilinogen Urine Norm (Negative)
[2024-01-31 13:34] LABS: Add Urine Culture? Yes; Bacteria Urine 3+ /hpf; Squamous Epithelial Cell Urine 0-4 /hpf (0-5); WBC Urine 0-4 /hpf (0-5)
== END 2024-03-01 23:59 | disposition home or self-care (01) ==
PROVIDERS: Nurse Practitioner Family; PCP Nurse Practitioner Family; Visit Provider Internal Medicine Medical Oncology
DX: Z08 Encounter for follow-up examination after completed treatment for malignant neoplasm (principal); Z85.3 Personal history of malignant neoplasm of breast; K13.0 Diseases of lips; R30.0 Dysuria; Z87.891 Personal history of nicotine dependence; E11.9 Type 2 diabetes mellitus without complications; Z79.84 Long term (current) use of oral hypoglycemic drugs; Z92.21 Personal history of antineoplastic chemotherapy; G62.0 Drug-induced polyneuropathy; T45.1X5A Adverse effect of antineoplastic and immunosuppressive drugs, initial encounter; R53.1 Weakness; R53.83 Other fatigue; Z90.13 Acquired absence of bilateral breasts and nipples
CPT/HCPCS: 36415; 80053; 81001; 83540; 83550; 85025; 87077; 87086; 87186; 99213

== ENCOUNTER → 2024-02-01 09:08 | Outpatient (BNVA) | payer MEDICARE, MEDICAID, SELFPAY | PROVIDERS: PCP Nurse Practitioner Family; Visit Provider Nurse Practitioner Family | DX: R05.9 Cough, unspecified (principal); E11.42 Type 2 diabetes mellitus with diabetic polyneuropathy; I10 Essential (primary) hypertension; M94.0 Chondrocostal junction syndrome [Tietze] | CPT/HCPCS: 83036 ==

== ENCOUNTER 2024-02-06 11:14 | Outpatient (CLI) | payer MEDICARE, MEDICAID, SELFPAY ==
--- NOTE | 2024-02-06 11:19 | XRR_ITS ---
PROCEDURE INFORMATION: Exam: XR Chest Exam date and time: 02/06/2024 11:28 AM Age: 63 years old Clinical indication: Cough; Prior surgery; Surgery date: 6+ months; Surgery type: Double mastectomy; Additional info: R05.9 - cough, unspecified TECHNIQUE: Imaging protocol: Radiologic exam of the chest. Views: 2 views. COMPARISON: CT Up Extremity wo LEFT* [id number] 03/01/2018 4:03 PM FINDINGS: Lungs: Slight probable atelectasis and/or fibrosis left lung base. Otherwise, no focal infiltrates seen of the lungs. Pleural spaces: No pneumothorax and no pleural effusion seen. Heart/Mediastinum: Heart size appears within normal. Bones/joints: Curvature, degenerative changes spine. Other findings: Postoperative changes. XR/XR chest 2V* [id number] IMPRESSION: Slight probable atelectasis and/or fibrosis left lung base. Otherwise, no acute findings seen of the chest.
== END 2024-02-06 11:15 | disposition home or self-care (01) ==
LOC: RAD 11:16
PROVIDERS: PCP Nurse Practitioner Family; Visit Provider Nurse Practitioner Family
DX: E11.42 Type 2 diabetes mellitus with diabetic polyneuropathy (principal); L60.3 Nail dystrophy; M21.41 Flat foot [pes planus] (acquired), right foot; M21.42 Flat foot [pes planus] (acquired), left foot; M76.822 Posterior tibial tendinitis, left leg; Z79.84 Long term (current) use of oral hypoglycemic drugs; R05.9 Cough, unspecified
CPT/HCPCS: 11721; 71046; 73630; 99213

== ENCOUNTER 2024-03-29 09:26 | Outpatient (CLI) | payer MEDICARE, MEDICAID, SELFPAY ==
--- NOTE | 2024-03-29 09:29 | XR_ITS ---
WS: [id number] Exam: XR chest 2V* [id number] Date/Time of Exam: 03/29/2024 9:29 AM Reason For Exam: R06.00 - Dyspnea, unspecified Comparison 02/06/2024. The lungs are fully expanded and clear. Normal cardiomediastinal silhouette. Bony structures are inta ct. Several surgical clips visualized over the LEFT chest. XR/XR chest 2V* [id number] IMPRESSION: 1. No acute cardiopulmonary finding.
== END 2024-03-29 09:27 | disposition home or self-care (01) ==
LOC: RAD 09:27
PROVIDERS: PCP Nurse Practitioner Family; Visit Provider Nurse Practitioner Family
DX: R06.00 Dyspnea, unspecified (principal)
CPT/HCPCS: 71046

== ENCOUNTER → 2024-04-01 09:10 | Outpatient (BNVA) | payer MEDICARE, MEDICAID, SELFPAY | PROVIDERS: PCP Nurse Practitioner Family; Visit Provider Podiatrist Foot & Ankle Surgery | DX: M76.822 Posterior tibial tendinitis, left leg (principal); E11.42 Type 2 diabetes mellitus with diabetic polyneuropathy; M21.41 Flat foot [pes planus] (acquired), right foot; M21.42 Flat foot [pes planus] (acquired), left foot; L60.3 Nail dystrophy; Z79.84 Long term (current) use of oral hypoglycemic drugs | CPT/HCPCS: 99213 ==

== ENCOUNTER → 2024-04-08 13:04 | Outpatient (BNVA) | payer MEDICARE, MEDICAID, SELFPAY | PROVIDERS: PCP Nurse Practitioner Family; Visit Provider Nurse Practitioner Family | DX: R07.9 Chest pain, unspecified (principal) | CPT/HCPCS: 93005 ==

== ENCOUNTER 2024-05-08 06:43 | Oncology outpatient (recurring) (ONCR) | payer MEDICARE, MEDICAID, SELFPAY ==
--- NOTE | 2024-05-08 07:15 | MRR_ITS ---
PROCEDURE INFORMATION: Exam: MR Left Lower Extremity Other Than Joint Without Contrast; Foot Exam date and time: 05/08/2024 7:06 AM Age: 63 years old Clinical indication: Left; Patient HX: PT states they have an extra bone in their foot unsure of whether it was accessory navicular, pain when walking; Additional info: Pain, rear foot protocol to include the navicular TECHNIQUE: Imaging protocol: Magnetic resonance imaging of the left lower extremity without contrast. Exam focused on the foot. COMPARISON: CR XR foot LT min 3V* [id number] 02/06/2024 11:03 AM FINDINGS: Bones/joints: Flattened plantar arches. Moderate degenerative spurring of the TMT and other tarsal joints. Mild spurring of the tip of the lateral malleolus. Thickened foreshortened appearance of the ATFL suggestive of prior sprain and scarring. Accessory navicular ossicle demonstrates moderate osseous edema. Mild irregularity of the synchondrosis within navicular demonstrates mild osseous edema and spurring. Moderate soft tissue edema surrounding the accessory ossicle. LIGAMENTS: Lisfranc ligament: Unremarkable. No evidence of tear. TENDONS: Flexor tendons of foot: Unremarkable. No evidence of tear. Tibialis posterior tendon: [id number] intrasubstance tendinopathy and flattening of the distal tibialis posterior tendon. Peroneal tendons: Unremarkable as visualized. Extensor tendons of foot: Unremarkable. No evidence of tear. Tibialis anterior tendon: Unremarkable as visualized. Tarsal canal (Sinus tarsi): Unremarkable. Tarsal tunnel: Unremarkable. Soft tissues: Small multiloculated cystic ganglion measuring 1.1.1 x 1 cm is present of the lateral dorsal aspect of the calcaneocuboid joint. Plantar fascia: Moderate plantar and posterior calcaneal spurring. MR/MR foot LT wo con* [id number] IMPRESSION: 1. Moderate osseous edema of the accessory navicular ossicle, as well as in the navicular adjacent to the synchondrosis, consistent with accessory navicular syndrome. 2. Flattened arches of the foot and mild tibialis posterior tendinopathy suggestive of tibialis posterior dysfunction. 3. 1.1 cm multiloculated cystic ganglion at the dorsum of the calcaneocuboid joint. 4. Scarring of the ATFL consistent with prior spurring.
== END 2024-06-01 23:55 | disposition home or self-care (01) ==
PROVIDERS: PCP Nurse Practitioner Family; Visit Provider Podiatrist Foot & Ankle Surgery
DX: M76.822 Posterior tibial tendinitis, left leg (principal); M67.472 Ganglion, left ankle and foot; M21.42 Flat foot [pes planus] (acquired), left foot
CPT/HCPCS: 73718

== ENCOUNTER → 2024-05-13 09:02 | Outpatient (BNVA) | payer MEDICARE, MEDICAID, SELFPAY | PROVIDERS: PCP Nurse Practitioner Family; Visit Provider Podiatrist Foot & Ankle Surgery | DX: M76.822 Posterior tibial tendinitis, left leg (principal); E11.42 Type 2 diabetes mellitus with diabetic polyneuropathy; M21.41 Flat foot [pes planus] (acquired), right foot; M21.42 Flat foot [pes planus] (acquired), left foot; L60.3 Nail dystrophy; M21.611 Bunion of right foot; M25.374 Other instability, right foot; Z79.84 Long term (current) use of oral hypoglycemic drugs | CPT/HCPCS: 99214 ==

== ENCOUNTER 2024-07-04 14:29 | Oncology outpatient (recurring) (ONCR) | payer MEDICARE, MEDICAID, SELFPAY ==
[2024-07-04 15:32] LABS: Basophils # 0.1 10^3/uL (0.0-0.1); Basophils % 0.8 %; Eosinophils # 0.1 10^3/uL (0.0-0.8); Eosinophils % 1.6 %; Hematocrit 43.3 % (36-47); Lymphocytes # 2.7 10^3/uL (0.8-4.8); Lymphocytes % 32.9 %; Mean Corpuscular HGB Conc 34.4 g/dL (30-55); Mean Corpuscular Hemoglobin 30.7 pg (27-33); Mean Corpuscular Volume 89.1 fl (85-98); Mean Platelet Volume 10.5 fL (7.4-10.4); Monocytes # 0.7 10^3/uL (0.2-0.9); Monocytes % 8.5 %; Neutrophils # 4.66 10^3/uL (1.8-7.7); Neutrophils % 56.1 %; Nucleated Red Blood Cells % 0 %; Platelet Count 280 10^3/cmm (157-399); Red Blood Count 4.86 10^6/uL (3.85-5.65); Red Cell Distribution Width 13.7 % (12.1-15.1); White Blood Count 8.31 10^3/uL (3.29-11.43)
[2024-07-04 15:49] LABS: Alanine Aminotransferase 19 U/L (0-33); Albumin Level 4.1 g/dL (3.5-5.2); Alkaline Phosphatase 52 U/L (35-105); Anion Gap 12.3 (5-19); Aspartate Amino Transferase 22 U/L (0-32); Blood Urea Nitrogen 16 mg/dL (8-23); Calcium 9.3 mg/dL (8.5-10.5); Carbon Dioxide 27 mmol/L (22-29); Chloride 105 mmol/L (98-107); Creatinine Clr Calc Pharmacy 69.2398; Globulin 2.7 g/dL (1.3-4.6); Glomerular Filtration Rate 50.5 mL/min (90-130); Glucose 126 mg/dL (65-115); Osmolality Calculated 293 mOsm/kg (285-295); Potassium 4.3 mmol/L (3.5-5.1); Sodium 140 mmol/L (136-145); Total Bilirubin 0.3 mg/dL (0.15-1.2); Total Protein 6.8 g/dL (6.6-8.7)
== END 2024-08-01 23:59 | disposition home or self-care (01) ==
PROVIDERS: Nurse Practitioner Family; PCP Nurse Practitioner Family; Visit Provider Internal Medicine Hematology & Oncology
DX: C50.511 Malignant neoplasm of lower-outer quadrant of right female breast (principal); Z79.899 Other long term (current) drug therapy
CPT/HCPCS: 36415; 80053; 85025; 99214

== ENCOUNTER → 2024-07-29 08:44 | Outpatient (BNVA) | payer MEDICARE, MEDICAID, SELFPAY | PROVIDERS: PCP Nurse Practitioner Family; Visit Provider Podiatrist Foot & Ankle Surgery | DX: E11.42 Type 2 diabetes mellitus with diabetic polyneuropathy (principal); Z01.818 Encounter for other preprocedural examination; M21.41 Flat foot [pes planus] (acquired), right foot; M21.42 Flat foot [pes planus] (acquired), left foot; M76.822 Posterior tibial tendinitis, left leg; Z98.890 Other specified postprocedural states; M21.612 Bunion of left foot; L60.3 Nail dystrophy; M21.611 Bunion of right foot; M25.374 Other instability, right foot | CPT/HCPCS: 99214 ==

== ENCOUNTER 2024-08-09 06:26 | Day surgery (SDC) | payer MEDICARE, MEDICAID, SELFPAY ==
[2024-08-09] VITALS (15 sets, daily range): BP systolic 90–140; BP diastolic 53–103; PULSE 69–105; RESP 16–20; TEMP 36.3–36.4; O2SAT 90–98; BMI 40.8
--- NOTE | 2024-08-09 | XR_ITS ---
WS: [id number] C-ARM RADIOGRAPHS LEFT FOOT; 2 IMAGES HISTORY: KAREN PICS COMPARISON: None available. Intraoperative imaging during procedure LEFT foot. XR/XR foot LT 2V [id number] IMPRESSION: Intraoperative imaging during LEFT foot procedure by podiatry.
[2024-08-09] MEDS: sodium chloride 0.9% 1,000 ML 30 ML IV (06:57)
--- NOTE | 2024-08-09 07:19 | ANES.PREANE2 ---
Pre-Anesthetic Assessment Height/Weight: Height 1.68 m Weight 114.759 kg Temp Pulse Resp BP Pulse Ox O2 Del Method 97.3 F L 69 16 131/89 98 Room Air 08/09/24 06:44 08/09/24 06:44 08/09/24 06:44 08/09/24 06:44 08/09/24 06:44 08/09/24 06:44 Preop Diagnosis: Left posterior tibial tendon dysfunction and bunion. Operation Date: 08/09/24 08:00 Proposed Procedures p Left first metatarsal phalange joint fusion and Left Kidner(Left) - Tulio Hanna DPM Familial anesthetic complications: None Was Beta Jori taken within 24 hours: N/A Was Clonidine taken within 24 hours: N/A Last intake: Intake Last Liquid Date 08/08/24 Last Liquid Time 23:50 Last Solid Date 08/08/24 Last Solid Time 20:00 Social Tobacco and No alcohol Exam alert, oriented x 3, clear to auscultation bilaterally and regular rate & rhythm Airway Mallampati: Class II Dentition: other (multiple missing) Metabolic Diabetes Mellitus, Hyperlipidemia and Morbid Obesity Anesthetic Plan ASA status: 3 Anesthesia: General and Regional (specify below) Risk of > 500 ml blood loss (7ml/kg in children): No Medications/Allergies Home Medications Medication Instructions Recorded Confirmed Last Taken Type calcium carbonate (Calcium 600) 600 mg PO DAILY 11/28/19 08/09/24 08/08/24 History multivitamin 1 tab PO DAILY 11/28/19 08/09/24 08/08/24 History walker #1 ea 03/11/20 07/29/24 05/12/22 Rx blood-glucose meter (Blood Glucose #1 ea 12/23/20 07/29/24 05/12/22 Rx Monitoring kit) ascorbate calcium (vitamin C) 500 500 mg PO DAILY 05/06/21 08/09/24 08/08/24 History mg tablet cholecalciferol (vitamin D3) 25 25 mcg PO DAILY 05/06/21 08/09/24 05/12/22 History mcg (1,000 unit) capsule vitamin B complex 1 tab PO DAILY 05/06/21 08/09/24 08/08/24 History acetaminophen 325 mg capsule 325 mg PO Q4H PRN fever or pain 06/10/21 08/09/24 08/06/24 Rx #60 caps hydromorphone 2 mg tablet 2 mg PO BID PRN pain 30 days #60 02/21/22 08/09/24 08/08/24 Rx tabs Articulating AFO to the left #1 ea 02/23/23 07/29/24 Unknown Rx baclofen 10 mg tablet 10 mg PO PRN PRN Muscle Spasm #30 10/04/23 08/09/24 08/08/24 Rx tabs Diabetic shoes #1 ea 10/31/23 07/29/24 Unknown Rx lancets 30 gauge (OneTouch Delica #100 ea 02/09/24 07/29/24 Unknown Rx Plus Lancet) blood sugar diagnostic (OneTouch #100 strips 04/10/24 07/29/24 Unknown Rx Ultra Test strips) latanoprost 0.005 % eye drops 1 drp ophthalmic (eye) QPM 07/04/24 08/09/24 08/07/24 History Wheel chair with elevated leg rest #1 ea 07/29/24 07/29/24 Unknown Rx oxybutynin chloride 10 mg 10 mg PO DAILY #30 tabs 07/31/24 08/09/24 08/08/24 Rx tablet,extended release 24 hr alendronate 70 mg tablet 70 mg PO .WEEKLY 08/08/24 08/09/24 08/04/24 History allopurinol 300 mg tablet 300 mg PO DAILY 08/08/24 08/09/24 08/08/24 History duloxetine 60 mg capsule,delayed 60 mg PO QAM 08/08/24 08/09/24 08/08/24 History release gabapentin 800 mg tablet 800 mg PO TID 08/08/24 08/09/24 08/08/24 History hydroxyzine HCl 25 mg tablet 25 mg PO BID 08/08/24 08/09/24 08/08/24 History metformin 1,000 mg tablet 1,000 mg PO BID 08/08/24 08/09/24 08/08/24 History metoprolol tartrate 25 mg tablet 25 mg PO DAILY 08/08/24 08/09/24 08/08/24 History pantoprazole 40 mg tablet,delayed 40 mg PO DAILY 08/08/24 08/09/24 08/08/24 History release potassium chloride 10 mEq 10 meq PO DAILY 08/08/24 08/09/24 08/08/24 History capsule,extended release simvastatin 10 mg tablet 10 mg PO DAILY 08/08/24 08/09/24 08/08/24 History sitagliptin phosphate 25 mg tablet 25 mg PO DAILY 08/08/24 08/09/24 08/05/24 History (Idaia) Allergies Allergy/AdvReac Type Severity Reaction Status Date / Time ibuprofen Allergy ALGY-Rash Verified 08/09/24 06:39 oxycodone [From Percocet] Allergy ADR-Dizzine Verified 08/09/24 06:39 ss Penicillins Allergy ALGY-Rash Verified 08/09/24 06:39 morphine AdvReac Unknown NAUSEA Verified 08/09/24 06:39 Current Medications Generic Name Dose Route Start Last Admin Trade Name Freq PRN Reason Stop Dose Admin Sodium Chloride 1,000 mls @ 30 mls/hr 08/09/24 06:45 08/09/24 06:57 Sodium Chloride 0.9% IV 08/10/24 06:44 30 mls/hr .Q24H SUGEY Administration PFSH Anesthesia Medical History Type 2 diabetes mellitus Peripheral neuropathy due to chemotherapy Obstructive sleep apnea Osteopenia Breast cancer Trigger thumb of right hand Ganglion, right wrist Psychiatric care GERD (gastroesophageal reflux disease) Hypertension New onset type 2 diabetes mellitus Generalized anxiety disorder Major depressive disorder, recurrent severe without psychotic 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 Surgical History History of tubal ligation History of right mastectomy (06/11/19) Right total mastectomy/axillary sentinel lymph node biopsy, immediate reconstruction History of left mastectomy (08/10/10) Left total mastectomy/axillary node sampling/breast reconstruction Status post vaginal hysterectomy Port-A-Cath in place Removed for 02/10/2021 History of colonoscopy 2018 Hx of hysterectomy, total Hx of breast reconstruction History of open reduction and internal fixation (ORIF) procedure Left wrist fracture Family History Other CAD (coronary artery disease) Cancer Social History Smoking and tobacco/nicotine status: never used tobacco/nicotine Quit status (tobacco/nicotine): has quit using Year quit tobacco: 2022 Former quit date comment: smoked 30 years total Data Anesthesia Cardiac Studies: Echocardiogram Limited Views 06/01/20
--- NOTE | 2024-08-09 07:20 | ANES.PROC ---
Anesthesia Procedures Procedure/Date: 08/09/24 Nerve Block ^: Nerve Block 1: Main Anesthesia: general anesthesia Time Out Performed: Yes Consent: requested by attending/covering physician, from patient, from other, risks and benefits reviewed and patient agrees to proceed Nerve block location: popliteal (L) Anesthesia monitors applied: pulse oximetry, EKG, BP cuff and oxygen Nerve block position: supine Anesthetic Used: ropivicaine 0.5% (30 ml) and with decadron (4 mg) Ultrasound used to: recognize landmarks and visualize and ID femerol nerve Nerve Stimulator Used?: No Interscalene/Femoral BLK: 4 stimuplex 21 g needle used for position and inplane approach, visualize local anesthetic spread and no vascular puncture identified Injection: neg aspiration of heme Patient Tolerated Procedure: well Complications: none
--- NOTE | 2024-08-09 07:22 | SUR.PREOP ---
left popliteal block with 30ml ropivicaine. Patient monitored on ekg, bp 118/66, HR 66, RR 15, O2 97 on NC 2L for procedure. Patient tolerated procedure well.
--- NOTE | 2024-08-09 07:51 | P.HPUD_ITS ---
Surgery/Procedure H&P Update DATE OF PROCEDURE: August 09, 2024 DATE H&P PERFORMED: 07/29/24 H&P UPDATE INFORMATION: I have reviewed H&P completed within last 30 days, I have examined patient prior to procedure, No changes to prior documentation and H&P is in [facility] EMR on date indicated PREOP DIAGNOSIS: Left posterior tibial tendon dysfunction and bunion. PLANNED PROCEDURE: Operation Date: 08/09/24 08:00 Proposed Procedures p Left first metatarsal phalange joint fusion and Left Kidner(Left) - Tulio Hanna DPM
[2024-08-09] MEDS: clindamycin 600 MG/50 ML PREMIX 100 MG IV (08:16)
--- NOTE | 2024-08-09 09:45 | P.BOP_ITS ---
Date of Procedure: 12/15/23 Surgeon: Tulio Hanna DPM Portfolio Assistant(s): Mukul Procedure(s) performed: Left first metatarsal phalangeal joint fusion and left Kidner. Findings of the procedure(s): None Estimated blood loss: 2 mL Specimen(s) removed: None Post-operative diagnosis: Left posterior tibial tendon dysfunction, left bunion
--- NOTE | 2024-08-09 09:46 | PM.OP ---
Operative Report Date of procedure: August 09, 2024 Pre-op diagnosis: Posterior tibial tendon dysfunction (PTTD) of left lower extremity M76.822 Bunion of great toe of left foot M21.612 Bilateral pes planus M21.41; M21.42 Post-op diagnosis: Posterior tibial tendon dysfunction (PTTD) of left lower extremity M76.822 Bunion of great toe of left foot M21.612 Bilateral pes planus M21.41; M21.42 Procedure done: 1) left first metatarsal phalange joint fusion. CPT code 03941 2) left Kidner. CPT code 51910 Implants: Saint Marks 28 4.5 mm x 15 mm titanium nutrition technician suture anchor First MTP plate with 2.7 millimeter screws distally and 3.5 millimeter screws proximally, [employer] 28 3-0 Vicryl, 4-0 Vicryl, 4 nylon Surgeon: Tulio Hanna DPM Computer Game Programmer: Mukul Estimated blood loss: 2 59 IV fluids: See intraoperative documentation Urine output: No urine output Complications: No complications Brief History: 63 year old female patient presenting to the clinic for diabetic foot evaluation. Patient endorses numbness, tingling and sensation changes to the lower extremities. Patient denies any sores that have taken longer than 3 weeks to heal. She complains of elongated, thickened toenails that are painful when wearing shoes and ambulating. Patient denies any subjective nausea, vomiting, fever, chills, shortness of breath or chest pain. Patient also here for follow up of her left PTTD, she presents with MRI results. She has failed to respond to conservative treatments consisting of physical therapy, rest, compression, padding, anti-inflammatories, advanced bracing, currently wearing an AFO and diabetic shoes. States that the pain is extensive and affects her quality of everyday life. I reviewed at length with the patient, the risks, potential complications, benefits, alternatives, expectations, and typical outcomes associated with the surgery. The risks and potential complications were explained in detail, including but not limited to infection, wound dehiscence or soft tissue complications, bleeding and hematoma, chronic edema, neuritis or nerve damage producing numbness or chronic pain, CRPS, failure to relieve pain or worsening pain, thick / painful / unsightly scar, limited motion / stiffness, malposition, delayed union, malunion, or nonunion, fracture, reaction to implants, anesthetic complications, venous thromboembolism, and deformity recurrence. I discussed the notion of no regrets with the patient as it pertains to complications and outcomes. The patient seemed to understand the nature of the proposed care and required convalescence. They asked appropriate questions, answered to their satisfaction. They are aware no guarantees can be made as to a satisfactory outcome and they understand there may be other possible unforeseen complications or outcomes not listed here that will be treated accordingly if they arise. There were no written or implied guarantees given to the patient. They gave informed consent to proceed. Recommended Vikram Diaz and Shmuel, she has os tibiale externum, degenerative posterior tibial tendon with partial tearing seen on MRI, she also has hypermobility at the medial column first metatarsal contributing to collapse of medial longitudinal arch and overuse of posterior tibial tendon. Addressing the entire picture would be Joe to advance the posterior tibial tendon under repair followed by plantarflexion of the first metatarsal to reduce instability and hypermobility of the medial column finishing off with an Shmuel for rectus medial column to facilitate heel-to-toe walking. Discussed recovery being 3 months, 6 weeks nonweightbearing. She would require stopping her Januvia day prior to surgery, she takes this daily. surgical treatment options discussed first joe MPJ fusion Procedure: Under mild sedation the patient was brought to the operating room and remained on the gurney in supine position. A timeout was performed. Anesthesia was administered by the anesthesia service. Local history is injected by myself. Well-padded pneumatic tourniquet applied to the high calf left leg. Left lower extremity was scrubbed, prepped and draped utilizing normal aseptic technique. Left foot and ankle were then exanguinated with a Esmarch bandage and tourniquet inflated to 250 mmHg. Attention was directed to the patient's left medial foot where a curvilinear incision was performed coursing from inferior to the medial malleolus down to medial cuneiform along the course of the posterior tibial tendon through skin with a #15 blade with dissection carried down through skin to subcutaneous tissue utilizing sharp and blunt technique. Care was taken to retract and preserve neurovascular and tendinous structures. All bleeders were ligated and cauterized as necessary. Posterior tibial tendon sheath was identified and incised linearly exposing the posterior tibial tendon which was noted to be thickened and degenerative at its insertion to the medial navicular. The accessory ossicle within the posterior tibial tendon at insertion medial to the navicular was sharply excised and passed from operative field. Sagittal saw utilized to flatten out and resect additional tuberosity of the medial navicular for bone anchor attachment site. The left posterior tibial tendon was debrided and tubularized and advanced to the medial aspect of the navicular and fixated with a Saint Marks grapple or 3.0 mm titanium anchor with excellent bony apposition and strength noted intraoperatively. The incision was irrigated with saline solution and closed in a layered fashion. Tendon sheath reapproximated with 3-0 Vicryl, subcutaneous tissue with 4-0 Vicryl and skin with 4-0 nylon. Attention was directed to the left bunion deformity where a curvilinear incision was performed at the dorsal medial aspect of the left first metatarsal phalangeal joint through skin with dissection carried down through subcutaneous tissue utilizing sharp and blunt technique. Care was taken to retract and preserve neurovascular and tendinous structures. All bleeders were ligated and cauterized as necessary. Capsular incision was performed in the head of the first metatarsal and base of the proximal phalanx were freed from their soft tissue attachments and prepped for arthrodesis utilizing And cone reamer, followed by saline flush and followed by subchondral drilling. The left first metatarsal plantar joint was held in slight dorsiflexion, slight valgus position in neutral in the frontal plane. A dorsal locking Saint Marks plate was utilized to fixate the arthrodesis site with a combination of locking and nonlocking screws at the proximal phalanx and first metatarsal and a intraoperative C arm was utilized to confirm placement of screws to be excellent and not violating adjacent joints with appropriate length. The incision was irrigated with saline solution and closed in a layered fashion with periosteum reapproximated with 3-0 Vicryl, subcutaneous tissue with 4-0 Vicryl and skin with 4-0 nylon. Both incisions were then dressed with Adaptic, sterile 4 x 4's, Kerlix and Yared wrap followed by application of a cam boot to the left lower extremity. The tourniquet was then deflated and a prompt hyperemic response is noted to the distal digits of the left foot. Patient tolerated the procedure and anesthesia well and was transferred to the PACU with vital signs stable and vascular status intact. Following a period of postoperative monitoring she will be discharged home without home care instructions and scheduled follow-up. She was advised to remain nonweightbearing to the left lower extremity and keep the cam boot on at all times for protection and offloading. She may heel touch only for transfers.
[2024-08-09] MEDS: fentaNYL 50 mcg/mL INJ 2mL IVP (09:48)
[2024-08-09] MEDS: acetaminophen 500 mg Tablet 1000 MG PO (10:18)
[2024-08-09 11:05] LABS: Glucose Point of Care 133 mg/dL (70-110)
--- NOTE | 2024-08-09 11:25 | ANE.PACU2 ---
Inpatient post-anesthesia follow up: Airway intact: Yes Vital signs: Temperature 97.6 F Pulse Rate 86 Respiratory Rate 16 Blood Pressure 131/70 Pulse Oximetry 93 Oxygen Delivery Me thod Room Air Oxygen Flow Rate Fraction of Inspir ed Oxygen Hydration adequate: Yes Nausea and vomiting: No Pain level: 1 Mental status: Baseline
== END 2024-08-09 11:27 | disposition home or self-care (01) ==
PROVIDERS: PCP Nurse Practitioner Family; Visit Provider Podiatrist Foot & Ankle Surgery
PROC: (CPT 28750; principal; 2024-08-09 07:40)
DX: M76.822 Posterior tibial tendinitis, left leg (principal); M21.612 Bunion of left foot; M21.42 Flat foot [pes planus] (acquired), left foot; M21.41 Flat foot [pes planus] (acquired), right foot; E11.9 Type 2 diabetes mellitus without complications; E78.5 Hyperlipidemia, unspecified; E66.01 Morbid (severe) obesity due to excess calories; Z68.41 Body mass index [BMI] 40.0-44.9, adult; F41.1 Generalized anxiety disorder; Z87.891 Personal history of nicotine dependence
CPT/HCPCS: 28750; 28238; 36416; 73620; 76000; 82962; C1713; J1100; J2405; J2704; J2795; J3010; J3490; J7030

== ENCOUNTER → 2024-08-22 14:15 | Outpatient (BNVA) | payer MEDICARE, MEDICAID, SELFPAY | PROVIDERS: PCP Nurse Practitioner Family; Visit Provider Podiatrist Foot & Ankle Surgery | DX: M21.612 Bunion of left foot (principal); Z98.890 Other specified postprocedural states | CPT/HCPCS: 73630; 99024 ==

== ENCOUNTER → 2024-08-28 09:53 | Outpatient (BNVA) | payer MEDICARE, OTHER, SELFPAY | PROVIDERS: PCP Nurse Practitioner Family; Visit Provider Nurse Practitioner Family | DX: E11.9 Type 2 diabetes mellitus without complications (principal); E78.5 Hyperlipidemia, unspecified | CPT/HCPCS: 80053; 80061; 83036; 85025 ==

== ENCOUNTER → 2024-09-05 07:49 | Outpatient (BNVA) | payer MEDICARE, MEDICAID, SELFPAY | PROVIDERS: PCP Nurse Practitioner Family; Visit Provider Podiatrist Foot & Ankle Surgery | DX: Z98.890 Other specified postprocedural states (principal) | CPT/HCPCS: 73630; 99024 ==

== ENCOUNTER → 2024-09-10 08:15 | Outpatient (BNVA) | payer MEDICARE, MEDICAID, SELFPAY | PROVIDERS: PCP Nurse Practitioner Family; Visit Provider Podiatrist Foot & Ankle Surgery | DX: Z98.890 Other specified postprocedural states (principal) | CPT/HCPCS: 99024 ==

== ENCOUNTER → 2024-09-19 14:21 | Outpatient (BNVA) | payer MEDICARE, MEDICAID, SELFPAY | PROVIDERS: PCP Nurse Practitioner Family; Visit Provider Podiatrist Foot & Ankle Surgery | DX: Z98.890 Other specified postprocedural states (principal) | CPT/HCPCS: 73630; 99024 ==

== ENCOUNTER → 2024-10-17 13:03 | Outpatient (BNVA) | payer MEDICAID, MEDICARE, SELFPAY | PROVIDERS: PCP Nurse Practitioner Family; Visit Provider Podiatrist Foot & Ankle Surgery | DX: Z98.890 Other specified postprocedural states (principal) | CPT/HCPCS: 73630; 99024 ==

== ENCOUNTER → 2024-12-09 14:32 | Outpatient (BNVA) | payer MEDICARE, SELFPAY | PROVIDERS: PCP Nurse Practitioner Family; Visit Provider Podiatrist Foot & Ankle Surgery | DX: M96.0 Pseudarthrosis after fusion or arthrodesis (principal); E11.40 Type 2 diabetes mellitus with diabetic neuropathy, unspecified; M76.829 Posterior tibial tendinitis, unspecified leg; M21.41 Flat foot [pes planus] (acquired), right foot; M21.42 Flat foot [pes planus] (acquired), left foot; Z79.84 Long term (current) use of oral hypoglycemic drugs | CPT/HCPCS: 73630; 99213 ==

== ENCOUNTER → 2024-12-24 10:39 | Outpatient (BNVA) | payer MEDICARE, SELFPAY | PROVIDERS: PCP Nurse Practitioner Family; Visit Provider Nurse Practitioner Family | DX: I10 Essential (primary) hypertension (principal); M85.80 Other specified disorders of bone density and structure, unspecified site; E11.9 Type 2 diabetes mellitus without complications; R53.83 Other fatigue | CPT/HCPCS: 80053; 80061; 82306; 83036; 85025 ==

== ENCOUNTER 2025-01-02 09:58 | Oncology outpatient (recurring) (ONCR) | payer MEDICARE, MEDICAID, SELFPAY ==
[2025-01-02 10:17] LABS: Basophils # 0.1 10^3/uL (0.0-0.1); Basophils % 1.1 %; Eosinophils # 0.1 10^3/uL (0.0-0.8); Eosinophils % 2.3 %; Hematocrit 43.1 % (36-47); Lymphocytes # 2.1 10^3/uL (0.8-4.8); Lymphocytes % 34.9 %; Mean Corpuscular HGB Conc 34.3 g/dL (30-55); Mean Corpuscular Hemoglobin 30.5 pg (27-33); Mean Corpuscular Volume 88.7 fl (85-98); Mean Platelet Volume 10.4 fL (7.4-10.4); Monocytes # 0.5 10^3/uL (0.2-0.9); Monocytes % 8.9 %; Neutrophils % 52.5 %; Nucleated Red Blood Cells % 0 %; Platelet Count 238 10^3/cmm (157-399); Red Blood Count 4.86 10^6/uL (3.85-5.65); Red Cell Distribution Width 13.3 % (12.1-15.1)
[2025-01-02 10:37] LABS: Alanine Aminotransferase 17 U/L (0-33); Alkaline Phosphatase 47 U/L (35-105); Aspartate Amino Transferase 18 U/L (0-32); Blood Urea Nitrogen 13 mg/dL (8-23); Calcium 9.1 mg/dL (8.5-10.5); Carbon Dioxide 24 mmol/L (22-29); Chloride 102 mmol/L (98-107); Globulin 2.4 g/dL (1.3-4.6); Glomerular Filtration Rate 72.7 mL/min (90-130); Glucose 165 mg/dL (65-115); Osmolality Calculated 290 mOsm/kg (285-295); Sodium 138 mmol/L (136-145); Total Bilirubin 0.5 mg/dL (0.15-1.2); Total Protein 6.4 g/dL (6.6-8.7)
== END 2025-01-29 23:59 | disposition home or self-care (01) ==
PROVIDERS: Nurse Practitioner Family; PCP Nurse Practitioner Family; Visit Provider Internal Medicine
DX: Z08 Encounter for follow-up examination after completed treatment for malignant neoplasm (principal); Z85.3 Personal history of malignant neoplasm of breast; Z87.891 Personal history of nicotine dependence; Z92.21 Personal history of antineoplastic chemotherapy; Z92.25 Personal history of immunosuppression therapy; Z90.11 Acquired absence of right breast and nipple
CPT/HCPCS: 36415; 80053; 85025; 99213

== ENCOUNTER 2025-01-03 07:25 | Day surgery (SDC) | payer MEDICARE, MEDICAID, SELFPAY ==
[2025-01-03] VITALS (12 sets, daily range): BP systolic 92–152; BP diastolic 60–92; PULSE 62–81; RESP 18–20; TEMP 36.1–36.6; O2SAT 93–97; BMI 43.2
[2025-01-03 08:29] LABS: Glucose Point of Care 183 mg/dL (70-110)
[2025-01-03] MEDS: sodium chloride 0.9% 1,000 ML 30 ML IV (08:31)
--- NOTE | 2025-01-03 09:46 | W.PM.OPSUD ---
Surgery/Procedure H&P Update DATE OF PROCEDURE: January 03, 2025 DATE H&P PERFORMED: 01/03/25 H&P UPDATE INFORMATION: I have reviewed H&P completed within last 30 days, I have examined patient prior to procedure, No changes to prior documentation and Risks and benefits of the procedure reviewed PREOP DIAGNOSIS: Painful hardware and nonunion left foot. PLANNED PROCEDURE: Operation Date: 01/03/25 09:10 Proposed Procedures p Hardware Removal Left Foot(Left) - SASHA Bruner First Metatarsophalangeal Joint Fusion(Left) - SASHA Bruner Left Foot Calcaneal Autograft(Left) - Tulio Hanna DPM
--- NOTE | 2025-01-03 09:47 | PM.OPSURHP ---
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 Patient denies any subjective nausea, vomiting, fever, chills, shortness of breath or chest pain. Review of Systems General: Reports: 10 or more systems reviewed and unremarkable except in HPI and below Const: Denies: fever(s) or chills Eyes: Denies: change in vision Card: Denies: chest pain or palpitations Resp: Denies: dyspnea or productive cough GI: Denies: abdominal pain, nausea or vomiting : Denies: flank pain Musc: Reports: extremity pain, joint pain, joint stiffness, limited range of motion and deformity Skin/Breast: Reports: skin tenderness; Denies: rash Neuro: Reports: difficulty walking; Denies: numbness in extremities, sensory changes or frequent falls Psych: Denies: suicidal ideation Sagar/Lymph: Denies: easy bruising Medications/Allergies Home Medications ?Medication ?Instructions ?Recorded ?Confirmed ?Last Taken ?Type calcium carbonate (Calcium 600) 600 mg PO DAILY 11/28/19 01/02/25 01/02/25 History multivitamin 1 tab PO DAILY 11/28/19 01/02/25 01/02/25 History walker #1 ea 03/11/20 01/02/25 05/12/22 Rx blood-glucose meter (Blood Glucose #1 ea 12/23/20 01/02/25 05/12/22 Rx Monitoring kit) ascorbate calcium (vitamin C) 500 500 mg PO DAILY 05/06/21 01/02/25 01/02/25 History mg tablet cholecalciferol (vitamin D3) 25 25 mcg PO DAILY 05/06/21 01/02/25 01/02/25 History mcg (1,000 unit) capsule vitamin B complex 1 tab PO DAILY 05/06/21 01/02/25 01/02/25 History acetaminophen 325 mg capsule 325 mg PO Q4H PRN fever or pain 06/10/21 01/02/25 01/02/25 Rx #60 caps hydromorphone 2 mg tablet 2 mg PO BID PRN pain 30 days #60 02/21/22 01/02/25 01/02/25 Rx tabs Articulating AFO to the left #1 ea 02/23/23 01/02/25 Unknown Rx baclofen 10 mg tablet 10 mg PO PRN PRN Muscle Spasm #30 10/04/23 01/02/25 01/02/25 Rx tabs latanoprost 0.005 % eye drops 1 drp ophthalmic (eye) QPM 07/04/24 01/02/25 01/02/25 History Wheel chair with elevated leg rest #1 ea 07/29/24 01/02/25 Unknown Rx oxybutynin chloride 10 mg 10 mg PO DAILY #30 tabs 07/31/24 01/02/25 01/02/25 Rx tablet,extended release 24 hr blood sugar diagnostic ([employer] #100 strips 09/26/24 01/02/25 Unknown Rx Ultra Test strips) lancets 30 gauge (OneTouch Delica #100 ea 09/26/24 01/02/25 Unknown Rx Plus Lancet) pantoprazole 40 mg tablet,delayed 40 mg PO DAILY #30 tabs 11/07/24 01/02/25 01/03/25 05:30 Rx release metoprolol tartrate 25 mg tablet See Rx Instructions .Route 11/19/24 01/02/25 01/03/25 05:30 Rx .COMPLEX #90 tabs hydroxyzine HCl 25 mg tablet 25 mg PO BID PRN anxiety #60 tabs 12/03/24 01/02/25 01/02/25 Rx duloxetine 30 mg capsule,delayed 30 mg PO BID 30 days #60 caps 12/06/24 01/02/25 01/02/25 Rx release Diabetic shoes #1 ea 12/09/24 01/02/25 Unknown Rx metformin 1,000 mg tablet 1,000 mg PO BID #60 tabs 12/18/24 01/02/25 01/02/25 Rx simvastatin 10 mg tablet 10 mg PO DAILY #30 tabs 12/18/24 01/02/25 01/02/25 Rx alendronate 70 mg tablet 70 mg PO DAILY 04/12/2401/02/25 01/02/25 History allopurinol 300 mg tablet 300 mg PO DAILY 01/02/25 01/02/25 01/02/25 History gabapentin 800 mg tablet 800 mg PO DAILY 01/02/25 01/02/25 01/02/25 History potassium chloride 10 mEq 10 meq PO DAILY 01/02/25 01/02/25 01/02/25 History capsule,extended release prosthetic bra #3 ea 01/02/25 Unknown Rx sitagliptin phosphate 25 mg tablet 25 mg PO DAILY 01/02/25 01/02/25 01/02/25 History (Januvia) Allergies Allergy/AdvReac Type Severity Reaction Status Date / Time ibuprofen Allergy ALGY-Rash Verified 01/03/25 08:23 oxycodone (From Percocet) Allergy ADR-Dizzine Verified 01/03/25 08:23 ss Penicillins Allergy ALGY-Rash Verified 01/03/25 08:23 morphine AdvReac Unknown NAUSEA Verified 01/03/25 08:23 PFSH PFSH: Medical History Type 2 diabetes mellitus Peripheral neuropathy due to chemotherapy Obstructive sleep apnea Osteopenia Breast cancer Trigger thumb of right hand Ganglion, right wrist Psychiatric care GERD (gastroesophageal reflux disease) Hypertension New onset type 2 diabetes mellitus Generalized anxiety disorder Major depressive disorder, recurrent severe without psychotic 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 Surgical History History of tubal ligation History of right mastectomy (06/11/19) Right total mastectomy/axillary sentinel lymph node biopsy, immediate reconstruction History of left mastectomy (08/10/10) Left total mastectomy/axillary node sampling/breast reconstruction Status post vaginal hysterectomy Port-A-Cath in place Removed for 02/10/2021 History of colonoscopy 2018 Hx of hysterectomy, total Hx of breast reconstruction History of open reduction and internal fixation (ORIF) procedure Left wrist fracture Family History Other CAD (coronary artery disease) Cancer Social History Smoking and tobacco/nicotine status: former use of tobacco/nicotine Quit status (tobacco/nicotine): has quit using Year quit tobacco: 2022 Former quit date comment: smoked 30 years total Dietary Habits: Caffeine: Yes Caffeine intake frequency: carbonated beverages, coffee and tea Vital Signs Vitals Signs: Last Vital Signs Temp 97.6 F 01/03/25 08:17 Pulse 69 01/03/25 08:17 Resp 18 01/03/25 08:17 BP 135/92 01/03/25 08:17 Pulse Ox 95 01/03/25 08:17 Weight: Weight last 48 hrs Weight 268 lb Physical Exam Narrative: EXAM NARRATIVE: Patient is alert and oriented ?3 and in no acute distress. The following is a focused left lower extremity exam. VASCULAR: Dorsalis pedis and posterior tibial arteries palpable +2. Capillary refill time less than 3 seconds to the distal hallux bilaterally. Calf is supple and nontender proximally and distally. Mild edema at the operative site consistent with postoperative course. NEUROLOGICAL: Protective sensation diminished. DERMATOLOGICAL: Incision is epithelialized, no wounds. MUSCULOSKELETAL: Pain with loading the left first metatarsal phalangeal joint, hallux valgus recurrence, left. Tenderness at medial head of the left first metatarsal. Posterior tibial tendon fires pain-free. Pes planus foot type bilaterally. Hallux valgus bilaterally. CARDIOVASCULAR: S1, S2, normal rate, normal rhythm. Dorsalis pedis and posterior tibial arteries palpable. LUNGS: Clear to auscltation, no use of acessory muscles, no crackles or wheezes. 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 I reviewed at length with the patient, the risks, potential complications, benefits, alternatives, expectations, and typical outcomes associated with the surgery. The risks and potential complications were explained in detail, including but not limited to infection, wound dehiscence or soft tissue complications, bleeding and hematoma, chronic edema, neuritis or nerve damage producing numbness or chronic pain, CRPS, failure to relieve pain or worsening pain, thick / painful / unsightly scar, limited motion / stiffness, malposition, delayed union, malunion, or nonunion, fracture, reaction to implants, anesthetic complications, venous thromboembolism, and deformity recurrence. I discussed the notion of no regrets with the patient as it pertains to complications and outcomes. The patient seemed to understand the nature of the proposed care and required convalescence. They asked appropriate questions, answered to their satisfaction. They are aware no guarantees can be made as to a satisfactory outcome and they understand there may be other possible unforeseen complications or outcomes not listed here that will be treated accordingly if they arise. There were no written or implied guarantees given to the patient. They gave informed consent to proceed. Plan for hardware removal, revision first metatarsophalangeal arthrodesis with possible calcaneal autograft. General LMA, gurney, supine, mini C arm, small power, [place] PDMP PDMP Reviewed: Not Reviewed Coding Level of Care Code Acute Code for [facility] Fwd Diagnoses Bilateral pes planus M21.41; M21.42 Nonunion after arthrodesis M96.0 Hallux valgus (acquired), left foot M20.12 Left foot pain M79.672
--- NOTE | 2025-01-03 09:50 | ANES.PREANE2 ---
Pre-Anesthetic Assessment Height/Weight: Height 5 ft 6 in Weight 268 lb Temp Pulse Resp BP Pulse Ox 97.6 F 69 18 135/92 95 01/03/25 08:17 01/03/25 08:17 01/03/25 08:17 01/03/25 08:17 01/03/25 08:17 Preop Diagnosis: Painful hardware and nonunion left foot. Operation Date: 01/03/25 09:10 Proposed Procedures p Hardware Removal Left Foot(Left) - Tulio Hanna DPM s First Metatarsophalangeal Joint Fusion(Left) - Tulio Hanna DPM s Left Foot Calcaneal Autograft(Left) - Tulio Hanna DPM Was Beta Jori taken within 24 hours: Yes Was Clonidine taken within 24 hours: N/A Last intake: Intake Last Liquid Date 01/02/25 Last Liquid Time 18:30 Last Solid Date 01/02/25 Last Solid Time 18:30 Social No alcohol and No tobacco Quit smoking in October Exam alert, oriented x 3, clear to auscultation bilaterally and regular rate & rhythm Airway Submandibular: within normal limits Cervical ROM: within normal limits Mallampati: Class III Comments: Comments: Only a few bottom teeth left, denies any loose Anesthetic Plan ASA status: 3 Anesthesia: General Other: No prior issues with anesthesia N.p.o. since yesterday evening History of hypertension on metoprolol Type 2 diabetes takes p.o. Januvia. BS 183 GERD on Protonix Echo 2019 showing EF 60 to 65% Plan for general anesthesia Medications/Allergies Home Medications ?Medication ?Instructions ?Recorded ?Confirmed ?Last Taken ?Type calcium carbonate (Calcium 600) 600 mg PO DAILY 11/28/19 01/02/25 01/02/25 History multivitamin 1 tab PO DAILY 11/28/19 01/02/25 01/02/25 History walker #1 ea 03/11/20 01/02/25 05/12/22 Rx blood-glucose meter (Blood Glucose #1 ea 12/23/20 01/02/25 05/12/22 Rx Monitoring kit) ascorbate calcium (vitamin C) 500 500 mg PO DAILY 05/06/21 01/02/25 01/02/25 History mg tablet cholecalciferol (vitamin D3) 25 25 mcg PO DAILY 05/06/21 01/02/25 01/02/25 History mcg (1,000 unit) capsule vitamin B complex 1 tab PO DAILY 05/06/21 01/02/25 01/02/25 History acetaminophen 325 mg capsule 325 mg PO Q4H PRN fever or pain 06/10/21 01/02/25 01/02/25 Rx #60 caps hydromorphone 2 mg tablet 2 mg PO BID PRN pain 30 days #60 02/21/22 01/02/25 01/02/25 Rx tabs Articulating AFO to the left #1 ea 02/23/23 01/02/25 Unknown Rx baclofen 10 mg tablet 10 mg PO PRN PRN Muscle Spasm #30 10/04/23 01/02/25 01/02/25 Rx tabs latanoprost 0.005 % eye drops 1 drp ophthalmic (eye) QPM 07/04/24 01/02/25 01/02/25 History Wheel chair with elevated leg rest #1 ea 07/29/24 01/02/25 Unknown Rx oxybutynin chloride 10 mg 10 mg PO DAILY #30 tabs 07/31/24 01/02/25 01/02/25 Rx tablet,extended release 24 hr blood sugar diagnostic (OneTouch #100 strips 09/26/24 01/02/25 Unknown Rx Ultra Test strips) lancets 30 gauge (OneTouch Delica #100 ea 09/26/24 01/02/25 Unknown Rx Plus Lancet) pantoprazole 40 mg tablet,delayed 40 mg PO DAILY #30 tabs 11/07/24 01/02/25 01/03/25 05:30 Rx release metoprolol tartrate 25 mg tablet See Rx Instructions .Route 11/19/24 01/02/25 01/03/25 05:30 Rx .COMPLEX #90 tabs hydroxyzine HCl 25 mg tablet 25 mg PO BID PRN anxiety #60 tabs 12/03/24 01/02/25 01/02/25 Rx duloxetine 30 mg capsule,delayed 30 mg PO BID 30 days #60 caps 12/06/24 01/02/25 01/02/25 Rx release Diabetic shoes #1 ea 12/09/24 01/02/25 Unknown Rx metformin 1,000 mg tablet 1,000 mg PO BID #60 tabs 12/18/24 01/02/25 01/02/25 Rx simvastatin 10 mg tablet 10 mg PO DAILY #30 tabs 12/18/24 01/02/25 01/02/25 Rx alendronate 70 mg tablet 70 mg PO DAILY 01/02/25 01/02/25 01/02/25 History allopurinol 300 mg tablet 300 mg PO DAILY 01/02/25 01/02/25 01/02/25 History gabapentin 800 mg tablet 800 mg PO DAILY 01/02/25 01/02/25 01/02/25 History potassium chloride 10 mEq 10 meq PO DAILY 01/02/25 01/02/25 01/02/25 History capsule,extended release prosthetic bra #3 ea 01/02/25 Unknown Rx sitagliptin phosphate 25 mg tablet 25 mg PO DAILY 01/02/25 01/02/25 01/02/25 History (Januvia) hydrocodone 10 mg-acetaminophen 1 tab PO Q6H PRN pain 7 days #28 01/03/25 Unknown Rx 325 mg tablet tabs Allergies Allergy/AdvReac Type Severity Reaction Status Date / Time ibuprofen Allergy ALGY-Rash Verified 01/03/25 08:23 oxycodone (From Percocet) Allergy ADR-Dizzine Verified 01/03/25 08:23 ss Penicillins Allergy ALGY-Rash Verified 01/03/25 08:23 morphine AdvReac Unknown NAUSEA Verified 01/03/25 08:23 Current Medications Generic Name Dose Route Start Last Admin Trade Name Freq PRN Reason Stop Dose Admin Sodium Chloride 1,000 mls @ 30 mls/hr 01/03/25 08:30 01/03/25 08:31 Sodium Chloride 0.9% IV 01/04/25 08:29 30 mls/hr .Q24H SUGEY Administration PFSH Anesthesia Medical History Type 2 diabetes mellitus Peripheral neuropathy due to chemotherapy Obstructive sleep apnea Osteopenia Breast cancer Trigger thumb of right hand Ganglion, right wrist Psychiatric care GERD (gastroesophageal reflux disease) Hypertension New onset type 2 diabetes mellitus Generalized anxiety disorder Major depressive disorder, recurrent severe without psychotic 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 Surgical History History of tubal ligation History of right mastectomy (06/11/19) Right total mastectomy/axillary sentinel lymph node biopsy, immediate reconstruction History of left mastectomy (08/10/10) Left total mastectomy/axillary node sampling/breast reconstruction Status post vaginal hysterectomy Port-A-Cath in place Removed for 02/10/2021 History of colonoscopy 2018 Hx of hysterectomy, total Hx of breast reconstruction History of open reduction and internal fixation (ORIF) procedure Left wrist fracture Family History Other CAD (coronary artery disease) Cancer Social History Smoking and tobacco/nicotine status: former use of tobacco/nicotine Quit status (tobacco/nicotine): has quit using Year quit tobacco: 2022 Former quit date comment: smoked 30 years total Data Anesthesia Cardiac Studies: Echocardiogram Limited Views 06/01/20
[2025-01-03] MEDS: clindamycin 900 MG/50 ML PREMIX 100 MG IV (09:57)
[2025-01-03] MEDS: BUPivacaine liposome 13.3 mg/mL SDV 20 mL 266 MG INJECTION (10:10)
[2025-01-03] MEDS: BUPivacaine 0.5% INJ 10 mL 20 ML INJECTION (10:10)
--- NOTE | 2025-01-03 11:25 | W.PM.BPON ---
Date of Procedure: 12/15/23 Surgeon: Tulio Hanna DPM Transporter Radiology(s): Barrera William Alex Procedure(s) performed: Hardware removal and first metatarsophalangeal joint arthrodesis left foot. Findings of the procedure(s): Nonunion left first metatarsophalangeal joint Estimated blood loss: 5 Specimen(s) removed: No specimens. Post-operative diagnosis: Painful nonunion painful hardware left foot
--- NOTE | 2025-01-03 11:26 | P.OP_ITS ---
Operative Report Date of procedure: January 03, 2025 Pre-op diagnosis: Left hallux valgus M20.1.2 Left foot nonunion M84.172 Painful hardware left foot T84.84xa Left foot pain M79.672 Post-op diagnosis: Left hallux valgus M20.1.2 Left foot nonunion M84.172 Painful hardware left foot T84.84xa Left foot pain M79.672 Procedure done: 1) hardware removal left foot. CPT 57683 2) first metatarsophalangeal joint fusion, left foot. CPT 85103 Implants: [employer] first MTP revision plate, 2.7 millimeter screws distally, 3.5 millimeter screws proximally, 3 mm homerun screw, 3-0 Vicryl, 4-0 Vicryl, 4-0 nylon, first MTP allograft from [employer] Specimens removed/disposition: None Pathology: None Surgeon: Tulio Hanna DPM Respiratory Therapist Assistant: Barrera William Alex Estimated blood loss: 5 62 IV fluids: See intraoperative documentation Urine output: None Complications: None Brief History: X-ray left foot 3 view shows hardware subsidence and reoccurrence of hallux valgus with nonunion at left first metatarsophalangeal joint fusion site x-ray left foot 12/09/2024 Patient wishing for revision as her nonunion is affecting her overall quality of life and affecting her ambulatory status. I reviewed at length with the patient, the risks, potential complications, benefits, alternatives, expec tations, and typical outcomes associated with the surgery. The risks and potential complications were explained in detail, including but not limited to infection, wound dehiscence or soft tissue complications, bleeding and hematoma, chronic edema, neuritis or nerve damage producing numbness or chronic pain, CRPS, failure to relieve pain or worsening pain, thick / painful / unsightly scar, limited motion / stiffness, malposition, delayed union, malunion, or nonunion, fracture, reaction to implants, anesthetic complications, venous thromboembolism, and deformity recurrence. I discussed the notion of no regrets with the patient as it pertains to complications and outcomes. The patient seemed to understand the nature of the proposed care and required convalescence. They asked appropriate questions, answered to their satisfaction. They are aware no guarantees can be made as to a satisfactory outcome and they understand there may be other possible unforeseen complications or outcomes not listed here that will be treated accordingly if they arise. There were no written or implied guarantees given to the patient. They gave informed consent to proceed. Procedure: Under mild sedation the patient was brought to the operating room and remained on the gurney in supine position. A timeout was performed. Anesthesia was then administered by the anesthesia service. Local anesthesia injected by myself consisting of 20 cc of 0.5% Marcaine plain in a left Anaya block fashion. Additional 20 cc of Exparel infiltrated subcutaneously in a grid like fashion proximal to the operative site. Well-padded pneumatic tourniquet applied to the left ankle. Left lower extremity was then scrubbed, prepped and draped utilizing normal aseptic technique. Left foot and ankle were exanguinated with Esmarch bandage and tourniquet inflated to 250 mmHg. Attention was directed dorsum of the left forefoot at the first metatarsophalangeal joint over previous incision and new incision was performed through skin with a #15 blade with dissection carried down through subcutaneous tissue to layer of hardware utilizing a combination of sharp and blunt tech nique. Care was taken to retract and preserve neurovascular and tendinous structures. All bleeders were ligated and cauterized as necessary. Hardware was removed in total without fragmentation or failure and passed from the operative field. Identified a obvious nonunion at the left first metatarsal phalangeal joint and this was hardly a fibrous nonunion there was no bony growth at the arthrodesis site. The base of the proximal phalanx of the left great toe and the head of the first metatarsal were prepped for arthrodesis sharply with cone and Cup Reamers until healthy bleeding bone was achieved, this resulted in shortening of the great toe due to the amount of bone having to be removed, incision was flushed with saline solution and subchondral drilling performed opposing surfaces of the arthrodesis site, [employer] length restoring allograft was utilized along with a [employer] dorsal locking first metatarsophalangeal joint arthrodesis plate this was a revision plate with extra length for additional points of fixation and support with 2.7 millimeter screws distally and 3.5 millimeter screws proximally, the left great toe was fused in slight valgus, dorsiflexion was appropriate when simulating weightbearing with flat surface in the operating room with the plantar aspect of the left great toe making contact lightly in neutral in the frontal plane. Excellent alignment and spraining of the arthrodesis site was appreciated, this was finalized with a homerun screw this was a 3 mm [employer] cannulated screw oblique through the arthrodesis site. The incision was irrigated with saline solution, AP, oblique and lateral view confirmed excellent placement and placement of hardware without violation of adjacent joints. The incision was then irrigated and closed in a layered fashion. Periosteum reapproximated with 3-0 Vicryl, subcutaneous tissue with 4- 0 Vicryl and skin with 4-0 nylon. The incision was dressed with Xeroform, sterile 4 x 4 gauze, Kerlix and application of a cam boot to the left lower extremity. Tourniquet was deflated and a prompt hyperemic response is noted to the distal digits of the left foot. Patient tolerated the procedure and anesthesia well and was transferred to the PACU with vital signs stable and vascular status intact. Following a period of postoperative monitoring to be discharged home without home care instructions and to schedule follow-up.
--- NOTE | 2025-01-03 11:39 | XR_ITS ---
WS: [id number] XR foot LT min 3V* [id number] REASON FOR EXAM: post op FINDINGS: The examination is unchanged compared to the intraoperative examination of earlier today. Plate and screw arthrodesis of the first MTP joint. Additional oblique screw placement at the arthrodesis site Short screw segment within the tarsal navicular. Surgical appliances are intact and in proper position and alignment. Arthrodesis is in good alignment. XR/XR foot LT min 3V* [id number] IMPRESSION: Stable postoperative left foot.
--- NOTE | 2025-01-03 12:37 | ANE.PACU2 ---
Inpatient post-anesthesia follow up: Airway intact: Yes Vital signs: Temperature 97.1 F Pulse Rate 62 Respiratory Rate 18 Blood Pressure 134/77 Pulse Oximetry 93 Oxygen Delivery Me thod Room Air Oxygen Flow Rate Fraction of Inspir ed Oxygen Hydration adequate: Yes Nausea and vomiting: No Pain level: 1 Mental status: Baseline
== END 2025-01-03 12:42 | disposition home or self-care (01) ==
PROVIDERS: PCP Nurse Practitioner Family; Visit Provider Podiatrist Foot & Ankle Surgery
PROC: (CPT 28750; principal; 2025-01-03 09:00)
PROC: (CPT 28750; 2025-01-03 09:00)
PROC: (CPT 28750; 2025-01-03 09:00)
DX: M96.0 Pseudarthrosis after fusion or arthrodesis (principal); M20.12 Hallux valgus (acquired), left foot; T84.84XA Pain due to internal orthopedic prosthetic devices, implants and grafts, initial encounter; E11.9 Type 2 diabetes mellitus without complications; G47.33 Obstructive sleep apnea (adult) (pediatric); M21.41 Flat foot [pes planus] (acquired), right foot; M21.42 Flat foot [pes planus] (acquired), left foot; I10 Essential (primary) hypertension; Z79.899 Other long term (current) drug therapy; Z79.84 Long term (current) use of oral hypoglycemic drugs; Z88.5 Allergy status to narcotic agent; Z88.8 Allergy status to other drugs, medicaments and biological substances; Z88.0 Allergy status to penicillin; K21.9 Gastro-esophageal reflux disease without esophagitis; Z87.891 Personal history of nicotine dependence; Y79.3 Surgical instruments, materials and orthopedic devices (including sutures) associated with adverse incidents
CPT/HCPCS: 28750; 20680; 36416; 73630; 76000; 82962; C1713; J0666; J1100; J2405; J2704; J3010; J3490; J7030

== ENCOUNTER → 2025-01-16 15:02 | Outpatient (BNVA) | payer MEDICARE, MEDICAID, SELFPAY | PROVIDERS: PCP Nurse Practitioner Family; Visit Provider Podiatrist Foot & Ankle Surgery | DX: Z98.890 Other specified postprocedural states (principal); E11.40 Type 2 diabetes mellitus with diabetic neuropathy, unspecified; Z79.84 Long term (current) use of oral hypoglycemic drugs | CPT/HCPCS: 73630; 99024 ==

== ENCOUNTER → 2025-02-13 13:57 | Outpatient (BNVA) | payer MEDICARE, MEDICAID, SELFPAY | PROVIDERS: PCP Nurse Practitioner Family; Visit Provider Podiatrist Foot & Ankle Surgery | DX: Z98.890 Other specified postprocedural states (principal); E11.40 Type 2 diabetes mellitus with diabetic neuropathy, unspecified; Z79.84 Long term (current) use of oral hypoglycemic drugs | CPT/HCPCS: 73630; 99024 ==

== ENCOUNTER 2025-02-20 12:53 | Oncology outpatient (recurring) (ONCR) | payer MEDICARE, MEDICAID, SELFPAY ==
--- NOTE | 2025-02-20 13:00 | XR_ITS ---
WS: [id number] SCREENING DEXA SCAN [facility] CLINICAL INFORMATION: post menopausal COMPARISON: 2022 FINDINGS: The L1-L4 bone mineral density measures 1.264 g/cm2. This corresponds to a T score score of 0.7 and Z score of 0.9. Left femoral neck bone mineral density measures 0.987 g/cm2. This corresponds to a T score of -0.2 and Z score of 0.0. Right femoral neck bone mineral density measures 1.062 g/cm2. This corresponds to a T score 0.4of and Z score of 0.6. Mean femoral neck bone mineral density measures 1.025 g/cm2. This corresponds to a T score of 0.1 and Z score of 0.3. XR/XR DEXA axial skeleton* [id number] IMPRESSION: Normal bone mineralization. Patient's FRAX calculated 10 year probability for major osteoporotic fracture i s 15.1% and osteoporotic hip fracture is 1.3%.
== END 2025-03-01 23:59 | disposition home or self-care (01) ==
LOC: ONCMED 12:53
PROVIDERS: PCP Nurse Practitioner Family; Visit Provider Internal Medicine
DX: Z78.0 Asymptomatic menopausal state (principal); E55.9 Vitamin D deficiency, unspecified
CPT/HCPCS: 77080

== ENCOUNTER → 2025-03-13 09:26 | Outpatient (BNVA) | payer MEDICARE, MEDICAID, SELFPAY | PROVIDERS: PCP Nurse Practitioner Family; Visit Provider Podiatrist Foot & Ankle Surgery | DX: Z98.890 Other specified postprocedural states (principal); E11.40 Type 2 diabetes mellitus with diabetic neuropathy, unspecified; M21.41 Flat foot [pes planus] (acquired), right foot; M21.42 Flat foot [pes planus] (acquired), left foot; M20.41 Other hammer toe(s) (acquired), right foot; M20.42 Other hammer toe(s) (acquired), left foot; Z79.84 Long term (current) use of oral hypoglycemic drugs; Z46.89 Encounter for fitting and adjustment of other specified devices | CPT/HCPCS: 73630; 99213; L3031 ==

== ENCOUNTER 2025-03-13 11:18 | Outpatient (CLI) | payer MEDICARE, MEDICAID, SELFPAY | END 2025-03-13 11:19 | disposition home or self-care (01) | LOC: SPT 11:24 | PROVIDERS: PCP Nurse Practitioner Family; Visit Provider Podiatrist Foot & Ankle Surgery | DX: Z46.89 Encounter for fitting and adjustment of other specified devices (principal); E11.40 Type 2 diabetes mellitus with diabetic neuropathy, unspecified | CPT/HCPCS: L3031 ==

== ENCOUNTER → 2025-03-31 10:55 | Outpatient (BNVA) | payer MEDICARE, MEDICAID, SELFPAY | PROVIDERS: PCP Nurse Practitioner Family; Visit Provider Nurse Practitioner Family | DX: I10 Essential (primary) hypertension (principal); E11.40 Type 2 diabetes mellitus with diabetic neuropathy, unspecified | CPT/HCPCS: 80053; 80061; 83036 ==

== ENCOUNTER → 2025-04-01 12:57 | Outpatient (BNVA) | payer MEDICARE, MEDICAID, SELFPAY | PROVIDERS: PCP Nurse Practitioner Family; Visit Provider Nurse Practitioner | DX: S52.134A Nondisplaced fracture of neck of right radius, initial encounter for closed fracture (principal); W19.XXXA Unspecified fall, initial encounter | CPT/HCPCS: 73110 ==

== ENCOUNTER 2025-04-01 15:16 | Outpatient (CLI) | payer MEDICARE, MEDICAID, SELFPAY | END 2025-04-01 15:17 | LOC: SPT 15:16 | PROVIDERS: PCP Nurse Practitioner Family; Visit Provider Nurse Practitioner | DX: Z46.89 Encounter for fitting and adjustment of other specified devices (principal); S52.571D Other intraarticular fracture of lower end of right radius, subsequent encounter for closed fracture with routine healing; X58.XXXD Exposure to other specified factors, subsequent encounter | CPT/HCPCS: 97760; L3982 ==

== ENCOUNTER → 2025-04-16 15:36 | Outpatient (BNVA) | payer MEDICARE, MEDICAID, SELFPAY | PROVIDERS: PCP Nurse Practitioner Family; Visit Provider Nurse Practitioner | DX: S52.571D Other intraarticular fracture of lower end of right radius, subsequent encounter for closed fracture with routine healing (principal); X58.XXXD Exposure to other specified factors, subsequent encounter | CPT/HCPCS: 73110; 99024 ==

== ENCOUNTER → 2025-05-01 12:48 | Outpatient (BNVA) | payer OTHER, MEDICAID, SELFPAY | PROVIDERS: PCP Nurse Practitioner Family; Visit Provider Podiatrist Foot & Ankle Surgery | DX: Z98.890 Other specified postprocedural states (principal); E11.40 Type 2 diabetes mellitus with diabetic neuropathy, unspecified; M21.41 Flat foot [pes planus] (acquired), right foot; M21.42 Flat foot [pes planus] (acquired), left foot; M20.41 Other hammer toe(s) (acquired), right foot; M20.42 Other hammer toe(s) (acquired), left foot; Z79.84 Long term (current) use of oral hypoglycemic drugs | CPT/HCPCS: 73630; 99024 ==

== ENCOUNTER → 2025-05-22 09:50 | Outpatient (BNVA) | payer OTHER, MEDICAID, SELFPAY | PROVIDERS: PCP Nurse Practitioner Family; Visit Provider Nurse Practitioner Women's Health | DX: Z98.890 Other specified postprocedural states (principal); Z86.69 Personal history of other diseases of the nervous system and sense organs; R39.9 Unspecified symptoms and signs involving the genitourinary system | CPT/HCPCS: 81000; 87086 ==

== ENCOUNTER → 2025-05-23 11:55 | Outpatient (BNVA) | payer OTHER, MEDICAID, SELFPAY | PROVIDERS: PCP Nurse Practitioner Family; Visit Provider Nurse Practitioner | DX: S52.134D Nondisplaced fracture of neck of right radius, subsequent encounter for closed fracture with routine healing (principal); X58.XXXD Exposure to other specified factors, subsequent encounter | CPT/HCPCS: 73110 ==

== ENCOUNTER → 2025-07-02 09:17 | Outpatient (BNVA) | payer OTHER, MEDICAID, SELFPAY | PROVIDERS: PCP Nurse Practitioner Family; Visit Provider Nurse Practitioner Family | DX: M85.80 Other specified disorders of bone density and structure, unspecified site (principal); I10 Essential (primary) hypertension; E11.9 Type 2 diabetes mellitus without complications | CPT/HCPCS: 80053; 80061; 82306; 83036 ==

== ENCOUNTER 2025-07-03 11:45 | Oncology outpatient (recurring) (ONCR) | payer MEDICARE, MEDICAID, SELFPAY ==
[2025-07-03 12:01] LABS: Hematocrit 45.8 % (36-47); Hemoglobin 15.80 g/dL (11.27-16.99); Mean Corpuscular HGB Conc 34.5 g/dL (30-55); Mean Corpuscular Hemoglobin 30.9 pg (27-33); Mean Corpuscular Volume 89.5 fl (85-98); Nucleated Red Blood Cells % 0 %; Platelet Count 262 10^3/cmm (157-399); Red Blood Count 5.12 10^6/uL (3.85-5.65); White Blood Count 7.86 10^3/uL (3.29-11.43)
[2025-07-03 12:26] LABS: Alanine Aminotransferase 17 U/L (0-33); Albumin Level 4.3 g/dL (3.5-5.2); Alkaline Phosphatase 66 U/L (35-105); Anion Gap 16.1 (5-19); Aspartate Amino Transferase 19 U/L (0-32); Blood Urea Nitrogen 11 mg/dL (8-23); Calcium 9.3 mg/dL (8.5-10.5); Carbon Dioxide 25 mmol/L (22-29); Chloride 105 mmol/L (98-107); Globulin 3.0 g/dL (1.3-4.6); Glucose 144 mg/dL (65-115); Osmolality Calculated 296 mOsm/kg (285-295); Potassium 4.1 mmol/L (3.5-5.1); Sodium 142 mmol/L (136-145); Total Protein 7.3 g/dL (6.6-8.7)
== END 2025-08-01 23:59 | disposition home or self-care (01) ==
PROVIDERS: PCP Nurse Practitioner Family; Visit Provider Internal Medicine
DX: Z08 Encounter for follow-up examination after completed treatment for malignant neoplasm (principal); Z85.3 Personal history of malignant neoplasm of breast; E55.9 Vitamin D deficiency, unspecified; S81.811A Laceration without foreign body, right lower leg, initial encounter; W22.8XXA Striking against or struck by other objects, initial encounter; Z87.891 Personal history of nicotine dependence; Z92.21 Personal history of antineoplastic chemotherapy; Z92.25 Personal history of immunosuppression therapy; Z90.11 Acquired absence of right breast and nipple
CPT/HCPCS: 36415; 80053; 83615; 85025; 99213

== ENCOUNTER → 2025-07-25 08:59 | Outpatient (BNVA) | payer OTHER, MEDICAID, SELFPAY | PROVIDERS: PCP Nurse Practitioner Family; Visit Provider Nurse Practitioner | DX: S52.571D Other intraarticular fracture of lower end of right radius, subsequent encounter for closed fracture with routine healing (principal); X58.XXXD Exposure to other specified factors, subsequent encounter | CPT/HCPCS: 99213 ==

== ENCOUNTER → 2025-09-02 12:38 | Outpatient (BNVA) | payer MEDICARE, MEDICAID, OTHER, SELFPAY | PROVIDERS: PCP Nurse Practitioner Family; Visit Provider Podiatrist Foot & Ankle Surgery | DX: E11.8 Type 2 diabetes mellitus with unspecified complications (principal); L60.3 Nail dystrophy; E11.40 Type 2 diabetes mellitus with diabetic neuropathy, unspecified; M21.41 Flat foot [pes planus] (acquired), right foot; M21.42 Flat foot [pes planus] (acquired), left foot; M20.41 Other hammer toe(s) (acquired), right foot; M20.42 Other hammer toe(s) (acquired), left foot; I73.9 Peripheral vascular disease, unspecified; Z79.84 Long term (current) use of oral hypoglycemic drugs; Z79.85 Long-term (current) use of injectable non-insulin antidiabetic drugs | CPT/HCPCS: 11721 ==